=== PATIENT | male | born 1955 | race Caucasian/White ===

== ENCOUNTER → 2018-10-25 | Outpatient (CLI) | payer BC ==
[~2018-10-25] MED LIST: DOBUTamine DRIP for NUC MED 500 MG in DEXTROSE/WATER 1 250ML.BAG IV ONE
--- NOTE | 2018-10-25 09:41 | US ---
EXAMINATION TYPE: US carotid duplex BILAT DATE OF EXAM: 10/25/2018 COMPARISON: NONE CLINICAL HISTORY: I65.21 Occlusion and stenosis, R07.89 Chest Pain. HTN controlled with meds, no dizz iness EXAM MEASUREMENTS: RIGHT: Peak Systolic Velocity (PSV) cm/sec ----- Right CCA: 75.6 ----- Right ICA: 75.6 ----- Right ECA: 63.4 ICA/CCA ratio: 1.0 RIGHT: End Diastole cm/sec ----- Right CCA: 18.0 ----- Right ICA: 26.7 ----- Right ECA: 10.1 LEFT: Peak Systolic Velocity (PSV) cm/sec ----- Left CCA: 80.0 ----- Left ICA: 75.9 ----- Left ECA: 62.5 ICA/CCA ratio: 0.9 LEFT: End Diastole cm/sec ----- Left CCA: 17.1 ----- Left ICA: 15.3 ----- Left ECA: 9.3 VERTEBRALS (direction of flow): Right Vertebral: Antegrade Left Vertebral: Antegrade Rhythm: Normal Bilateral wall thickening. Plaque seen in bilateral bulbs. No elevated velocities or significant st enosis. IMPRESSION: 1. Bilateral atherosclerotic plaque with no significant hemodynamic stenosis. Criteria for Assigning % of Stenosis / Diameter reduction (Estimation based on the indirect measurements of the internal carotid artery velocities (ICA PSV). 1. Normal (no stenosis)=ICA PSV < 125 cm/s: ratio < 2.0: ICA EDV<40 cm/s. 2. Less than 50% stenosis=ICA PSV < 125 cm/s: ratio < 2.0: ICA EDV<40 cm/s. 3. 50 to 69% stenosis=ICA PSV of 125 to 230 cm/s: ration 2.0 ? 4.0: ICA EDV 40-100 cm/s. 4. Greater than 70% stenosis to near occlusion= ICA PSV > 230 cm/s: ratio > 4.0: ICA EDV > 100 cm/s. 5. Near occlusion= ICA PSV velocities may be low or undetectable: variable ratio and ICA EDV. 6. Total occlusion=unable to detect flow.
--- NOTE | 2018-10-25 11:33 | P.STRESS ---
- Stress Test Note Stress Test Results/Findings: Exam Performed: dobutamine stress echo Exam Date: 10/25/18 Reason for Exam: Chest Pain Height: 6 ft Weight: 98.883 kg Protocol: Dobutamine Stage: na Duration of Exercise: na Resting Heart Rate: 56 Resting Blood Pressure: 160/82 Maximum Achieved Heart Rate: 132 Maximum Achieved Blood Pressure: 169/63 85% PMHR: 132 100% PMHR: 155 METS: na Technologist Comment: Stress Test Results/Findings: Baseline heart rate 56 beats a minute, Baseline blood pressure 160/82 mmHg Baseline Torrisi should ulcers were normal cardiac intervals Patient exercised on a Doni protocol for 8 minutes 44 seconds achieving a peak 100 132 beats a minute. Normal blood pressure response to exercise There was no ECG in Cerner ischemia No arrhythmias noted The baseline 2-D echo showed normal LV size and systolic function without segmental wall motion abnormalities At peak exercise, there was excellent augmentation of overall LV contractility without development of any wall motion abnormalities @Recovery region global LV systolic function remained normal Impression ALLERGY excess capacity No ECG or echocardiographic evidence for ischemia
== END ==
LOC: RADUSMAIN 07:52
PROVIDERS: ATTEND Family Medicine
DX: R07.89 Other chest pain (principal); I65.21 Occlusion and stenosis of right carotid artery
CPT/HCPCS: 93351; 93880; J1250

== ENCOUNTER → 2019-05-14 | Outpatient (CLI) | payer BC ==
--- NOTE | 2019-05-14 08:27 | US ---
EXAMINATION TYPE: US duplex aorta DATE OF EXAM: 05/14/2019 COMPARISON: NONE CLINICAL HISTORY: I70.0 Atherosclerosis of aorta. Patient states atherosclerosis of aorta seen on rec ent x-ray, states no other symptoms. EXAM MEASUREMENTS: Abdominal Aorta: Proximal: 2.5 x 2.5cm Mid: 2.1 x 2.0cm Distal: 1.5 x 1.5cm Right Iliac: 1.1 x 1.1cm Left Iliac: 1.1 x 1.0cm Proximal portion measuring in upper limits of normal. IMPRESSION: 1. No aneurysm on screening abdominal ultrasound of the aorta
== END | disposition home or self-care (01) ==
LOC: RADUSWWP 07:37
PROVIDERS: ATTEND Family Medicine
DX: I70.0 Atherosclerosis of aorta (principal)
CPT/HCPCS: 93979

== ENCOUNTER → 2019-05-16 | Outpatient (CLI) | payer BC | END | disposition home or self-care (01) | LOC: LABWHC1 15:41 | PROVIDERS: ATTEND Internal Medicine Cardiovascular Disease | DX: I48.19 Other persistent atrial fibrillation (principal) | CPT/HCPCS: 36415; 84443 ==

== ENCOUNTER → 2019-06-08 | Outpatient (CLI) | payer BC ==
[2019-06-08 12:34] LABS: HCT 44.4 % (39.0-53.0); HGB 14.9 gm/dL (13.0-17.5); MCH 32.6 pg (25.0-35.0); MCHC 33.4 g/dL (31.0-37.0); MCV 97.6 fL (80.0-100.0); Mean Platelet Volume 7.6; Platelet Count 224 k/uL (150-450); RBC 4.55 m/uL (4.30-5.90); RDW 12.3 % (11.5-15.5); WBC 5.5 k/uL (3.8-10.6)
[2019-06-08 12:41] LABS: African American GFR (CKD) >90 (>60 ml/min/1.73 sqM); Anion Gap 7 mmol/L; Blood Urea Nitrogen 16 mg/dL (9-20); Carbon Dioxide 30 mmol/L (22-30); Chloride 103 mmol/L (98-107); Non-African American GFR(CKD) >90 (>60 ml/min/1.73 sqM); Potassium 4.2 mmol/L (3.5-5.1); Sodium 140 mmol/L (137-145)
== END | disposition home or self-care (01) ==
LOC: LABPAT 12:05
PROVIDERS: ATTEND Internal Medicine Cardiovascular Disease
DX: Z01.812 Encounter for preprocedural laboratory examination (principal); I48.11 Longstanding persistent atrial fibrillation
CPT/HCPCS: 80051; 82565; 84520; 85027

== ENCOUNTER 2019-06-12 06:28 | Day surgery (SDC) | payer BC ==
[2019-06-08 09:13] VITALS: BMI 30.3
[~2019-06-12 06:28] MED LIST changes: -DOBUTamine DRIP for NUC MED 500 MG in DEXTROSE/WATER 1 250ML.BAG IV ONE; +LACTATED RINGERS 1,000 ML IV SCH; +LIDOCAINE 1% 20 ML VIAL (10MG/ML) FOR IV START INTRADERMA PRN; +MORPHINE SULFATE 4 MG/ML SYRINGE IV PRN; +SODIUM CHLORIDE 0.9% 1,000 ML IV SCH
[2019-06-12 06:44] VITALS: TEMP 98
[2019-06-12] MEDS ORDERED: SODIUM CHLORIDE 0.9% 500 ML 500 ML IV ONE (06:52)
[2019-06-12] MEDS: BENZOCAINE SPRAY 1 CAN MUCOUS MEM ONE ×2 (07:58→08:00)
[2019-06-12] MEDS ORDERED: PROPOFOL 10 MG/ML 20 ML VIAL IV ONE (07:59)
[2019-06-12] MEDS ORDERED: LIDOCAINE 1% INJ 10MG/ML (20 ML MDV) ONE (07:59)
[2019-06-12] MEDS ORDERED: SODIUM CHLORIDE 0.9% 1,000 ML IV SCH (08:30)
--- NOTE | 2019-06-12 08:41 | ECHOT ---
TRANSESOPHAGEAL ECHOCARDIOGRAM PROCEDURE: Transesophageal echocardiogram. INDICATION: Persistent atrial fibrillation. PROCEDURE NOTE: After obtaining informed consent, transesophageal echocardiogram was performed in left lateral position using an Omniplane probe. Local and IV sedation were obtained by blade grader operator. FINDINGS: 1. There is no intracardiac thrombus within the left atrial appendage, left atrium, left ventricle, right atrium or right ventricle. 2. Left atrium appears mildly enlarged. 3. Left ventricle has normal size and systolic function. 4. Right atrium and right ventricle within normal limits. 5. Interatrial septum appears aneurysmally dilated. There is no evidence of left-to- right shunt by color-flow Doppler or [id number] shunt by agitated saline contrast study. 6. Aortic valve is a 3-leaflet valve. There is no evidence of aortic stenosis or regurgitation. 7. Tricuspid valve shows trace tricuspid regurgitation. 8. Mitral valve shows mild to moderate mitral regurgitation. 9. Aorta: The aortic sinuses are ectatic. The root measures 4.4 cm at that level. Ascending aorta measures within normal limits. CONCLUSIONS: 1. No intracardiac thrombus within the left atrial appendage. 2. Normal left ventricular function. 3. Mild to moderate mitral regurgitation. 4. Aneurysm of the aortic sinuses. PLAN: The patient will undergo cardioversion. MMODL / IJN: [id number] /
--- NOTE | 2019-06-12 08:47 | CE ---
CARDIAC ELECTROPHYSIOLOGY REPORT CARDIOVERSION NOTE: INDICATION: Persistent atrial fibrillation. PROCEDURE NOTE: After obtaining informed consent and confirming that there is no intracardiac thrombus by transesophageal echo and ensuring the patient had been receiving long-term oral anticoagulation, the patient was anesthetized by the food and drug research scientist and underwent cardioversion with synchronized DC current. The patient received 2 shocks, one at 200 joules and the second one at 300 joules and following the second shock converted to sinus rhythm. PLAN: Patient will continue the oral anticoagulant. Will be discharged home later today and will follow up with me. RICK / EVARISTO: [id number] /
--- NOTE | 2019-06-12 08:53 | LTR ---
June 12, 2019 Re: Bennie Estrada Dear Cici: I performed transesophageal echo and cardioversion on Bennie Estrada. A detailed report is enclosed for your records. The patient converted to sinus rhythm following the cardioversion and will continue with the oral anticoagulant. Thank you for allowing me to participate in the care of this pleasant gentleman. Sincerely, MD RICK Ross / EVARISTO: [id number] /
[2019-06-12 09:02] VITALS: RESP 16
[2019-06-12 10:43] VITALS: BP 147/74; PULSE 71
== END 2019-06-12 10:15 | disposition home or self-care (01) ==
LOC: CATHCVL 06:28
PROVIDERS: ATTEND Internal Medicine Cardiovascular Disease
DX: I48.19 Other persistent atrial fibrillation (principal); I34.0 Nonrheumatic mitral (valve) insufficiency; I71.9 Aortic aneurysm of unspecified site, without rupture; I10 Essential (primary) hypertension; K21.9 Gastro-esophageal reflux disease without esophagitis; Z79.899 Other long term (current) drug therapy; F17.210 Nicotine dependence, cigarettes, uncomplicated; Z79.01 Long term (current) use of anticoagulants
CPT/HCPCS: 93312; 93320; 93325; 92960; J2001; J2704

== ENCOUNTER 2020-03-05 06:36 | Day surgery (SDC) | payer MEDICARE, OTHER ==
[2020-02-29 13:40] VITALS: BMI 31.1
[~2020-03-05 06:36] MED LIST changes: +FAMOTIDINE 20 MG/2 ML VIAL IV PRN; +HYDROmorphone 0.5 MG/0.5 ML SYRINGE IVP PRN; -LIDOCAINE 1% 20 ML VIAL (10MG/ML) FOR IV START INTRADERMA PRN; -MORPHINE SULFATE 4 MG/ML SYRINGE IV PRN; +ONDANSETRON 4 MG/2 ML VIAL IVP PRN; -SODIUM CHLORIDE 0.9% 1,000 ML IV SCH
[2020-03-05] MEDS ORDERED: SODIUM CHLORIDE 0.9% 1,000 ML IV SCH ×2 (06:45→09:45)
[2020-03-05 07:40] VITALS: TEMP 98
[2020-03-05] MEDS ORDERED: SODIUM CHLORIDE 0.9% 500 ML 500 ML IV ONE ×2 (07:40→09:05)
[2020-03-05 07:44] LABS: African American GFR (CKD) >90 (>60 ml/min/1.73 sqM); Anion Gap 9 mmol/L; Blood Urea Nitrogen 22 mg/dL (9-20); Calcium 9.2 mg/dL (8.4-10.2); Carbon Dioxide 27 mmol/L (22-30); Chloride 103 mmol/L (98-107); Glucose 117 mg/dL (74-99); Non-African American GFR(CKD) >90 (>60 ml/min/1.73 sqM); Potassium 4.2 mmol/L (3.5-5.1); Sodium 139 mmol/L (137-145)
[2020-03-05] MEDS ORDERED: PROPOFOL 10 MG/ML 20 ML VIAL IV ONE (08:20)
--- NOTE | 2020-03-05 09:23 | ECHOT ---
TRANSESOPHAGEAL ECHOCARDIOGRAM PROCEDURE: TIMMY. INDICATION: Persistent atrial fibrillation. PROCEDURE NOTE: After obtaining informed consent, transesophageal echocardiogram is performed in left lateral position using an Omni plane probe. Local and IV sedation were obtained by the director alliance marketing. The patient had color Doppler and 2D evaluation. tolerated the procedure well. FINDINGS: 1. There is no intracardiac thrombus within the left atrial appendage, left atrium, right atrium, right ventricle or left ventricle. 2. Mitral valve shows mild prolapse of the anterior mitral leaflet with mild mitral regurgitation. 3. There is mild tricuspid regurgitation. 4. Left ventricle has normal size and systolic function. 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 5. Interatrial septum appears aneurysmally dilated. There is no evidence of left-to- right shunt by color-flow Doppler or [id number] shunt by agitated saline contrast study. CONCLUSION: 1. No intracardiac thrombus. 2. Normal LV function. 3. No evidence of shunting across the interatrial septum. 4. Mild mitral regurgitation. CARDIOVERSION NOTE: INDICATION: Persistent atrial fibrillation. PROCEDURE NOTE: After obtaining informed consent, patient was sedated by the director alliance marketing and underwent electrical cardioversion with synchronized current. He initially received 200 joules of shock with which he did not convert, then I shocked him with 300 joules following which he converted to sinus rhythm. PLAN: Patient will continue the flecainide that he is on along with the Eliquis and will be discharged home later today. MMODL / IJN: [id number] /
--- NOTE | 2020-03-05 09:59 | LTR ---
DATE OF SERVICE: 03/05/2020 RE: Bennie Estrada Dear Cici; I performed TIMMY cardioversion on Bennie Estrada and a detailed procedure note is enclosed for your records. In brief, patient converted to sinus rhythm following 300 joule synchronized DC shock. Thank you for giving us the privilege to participate in the care of this pleasant gentleman. Sincerely, MD RICK Ross / EVARISTO: [id number] /
[2020-03-05 12:57] VITALS: BP 132/77; PULSE 68; RESP 16
== END 2020-03-05 10:35 | disposition home or self-care (01) ==
LOC: CATHCVL 06:36
PROVIDERS: ATTEND Internal Medicine Cardiovascular Disease
DX: I48.19 Other persistent atrial fibrillation (principal); I08.1 Rheumatic disorders of both mitral and tricuspid valves; I77.810 Thoracic aortic ectasia; I10 Essential (primary) hypertension; G89.29 Other chronic pain; M54.9 Dorsalgia, unspecified; M19.90 Unspecified osteoarthritis, unspecified site; K21.9 Gastro-esophageal reflux disease without esophagitis; Z79.899 Other long term (current) drug therapy; Z79.891 Long term (current) use of opiate analgesic; Z79.01 Long term (current) use of anticoagulants; Z87.891 Personal history of nicotine dependence; Z90.89 Acquired absence of other organs; Z98.890 Other specified postprocedural states
CPT/HCPCS: 93312; 93320; 93325; 92960; 80048; J2704

== ENCOUNTER 2020-04-25 00:24 | Observation (INO) | payer MEDICARE, OTHER ==
--- NOTE | 2020-04-25 01:00 | ED ---
GI Bleed HPI - General Chief complaint: GI Bleed Stated complaint: Rectal Bleeding Time Seen by Provider: 04/25/20 00:37 Source: patient Mode of arrival: ambulatory Limitations: no limitations - History of Present Illness Initial comments: this patient is a 64-year-old man who presents with complaint of having GI bleeding. The patient states that over the course of tonight he has hada total of 3 bowel movements with bright red blood. Patient describes a moderate amount of blood with each episode. He has not had abdominal or perianal pain. Patient is denying signs and symptoms of anemia, including no lightheadedness or syncope, diaphoresis, dyspnea, palpitations or chest pain. The patient does have previous history of diverticulitis and he does take eliquis for his history of atrial fibrillation, though he did have an ablation 2 weeks ago. MD complaint: gross hematochezia -: hour(s) Quality: painless Improves with: none Worsens with: none Context: blood thinners Associated Symptoms: denies other symptoms Treatments Prior to Arrival: none - Related Data Home Medications Medication Instructions Recorded Confirmed Albuterol Inhaler (Mhu) [Ventolin 2 puff INHALATION RT-Q6H PRN 05/10/16 03/05/20 Hfa Inhaler] Loratadine [Claritin] 10 mg PO DAILY 05/10/16 03/05/20 Omeprazole [PriLOSEC] 20 mg PO DAILY 05/10/16 03/05/20 Apixaban [Eliquis] 5 mg PO BID 06/08/19 03/05/20 Escitalopram [Lexapro] 5 mg PO DAILY PRN 02/29/20 03/05/20 Flecainide Acetate [Tambocor] 100 mg PO Q12HR 02/29/20 03/05/20 HYDROcodone/APAP 5-325MG [[place] 1 tab PO TID PRN 02/29/20 03/05/20 5-325] amLODIPine BES/OLMESARTAN MED 1 each PO DAILY 02/29/20 03/05/20 [amLODIPine BES/OLMESARTAN MED 10-20 mg] Allergies Allergy/AdvReac Type Severity Reaction Status Date / Time No Known Allergies Allergy Verified 04/25/20 00:35 Review of Systems ROS Statement: Those systems with pertinent positive or pertinent negative responses have been documented in the HPI. ROS Other: All systems not noted in ROS Statement are negative. Constitutional: Denies: fever, chills Respiratory: Denies: cough, dyspnea Cardiovascular: Denies: chest pain, palpitations, orthopnea, edema, syncope Gastrointestinal: Reports: hematochezia. Denies: abdominal pain, nausea, vomiting, diarrhea, constipation, melena Genitourinary: Denies: dysuria, hematuria Musculoskeletal: Denies: back pain Skin: Denies: rash Neurological: Denies: headache, weakness, numbness, paresthesias Hematological/Lymphatic: Reports: as per HPI, other (eliquis) Past Medical History Past Medical History: Atrial Fibrillation, GERD/Reflux, Hypertension, Osteoarthritis (OA), Pneumonia Additional Past Medical History / Comment(s): Chronic BACK PAIN History of Any Multi-Drug Resistant Organisms: None Reported Past Surgical History: Heart Catheterization, Tonsillectomy Additional Past Surgical History / Comment(s): ORAL SURGERY, COLONOSCOPY, BACK - STEROID INJECTIONS,TIMMY, cardioversion Past Anesthesia/Blood Transfusion Reactions: No Reported Reaction Past Psychological History: Anxiety Smoking Status: Former smoker Past Alcohol Use History: Occasional Past Drug Use History: None Reported - Past Family History Mother Family Medical History: No Reported History General Exam Limitations: no limitations General appearance: alert, in no apparent distress Head exam: Present: atraumatic, normocephalic Eye exam: Present: normal appearance. Absent: scleral icterus, conjunctival injection ENT exam: Present: normal oropharynx Neck exam: Present: normal inspection Respiratory exam: Present: normal lung sounds bilaterally. Absent: respiratory distress, wheezes, rales, rhonchi, stridor Cardiovascular Exam: Present: regular rate, normal rhythm, normal heart sounds. Absent: systolic murmur, diastolic murmur, rubs, gallop GI/Abdominal exam: Present: soft. Absent: distended, tenderness, guarding, rebound, rigid, mass Extremities exam: Present: normal inspection, normal capillary refill. Absent: pedal edema, calf tenderness Back exam: Present: normal inspection. Absent: CVA tenderness (R), CVA tenderness (L) Neurological exam: Present: alert Skin exam: Present: warm, dry, intact, normal color. Absent: rash Course Vital Signs 04/25/20 04/25/20 04/25/20 00:31 01:35 02:05 Temperature 97.5 F L Pulse Rate 77 70 58 L Pulse Rate [ Left] Respiratory 18 18 18 Rate Blood Pressure 157/74 152/80 129/79 Blood Pressure [Left Arm] O2 Sat by Pulse 99 97 97 Oximetry 04/25/20 02:59 Temperature 97.9 F Pulse Rate Pulse Rate [ 63 Left] Respiratory 16 Rate Blood Pressure Blood Pressure 163/61 [Left Arm] O2 Sat by Pulse 95 Oximetry Medical Decision Making - Lab Data Result diagrams: 04/25/20 00:59 04/25/20 00:59 Lab Results 04/25/20 04/25/20 04/25/20 Range/Units 00:59 00:59 00:59 WBC 5.9 (3.8-10.6) k/uL RBC 4.36 (4.30-5.90) m/uL Hgb 14.5 (13.0-17.5) gm/dL Hct 43.1 (39.0-53.0) % MCV 98.8 (80.0-100.0) fL MCH 33.3 (25.0-35.0) pg MCHC 33.7 (31.0-37.0) g/dL RDW 12.4 (11.5-15.5) % Plt Count 194 (150-450) k/uL Neutrophils % 41 % Lymphocytes % 48 % Monocytes % 5 % Eosinophils % 1 % Basophils % 1 % Neutrophils # 2.4 (1.3-7.7) k/uL Lymphocytes # 2.9 (1.0-4.8) k/uL Monocytes # 0.3 (0-1.0) k/uL Eosinophils # 0.1 (0-0.7) k/uL Basophils # 0.0 (0-0.2) k/uL PT 10.5 (9.0-12.0) sec INR 1.0 (<1.2) APTT 26.9 (22.0-30.0) sec Sodium 137 (137-145) mmol/L Potassium 3.9 (3.5-5.1) mmol/L Chloride 103 (98-107) mmol/L Carbon Dioxide 27 (22-30) mmol/L Anion Gap 7 mmol/L BUN 19 (9-20) mg/dL Creatinine 0.78 (0.66-1.25) mg/dL Est GFR (CKD-EPI)AfAm >90 (>60 ml/min/1.73 sqM) Est GFR (CKD-EPI)NonAf >90 (>60 ml/min/1.73 sqM) Glucose 114 H (74-99) mg/dL Plasma Lactic Acid Alex (0.7-2.0) mmol/L Calcium 9.2 (8.4-10.2) mg/dL Total Bilirubin 0.4 (0.2-1.3) mg/dL AST 46 (17-59) U/L ALT 66 H (4-49) U/L Alkaline Phosphatase 60 (38-126) U/L Troponin I (0.000-0.034) ng/mL Total Protein 7.6 (6.3-8.2) g/dL Albumin 4.6 (3.5-5.0) g/dL Blood Type Blood Type Confirm Blood Type Recheck Bld Type Recheck Status Antibody Screen Spec Expiration Date 04/25/20 04/25/20 04/25/20 Range/Units 00:59 00:59 00:59 WBC (3.8-10.6) k/uL RBC (4.30-5.90) m/uL Hgb (13.0-17.5) gm/dL Hct (39.0-53.0) % MCV (80.0-100.0) fL MCH (25.0-35.0) pg MCHC (31.0-37.0) g/dL RDW (11.5-15.5) % Plt Count (150-450) k/uL Neutrophils % % Lymphocytes % % Monocytes % % Eosinophils % % Basophils % % Neutrophils # (1.3-7.7) k/uL Lymphocytes # (1.0-4.8) k/uL Monocytes # (0-1.0) k/uL Eosinophils # (0-0.7) k/uL Basophils # (0-0.2) k/uL PT (9.0-12.0) sec INR (<1.2) APTT (22.0-30.0) sec Sodium (137-145) mmol/L Potassium (3.5-5.1) mmol/L Chloride (98-107) mmol/L Carbon Dioxide (22-30) mmol/L Anion Gap mmol/L BUN (9-20) mg/dL Creatinine (0.66-1.25) mg/dL Est GFR (CKD-EPI)AfAm (>60 ml/min/1.73 sqM) Est GFR (CKD-EPI)NonAf (>60 ml/min/1.73 sqM) Glucose (74-99) mg/dL Plasma Lactic Acid Alex 1.4 (0.7-2.0) mmol/L Calcium (8.4-10.2) mg/dL Total Bilirubin (0.2-1.3) mg/dL AST (17-59) U/L ALT (4-49) U/L Alkaline Phosphatase (38-126) U/L Troponin I <0.012 (0.000-0.034) ng/mL Total Protein (6.3-8.2) g/dL Albumin (3.5-5.0) g/dL Blood Type O Positive Blood Type Confirm Blood Type Recheck No Previous Record Bld Type Recheck Status CABO Indicated Antibody Screen NEGATIVE Spec Expiration Date 04/28/2020 - 235804/25/20 Range/Units 01:10 WBC (3.8-10.6) k/uL RBC (4.30-5.90) m/uL Hgb (13.0-17.5) gm/dL Hct (39.0-53.0) % MCV (80.0-100.0) fL MCH (25.0-35.0) pg MCHC (31.0-37.0) g/dL RDW (11.5-15.5) % Plt Count (150-450) k/uL Neutrophils % % Lymphocytes % % Monocytes % % Eosinophils % % Basophils % % Neutrophils # (1.3-7.7) k/uL Lymphocytes # (1.0-4.8) k/uL Monocytes # (0-1.0) k/uL Eosinophils # (0-0.7) k/uL Basophils # (0-0.2) k/uL PT (9.0-12.0) sec INR (<1.2) APTT (22.0-30.0) sec Sodium (137-145) mmol/L Potassium (3.5-5.1) mmol/L Chloride (98-107) mmol/L Carbon Dioxide (22-30) mmol/L Anion Gap mmol/L BUN (9-20) mg/dL Creatinine (0.66-1.25) mg/dL Est GFR (CKD-EPI)AfAm (>60 ml/min/1.73 sqM) Est GFR (CKD-EPI)NonAf (>60 ml/min/1.73 sqM) Glucose (74-99) mg/dL Plasma Lactic Acid Alex (0.7-2.0) mmol/L Calcium (8.4-10.2) mg/dL Total Bilirubin (0.2-1.3) mg/dL AST (17-59) U/L ALT (4-49) U/L Alkaline Phosphatase (38-126) U/L Troponin I (0.000-0.034) ng/mL Total Protein (6.3-8.2) g/dL Albumin (3.5-5.0) g/dL Blood Type Blood Type Confirm O Positive Blood Type Recheck Bld Type Recheck Status Antibody Screen Spec Expiration Date - EKG Data -: EKG Interpreted by Me EKG shows normal: sinus rhythm, axis (normal), intervals (normal), QRS complexes (normal), ST-T waves (normal) Rate: normal (rate 66 bpm) Disposition Clinical Impression: Hematochezia Disposition: ADMITTED IP TO THIS [facility] Condition: Good Instructions (If sedation given, give patient instructions): Gastrointestinal Bleeding (ED) Is patient prescribed a controlled substance at d/c from ED?: No Referrals: Cici Cordova MD [Primary Care Provider] - 1-2 days
[2020-04-25 01:14] LABS: Basophils % (A) 1 %; Eosinophils # (A) 0.1 k/uL (0-0.7); Eosinophils % (A) 1 %; HCT 43.1 % (39.0-53.0); HGB 14.5 gm/dL (13.0-17.5); Lymphocytes # (A) 2.9 k/uL (1.0-4.8); Lymphocytes % (A) 48 %; MCH 33.3 pg (25.0-35.0); MCHC 33.7 g/dL (31.0-37.0); MCV 98.8 fL (80.0-100.0); Mean Platelet Volume 7.3; Monocytes # (A) 0.3 k/uL (0-1.0); Monocytes % (A) 5 %; Neutrophils # (A) 2.4 k/uL (1.3-7.7); Neutrophils % (A) 41 %; Platelet Count 194 k/uL (150-450); RBC 4.36 m/uL (4.30-5.90); RDW 12.4 % (11.5-15.5); WBC 5.9 k/uL (3.8-10.6)
[2020-04-25 01:24] LABS: ALT 66 U/L (4-49); AST 46 U/L (17-59); African American GFR (CKD) >90 (>60 ml/min/1.73 sqM); Albumin 4.6 g/dL (3.5-5.0); Alkaline Phosphatase 60 U/L (38-126); Anion Gap 7 mmol/L; Blood Urea Nitrogen 19 mg/dL (9-20); Calcium 9.2 mg/dL (8.4-10.2); Carbon Dioxide 27 mmol/L (22-30); Chloride 103 mmol/L (98-107); Glucose 114 mg/dL (74-99); Non-African American GFR(CKD) >90 (>60 ml/min/1.73 sqM); Potassium 3.9 mmol/L (3.5-5.1); Sodium 137 mmol/L (137-145); Total Bilirubin 0.4 mg/dL (0.2-1.3); Total Protein 7.6 g/dL (6.3-8.2)
[2020-04-25 01:27] LABS: Partial Thromboplastin Time 26.9 sec (22.0-30.0); Prothrombin Time 10.5 sec (9.0-12.0)
[2020-04-25] MEDS ORDERED: ONDANSETRON 4 MG/2 ML VIAL IVP PRN (01:39)
[2020-04-25] MEDS ORDERED: ACETAMINOPHEN TAB 325 MG TAB PO PRN (01:39)
[2020-04-25] MEDS ORDERED: HYDROmorphone 0.5 MG/0.5 ML SYRINGE IVP PRN (01:39)
[2020-04-25] MEDS ORDERED: NALOXONE 0.4 MG/ML 1 ML VIAL IV PRN (01:39)
[2020-04-25] MEDS ORDERED: MORPHINE SULFATE 4 MG/ML SYRINGE IV PRN (01:39)
[2020-04-25] MEDS: SODIUM CHLORIDE 0.9% 1,000 ML IV SCH (01:51)
[2020-04-25 04:41] LABS: Basophils % (A) 1 %; Eosinophils # (A) 0.1 k/uL (0-0.7); Eosinophils % (A) 1 %; HCT 39.9 % (39.0-53.0); HGB 13.1 gm/dL (13.0-17.5); Lymphocytes # (A) 1.9 k/uL (1.0-4.8); Lymphocytes % (A) 42 %; MCHC 32.9 g/dL (31.0-37.0); MCV 100.5 fL (80.0-100.0); Mean Platelet Volume 7.5; Monocytes # (A) 0.2 k/uL (0-1.0); Monocytes % (A) 5 %; Neutrophils # (A) 2.2 k/uL (1.3-7.7); Neutrophils % (A) 49 %; Platelet Count 167 k/uL (150-450); RBC 3.97 m/uL (4.30-5.90); RDW 12.3 % (11.5-15.5); WBC 4.5 k/uL (3.8-10.6)
[2020-04-25] MEDS: PANTOPRAZOLE 40 MG/10 ML VIAL IV SCH (08:15)
[2020-04-25] MEDS ORDERED: ALBUTEROL NEBULIZED 2.5 MG/3 ML INHALATION PRN (08:40)
[2020-04-25] MEDS ORDERED: ESCITALOPRAM 5 MG TAB PO PRN (08:40)
--- NOTE | 2020-04-25 10:05 | P.HPIM ---
History of Present Illness H&P Date: 04/25/20 Chief Complaint: Lower GI Bleeding This is a 64-year-old male patient of Dr. Cordova who presented to the ER with complaints of GI bleed. Patient reports that GI bleed has been occurring for since yesterday evening with 3 episodes of bright red blood at home. Patient denies any abdominal pain or nausea and vomiting. Patient does have a past medical history of diverticulitis and is currently maintained on eliquis for atrial fibrillation. Patient reports he did have an episode previously of bleeding in his history but never this severe. Additional medical history inc ludes A. fib, GERD, hypertension, osteoporosis, pneumonia and chronic back pain. Stool positive for occult blood. Hemoglobin stable at 13.1. Patient reports last colonoscopy was approximately 5 years ago and was normal. Patient denies any change to diet. Occasional alcohol use. At this time patient is resting comfortably in bed GI services have been consulted. We'll continue to monitor hemoglobin closely and transfuse if needed. Patient denies chest pain or shortness breath. Patient denies nausea vomiting or diarrhea. Patient denies any urinary burning or frequency. Review of Systems Please refer to HPI otherwise unremarkable Past Medical History Past Medical History: Atrial Fibrillation, GERD/Reflux, Hypertension, Osteoarthritis (OA), Pneumonia Additional Past Medical History / Comment(s): Chronic BACK PAIN History of Any Multi-Drug Resistant Organisms: None Reported Past Surgical History: Heart Catheterization, Tonsillectomy Additional Past Surgical History / Comment(s): ORAL SURGERY, COLONOSCOPY, BACK - STEROID INJECTIONS,TIMMY, cardioversion Past Anesthesia/Blood Transfusion Reactions: No Reported Reaction Past Psychological History: Anxiety Smoking Status: Former smoker Past Alcohol Use History: Occasional Past Drug Use History: None Reported - Past Family History Mother Family Medical History: No Reported History Medications and Allergies Home Medications Medication Instructions Recorded Confirmed Type Loratadine [Claritin] 10 mg PO DAILY 05/10/16 04/25/20 History Omeprazole [PriLOSEC] 20 mg PO DAILY 05/10/16 04/25/20 History Apixaban [Eliquis] 5 mg PO BID 06/08/19 04/25/20 History Escitalopram [Lexapro] 5 mg PO DAILY PRN 02/29/20 04/25/20 History Flecainide Acetate [Tambocor] 100 mg PO Q12HR 02/29/20 04/25/20 History HYDROcodone/APAP 5-325MG [[place] 1 tab PO TID PRN 02/29/20 04/25/20 History 5-325] amLODIPine BES/OLMESARTAN MED 1 tab PO DAILY 02/29/20 04/25/20 History [amLODIPine BES/OLMESARTAN MED 10-20 mg] Albuterol Sulfate [Albuterol 2 puff PO RT-Q6H PRN 04/25/20 04/25/20 History Sulfate Hfa] Allergies Allergy/AdvReac Type Severity Reaction Status Date / Time No Known Allergies Allergy Verified 04/25/20 07:49 Physical Exam Vitals: Vital Signs Temp Pulse Pulse Resp BP BP Pulse Ox 04/25/20 06:34 98.0 F 68 16 160/80 96 04/25/20 04:50 97.7 F 58 L 16 143/70 96 04/25/20 02:59 97.9 F 63 16 163/61 95 04/25/20 02:05 58 L 18 129/79 97 04/25/20 01:35 70 18 152/80 97 04/25/20 00:31 97.5 F L 77 18 157/74 99 Intake and Output 04/24/20 04/25/20 04/25/20 22:59 06:59 14:59 Intake Total 500 Balance 500 Intake: Intake, IV Titration 100 Amount Sodium Chloride 0.9% 1, 100 000 ml @ 20 mls/hr IV . Q24H MARIELOS Rx#:[id number] Oral 400 Other: # Voids 2 Weight 108.862 kg Head normocephalic Neck supple Lungs clear to auscultation bilaterally no wheezing or crackles Heart regular rate and rhythm S1-S2, no rub or gallop Abdomen is soft nontender nondistended positive bowel sounds no hepatosplenomegaly Extremities no edema Neuro alert and orientated to 3 Results CBC & Chem 7: 04/25/20 04:13 04/25/20 00:59 Labs: Abnormal Lab Results - Last 24 Hours (Table) 04/25/20 04/25/20 Range/Units 00:59 04:13 RBC 3.97 L (4.30-5.90) m/uL MCV 100.5 H (80.0-100.0) fL Glucose 114 H (74-99) mg/dL ALT 66 H (4-49) U/L Thrombosis Risk Factor Assmnt - Choose All That Apply Any of the Below Risk Factors Present?: Yes Each Factor Represents 1 point: Obesity (BMI >25) Other Risk Factors: Yes Each Risk Factor Represents 2 Points: Age 61-74 years Other congenital or acquired thrombophilia - If yes, enter type in comment: No Thrombosis Risk Factor Assessment Total Risk Factor Score: 3 Thrombosis Risk Factor Assessment Level: Moderate Risk Assessment and Plan Assessment: 1. Acute GI bleed. Patient's anticoagulation currently on hold GI services have been consulted. Continue to monitor hemoglobin closely 2. History of atrial fibrillation. Patient maintained on eliquis eliquis currently on hold 3. History of diverticulitis 4. History of essential hypertension 5. History of chronic back pain 6. History of pneumonia DVT prophylaxis SCDs, eliquis currently on hold due to GI bleed. GI prophylaxis Protonix GI services have been consulted Continue monitoring hemoglobin closely and transfuse if needed Clear liquid diet Time with Patient: Greater than 30 (Greater than 60% of the total time spent in counseling and coordination of care)
[2020-04-25] MEDS: LOSARTAN 50 MG TAB PO SCH (10:54)
[2020-04-25] MEDS: amLODIPine 10 MG TAB PO SCH (10:54)
[2020-04-25] MEDS: LORATADINE 10 MG TAB PO SCH (10:55)
[2020-04-25] MEDS: FLECAINIDE 50 MG TAB PO SCH ×2 (10:56→20:00)
[2020-04-25 12:32] LABS: Basophils % (A) 1 %; Eosinophils % (A) 1 %; HGB 13.8 gm/dL (13.0-17.5); Lymphocytes # (A) 1.4 k/uL (1.0-4.8); Lymphocytes % (A) 33 %; MCH 32.8 pg (25.0-35.0); MCHC 32.8 g/dL (31.0-37.0); MCV 100.1 fL (80.0-100.0); Mean Platelet Volume 7.4; Monocytes # (A) 0.3 k/uL (0-1.0); Monocytes % (A) 6 %; Neutrophils # (A) 2.5 k/uL (1.3-7.7); Neutrophils % (A) 57 %; Platelet Count 191 k/uL (150-450); RBC 4.19 m/uL (4.30-5.90); RDW 12.3 % (11.5-15.5); WBC 4.4 k/uL (3.8-10.6)
[2020-04-25] MEDS ORDERED: bisacodyL 5 MG TABLET.DR PO STA (15:20)
[2020-04-25] MEDS ORDERED: PEG 3350-NA SULF,BICARB,CL/KCL 4,000 ML BOTTLE PO ONE (17:00)
[2020-04-25] MEDS: HYDROcodone/APAP 5-325MG 1 EACH TAB PO PRN ×2 (17:01→21:38)
[2020-04-25 18:02] LABS: Basophils % (A) 1 %; Eosinophils # (A) 0.1 k/uL (0-0.7); Eosinophils % (A) 1 %; HCT 47.1 % (39.0-53.0); HGB 14.6 gm/dL (13.0-17.5); Lymphocytes # (A) 1.9 k/uL (1.0-4.8); Lymphocytes % (A) 41 %; MCH 31.7 pg (25.0-35.0); MCHC 31.1 g/dL (31.0-37.0); Macrocytosis Slight; Mean Platelet Volume 7.2; Monocytes # (A) 0.2 k/uL (0-1.0); Monocytes % (A) 5 %; Neutrophils # (A) 2.3 k/uL (1.3-7.7); Neutrophils % (A) 50 %; Platelet Count 194 k/uL (150-450); RBC 4.61 m/uL (4.30-5.90); WBC 4.6 k/uL (3.8-10.6)
[2020-04-26] MEDS: SODIUM CHLORIDE 0.9% 1,000 ML IV SCH (01:51)
[2020-04-26] MEDS ORDERED: PROPOFOL 10 MG/ML 20 ML VIAL IV ONE (08:04)
[2020-04-26] MEDS ORDERED: IV FLUID CONTINUATION 1,000 ML IV ONE ×2 (08:08)
--- NOTE | 2020-04-26 08:47 | P.CONS ---
History of Present Illness - Reason for Consult Consult date: 04/25/20 Lower GI bleed Requesting physician: Nelsy Zuniga - Chief Complaint Blood per rectum - History of Present Illness 64-year-old male with multiple medical comorbidities including hypertension, osteoporosis, GERD, chronic back pain, atrial fibrillation on anticoagulation therapy who presented to the hospital with complaints of blood per rectum. The patient reports 3 bloody bowel movements prior to presentation. Subsequently he had more blood per rectum described as a gross red blood. He reports a history of diverticulitis in the past. Last colonoscopy was over 6 years ago significant for diverticulosis. He denies any constipation or difficulty with hemorrhoids. No abdominal pain reported currently but the patient did have severe pain in the left lower quadrant of his abdomen prior to the symptoms. Stool testing was positive for blood. INR 1.0, WBC 4.5, hemoglobin 13, platelet count 167,000 with total bilirubin 0.4, alkaline phosphatase 60, AST 46 and ALT 66. Review of Systems REVIEW OF SYSTEMS: CONSTITUTIONAL: Denies any fevers, chills, weight change or fatigue. CARDIOVASCULAR: Denies any chest pain, palpitations high or low blood pressures RESPIRATORY: Denies any shortness of breath, hemoptysis or cough. GENITOURINARY: No dysuria or hematuria. MUSCULOSKELETAL: No weakness reported. SKIN: Denies any new rashes or lesions, jaundice or pallor. PSYCHIATRIC: Denies any depression or anxiety. NEUROLOGY: Denies headache, denies any new focal deficits. EARS/NOSE/THROAT: No recent hearing change, congestion, nasal discharge or sore throat. EYES: No pain in eyes, discharge or change in vision. GASTROINTESTINAL: As per HPI. Past Medical History Past Medical History: Atrial Fibrillation, GERD/Reflux, Hypertension, Osteoarthritis (OA), Pneumonia Additional Past Medical History / Comment(s): Chronic BACK PAIN History of Any Multi-Drug Resistant Organisms: None Reported Past Surgical History: Heart Catheterization, Tonsillectomy Additional Past Surgical History / Comment(s): ORAL SURGERY, COLONOSCOPY, BACK - STEROID INJECTIONS,TIMMY, cardioversion Past Anesthesia/Blood Transfusion Reactions: No Reported Reaction Past Psychological History: Anxiety Smoking Status: Former smoker Past Alcohol Use History: Occasional Past Drug Use History: None Reported - Past Family History Mother Family Medical History: No Reported History Medications and Allergies Home Medications Medication Instructions Recorded Confirmed Type Loratadine [Claritin] 10 mg PO DAILY 05/10/16 04/25/20 History Omeprazole [PriLOSEC] 20 mg PO DAILY 05/10/16 04/25/20 History Apixaban [Eliquis] 5 mg PO BID 06/08/19 04/25/20 History Escitalopram [Lexapro] 5 mg PO DAILY PRN 02/29/20 04/25/20 History Flecainide Acetate [Tambocor] 100 mg PO Q12HR 02/29/20 04/25/20 History HYDROcodone/APAP 5-325MG [[place] 1 tab PO TID PRN 02/29/20 04/25/20 History 5-325] amLODIPine BES/OLMESARTAN MED 1 tab PO DAILY 02/29/20 04/25/20 History [amLODIPine BES/OLMESARTAN MED 10-20 mg] Albuterol Sulfate [Albuterol 2 puff PO RT-Q6H PRN 04/25/20 04/25/20 History Sulfate Hfa] Allergies Allergy/AdvReac Type Severity Reaction Status Date / Time No Known Allergies Allergy Verified 04/25/20 07:49 Physical Exam Vitals: Vital Signs Temp Pulse Pulse Resp BP BP Pulse Ox 04/25/20 13:00 97.9 F 60 16 114/65 95 04/25/20 06:34 98.0 F 68 16 160/80 96 04/25/20 04:50 97.7 F 58 L 16 143/70 96 04/25/20 02:59 97.9 F 63 16 163/61 95 04/25/20 02:05 58 L 18 129/79 97 04/25/20 01:35 70 18 152/80 97 04/25/20 00:31 97.5 F L 77 18 157/74 99 Intake and Output 04/25/20 04/25/20 04/25/20 06:59 14:59 22:59 Intake Total 500 640 Balance 500 640 Intake: Intake, IV Titration 100 640 Amount Sodium Chloride 0.9% 1, 100 640 000 ml @ 20 mls/hr IV . Q24H [facility] Rx#:[id number] Oral 400 Other: Voiding Method Toilet # Voids 2 # Bowel Movements 2 Weight 108.862 kg On physical examination, patient appears comfortable in no apparent distress. HEAD: Normocephalic, atraumatic. EYES: No scleral icterus. No conjunctival injection. MOUTH: No lesions, tongue midline. NECK: Trachea midline, no gross abnormalities. CHEST: Clear to auscultation with no wheezing or rhonchi appreciated. HEART: S1-S2 appreciated. ABDOMEN: Soft, nontender to palpation. Bowel sounds are positive. No o rganomegaly. No guarding or rigidity. EXTREMITIES: No pedal edema. SKIN: No rashes, no jaundice. NEUROLOGIC: Alert and oriented x3. No focal deficits. Results CBC & Chem 7: 04/25/20 17:42 04/25/20 00:59 Labs: Abnormal Lab Results - Last 24 Hours (Table) 04/25/20 04/25/20 04/25/20 Range/Units 00:59 04:13 11:59 RBC 3.97 L 4.19 L (4.30-5.90) m/uL MCV 100.5 H 100.1 H (80.0-100.0) fL Glucose 114 H (74-99) mg/dL ALT 66 H (4-49) U/L Assessment and Plan (1) Hematochezia Narrative/Plan: 64-year-old male with multiple medical comorbidities including atrial fibrillation on anticoagulation therapy who presented with multiple episodes of bright red blood per rectum. He does have a known history of diverticulosis with last colonoscopy approximately 6 years ago. He did have some left lower abdominal pain which is currently improved. Unclear etiology with differential including diverticular bleed, AVM, hemorrhoids, or other etiology. Current Visit: Yes Status: Acute Code(s): K92.1 - MELENA SNOMED Code(s): 664577690 (2) Diverticulosis Current Visit: Yes Status: Acute Code(s): K57.90 - DVRTCLOS OF INTEST, PART UNSP, W/O PERF OR ABSCESS W/O BLEED SNOMED Code(s): 493831236 Plan: Supportive care Continue to monitor hemoglobin and hematocrit Transfuse as needed Hold anticoagulation therapy for now Bowel prep ordered Plan for colonoscopy tomorrow for further evaluation All the risks, benefits and possible complications of the procedure discussed with the patient Thank you for allowing us to participate in the care of the patient
--- NOTE | 2020-04-26 08:50 | P.PCN ---
Date of Procedure: 04/26/20 Description of Procedure: BRIEF HISTORY: 64-year-old male with multiple medical comorbidities including hypertension, osteoporosis, GERD, chronic back pain, atrial fibrillation on anticoagulation therapy who presented to the hospital with complaints of blood per rectum. The patient reports 3 bloody bowel movements prior to presentation. Subsequently he had more blood per rectum described as a gross red blood. He reports a history of diverticulitis in the past. Last colonoscopy was over 6 years ago significant for diverticulosis. He denies any constipation or difficulty with hemorrhoids. No abdominal pain reported currently but the patient did have severe pain in the left lower quadrant of his abdomen prior to the symptoms. Stool testing was positive for blood. INR 1.0, WBC 4.5, hemoglobin 13, platelet count 167,000 with total bilirubin 0.4, alkaline phosphatase 60, AST 46 and ALT 66. PROCEDURE PERFORMED: Colonoscopy. PREOPERATIVE DIAGNOSIS: Hematochezia, bright red blood per rectum, history of diverticulosis, last colonoscopy reported as 6 years ago. ESTIMATED BLOOD LOSS: Minimal. IV sedation per Anesthesia. PROCEDURE: After informed consent was obtained, the patient, was brought into the endoscopy unit. IV sedation was administered by Anesthesia under continuous monitoring. Digital rectal examination was normal. Initially the Olympus CF-190 flexible video colonoscope was then inserted in the rectum, gradually advanced into the cecum without any difficulty. Careful examination was performed as the scope was gradually being withdrawn. Ileocecal valve and the appendiceal orifice were visualized and appeared normal. Prep was excellent. Mucosa of the cecum, ascending colon, transverse colon, descending colon, sigmoid colon, and rectum appeared normal. Multiple small and large mouth diverticula noted throughout the entire colon. There was no active bleeding or old blood noted throughout the entire colon. Low-grade internal hemorrhoids. A few diminutive polyps were noted in the colon and not removed in the setting of GI bleeding. Retroflexion was performed in the rectum and no lesions were seen. The patient tolerated the procedure well. IMPRESSION: Pandiverticulosis. Internal hemorrhoids. A few diminutive polyps not removed due to GI bleed. No active bleeding or old blood noted throughout the entire visualized colon. RECOMMENDATIONS: Findings of this examination were discussed with the patient areas okay to resume diet. Okay to resume anticoagulation tomorrow if patient remains stable and no further bleeding. Okay to resume other medications. Would recommend repeat colonoscopy in 6 months for treatment of diminutive polyps not removed in the setting of GI bleed.
[2020-04-26] MEDS: PANTOPRAZOLE 40 MG/10 ML VIAL IV SCH (09:26)
[2020-04-26] MEDS: LOSARTAN 50 MG TAB PO SCH (09:26)
[2020-04-26] MEDS: amLODIPine 10 MG TAB PO SCH (09:26)
[2020-04-26] MEDS: FLECAINIDE 50 MG TAB PO SCH ×2 (09:26→20:21)
[2020-04-26] MEDS: LORATADINE 10 MG TAB PO SCH (09:26)
[2020-04-26 09:55] LABS: Basophils % (A) 1 %; Eosinophils # (A) 0.1 k/uL (0-0.7); Eosinophils % (A) 2 %; HCT 39.5 % (39.0-53.0); Lymphocytes # (A) 1.2 k/uL (1.0-4.8); Lymphocytes % (A) 36 %; MCH 33.3 pg (25.0-35.0); MCHC 32.9 g/dL (31.0-37.0); MCV 100.9 fL (80.0-100.0); Mean Platelet Volume 7.3; Monocytes # (A) 0.2 k/uL (0-1.0); Monocytes % (A) 7 %; Neutrophils # (A) 1.8 k/uL (1.3-7.7); Neutrophils % (A) 52 %; Platelet Count 162 k/uL (150-450); RBC 3.91 m/uL (4.30-5.90); RDW 12.5 % (11.5-15.5); WBC 3.4 k/uL (3.8-10.6)
[2020-04-26 11:21] LABS: African American GFR (CKD) 107.9 (60.0-200.0); Albumin 3.9 g/dL (3.80-4.90); Albumin/Globulin Ratio 1.95 (1.60-3.17); Anion Gap 6.3 mmol/L (4.00-12.00); Calcium 8.1 mg/dL (8.7-10.3); Carbon Dioxide 27.7 mmol/L (21.6-31.8); Non-African American GFR(CKD) 93.1 (60.0-200.0); Potassium 3.9 mmol/L (3.5-5.5); Total Bilirubin 0.5 mg/dL (0.2-1.2); Total Protein 5.9 g/dL (6.2-8.2)
--- NOTE | 2020-04-26 12:50 | P.PN ---
Subjective Progress Note Date: 04/26/20 This is a 64-year-old male patient of Dr. Cordova who presented to the ER with complaints of GI bleed. Patient reports that GI bleed has been occurring for since yesterday evening with 3 episodes of bright red blood at home. Patient denies any abdominal pain or nausea and vomiting. Patient does have a past medical history of diverticulitis and is currently maintained on eliquis for atrial fibrillation. Patient reports he did have an episode previously of bleeding in his history but never this severe. Additional medical history includes A. fib, GERD, hypertension, osteoporosis, pneumonia and chronic back pain. Stool positive for occult blood. Hemoglobin stable at 13.1. Patient reports last colonoscopy was approximately 5 years ago and was normal. Patient denies any change to diet. Occasional alcohol use. At this time patient is resting comfortably in bed GI services have been consulted. We'll continue to monitor hemoglobin closely and transfuse if needed. Patient denies chest pain or shortness breath. Patient denies nausea vomiting or diarrhea. Patient denies any urinary burning or frequency. On 04/26/2020 patient was seen and examined on the medical floor is alert and or iented 3 in no apparent distress there is no fever or chills no headache or dizziness no chest pain no shortness of breath no cough no nausea or vomiting no abdominal pain no diarrhea no blood in the stools no burning with urination no frequency or urgency and no hematuria, he underwent colonoscopy this morning, there was no evidence of bleeding, patient had multiple small diminutive polyps that were not removed, plan per Dr. Burr is to repeat colonoscopy in 6 months for polyp removal. At this time will resume Eliquis, if no new episodes of bleeding will discharge patient to home tomorrow. Objective - Vital Signs Vital signs: Vital Signs Temp 98.4 F 04/26/20 04:40 Pulse 73 04/26/20 04:40 Resp 16 04/26/20 04:40 BP 123/75 04/26/20 04:40 Pulse Ox 97 04/26/20 04:40 Intake & Output 04/25/20 04/25/20 04/26/20 06:59 18:59 06:59 Intake Total 500 640 300 Balance 500 640 300 Weight 108.862 kg Intake: Intake, IV Titration 100 640 300 Amount Sodium Chloride 0.9% 1, 100 640 300 000 ml @ 20 mls/hr IV . Q24H [facility] Rx#:[id number] Oral 400 Other: Voiding Method Toilet Toilet # Voids 2 2 # Bowel Movements 2 3 - Exam In general patient is alert and oriented 3 in no apparent distress HEENT head normocephalic and atraumatic Neck is supple no JVD no goiter no lymphadenopathy Chest exam reveals a few scattered crackles bilaterally no wheezing Cardiac exam reveals regular heart sounds no gallops no murmurs Abdomen is soft nontender no organomegaly was normal bowel sounds Extremity exam reveals no edema no cyanosis or clubbing Neurological examination reveals no gross focal deficit - Labs CBC & Chem 7: 04/26/20 08:55 04/26/20 08:55 Labs: Abnormal Lab Results - Last 24 Hours (Table) 04/25/20 04/25/20 Range/Units 11:59 17:42 RBC 4.19 L (4.30-5.90) m/uL MCV 100.1 H 102.0 H (80.0-100.0) fL Assessment and Plan Assessment: 1. Acute GI bleed. Patient's anticoagulation currently on hold GI services have been consulted. Continue to monitor hemoglobin closely, colonoscopy done this morning results discussed with patient 2. History of atrial fibrillation. Patient maintained on eliquis, eliquis currently on hold, will resume Eliquis 3. History of diverticulitis 4. History of essential hypertension 5. History of chronic back pain 6. History of pneumonia DVT prophylaxis SCDs, eliquis currently on hold due to GI bleed. GI prophylaxis Protonix GI services have been consulted Continue monitoring hemoglobin closely and transfuse if needed Clear liquid diet Will resume Eliquis and monitor till tomorrow if no new episodes of bleeding wi ll discharge patient to home
[2020-04-26] MEDS: HYDROcodone/APAP 5-325MG 1 EACH TAB PO PRN (22:22)
[2020-04-27] MEDS: SODIUM CHLORIDE 0.9% 1,000 ML IV SCH (00:18)
[2020-04-27 07:32] VITALS: BP 123/68; PULSE 58; RESP 16; TEMP 98.3
[2020-04-27] MEDS: PANTOPRAZOLE 40 MG/10 ML VIAL IV SCH (07:54)
[2020-04-27] MEDS: FLECAINIDE 50 MG TAB PO SCH (07:55)
[2020-04-27] MEDS: LORATADINE 10 MG TAB PO SCH (07:55)
[2020-04-27] MEDS: LOSARTAN 50 MG TAB PO SCH (07:55)
[2020-04-27] MEDS: amLODIPine 10 MG TAB PO SCH (07:55)
[2020-04-27 07:57] LABS: Basophils % (A) 0 %; Eosinophils % (A) 1 %; HCT 39.4 % (39.0-53.0); HGB 13.1 gm/dL (13.0-17.5); Lymphocytes # (A) 1.5 k/uL (1.0-4.8); Lymphocytes % (A) 40 %; MCH 33.3 pg (25.0-35.0); MCHC 33.2 g/dL (31.0-37.0); MCV 100.2 fL (80.0-100.0); Mean Platelet Volume 7.4; Monocytes # (A) 0.2 k/uL (0-1.0); Monocytes % (A) 6 %; Neutrophils % (A) 51 %; Platelet Count 168 k/uL (150-450); RBC 3.93 m/uL (4.30-5.90); RDW 12.4 % (11.5-15.5); WBC 3.9 k/uL (3.8-10.6)
--- NOTE | 2020-04-27 09:50 | P.DS ---
Providers Date of admission: 04/25/20 01:39 Expected date of discharge: 04/27/20 Attending physician: Nelsy Zuniga Consults: 04/25/20 01:40 Consult Physician Routine Consulting Provider: August Jim Consult Reason/Comments: GI bleeding Do you want consulting provider notified?: Yes Primary care physician: Cici Cordova Hospital Course: Diagnoses on Discharge: 1. Acute GI bleed. Patient's anticoagulation currently on hold GI services have been consulted. Continue to monitor hemoglobin closely, colonoscopy done this morning results discussed with patient 2. History of atrial fibrillation. Patient maintained on eliquis, eliquis currently on hold, will resume Eliquis 3. History of diverticulitis 4. History of essential hypertension 5. History of chronic back pain 6. History of pneumonia Hospital course: This is a 64-year-old male patient of Dr. Cordova who presented to the ER with complaints of GI bleed. Patient reports that GI bleed has been occurring for since yesterday evening with 3 episodes of bright red blood at home. Patient denies any abdominal pain or nausea and vomiting. Patient does have a past medical history of diverticulitis and is currently maintained on eliquis for atrial fibrillation. Patient reports he did have an episode previously of bleeding in his history but never this severe. Additional medical history includes A. fib, GERD, hypertension, osteoporosis, pneumonia and chronic back pain. Stool positive for occult blood. Hemoglobin stable at 13.1. Patient reports last colonoscopy was approximately 5 years ago and was normal. Patient denies any change to diet. Occasional alcohol use. At this time patient is resting comfortably in bed GI services have been consulted. We'll continue to monitor hemoglobin closely and transfuse if needed. Patient denies chest pain or shortness breath. Patient denies nausea vomiting or diarrhea. Patient den ies any urinary burning or frequency. On 04/26/2020 patient was seen and examined on the medical floor is alert and oriented 3 in no apparent distress there is no fever or chills no headache or dizziness no chest pain no shortness of breath no cough no nausea or vomiting no abdominal pain no diarrhea no blood in the stools no burning with urination no frequency or urgency and no hematuria, he underwent colonoscopy this morning, there was no evidence of bleeding, patient had multiple small diminutive polyps that were not removed, plan per Dr. Burr is to repeat colonoscopy in 6 months for polyp removal. At this time will resume Eliquis, if no new episodes of bleeding will discharge patient to home tomorrow. On 04/27/2020 patient was seen and examined on the medical floor he is alert and oriented 3 in no distress, he denies any symptoms at this time. Eliquis was resumed yesterday patient still has no evidence of bleeding hemoglobin is stable he will be discharged home today follow-up with primary care physician Dr. Cordova within one week. Again please notice results of colonoscopy with recommendation from Dr. Burr to repeat colonoscopy in 6 months for polyp removal.. Continue same medication as prior to admission, no new prescription were given to patient. Patient Condition at Discharge: Good Plan - Discharge Summary Discharge Rx Participant: No New Discharge Prescriptions: Continue Omeprazole [PriLOSEC] 20 mg PO DAILY Loratadine [Claritin] 10 mg PO DAILY Apixaban [Eliquis] 5 mg PO BID HYDROcodone/APAP 5-325MG [[place] 5-325] 1 tab PO TID PRN PRN Reason: Pain Flecainide Acetate [Tambocor] 100 mg PO Q12HR amLODIPine BES/OLMESARTAN MED [amLODIPine BES/OLMESARTAN MED 10-20 mg] 1 tab PO DAILY Escitalopram [Lexapro] 5 mg PO DAILY PRN PRN Reason: Anxiety Albuterol Sulfate [Albuterol Sulfate Hfa] 2 puff PO RT-Q6H PRN PRN Reason: Shortness Of Breath Discharge Medication List Loratadine [Claritin] 10 mg PO DAILY 05/10/16 [History] Omeprazole [PriLOSEC] 20 mg PO DAILY 05/10/16 [History] Apixaban [Eliquis] 5 mg PO BID 06/08/19 [History] Escitalopram [Lexapro] 5 mg PO DAILY PRN 02/29/20 [History] Flecainide Acetate [Tambocor] 100 mg PO Q12HR 02/29/20 [History] HYDROcodone/APAP 5-325MG [[place] 5-325] 1 tab PO TID PRN 02/29/20 [History] amLODIPine BES/OLMESARTAN MED [amLODIPine BES/OLMESARTAN MED 10-20 mg] 1 tab PO DAILY 02/29/20 [History] Albuterol Sulfate [Albuterol Sulfate Hfa] 2 puff PO RT-Q6H PRN 04/25/20 [History] Follow up Appointment(s)/Referral(s): Cici Cordova MD [Primary Care Provider] - 1-2 days Patient Instructions/Handouts: Gastrointestinal Bleeding (ED)
[2020-04-27 13:25] LABS: Albumin 4.1 g/dL (3.80-4.90); Albumin/Globulin Ratio 1.95 (1.60-3.17); Anion Gap 9.3 mmol/L (4.00-12.00); BUN/Creat Ratio 12.86 Ratio (12.00-20.00); Calcium 8.4 mg/dL (8.7-10.3); Carbon Dioxide 27.7 mmol/L (21.6-31.8); Globulin 2.1 g/dL (1.6-3.3); Non-African American GFR(CKD) 98.3 (60.0-200.0); Potassium 3.5 mmol/L (3.5-5.5); Total Bilirubin 0.6 mg/dL (0.3-1.2); Total Protein 6.2 g/dL (6.2-8.2)
== END 2020-04-27 12:31 | disposition home or self-care (01) ==
LOC: EC 00:24 → 5NMEDONC 01:39
PROVIDERS: ADMIT Internal Medicine; ATTEND Internal Medicine
DX: K63.5 Polyp of colon (principal); K57.51 Diverticulosis of both small and large intestine without perforation or abscess with bleeding; K21.9 Gastro-esophageal reflux disease without esophagitis; K64.8 Other hemorrhoids; I48.91 Unspecified atrial fibrillation; I10 Essential (primary) hypertension; M81.0 Age-related osteoporosis without current pathological fracture; Z87.01 Personal history of pneumonia (recurrent); G89.29 Other chronic pain; M54.9 Dorsalgia, unspecified; Z87.891 Personal history of nicotine dependence; F41.9 Anxiety disorder, unspecified; Z98.890 Other specified postprocedural states; Z79.899 Other long term (current) drug therapy; Z79.01 Long term (current) use of anticoagulants
CPT/HCPCS: 96376; 96374; 99285; 36415; 93005; 86900; 86901; 80053 ×3; 83605; 84484; 85025 ×3; 85610; 85730; 86850; 82272; 45378; G0378 ×3; J2405; J2704; C9113 ×3

== ENCOUNTER 2021-01-12 09:45 | Day surgery (SDC) | payer MEDICARE, OTHER ==
[~2021-01-12 09:45] MED LIST changes: -FAMOTIDINE 20 MG/2 ML VIAL IV PRN; -HYDROmorphone 0.5 MG/0.5 ML SYRINGE IVP PRN; +LIDOCAINE 1% (10MG/ML) FOR IV START INTRADERMA PRN; -ONDANSETRON 4 MG/2 ML VIAL IVP PRN
[2021-01-12 10:23] VITALS: TEMP 98.3
[2021-01-12] MEDS ORDERED: PROPOFOL 10 MG/ML 20 ML VIAL IV ONE (11:42)
--- NOTE | 2021-01-12 12:18 | P.PCN ---
Date of Procedure: 01/12/21 Description of Procedure: BRIEF HISTORY: Patient is a 65-year-old male presenting for outpatient colonoscopy for lower abdominal pain and diarrhea. Previously the patient had colonoscopy performed in 04/2018 with findings of [place] diverticulosis, internal hemorrhoids with diminutive polyps not removed at that time due to active GI bleeding while hospitalized. PROCEDURE PERFORMED: Colonoscopy with polypectomy. PREOPERATIVE DIAGNOSIS: Lower abdominal pain, colon polyps, diarrhea, last colonoscopy 05/09 for GI bleeding at that time. ESTIMATED BLOOD LOSS: Minimal. IV sedation per Anesthesia. PROCEDURE: After informed consent was obtained, the patient, was brought into the endoscopy unit. IV sedation was administered by Anesthesia under continuous monitoring. Digital rectal examination was normal. Initially the Olympus CF-190 flexible video colonoscope was then inserted in the rectum, gradually advanced into the cecum without any difficulty. Careful examination was performed as the scope was gradually being withdrawn. Ileocecal valve and the appendiceal orifice were visualized and appeared normal. Prep was excellent. Mucosa of the cecum, ascending colon, transverse colon, descending colon, sigmoid colon, and rectum appeared normal, multiple small and large mouth diverticula noted throughout the entire colon. Low-grade internal hemorrhoids. Diminutive polyps measuring 2 mm in size removed from the cecum, hepatic flexure, transverse colon 2 and descending colon with cold forcep polypectomy. Retroflexion was performed in the rectum and no lesions were seen. The patient tolerated the procedure well. IMPRESSION: Diminutive polyps removed from the cecum, hepatic flexure, transverse colon 2 and descending colon with cold forcep polypectomy. Moderate pandiverticulosis. Internal hemorrhoids. RECOMMENDATIONS: Findings of this examination were discussed with the patient and his family. Okay to resume diet. Okay to resume medications today and Eliquis tomorrow. Await pathology from polypectomies. Recommend repeat colonoscopy in 3 years for colon polyps pending pathology from polypectomies.
[2021-01-12 12:23] VITALS: RESP 16
[2021-01-12 12:36] VITALS: BP 127/81; PULSE 51
== END 2021-01-12 12:57 | disposition home or self-care (01) ==
LOC: ORWHC2ENDO 09:45
PROVIDERS: ATTEND Internal Medicine
DX: D12.0 Benign neoplasm of cecum (principal); D12.3 Benign neoplasm of transverse colon; D12.4 Benign neoplasm of descending colon; K64.8 Other hemorrhoids; K21.9 Gastro-esophageal reflux disease without esophagitis; I49.9 Cardiac arrhythmia, unspecified; I10 Essential (primary) hypertension; I48.91 Unspecified atrial fibrillation; Z87.891 Personal history of nicotine dependence; Z87.19 Personal history of other diseases of the digestive system
CPT/HCPCS: 45380; J2704; 88305

== ENCOUNTER 2021-05-29 12:42 | Emergency (ER) | payer MEDICARE, OTHER ==
--- NOTE | 2021-05-29 14:47 | ED ---
General Adult HPI - General Chief complaint: Upper Respiratory Infection Stated complaint: Covid+, SOB, heart issues Time Seen by Provider: 05/29/21 14:35 Source: patient, RN notes reviewed, old records reviewed Mode of arrival: ambulatory Limitations: no limitations - History of Present Illness Initial comments: 65-year-old well-appearing white male presents to the emergency room, alert and oriented 4, with complaints of cough congestion tickling in his throat for the past 6 days. He did test positive for coronavirus on May 27. He went to [facility] monoclonal antibody infusion and had not gotten back with him. He states come to the emergency room for the infusion. He denies any chest pain or difficulty in breathing at this time. He does have a history of atrial fibrillation, hypertension. -: days(s) (6) Severity scale (1-10): 0 Associated Symptoms: cough, fever/chills Treatments Prior to Arrival: other ([employer]) - Related Data Home Medications Medication Instructions Recorded Confirmed Apixaban [Eliquis] 5 mg PO BID 06/08/19 05/29/21 Flecainide Acetate [Tambocor] 100 mg PO Q12HR 02/29/20 05/29/21 amLODIPine BES/OLMESARTAN MED 1 tab PO DAILY 02/29/20 05/29/21 [amLODIPine BES/OLMESARTAN MED 10-20 mg] Albuterol Sulfate [Albuterol 2 puff INHALATION RT-Q6H PRN 04/25/20 05/29/21 Sulfate Hfa] Azithromycin [Zithromax Z-pack (6 See Taper PO DAILY 05/29/21 05/29/21 tabs)] Dexamethasone 6 mg PO DAILY 05/29/21 05/29/21 Metoprolol Succinate (ER) [Toprol 25 mg PO DAILY 05/29/21 05/29/21 Xl] Omeprazole 40 mg PO DAILY 05/29/21 05/29/21 Allergies Allergy/AdvReac Type Severity Reaction Status Date / Time No Known Allergies Allergy Verified 05/29/21 15:07 Review of Systems ROS Statement: Those systems with pertinent positive or pertinent negative responses have been documented in the HPI. ROS Other: All systems not noted in ROS Statement are negative. Past Medical History Past Medical History: Atrial Fibrillation, GERD/Reflux, Hypertension, Osteoarthritis (OA), Pneumonia Additional Past Medical History / Comment(s): Chronic LOWER & CERVIAL BACK PAIN History of Any Multi-Drug Resistant Organisms: None Reported Past Surgical History: Cardiac Ablation, Heart Catheterization, Tonsillectomy Additional Past Surgical History / Comment(s): ORAL SURGERY, COLONOSCOPY, BACK - STEROID INJECTIONS,TIMMY, cardioversion Past Anesthesia/Blood Transfusion Reactions: No Reported Reaction Past Psychological History: Anxiety Smoking Status: Former smoker Past Alcohol Use History: Occasional Past Drug Use History: None Reported - Past Family History Mother Family Medical History: No Reported History General Exam Limitations: no limitations General appearance: alert, in no apparent distress Head exam: Present: atraumatic, normocephalic, normal inspection Eye exam: Present: normal appearance, EOMI ENT exam: Present: normal exam, normal oropharynx, mucous membranes moist Neck exam: Present: normal inspection, full ROM. Absent: tenderness, meningismus, lymphadenopathy, thyromegaly Respiratory exam: Present: normal lung sounds bilaterally. Absent: respiratory distress, wheezes, rales, rhonchi, stridor Cardiovascular Exam: Present: regular rate, normal rhythm, normal heart sounds. Absent: systolic murmur, diastolic murmur, rubs, gallop, clicks Extremities exam: Present: full ROM, normal capillary refill. Absent: pedal edema Neurological exam: Present: alert, oriented X3, normal gait Psychiatric exam: Present: normal affect, normal mood Skin exam: Present: warm, dry, intact, normal color. Absent: rash, cyanosis, erythema, petechiae, pallor Course Vital Signs 05/29/21 13:03 Temperature 99.9 F H Pulse Rate 68 Respiratory 20 Rate Blood Pressure 119/78 O2 Sat by Pulse 96 Oximetry Medical Decision Making - Medical Decision Making 65-year-old well-appearing male presents with complaints of cough, congestion and tickling in his throat for the past 6 days. He did test positive for coronavirus on May 27. He tried to schedule monoclonal antibody infusion and they had not gotten back with him. He states he came to the emergency room for the infusion. He denies any chest pain or difficulty in breathing at this time. Patient tolerated the monoclonal antibodies infusion well with no complications. His lungs sounds remain clear to auscultation. He has no complaints of chest pain or difficulty breathing at this time. She was directed to follow up with his primary care doctor next week. Return to the emergency room with any new or worsening symptoms. Increase fluids to prevent dehydration take deep breaths and cough. He is prescribed Zithromax and Decadron 3 days ago was directed to continue those medications. - Lab Data Lab Results 05/29/21 Range/Units 13:08 Coronavirus (PCR) Detected A (Not Detectd) Disposition Clinical Impression: COVID-19 Disposition: HOME SELF-CARE Condition: Good Instructions (If sedation given, give patient instructions): Coronavirus Disease 2019 (COVID-19) Additional Instructions: Continue your previously prescribed medications. Return to the emergency room with any new or worsening symptoms. Increase your fluid intake to prevent dehyd ration. Take vitamin C, vitamin D and Zinc to improve immune health. Self quarantine for 10 days from symptom onset. Is patient prescribed a controlled substance at d/c from ED?: No Referrals: Cici Cordova MD [Primary Care Provider] - 1-2 days Time of Disposition: 16:21
[2021-05-29] MEDS ORDERED: SODIUM CHLORIDE 0.9% 50 ML IVPB ONE (15:00)
[2021-05-29] MEDS ORDERED: CASIRIVIMAB (REGN10933) (EUA) 600 MG, IMDEVIMAB (REGN10987) (EUA) 600 MG in SODIUM CHLO... IVPB ONE (15:00)
[2021-05-29 16:56] VITALS: BP 133/71; PULSE 64; RESP 16; TEMP 98.1
== END 2021-05-29 16:45 | disposition home or self-care (01) ==
LOC: EC 12:42
DX: U07.1 COVID-19 (principal); I10 Essential (primary) hypertension; K21.9 Gastro-esophageal reflux disease without esophagitis; I48.91 Unspecified atrial fibrillation; Z79.01 Long term (current) use of anticoagulants; Z79.899 Other long term (current) drug therapy; Z87.891 Personal history of nicotine dependence
CPT/HCPCS: 87635; 99284; Q0244

== ENCOUNTER 2021-06-02 13:19 | Emergency (ER) | payer MEDICARE, OTHER ==
[2021-06-02 14:57] VITALS: BP 131/78; PULSE 65; RESP 18; TEMP 97.6
[2021-06-02 16:04] LABS: Basophils % (A) 0 %; Eosinophils # (A) 0.1 k/uL (0-0.7); Eosinophils % (A) 1 %; HCT 42.6 % (39.0-53.0); HGB 14.7 gm/dL (13.0-17.5); Lymphocytes # (A) 0.7 k/uL (1.0-4.8); Lymphocytes % (A) 10 %; MCH 35.5 pg (25.0-35.0); MCHC 34.6 g/dL (31.0-37.0); MCV 102.7 fL (80.0-100.0); Macrocytosis Slight; Mean Platelet Volume 7.7; Monocytes # (A) 0.2 k/uL (0-1.0); Monocytes % (A) 3 %; Neutrophils # (A) 5.9 k/uL (1.3-7.7); Neutrophils % (A) 85 %; Platelet Count 245 k/uL (150-450); RBC 4.15 m/uL (4.30-5.90); RDW 12.9 % (11.5-15.5); WBC 6.9 k/uL (3.8-10.6)
[2021-06-02 16:12] LABS: ALT 40 U/L (4-49); AST 29 U/L (17-59); African American GFR (CKD) >90 (>60 ml/min/1.73 sqM); Alkaline Phosphatase 50 U/L (38-126); Anion Gap 11 mmol/L; Blood Urea Nitrogen 24 mg/dL (9-20); Carbon Dioxide 23 mmol/L (22-30); Chloride 99 mmol/L (98-107); Glucose 284 mg/dL (74-99); Non-African American GFR(CKD) 86 (>60 ml/min/1.73 sqM); Potassium 4.1 mmol/L (3.5-5.1); Sodium 133 mmol/L (137-145); Total Bilirubin 0.8 mg/dL (0.2-1.3); Total Protein 6.9 g/dL (6.3-8.2)
[2021-06-02 16:19] LABS: Partial Thromboplastin Time 22.2 sec (22.0-30.0); Prothrombin Time 10.9 sec (9.0-12.0)
--- NOTE | 2021-06-02 16:20 | XR ---
EXAMINATION TYPE: XR chest 2V DATE OF EXAM: 06/02/2021 COMPARISON: Chest x-ray 11/23/2009 HISTORY: Difficulty breathing, Covid positive, shortness of breath TECHNIQUE: Frontal and lateral views of the chest are obtained. FINDINGS: Patchy densities present bilaterally within the lungs. There is no evident pneumothorax or pleural effusion. Cardiac mediastinal silhouette is within normal limits. Aorta is dense. Bones are stable. IMPRESSION: Correlate for pneumonia, follow-up suggested
--- NOTE | 2021-06-02 16:22 | ED ---
General Adult HPI - General Chief complaint: Shortness of Breath Stated complaint: revisit - Covid+, SOB, already had BAM Time Seen by Provider: 06/02/21 15:15 Source: patient Mode of arrival: ambulatory Limitations: no limitations - History of Present Illness Initial comments: 65-year-old male with a past medical history of atrial fibrillation, GERD, h ypertension presents to the emergency room for a chief complaint of shortness of breath. Patient states that he has been positive for COVID-19 days now. He tested positive about 6 days ago and had antibodies given 4 days ago. Patient states that today he had chest pain that worsened when he took a deep breath. This lasted for quite some time and he was more short of breath than normal. States his symptoms have improved significantly but he was concerned about this and wanted to be evaluated.Patient has no other complaints at this time including shortness of breath, chest pain, abdominal pain, nausea or vomiting, headache, or visual changes. - Related Data Home Medications Medication Instructions Recorded Confirmed Apixaban [Eliquis] 5 mg PO BID 06/08/19 05/29/21 Flecainide Acetate [Tambocor] 100 mg PO Q12HR 02/29/20 05/29/21 amLODIPine BES/OLMESARTAN MED 1 tab PO DAILY 02/29/20 05/29/21 [amLODIPine BES/OLMESARTAN MED 10-20 mg] Albuterol Sulfate [Albuterol 2 puff INHALATION RT-Q6H PRN 04/25/20 05/29/21 Sulfate Hfa] Azithromycin [Zithromax Z-pack (6 See Taper PO DAILY 05/29/21 05/29/21 tabs)] Dexamethasone 6 mg PO DAILY 05/29/21 05/29/21 Metoprolol Succinate (ER) [Toprol 25 mg PO DAILY 05/29/21 05/29/21 Xl] Omeprazole 40 mg PO DAILY 05/29/21 05/29/21 Previous Rx's Medication Instructions Recorded Albuterol Inhaler [Ventolin Hfa 2 puff INHALATION RT-QID PRN #8 gm 06/02/21 Inhaler] Dexamethasone [Decadron] 6 mg PO DAILY #6 tablet 06/02/21 Allergies Allergy/AdvReac Type Severity Reaction Status Date / Time No Known Allergies Allergy Verified 06/02/21 14:57 Review of Systems ROS Statement: Those systems with pertinent positive or pertinent negative responses have been documented in the HPI. ROS Other: All systems not noted in ROS Statement are negative. Past Medical History Past Medical History: Atrial Fibrillation, GERD/Reflux, Hypertension, Osteoarthritis (OA), Pneumonia Additional Past Medical History / Comment(s): Chronic LOWER & CERVIAL BACK PAIN History of Any Multi-Drug Resistant Organisms: None Reported Past Surgical History: Cardiac Ablation, Heart Catheterization, Tonsillectomy Additional Past Surgical History / Comment(s): ORAL SURGERY, COLONOSCOPY, BACK - STEROID INJECTIONS,TIMMY, cardioversion Past Anesthesia/Blood Transfusion Reactions: No Reported Reaction Past Psychological History: Anxiety Smoking Status: Former smoker Past Alcohol Use History: Occasional Past Drug Use History: None Reported - Past Family History Mother Family Medical History: No Reported History General Exam Limitations: no limitations General appearance: alert, in no apparent distress Head exam: Present: atraumatic Eye exam: Present: normal appearance, PERRL, EOMI. Absent: scleral icterus, conjunctival injection ENT exam: Present: normal exam, mucous membranes moist Neck exam: Present: normal inspection, full ROM. Absent: tenderness Respiratory exam: Present: normal lung sounds bilaterally. Absent: respiratory distress, wheezes Cardiovascular Exam: Present: regular rate, normal rhythm, normal heart sounds GI/Abdominal exam: Present: soft. Absent: distended, tenderness Course Vital Signs 06/02/21 14:53 Temperature 97.6 F Pulse Rate 65 Respiratory 18 Rate Blood Pressure 131/78 O2 Sat by Pulse 95 Oximetry EKG Findings - EKG Comments: EKG Findings:: Sinus bradycardia, ventricular rate 54, NH interval 170, QTc 460 Medical Decision Making - Medical Decision Making vitals are stable. Patient is 95% on room air. CBC and CMP are unremarkable. Troponin negative. D-dimer normal. Chest x-ray shows pneumonia which is consistent with a COVID-19 pneumonia. At this time patient is stable for d ischarge home however we will start him on Decadron and an inhaler. Patient will follow-up with his doctor and return here for any worsening symptoms. - Lab Data Result diagrams: 06/02/21 15:47 06/02/21 15:47 Lab Results 06/02/21 06/02/21 06/02/21 Range/Units 15:47 15:47 15:47 WBC 6.9 (3.8-10.6) k/uL RBC 4.15 L (4.30-5.90) m/uL Hgb 14.7 (13.0-17.5) gm/dL Hct 42.6 (39.0-53.0) % MCV 102.7 H (80.0-100.0) fL MCH 35.5 H (25.0-35.0) pg MCHC 34.6 (31.0-37.0) g/dL RDW 12.9 (11.5-15.5) % Plt Count 245 (150-450) k/uL MPV 7.7 Neutrophils % 85 % Lymphocytes % 10 % Monocytes % 3 % Eosinophils % 1 % Basophils % 0 % Neutrophils # 5.9 (1.3-7.7) k/uL Lymphocytes # 0.7 L (1.0-4.8) k/uL Monocytes # 0.2 (0-1.0) k/uL Eosinophils # 0.1 (0-0.7) k/uL Basophils # 0.0 (0-0.2) k/uL Macrocytosis Slight PT 10.9 (9.0-12.0) sec INR 1.0 (<1.2) APTT 22.2 (22.0-30.0) sec D-Dimer 0.19 (<0.60) mg/L FEU Sodium 133 L (137-145) mmol/L Potassium 4.1 (3.5-5.1) mmol/L Chloride 99 (98-107) mmol/L Carbon Dioxide 23 (22-30) mmol/L Anion Gap 11 mmol/L BUN 24 H (9-20) mg/dL Creatinine 0.92 (0.66-1.25) mg/dL Est GFR (CKD-EPI)AfAm >90 (>60 ml/min/1.73 sqM) Est GFR (CKD-EPI)NonAf 86 (>60 ml/min/1.73 sqM) Glucose 284 H (74-99) mg/dL Calcium 9.0 (8.4-10.2) mg/dL Total Bilirubin 0.8 (0.2-1.3) mg/dL AST 29 (17-59) U/L ALT 40 (4-49) U/L Alkaline Phosphatase 50 (38-126) U/L Troponin I (0.000-0.034) ng/mL Total Protein 6.9 (6.3-8.2) g/dL Albumin 4.0 (3.5-5.0) g/dL 06/02/21 Range/Units 15:47 WBC (3.8-10.6) k/uL RBC (4.30-5.90) m/uL Hgb (13.0-17.5) gm/dL Hct (39.0-53.0) % MCV (80.0-100.0) fL MCH (25.0-35.0) pg MCHC (31.0-37.0) g/dL RDW (11.5-15.5) % Plt Count (150-450) k/uL MPV Neutrophils % % Lymphocytes % % Monocytes % % Eosinophils % % Basophils % % Neutrophils # (1.3-7.7) k/uL Lymphocytes # (1.0-4.8) k/uL Monocytes # (0-1.0) k/uL Eosinophils # (0-0.7) k/uL Basophils # (0-0.2) k/uL Macrocytosis PT (9.0-12.0) sec INR (<1.2) APTT (22.0-30.0) sec D-Dimer (<0.60) mg/L FEU Sodium (137-145) mmol/L Potassium (3.5-5.1) mmol/L Chloride (98-107) mmol/L Carbon Dioxide (22-30) mmol/L Anion Gap mmol/L BUN (9-20) mg/dL Creatinine (0.66-1.25) mg/dL Est GFR (CKD-EPI)AfAm (>60 ml/min/1.73 sqM) Est GFR (CKD-EPI)NonAf (>60 ml/min/1.73 sqM) Glucose (74-99) mg/dL Calcium (8.4-10.2) mg/dL Total Bilirubin (0.2-1.3) mg/dL AST (17-59) U/L ALT (4-49) U/L Alkaline Phosphatase (38-126) U/L Troponin I <0.012 (0.000-0.034) ng/mL Total Protein (6.3-8.2) g/dL Albumin (3.5-5.0) g/dL Disposition Clinical Impression: COVID-19, Pneumonia due to COVID-19 virus Disposition: HOME SELF-CARE Condition: Fair Instructions (If sedation given, give patient instructions): Coronavirus Disease 2019 (COVID-19) Additional Instructions: Please take medications as directed. Follow-up with your doctor. Return to the emergency room for any worsening symptoms Prescriptions: Dexamethasone [Decadron] 6 mg PO DAILY #6 tablet Albuterol Inhaler [Ventolin Hfa Inhaler] 2 puff INHALATION RT-QID PRN #8 gm PRN Reason: Shortness Of Breath Is patient prescribed a controlled substance at d/c from ED?: No Referrals: Cici Cordova MD [Primary Care Provider] - 1-2 days Time of Disposition: 16:57
[2021-06-02] MEDS ORDERED: DEXAMETHASONE SOD PHOSPHATE 4 MG/ML 1 ML VIAL IVP STA (16:58)
== END 2021-06-02 17:18 | disposition home or self-care (01) ==
LOC: EC 13:19
DX: U07.1 COVID-19 (principal); J12.82 Pneumonia due to coronavirus disease 2019; K21.9 Gastro-esophageal reflux disease without esophagitis; I10 Essential (primary) hypertension; I48.91 Unspecified atrial fibrillation; Z79.01 Long term (current) use of anticoagulants; Z79.899 Other long term (current) drug therapy; Z87.891 Personal history of nicotine dependence
CPT/HCPCS: 36415; 93005; 85379; 80053; 84484; 85025; 85610; 85730; 71046; 99285; 96374; J1100

== ENCOUNTER → 2021-08-26 | Outpatient (CLI) | payer MEDICARE, OTHER ==
--- NOTE | 2021-08-27 01:47 | MR ---
EXAMINATION TYPE: MR cervical spine wo con DATE OF EXAM: 08/26/2021 COMPARISON: 10/27/2020 HISTORY: Neck pain, headaches, LUE radiculopathy. Multiplanar multiecho imaging of the cervical spine without contrast. There is degenerative disc space narrowing at C4-5 and C5-6 and C6-7 with decreased signal in the dis ks. There are small posterior disc bulging at levels from C3 to C7. Disc bulging more severe at C5-6. Spinal canal measures 7 mm at C5-6. Canal measures 7.5 mm at C4-5. The cervical spinal cord shows no edema. Brainstem is intact. There is no compression fracture. There is anterior bridging osteophyte formation at C4-5 and C5-6. There is no sign of cervical paraspinal mass. IMPRESSION: Multilevel cervical spondylotic changes. No fracture. Mild relative spinal stenosis of 7 mm at C5-6 w hich is the narrowest point. No cord edema. No significant change compared to old exam.
== END | disposition home or self-care (01) ==
LOC: RADMRIMAIN 20:54
PROVIDERS: ATTEND Physical Medicine & Rehabilitation
DX: M48.02 Spinal stenosis, cervical region (principal)
CPT/HCPCS: 72141

== ENCOUNTER → 2021-09-10 | Outpatient (CLI) | payer MEDICARE, OTHER ==
--- NOTE | 2021-09-10 11:51 | P.CON ---
Consult Note - . Consult date: 09/10/21 Assessment/Plan:: HISTORY OF PRESENT ILLNESS: 65 yr old male as a referral from Dr. Blanco presents today with lower back pain secondary to disc bulges, disc herniation, DDD, spondylosis and left L5 encroachment for evaluation. Patient states his epidural of the L5-S1 2 weeks ago provided him with 15-20% pain relief. Pain level is currently 7 out of 10 in intensity, dull, achy, constant in the lower aspects of his lumbar spine with radiation of sharp pain to the right hip and right lower extremity. Pain is provoked with sitting, lifting and bending. Pain is relieved with medications, injections in the past, alternating ice and heat, physical therapy which was completed July 2021, daily home stretching regimen, use of a cane for ambulation, repositioning and rest. Past Medical History: Atrial Fibrillation, GERD/Reflux, Hypertension, Osteoarthritis (OA), Pneumonia, Anxiety Past Surgical History: Cardiac Ablation, Heart Catheterization, Cardioversion, Tonsillectomy, Colonoscopy, TIMMY Social History: Former tobacco user. Occasional ETOH use. No illicit drug use. Family History: Mother - No Reported History All: NKDA Meds: See list REVIEW OF ORGAN SYSTEMS: CONSTITUTIONAL: No fevers or chills. No recent weight loss. HEENT: No visual acuity loss, eye pain, difficulties with hearing. No nosebleeds. No difficulty swallowing. RESPIRATORY: Denies any troubles with breathing or dyspnea on exertion. CARDIOVASCULAR: Denies any chest pain, palpitations, or recent heart attacks. GASTROINTESTINAL: Denies fatty food intolerance. Has change in bowel habits and gas bloat. GENITOURINARY: Denies any blood in urine. Has increased urinary frequency. NEUROLOGICAL: + numbness and tingling along the distal extremities. No seizure disorders or headaches. MUSCULOSKELETAL: + back pain SKIN: No skin cancer. No rash. PSYCHIATRIC: Denies current depression or suicidal thoughts. ENDOCRINE: Denies current thyroid disorders. Denies any blood sugar glucose intolerance. HEME/LYMPHATIC: Denies any lumps and bumps around the neck. History of deep venous thrombosis. ALLERGY/IMMUNOLOGY: No immunoglobulin therapy. No immune deficiencies. BREAST: Denies current breast lumps, pain or nipple discharge. Physical Examinations : Constitutional : Cooperative , not in acute distress . HEENT: Neck supple. No Lymphadenopathy. Normal thyroid size . Eyes no ptosis , no icterus, no photophobia . Hearing intact. Normal oropharynx. No Thrush. Respiratory : Chest clear to auscultations bilaterally. No wheezing. No rhonchi. Cardiovascular : Regular rate and rhythm , S1 / S2. No S3 . No S4. Gastrointestinal : Abdomen soft. No tenderness. Bowel sounds x 4. No organomegaly . Genitourinary : Deferred. Neurologic : Cranial nerve II to XII intact. No focal neurological deficits. Psychiatric : alert & oriented x 3. Matching mood & appropriate affect. Judgment & insight intact. Lymphatic No Lymphadenopathy. Musculoskeletal : Cervical Spine Motor strength in the deltoid and biceps: Normal right side. Normal Left side Motor strength biceps and the wrist extensors: Normal right side . Normal left side Motor strength in the triceps muscle: Normal right side. Normal left side Deep tendon reflexes: Normal at the biceps. Normal at Brachioradialis. Normal at triceps Cervical facet loading test: positive bilaterally Spurling test: positive bilaterally Neck distraction test: positive bilaterally Arlene sign: positive bilaterally Lumbar spine Motor strength lower extremities ,thigh and legs 5/5 Right side , 5/5 Left side Deep tendon reflexes : Normal Knee Jerk. Normal Ankle Jerk Vertebral body tenderness over L5 Lumbar facet Loading Test: positive Right / positive Left Range of motion of the lumbar spine Flexion 30 degrees, extension 10 degrees Straight Leg Raise test: Left/ Right positive at 30 degree Kathie test: positive right / positive left. Severe tenderness over the Sacroiliac joint on the Right / Left sides Gaenslen test: positive bilaterally Seated flexion test: positive bilaterally. Imaging: MRI of lumbar spine without contrast from 04/08/21 reviewed. Assessment/ Plan : Recommendation of right TFESI L5-S1. Risks, benefits of procedure discussed and patient verbalized understanding. Denies aspirin or anti- coagulant use. Denies medical history of diabetes. All questions answered. I have spent greater than 50 minutes on patient care today. Dr Mckeon was available by phone for the evaluation of this patient. The time was used to review the medical records including relevant urine studies and Prescription history (MAPs), review of the available imaging, evaluation and examination of the patient, coordination of care with the medical staff and if applicable referring physicians, as well as creation of the medical record PQRS Measure Charge Sheet PQRS Narrative: Smoking Status Former smoker Home Medications: Ambulatory Orders Apixaban [Eliquis] 5 mg PO BID 06/08/19 Flecainide Acetate [Tambocor] 100 mg PO Q12HR 02/29/20 amLODIPine BES/OLMESARTAN MED [amLODIPine BES/OLMESARTAN MED 10-20 mg] 1 tab PO DAILY 02/29/20 Albuterol Sulfate [Albuterol Sulfate Hfa] 2 puff INHALATION RT-Q6H PRN 04/25/20 Azithromycin [Zithromax Z-pack (6 tabs)] See Taper PO DAILY 05/29/21 Dexamethasone 6 mg PO DAILY 05/29/21 Metoprolol Succinate (ER) [Toprol Xl] 25 mg PO DAILY 05/29/21 Omeprazole 40 mg PO DAILY 05/29/21 Albuterol Inhaler [Ventolin Hfa Inhaler] 2 puff INHALATION RT-QID PRN #8 gm 06/02/21 Dexamethasone [Decadron] 6 mg PO DAILY #6 tablet 06/02/21
--- NOTE | 2021-09-10 12:22 | P.CON ---
Consult Note - . Consult date: 09/10/21 Assessment/Plan:: HISTORY OF PRESENT ILLNESS: 65 yr old male as a referral from Dr Segundo presents today with neck pain secondary to disc bulges and degenerative disc disease for evaluation. Patient states his neck pain is 5 out of 10 in intensity, constant, crunching, throbbing sensation in the lower aspects of his cervical spine with radiation of sharp pain to the shoulders bilaterally and accompanied with occasional numbness of the fingers bilaterally. Pain is provoked with extension of the neck and overhead reaching. Pain is relieved with [place], heat, physical therapy of which she is currently in, massage therapy which is integrated with physical therapy, use of a soft c-collar, home stretching regimen and rest. PMH: HTN, Hyperlipidemia, aFib, Asthma PSH: Cardiac Catheterization, Colonoscopy SH: Hx of Tobacco Use Disorder. Social ETOH use. No illicit drug use. FH: Non contributory All: NKDA Meds: See list REVIEW OF ORGAN SYSTEMS: CONSTITUTIONAL: No fevers or chills. No recent weight loss. HEENT: No visual acuity loss, eye pain, difficulties with hearing. No nosebleeds. No difficulty swallowing. RESPIRATORY: Denies any troubles with breathing or dyspnea on exertion. CARDIOVASCULAR: Denies any chest pain, palpitations, or recent heart attacks. GASTROINTESTINAL: Denies fatty food intolerance. Has change in bowel habits and gas bloat. GENITOURINARY: Denies any blood in urine. Has increased urinary frequency. NEUROLOGICAL: + numbness and tingling along the distal e xtremities. No seizure disorders or headaches. MUSCULOSKELETAL: + back pain SKIN: No skin cancer. No rash. PSYCHIATRIC: Denies current depression or suicidal thoughts. ENDOCRINE: Denies current thyroid disorders. Denies any blood sugar glucose intolerance. HEME/LYMPHATIC: Denies any lumps and bumps around the neck. History of deep venous thrombosis. ALLERGY/IMMUNOLOGY: No immunoglobulin therapy. No immune deficiencies. BREAST: Denies current breast lumps, pain or nipple discharge. Physical Examinations : Constitutional : Cooperative , not in acute distress . HEENT: Neck supple. No Lymphadenopathy. Normal thyroid size . Eyes no ptosis , no icterus, no photophobia . Hearing intact. Normal oropharynx. No Thrush. Respiratory : Chest clear to auscultations bilaterally. No wheezing. No rhonchi. Cardiovascular : Regular rate and rhythm , S1 / S2. No S3 . No S4. Gastrointestinal : Abdomen soft. No tenderness. Bowel sounds x 4. No organomegaly . Genitourinary : Deferred. Neurologic : Cranial nerve II to XII intact. No focal neurological deficits. Psychiatric : alert & oriented x 3. Matching mood & appropriate affect. Judgment & insight intact. Lymphatic No Lymphadenopathy. Musculoskeletal : Cervical Spine Motor strength in the deltoid and biceps: Normal right side. Normal Left side Motor strength biceps and the wrist extensors: Normal right side . Normal left side Motor strength in the triceps muscle: Normal right side. Normal left side Deep tendon reflexes: Normal at the biceps. Normal at Brachioradialis. Normal at triceps Cervical facet loading test: positive bilaterally Spurling test: positive bilaterally Neck distraction test: positive bilaterally Arlene sign: positive bilaterally Lumbar spine Motor strength lower extremities ,thigh and legs 5/5 Right side , 5/5 Left side Deep tendon reflexes : Normal Knee Jerk. Normal Ankle Jerk Vertebral body tenderness over Lumbar facet Loading Test: positive Right / positive Left Range of motion of the lumbar spine Flexion 30 degrees, extension 10 degrees Straight Leg Raise test: Left/ Right positive at degree Kathie test: positive right / positive left. Severe tenderness over the Sacroiliac joint on the Right / Left sides Gaenslen test: positive bilaterally Seated flexion test: positive bilaterally. Imaging: MRI without contrast of the cervical spine from 08/26/21 reviewed. Assessment/ Plan : Mentation of THEOD[place]A C5-C6, may need a series of injections, up to 3 within a six- month period, to obtain optimal pain relief. Risks, benefits of procedure discussed and patient verbalized understanding. Admits to a Eliquis use. Denies diabetes medical history. Needs medical clearance from Dr Nolan re: holding Eliquis prior to procedure(s). All questions answered. I have spent greater than 50 minutes on patient care today. Dr Mckeon was available by phone for the evaluation of this patient. The time was used to review the medical records including relevant urine studies and Prescription history (MAPs), review of the available imaging, evaluation and examination of the patient, coordination of care with the medical staff and if applicable referring physicians, as well as creation of the medical record PQRS Measure Charge Sheet PQRS Narrative: Smoking Status Former smoker Home Medications: Ambulatory Orders Apixaban [Eliquis] 5 mg PO BID 06/08/19 Flecainide Acetate [Tambocor] 100 mg PO Q12HR 02/29/20 amLODIPine BES/OLMESARTAN MED [amLODIPine BES/OLMESARTAN MED 10-20 mg] 1 tab PO DAILY 02/29/20 Albuterol Sulfate [Albuterol Sulfate Hfa] 2 puff INHALATION RT-Q6H PRN 04/25/20 Azithromycin [Zithromax Z-pack (6 tabs)] See Taper PO DAILY 05/29/21 Dexamethasone 6 mg PO DAILY 05/29/21 Metoprolol Succinate (ER) [Toprol Xl] 25 mg PO DAILY 05/29/21 Omeprazole 40 mg PO DAILY 05/29/21 Albuterol Inhaler [Ventolin Hfa Inhaler] 2 puff INHALATION RT-QID PRN #8 gm 06/02/21 Dexamethasone [Decadron] 6 mg PO DAILY #6 tablet 06/02/21
[2021-09-10 15:03] VITALS: BP 139/77; PULSE 52; RESP 18; TEMP 98.6
== END | disposition home or self-care (01) ==
LOC: PNWHC3 10:30
PROVIDERS: ATTEND Specialist
DX: M50.30 Other cervical disc degeneration, unspecified cervical region (principal)
CPT/HCPCS: 99211

== ENCOUNTER → 2021-10-09 | Outpatient (CLI) | payer MEDICARE, OTHER ==
[2021-10-09 20:29] LABS: Gliadin AB IgA, Deaminated NEGATIVE (NEGATIVE); Gliadin AB IgA, Unit 3.8 U/mL
[2021-10-09 20:31] LABS: Gliadin AB IgG, Deaminated NEGATIVE (NEGATIVE); Gliadin AB IgG, Unit 0.5 U/mL
[2021-10-09 21:34] LABS: Basophils # (A) 0.01 X 10*3/uL (0.00-0.10); Basophils % (A) 0.4 %; Eosinophils # (A) 0.03 X 10*3/uL (0.04-0.35); Eosinophils % (A) 1.3 %; HCT 37.4 % (39.6-50.0); HGB 12.4 g/dL (13.0-17.0); Immature Grans, Automated 2.5 %; Lymphocytes # (A) 1.57 X 10*3/uL (0.90-5.00); Lymphocytes % (A) 66.2 %; MCH 34.7 pg (27.0-32.0); MCHC 33.2 g/dL (32.0-37.0); MCV 104.8 fL (80.0-97.0); Mean Platelet Volume 10.5 fL (9.5-12.2); Monocytes # (A) 0.15 X 10*3/uL (0.20-1.00); Monocytes % (A) 6.3 %; NRBC Per 100 WBC 0 /100 WBCS (0.0-0.0); Neutrophils # (A) 0.55 X 10*3/uL (1.80-7.70); Neutrophils % (A) 23.3 %; Platelet Count 85 X 10*3/uL (140-440); RBC 3.57 X 10*6/uL (4.40-5.60); RBC Morphology NORMAL; RDW 13.5 % (11.5-14.5); WBC 2.37 X 10*3/uL (4.50-10.00)
[2021-10-09 21:38] LABS: Erythrocyte Sedimentation Rate 9 mm/Hr (0-20)
[2021-10-10 15:09] LABS: Cryptosporidium Antigen Negative (Negative)
== END | disposition home or self-care (01) ==
LOC: LABWHC1 11:26
PROVIDERS: ATTEND Internal Medicine Gastroenterology
DX: K52.9 Noninfective gastroenteritis and colitis, unspecified (principal); K62.5 Hemorrhage of anus and rectum
CPT/HCPCS: 36415; 83516; 83630; 83993; 85025; 85652; 86140; 87045; 87046; 87328; 87329

== ENCOUNTER 2021-11-17 10:05 | Inpatient (IN) | payer MEDICARE, OTHER ==
[2021-11-17] MEDS ORDERED: SODIUM CHLORIDE 0.9% 1,000 ML IV STA (12:54)
[2021-11-17] MEDS ORDERED: ACETAMINOPHEN TAB 500 MG TAB PO STA (12:54)
--- NOTE | 2021-11-17 12:54 | ED ---
General Adult HPI - General Chief complaint: Nausea/Vomiting/Diarrhea Stated complaint: GI problems Time Seen by Provider: 11/17/21 12:19 Source: patient Mode of arrival: ambulatory Limitations: no limitations - History of Present Illness Initial comments: Dictation was produced using [employer] dictation software. please excuse any grammatical, word or spelling errors. Chief Complaint: 66-year-old male presents to the emergency department for left lower quadrant abdominal pain, nausea, fevers History of Present Illness: Patient is a 66-year-old male he has past medical history of A. fib, hypertension pneumonia. Presents today for abdominal symptoms. He has not had a bowel movement in 6-7 days. He states that he has to strain to pass gas. He has been having constitutional symptoms. Patient denies any diarrhea. Patient had a conversation with his primary care doctor and operations forester and due to patient's symptoms with recent abnormal CBC was instructed to come to the emergency room. Patient has a history of diver ticulitis. This episode feels similar though mildly different. The ROS documented in this emergency department record has been reviewed and confirmed by me. Those systems with pertinent positive or negative responses have been documented in the HPI. All other systems are other negative and/or n oncontributory. PHYSICAL EXAM: General Impression: Alert and oriented x3, not in acute distress HEENT: Normocephalic atraumatic, extra-ocular movements intact, pupils equal and reactive to light bilaterally, mucous membranes moist. Cardiovascular: Heart regular rate and rhythm Chest: Able to complete full sentences, no retractions, no tachypnea Abdomen: abdomen soft, mild palpatory tenderness to the left lower quadrant non- distended, no organomegaly Musculoskeletal: Pulses present and equal in all extremities, no peripheral edema Motor: no focal deficits noted Neurological: CN II-XII grossly intact, no focal motor or sensory deficits noted Skin: Intact with no visualized rashes Psych: Normal affect and mood ED course: 66-year-old male presents to the emergency department for constituti onal symptoms, constipation and left lower quadrant abdominal pain as upon arrival shows temperature 100.4, rest of vital signs within acceptable limits. Laboratory evaluation obtained. Leukopenia 1.9, hemoglobin 11.4, pleasant, 49. Patient has been slowly diminishing pancytopenia. Today's labs are compared to labs from November 04. Metabolic panel is unremarkable. For panel viral PCR is negative. Computed tomography mild acute diverticulitis scan abdomen and pelvis shows. Reevaluated at bedside. Patient is stable medical condition. Considering patient's no pancytopenia there is concerned that patient has a compromised immune system. Patient be admitted for hospital monitoring. Patient started on Unasyn. - Related Data Home Medications Medication Instructions Recorded Confirmed Apixaban [Eliquis] 5 mg PO BID 06/08/19 09/10/21 Flecainide Acetate [Tambocor] 100 mg PO Q12HR 02/29/20 09/10/21 amLODIPine BES/OLMESARTAN MED 1 tab PO DAILY 02/29/20 09/10/21 [amLODIPine BES/OLMESARTAN MED 10-20 mg] Albuterol Sulfate [Albuterol 2 puff INHALATION RT-Q6H PRN 04/25/20 09/10/21 Sulfate Hfa] Azithromycin [Zithromax Z-pack (6 See Taper PO DAILY 05/29/21 09/10/21 tabs)] Dexamethasone 6 mg PO DAILY 05/29/21 09/10/21 Metoprolol Succinate (ER) [Toprol 25 mg PO DAILY 05/29/21 09/10/21 Xl] Omeprazole 40 mg PO DAILY 05/29/21 09/10/21 Previous Rx's Medication Instructions Recorded Albuterol Inhaler [Ventolin Hfa 2 puff INHALATION RT-QID PRN #8 gm 06/02/21 Inhaler] Dexamethasone [Decadron] 6 mg PO DAILY #6 tablet 06/02/21 Allergies Allergy/AdvReac Type Severity Reaction Status Date / Time No Known Allergies Allergy Verified 11/17/21 10:20 Review of Systems ROS Statement: Those systems with pertinent positive or pertinent negative responses have been documented in the HPI. ROS Other: All systems not noted in ROS Statement are negative. Past Medical History Past Medical History: Atrial Fibrillation, GERD/Reflux, Hypertension, Osteoarthritis (OA), Pneumonia Additional Past Medical History / Comment(s): Chronic LOWER & CERVIAL BACK PAIN History of Any Multi-Drug Resistant Organisms: None Reported Past Surgical History: Cardiac Ablation, Heart Catheterization, Tonsillectomy Additional Past Surgical History / Comment(s): ORAL SURGERY, COLONOSCOPY, BACK - STEROID INJECTIONS,TIMMY, cardioversion Past Anesthesia/Blood Transfusion Reactions: No Reported Reaction Past Psychological History: Anxiety Smoking Status: Former smoker Past Alcohol Use History: Occasional Past Drug Use History: None Reported - Past Family History Mother Family Medical History: No Reported History General Exam Limitations: no limitations Course Vital Signs 11/17/21 10:16 Temperature 100.4 F H Pulse Rate 74 Respiratory 18 Rate Blood Pressure 137/75 O2 Sat by Pulse 97 Oximetry Medical Decision Making - Lab Data Result diagrams: 11/17/21 12:48 11/17/21 12:48 Lab Results 11/17/21 11/17/21 11/17/21 Range/Units 12:48 12:48 12:48 WBC 1.9 L (3.8-10.6) k/uL RBC 3.19 L (4.30-5.90) m/uL Hgb 11.4 L (13.0-17.5) gm/dL Hct 33.4 L (39.0-53.0) % MCV 104.6 H (80.0-100.0) fL MCH 35.6 H (25.0-35.0) pg MCHC 34.0 (31.0-37.0) g/dL RDW 15.3 (11.5-15.5) % Plt Count 49 L (150-450) k/uL MPV 8.4 Neutrophils % (Manual) 49 % Band Neuts % (Manual) 2 % Lymphocytes % (Manual) 29 % Monocytes % (Manual) 19 % Eosinophils % (Manual) 1 % Neutrophils # (Manual) 0.90 L (1.3-7.7) k/uL Lymphocytes # (Manual) 0.55 L (1.0-4.8) k/uL Monocytes # (Manual) 0.36 (0-1.0) k/uL Eosinophils # (Manual) 0.02 (0-0.7) k/uL Nucleated RBCs 0 (0-0) /100 WBC Manual Slide Review Performed Macrocytosis Moderate PT 11.8 (9.0-12.0) sec INR 1.1 (<1.2) APTT 26.2 (22.0-30.0) sec Sodium 136 L (137-145) mmol/L Potassium 4.1 (3.5-5.1) mmol/L Chloride 100 (98-107) mmol/L Carbon Dioxide 29 (22-30) mmol/L Anion Gap 7 mmol/L BUN 11 (9-20) mg/dL Creatinine 0.78 (0.66-1.25) mg/dL Est GFR (CKD-EPI)AfAm >90 (>60 ml/min/1.73 sqM) Est GFR (CKD-EPI)NonAf >90 (>60 ml/min/1.73 sqM) Glucose 118 H (74-99) mg/dL Plasma Lactic Acid Alex (0.7-2.0) mmol/L Calcium 8.5 (8.4-10.2) mg/dL Magnesium 1.7 (1.6-2.3) mg/dL Total Bilirubin 1.1 (0.2-1.3) mg/dL AST 68 H (17-59) U/L ALT 75 H (4-49) U/L Alkaline Phosphatase 82 (38-126) U/L Total Protein 6.7 (6.3-8.2) g/dL Albumin 4.2 (3.5-5.0) g/dL Lipase 132 (23-300) U/L Influenza Type A (PCR) (Not Detectd) Influenza Type B (PCR) (Not Detectd) RSV (PCR) (Not Detectd) SARS-CoV-2 (PCR) (Not Detectd) 11/17/21 11/17/21 Range/Units 12:48 13:05 WBC (3.8-10.6) k/uL RBC (4.30-5.90) m/uL Hgb (13.0-17.5) gm/dL Hct (39.0-53.0) % MCV (80.0-100.0) fL MCH (25.0-35.0) pg MCHC (31.0-37.0) g/dL RDW (11.5-15.5) % Plt Count (150-450) k/uL MPV Neutrophils % (Manual) % Band Neuts % (Manual) % Lymphocytes % (Manual) % Monocytes % (Manual) % Eosinophils % (Manual) % Neutrophils # (Manual) (1.3-7.7) k/uL Lymphocytes # (Manual) (1.0-4.8) k/uL Monocytes # (Manual) (0-1.0) k/uL Eosinophils # (Manual) (0-0.7) k/uL Nucleated RBCs (0-0) /100 WBC Manual Slide Review Macrocytosis PT (9.0-12.0) sec INR (<1.2) APTT (22.0-30.0) sec Sodium (137-145) mmol/L Potassium (3.5-5.1) mmol/L Chloride (98-107) mmol/L Carbon Dioxide (22-30) mmol/L Anion Gap mmol/L BUN (9-20) mg/dL Creatinine (0.66-1.25) mg/dL Est GFR (CKD-EPI)AfAm (>60 ml/min/1.73 sqM) Est GFR (CKD-EPI)NonAf (>60 ml/min/1.73 sqM) Glucose (74-99) mg/dL Plasma Lactic Acid Alex 1.2 (0.7-2.0) mmol/L Calcium (8.4-10.2) mg/dL Magnesium (1.6-2.3) mg/dL Total Bilirubin (0.2-1.3) mg/dL AST (17-59) U/L ALT (4-49) U/L Alkaline Phosphatase (38-126) U/L Total Protein (6.3-8.2) g/dL Albumin (3.5-5.0) g/dL Lipase (23-300) U/L Influenza Type A (PCR) Not Detected (Not Detectd) Influenza Type B (PCR) Not Detected (Not Detectd) RSV (PCR) Not Detected (Not Detectd) SARS-CoV-2 (PCR) Not Detected (Not Detectd) Disposition Clinical Impression: Diverticulitis Disposition: ADMITTED IP TO THIS [facility] Condition: Fair Referrals: Cici Cordova MD [Primary Care Provider] - 1-2 days Decision Time: 14:52
[2021-11-17 13:12] LABS: HCT 33.4 % (39.0-53.0); HGB 11.4 gm/dL (13.0-17.5); MCH 35.6 pg (25.0-35.0); MCV 104.6 fL (80.0-100.0); Macrocytosis Moderate; Mean Platelet Volume 8.4; RBC 3.19 m/uL (4.30-5.90); RDW 15.3 % (11.5-15.5); WBC 1.9 k/uL (3.8-10.6)
[2021-11-17 13:28] LABS: INR 1.1 (<1.2); Partial Thromboplastin Time 26.2 sec (22.0-30.0); Prothrombin Time 11.8 sec (9.0-12.0)
[2021-11-17 13:46] LABS: Band Neutrophils % 2 %; Eosinophils # (M) 0.02 k/uL (0-0.7); Lymphocytes # (M) 0.55 k/uL (1.0-4.8); Monocytes # (M) 0.36 k/uL (0-1.0); Neutrophils % (M) 49 %; Nucleated Red Blood Cells 0 /100 WBC (0-0); Platelet Count 49 k/uL (150-450); Total Cells Counted 100
[2021-11-17 13:49] LABS: ALT 75 U/L (4-49); AST 68 U/L (17-59); African American GFR (CKD) >90 (>60 ml/min/1.73 sqM); Albumin 4.2 g/dL (3.5-5.0); Alkaline Phosphatase 82 U/L (38-126); Anion Gap 7 mmol/L; Blood Urea Nitrogen 11 mg/dL (9-20); Calcium 8.5 mg/dL (8.4-10.2); Carbon Dioxide 29 mmol/L (22-30); Chloride 100 mmol/L (98-107); Glucose 118 mg/dL (74-99); Lipase 132 U/L (23-300); Magnesium 1.7 mg/dL (1.6-2.3); Non-African American GFR(CKD) >90 (>60 ml/min/1.73 sqM); Potassium 4.1 mmol/L (3.5-5.1); Sodium 136 mmol/L (137-145); Total Bilirubin 1.1 mg/dL (0.2-1.3); Total Protein 6.7 g/dL (6.3-8.2)
--- NOTE | 2021-11-17 14:31 | CT ---
EXAMINATION TYPE: CT abdomen pelvis w con DATE OF EXAM: 11/17/2021 COMPARISON: None. HISTORY: constipation for [address] DLP: 1366.2 mGycm, Automated Exposure Control for Dose Reduction was Utilized. CONTRAST: CT scan of the abdomen and pelvis is performed without oral but with IV Contrast, patient injected wi th 100 mL of Isovue 300. FINDINGS: LUNG BASES: Mild left basilar linear scarring and/or atelectasis. LIVER/GB: Liver is diffusely low dense suggesting diffuse fatty infiltration. Intraluminal tiny galls tone coronal image 41. No surrounding inflammatory change. PANCREAS: No significant abnormality is seen. SPLEEN: No significant abnormality is seen. ADRENALS: No significant abnormality is seen. KIDNEYS: Symmetric cortical medullary uptake and excretion without hydronephrosis seen bilaterally. T here is 1.5 cm benign-appearing thin-walled cyst posteriorly mid to lower pole level left kidney axia l image 33. BOWEL: Normal-appearing appendix from base of cecum. Suboptimal evaluation of bowel. Enteric contrast . Stomach is distended and thus suboptimally evaluated. Diverticula in the left and sigmoid colon wit hout significant surrounding fat stranding but mild vasa prominence for reference coronal image 44 a long the mesenteric surface. Slightly redundant sigmoid colon. No free air. No suspicious focal fluid collection or abscess. PROSTATE/SEMINAL VESICLES: Enlarged prostate consistent with BPH bulging on bladder base. LYMPH NODES: No greater than 1cm abdominal or pelvic lymph nodes are appreciated. OSSEOUS STRUCTURES: No significant abnormality is seen. OTHER: No significant additional abnormality is seen. IMPRESSION: Distal colonic diverticulosis with suggestion of mild or early uncomplicated acute divert iculitis proximal sigmoid colon level in the left upper pelvis.
[2021-11-17] MEDS ORDERED: AMPICILLIN-SULBACTAM 3 GM in SODIUM CHLORIDE 0.9% 100 ML IVPB STA ×2 (14:45→14:53)
[2021-11-17] MEDS ORDERED: NALOXONE 0.4 MG/ML 1 ML VIAL IV PRN (14:49)
[2021-11-17 18:41] LABS: Appearance,Urine Clear (Clear); Bilirubin,Urine Negative (Negative); Blood,Urine Negative (Negative); Color,Urine Yellow; Glucose,Urine (UA) Negative (Negative); Ketones,Urine Negative (Negative); Leukocyte Esterase,Urine Negative (Negative); Nitrite,Urine Negative (Negative); Protein,Urine Trace (Negative)
--- NOTE | 2021-11-17 19:18 | XR ---
EXAMINATION TYPE: XR chest 1V portable DATE OF EXAM: 11/17/2021 7:08 PM COMPARISON: Multiple radiographs, with the most recent on 06/02/2021 TECHNIQUE: XR chest 1V portable Frontal view of the chest. CLINICAL INDICATION:Male, 66 years old with history of Fever; FINDINGS: Lungs/Pleura: There is no evidence of pleural effusion, focal consolidation, or pneumothorax. Pulmonary vascularity: Unremarkable. Heart/mediastinum: Cardiomediastinal silhouette is enlarged and stable. Musculoskeletal: No acute osseous pathology. IMPRESSION: No acute cardiopulmonary disease/process.
[2021-11-17] MEDS: SODIUM CHLORIDE 0.9% 1,000 ML IV SCH (19:24)
[2021-11-17] MEDS: LUBIPROSTONE 8 MCG PO SCH (19:25)
[2021-11-17] MEDS: ACETAMINOPHEN TAB 325 MG TAB PO PRN (20:20)
[2021-11-17] MEDS: APIXABAN 5 MG TAB PO SCH (20:21)
[2021-11-17] MEDS: DICYCLOMINE 10 MG CAP PO SCH (21:16)
[2021-11-17] MEDS: FLECAINIDE 50 MG TAB PO SCH (21:16)
[2021-11-18] MEDS: AMPICILLIN-SULBACTAM 3 GM in SODIUM CHLORIDE 0.9% 100 ML IVPB SCH ×4 (00:32→20:40)
[2021-11-18] MEDS: HYDROcodone/APAP 7.5-325MG 1 EACH TAB PO PRN ×2 (01:47→20:36)
[2021-11-18] MEDS ORDERED: AMLODIPINE BES PO SCH (09:00)
[2021-11-18] MEDS ORDERED: OLMESARTAN MED PO SCH (09:00)
[2021-11-18] MEDS ORDERED: [UNRECOGNIZED DRUG - OTHER] PO SCH (09:00)
[2021-11-18] MEDS: PANTOPRAZOLE 40 MG TABLET PO SCH (09:15)
[2021-11-18] MEDS: LOSARTAN 50 MG TAB PO SCH (09:15)
[2021-11-18] MEDS: APIXABAN 5 MG TAB PO SCH (09:15)
[2021-11-18] MEDS: LORATADINE 10 MG TAB PO SCH (09:15)
[2021-11-18] MEDS: amLODIPine 10 MG TAB PO SCH (09:15)
[2021-11-18] MEDS: CYANOCOBALAMIN 500 MCG TAB PO SCH (09:15)
[2021-11-18] MEDS: METOPROLOL SUCCINATE (ER) 25 MG TAB.ER.24H PO SCH (09:15)
[2021-11-18] MEDS: FLECAINIDE 50 MG TAB PO SCH ×2 (09:16→20:36)
[2021-11-18] MEDS: DICYCLOMINE 10 MG CAP PO SCH ×4 (09:16→20:35)
[2021-11-18] MEDS: LUBIPROSTONE 8 MCG PO SCH ×2 (09:21→20:40)
[2021-11-18 11:00] LABS: African American GFR (CKD) 101.4 (60.0-200.0); Albumin 4.1 g/dL (3.8-4.9); Albumin/Globulin Ratio 1.95 (1.60-3.17); Anion Gap 12.1 mmol/L (10.00-18.00); BUN/Creat Ratio 10.56 Ratio (12.00-20.00); Blood Urea Nitrogen 9.5 mg/dL (9.0-27.0); Calcium 8.5 mg/dL (8.7-10.3); Carbon Dioxide 25.9 mmol/L (20.0-27.5); Globulin 2.1 g/dL (1.6-3.3); Non-African American GFR(CKD) 87.5 (60.0-200.0); Potassium 3.3 mmol/L (3.5-5.5); Total Bilirubin 1.2 mg/dL (0.30-1.20); Total Protein 6.2 g/dL (6.2-8.2)
[2021-11-18 11:18] LABS: Basophils # (M) 0 X 10*3/uL (0.00-0.10); HCT 33.6 % (39.6-50.0); HGB 11.1 g/dL (13.0-17.0); Immature Platelet Fraction 2.4 % (1.1-6.1); Lymphocytes # (M) 0.69 X 10*3/uL (0.90-5.00); MCH 35.5 pg (27.0-32.0); MCV 107.3 fL (80.0-97.0); Macrocytosis (M) 2+; Mean Platelet Volume 9.9 fL (9.5-12.2); Monocytes # (M) 0.18 X 10*3/uL (0.20-1.00); NRBC Per 100 WBC 0 /100 WBCS (0.0-0.0); Neutrophils # (M) 0.64 X 10*3/uL (2.00-8.90); Neutrophils % (M) 40 %; Platelet Count 43 X 10*3/uL (140-440); RBC 3.13 X 10*6/uL (4.40-5.60); RDW 17.3 % (11.5-14.5); WBC 1.61 X 10*3/uL (4.50-10.00)
[2021-11-18 12:51] LABS: Reticulocyte % 1.5 % (0.5-2.0)
[2021-11-18 13:00] LABS: INR 1.1 (<1.2); Partial Thromboplastin Time 26.6 sec (22.0-30.0); Prothrombin Time 11.8 sec (9.0-12.0)
[2021-11-18] MEDS ORDERED: Potassium Replacement Protocol 1 EACH MISC MISCELLANE PRN ×2 (13:06→13:33)
--- NOTE | 2021-11-18 13:07 | P.CONS ---
History of Present Illness - Reason for Consult Consult date: 11/18/21 Pancytopenia Requesting physician: Juan Carlos Cam - History of Present Illness Patient is a 66-year male with a past medical history significant for recurrent diverticulitis, ETOH and likely underlying liver disease who we have been asked to see for thrombocytopenia. He is on anticoagulation for atrial fib, defer final AC to cardiology Review of Systems All systems: negative Constitutional: Reports as per HPI Past Medical History Past Medical History: Atrial Fibrillation, GERD/Reflux, Hypertension, Osteoarthritis (OA), Pneumonia Additional Past Medical History / Comment(s): Chronic LOWER & CERVIAL BACK PAIN History of Any Multi-Drug Resistant Organisms: None Reported Past Surgical History: Cardiac Ablation, Heart Catheterization, Tonsillectomy Additional Past Surgical History / Comment(s): ORAL SURGERY, COLONOSCOPY, BACK - STEROID INJECTIONS,TIMMY, cardioversion Past Anesthesia/Blood Transfusion Reactions: No Reported Reaction Past Psychological History: Anxiety Smoking Status: Former smoker Past Alcohol Use History: Occasional Past Drug Use History: None Reported - Past Family History Mother Family Medical History: No Reported History Medications and Allergies Home Medications Medication Instructions Recorded Confirmed Type Apixaban [Eliquis] 5 mg PO BID 06/08/19 11/17/21 History Flecainide Acetate [Tambocor] 100 mg PO Q12HR 02/29/20 11/17/21 History amLODIPine BES/OLMESARTAN MED 1 tab PO DAILY 02/29/20 11/17/21 History [amLODIPine BES/OLMESARTAN MED 10-20 mg] Metoprolol Succinate (ER) [Toprol 25 mg PO DAILY 05/29/21 11/17/21 History Xl] Omeprazole 40 mg PO DAILY 05/29/21 11/17/21 History Albuterol Inhaler [Ventolin Hfa 2 puff INHALATION RT-QID PRN #8 gm 06/02/21 11/17/21 Rx Inhaler] Cyanocobalamin (Vitamin B-12) 1,000 mcg PO DAILY 11/17/21 11/17/21 History [Vitamin B-12] Dicyclomine HCl 10 mg PO QID 11/17/21 11/17/21 History HYDROcodone/APAP 7.5-325MG [[place] 1 tab PO TID PRN 11/17/21 11/17/21 History 7.5-325] Loratadine [Claritin] 10 mg PO DAILY 11/17/21 11/17/21 History Lubiprostone [Amitiza] 8 mcg PO BID 11/17/21 11/17/21 History Allergies Allergy/AdvReac Type Severity Reaction Status Date / Time No Known Allergies Allergy Verified 11/17/21 16:10 Physical Exam Vitals: Vital Signs Temp Pulse Pulse Resp BP BP BP 11/18/21 07:00 98.2 F 56 L 16 126/67 11/18/21 01:32 102.9 F H 67 17 161/73 11/17/21 20:16 99.3 F 67 18 134/59 11/17/21 17:10 97.9 F 55 L 15 117/65 11/17/21 16:52 98.7 F 11/17/21 16:00 71 16 133/70 11/17/21 10:16 100.4 F H 74 18 137/75 Pulse Ox 11/18/21 07:00 97 11/18/21 01:32 98 11/17/21 20:16 100 11/17/21 17:10 99 11/17/21 16:52 11/17/21 16:00 97 11/17/21 10:16 97 Intake and Output 11/17/21 11/18/21 11/18/21 22:59 06:59 14:59 Output Total 300 Balance -300 Output: Urine 300 Other: # Voids 1 1 Weight 99.79 kg - Constitutional General appearance: cooperative, obese - EENT Eyes: EOMI ENT: NA/AT - Respiratory Respiratory: bilateral: diminished - Cardiovascular Rhythm: regularly irregular - Gastrointestinal General gastrointestinal: distended, hepatomegaly, soft - Neurologic Neurologic: CNII-XII intact - Musculoskeletal Musculoskeletal: generalized weakness Results CBC & Chem 7: 11/20/21 07:37 11/20/21 07:37 Labs: Abnormal Lab Results - Last 24 Hours (Table) 11/17/21 11/17/21 11/17/21 Range/Units 12:48 12:48 18:38 WBC 1.9 L (3.8-10.6) k/uL RBC 3.19 L (4.30-5.90) m/uL Hgb 11.4 L (13.0-17.5) gm/dL Hct 33.4 L (39.0-53.0) % MCV 104.6 H (80.0-100.0) fL MCH 35.6 H (25.0-35.0) pg Plt Count 49 L (150-450) k/uL Neutrophils # (Manual) 0.90 L (1.3-7.7) k/uL Lymphocytes # (Manual) 0.55 L (1.0-4.8) k/uL Sodium 136 L (137-145) mmol/L Glucose 118 H (74-99) mg/dL AST 68 H (17-59) U/L ALT 75 H (4-49) U/L Ur Specific [place] 1.050 H (1.001-1.035) Urine Protein Trace H (Negative) CT scan - abdomen: report reviewed Assessment and Plan (1) Macrocytic anemia Current Visit: Yes Status: Acute Code(s): D53.9 - NUTRITIONAL ANEMIA, UNSPECIFIED SNOMED Code(s): 70845106 (2) Thrombocytopenia Current Visit: Yes Status: Acute Code(s): D69.6 - THROMBOCYTOPENIA, UNSPECIFIED SNOMED Code(s): 732120039 (3) Leukopenia Current Visit: Yes Status: Acute Code(s): D72.819 - DECREASED WHITE BLOOD CELL COUNT, UNSPECIFIED SNOMED Code(s): 99661097 Plan: Pancytopenia work-up ordered HOLD ASA/NSAIDS and Anticoagulation if platelets under 50K Transfuse Hemo <7, Plt <10 (unless evidence of bleeding transfuse sooner) Great length discussing bone marrow suppression related to ETOH and cessation of importance for maintaing health HOLD Xarelto platelets less than 50K Dr. Schafer: I have completed the full history and physical and developed the above impression and plan, agree with above dictation, dictated as a ascribe.
[2021-11-18 13:18] LABS: LDH 781 U/L (313-618); Magnesium 1.8 mg/dL (1.6-2.3)
[2021-11-18] MEDS: POTASSIUM CHLORIDE ER 20 MEQ TAB.ER PO SCH ×2 (13:45→15:29)
[2021-11-18] MEDS: ACETAMINOPHEN TAB 325 MG TAB PO PRN (16:10)
[2021-11-18] MEDS: ALBUTEROL NEBULIZED 2.5 MG/3 ML INHALATION PRN ×2 (16:17→19:50)
[2021-11-18 16:19] LABS: Erythrocyte Sedimentation Rate 16 mm/hr (0-15)
[2021-11-18] MEDS: SODIUM CHLORIDE 0.9% 1,000 ML IV SCH (16:44)
--- NOTE | 2021-11-18 17:27 | P.HPIM ---
History of Present Illness H&P Date: 11/17/21 Bennie Estrada, is a 66-year-old male who presented to [facility] emergency room with a chief complaint of left lower quadrant abdominal pain nausea and fever. He was evaluated in the emergency room vital examination on presentation revealed a temperature of 100.4 pulse 74 respiration 18 blood pressure 137/75 pulse ox 97% on room air Laboratory data revealsed a white blood count of 1.9 hemoglobin 11.4 platelet count 49 sodium 136 potassium 4.1 chloride 100 CO2 29 BUN 11 creatinine 0.78 AST elevated at 68 ALT 75 COVID-19 PCR was negative influenza A and B PCR negative RSV PCR was negative Testing in the emergency room revealed computed tomography scan of the abdomen and pelvis done in the emergency room revealed evidence of distal colonic diverticulosis with evidence of acute uncomplicated diverticulitis in the proximal sigmoid colon. Patient was admitted to medical floor for further evaluation and treatment. He was started on IV Unasyn in the emergency room, consultation for infectious disease and hematology were initiated. Past medical history is significant for history of hypertension, history of atrial fibrillation, history of gastroesophageal reflux disease, history of cardiac catheterization, history of cardiac ablation. Past Medical History Past Medical History: Atrial Fibrillation, GERD/Reflux, Hypertension, Ost eoarthritis (OA), Pneumonia Additional Past Medical History / Comment(s): Chronic LOWER & CERVIAL BACK PAIN History of Any Multi-Drug Resistant Organisms: None Reported Past Surgical History: Cardiac Ablation, Heart Catheterization, Tonsillectomy Additional Past Surgical History / Comment(s): ORAL SURGERY, COLONOSCOPY, BACK - STEROID INJECTIONS,TIMMY, cardioversion Past Anesthesia/Blood Transfusion Reactions: No Reported Reaction Past Psychological History: Anxiety Smoking Status: Former smoker Past Alcohol Use History: Occasional Past Drug Use History: None Reported - Past Family History Mother Family Medical History: No Reported History Medications and Allergies Home Medications Medication Instructions Recorded Confirmed Type Apixaban [Eliquis] 5 mg PO BID 06/08/19 11/17/21 History Flecainide Acetate [Tambocor] 100 mg PO Q12HR 02/29/20 11/17/21 History amLODIPine BES/OLMESARTAN MED 1 tab PO DAILY 02/29/20 11/17/21 History [amLODIPine BES/OLMESARTAN MED 10-20 mg] Metoprolol Succinate (ER) [Toprol 25 mg PO DAILY 05/29/21 11/17/21 History Xl] Omeprazole 40 mg PO DAILY 05/29/21 11/17/21 History Albuterol Inhaler [Ventolin Hfa 2 puff INHALATION RT-QID PRN #8 gm 06/02/21 11/17/21 Rx Inhaler] Cyanocobalamin (Vitamin B-12) 1,000 mcg PO DAILY 11/17/21 11/17/21 History [Vitamin B-12] Dicyclomine HCl 10 mg PO QID 11/17/21 11/17/21 History HYDROcodone/APAP 7.5-325MG [[place] 1 tab PO TID PRN 11/17/21 11/17/21 History 7.5-325] Loratadine [Claritin] 10 mg PO DAILY 11/17/21 11/17/21 History Lubiprostone [Amitiza] 8 mcg PO BID 11/17/21 11/17/21 History Allergies Allergy/AdvReac Type Severity Reaction Status Date / Time No Known Allergies Allergy Verified 11/17/21 16:10 Physical Exam Vitals: Vital Signs Temp Pulse Resp BP Pulse Ox 11/17/21 16:52 98.7 F 11/17/21 16:00 71 16 133/70 97 11/17/21 10:16 100.4 F H 74 18 137/75 97 Intake and Output 11/17/21 11/17/21 11/17/21 06:59 14:59 22:59 Other: Weight 99.79 kg In general patient is alert and oriented x in no distress HEENT head normocephalic and atraumatic Neck is supple no JVD no goiter no lymphadenopathy no carotid bruit Chest examination is clear to auscultation no crackles no wheezing Cardiac exam reveals regular heart sounds S1 and S2 no gallops no murmurs Abdomen is soft with tenderness in the left lower quadrant no organomegaly with normal bowel sounds Extremity exam reveals no edema no cyanosis or clubbing Neurological examination reveals no gross focal deficits Results CBC & Chem 7: 11/18/21 07:03 11/18/21 16:28 Labs: Abnormal Lab Results - Last 24 Hours (Table) 11/17/21 11/17/21 Range/Units 12:48 12:48 WBC 1.9 L (3.8-10.6) k/uL RBC 3.19 L (4.30-5.90) m/uL Hgb 11.4 L (13.0-17.5) gm/dL Hct 33.4 L (39.0-53.0) % MCV 104.6 H (80.0-100.0) fL MCH 35.6 H (25.0-35.0) pg Plt Count 49 L (150-450) k/uL Neutrophils # (Manual) 0.90 L (1.3-7.7) k/uL Lymphocytes # (Manual) 0.55 L (1.0-4.8) k/uL Sodium 136 L (137-145) mmol/L Glucose 118 H (74-99) mg/dL AST 68 H (17-59) U/L ALT 75 H (4-49) U/L Assessment and Plan Plan: Acute diverticulitis, patient was started on IV antibiotic Febrile illness, could be related to diverticulitis, will check chest x-ray and urine analysis to rule out other source of infection Pancytopenia, consultation for hematology was initiated Daily alcohol use up to a pint daily, patient counseled in length in regards to stopping alcohol use Underlying history of hypertension Underlying history of hyperlipidemia Underlying history of atrial fibrillation Underlying history of osteoarthritis Underlying history of gastroesophageal reflux disease At this time patient is admitted to medical floor Home medications reviewed and reordered Continue with IV Unasyn at this time Check chest x-ray and urine analysis Consultation for infectious disease and hematology were initiated Recheck labs in a.m. Will follow closely
[2021-11-18] MEDS ORDERED: LORazepam 2 MG/ML INJ IV PRN (17:30)
[2021-11-18 18:07] LABS: Protein, Total 6.5 g/dL (6.2-8.2)
[2021-11-18 18:59] LABS: % Iron Saturation 20.31 (15.00-50.00); Iron 71 ug/dL (65-175); Rheumatoid Factor, Qnt <10 IU/mL (0-15); Total Iron Binding Capacity 349 ug/dL (228-460)
[2021-11-19] MEDS: AMPICILLIN-SULBACTAM 3 GM in SODIUM CHLORIDE 0.9% 100 ML IVPB SCH ×4 (02:41→20:40)
--- NOTE | 2021-11-19 07:06 | P.CONS ---
History of Present Illness - Reason for Consult Consult date: 11/18/21 Febrile illness and diverticulitis Requesting physician: Nelsy Zuniga - Chief Complaint Abdominal pain x few days - History of Present Illness Patient is a 66-year male with a past medical history significant for recurrent diverticulitis, hypertension atrial fibrillation patient presenting to the ER yesterday afternoon for evaluation of abdominal pain and constipation with no bowel movement for 6 to 7 days patient be complaining of pain mostly in the lower abdominal area describing it to be dull aching to sharp almost 6-7 out of 10 head no radiation has felt nauseated but no vomiting and did not have any bowel movement for 6 to 7 days she has been passing gas patient did have some chills and the patient was noted to be febrile on presentation to hospital with a temperature 100.4 and early this morning he did have a temperature of 102.9 F patient was noticed to be leukopenic kidney function was normal AST ALT was mildly elevated urine was negative beltran PCR was negative as well as influenza PCR patient did have a CT abdominal pelvis concerning for mild diverticulitis chest x-ray was negative patient was started on Unasyn admitted to the hospital infectious disease was consulted for further management of antibiotic therapy Review of Systems Positive point has been mentioned in the HPI rest of the systems are negative Past Medical History Past Medical History: Atrial Fibrillation, GERD/Reflux, Hypertension, Osteoarthritis (OA), Pneumonia Additional Past Medical History / Comment(s): Chronic LOWER & CERVIAL BACK PAIN History of Any Multi-Drug Resistant Organisms: None Reported Past Surgical History: Cardiac Ablation, Heart Catheterization, Tonsillectomy Additional Past Surgical History / Comment(s): ORAL SURGERY, COLONOSCOPY, BACK - STEROID INJECTIONS,TIMMY, cardioversion Past Anesthesia/Blood Transfusion Reactions: No Reported Reaction Past Psychological History: Anxiety Smoking Status: Former smoker Past Alcohol Use History: Occasional Past Drug Use History: None Reported - Past Family History Mother Family Medical History: No Reported History Medications and Allergies Home Medications Medication Instructions Recorded Confirmed Type Apixaban [Eliquis] 5 mg PO BID 06/08/19 11/17/21 History Flecainide Acetate [Tambocor] 100 mg PO Q12HR 02/29/20 11/17/21 History amLODIPine BES/OLMESARTAN MED 1 tab PO DAILY 02/29/20 11/17/21 History [amLODIPine BES/OLMESARTAN MED 10-20 mg] Metoprolol Succinate (ER) [Toprol 25 mg PO DAILY 05/29/21 11/17/21 History Xl] Omeprazole 40 mg PO DAILY 05/29/21 11/17/21 History Albuterol Inhaler [Ventolin Hfa 2 puff INHALATION RT-QID PRN #8 gm 06/02/21 11/17/21 Rx Inhaler] Cyanocobalamin (Vitamin B-12) 1,000 mcg PO DAILY 11/17/21 11/17/21 History [Vitamin B-12] Dicyclomine HCl 10 mg PO QID 11/17/21 11/17/21 History HYDROcodone/APAP 7.5-325MG [[place] 1 tab PO TID PRN 11/17/21 11/17/21 History 7.5-325] Loratadine [Claritin] 10 mg PO DAILY 11/17/21 11/17/21 History Lubiprostone [Amitiza] 8 mcg PO BID 11/17/21 11/17/21 History Allergies Allergy/AdvReac Type Severity Reaction Status Date / Time No Known Allergies Allergy Verified 11/17/21 16:10 Physical Exam Vitals: Vital Signs Temp Pulse Pulse Resp BP BP BP 11/18/21 09:24 16 11/18/21 07:00 98.2 F 56 L 16 126/67 11/18/21 01:32 102.9 F H 67 17 161/73 11/17/21 20:16 99.3 F 67 18 134/59 11/17/21 17:10 97.9 F 55 L 15 117/65 11/17/21 16:52 98.7 F 11/17/21 16:00 71 16 133/70 Pulse Ox 11/18/21 09:24 11/18/21 07:00 97 11/18/21 01:32 98 11/17/21 20:16 100 11/17/21 17:10 99 11/17/21 16:52 11/17/21 16:00 97 Intake and Output 11/17/21 11/18/21 11/18/21 22:59 06:59 14:59 Output Total 300 Balance -300 Output: Urine 300 Other: Voiding Method Toilet # Voids 1 1 Weight 99.79 kg GENERAL DESCRIPTION: An elderly male lying in bed, no distress. No tachypnea or accessory muscle of respiration use. HEENT: Shows Pallor , no scleral icterus. Oral mucous membrane is dry. No pharyngeal erythema or thrush NECK: Trachea central, no thyromegaly. LUNGS: Unlabored breathing. Clear to auscultation anteriorly. No wheeze or crackle. HEART: S1, S2, regular rate and rhythm. No loud murmur ABDOMEN: Soft, mild tenderness , no guarding or rigidity, no organomegaly EXTREMITIES: No edema of feet. SKIN: No rash, no masses palpable. NEUROLOGICAL: The patient is awake, alert, oriented x3, mood and affect normal. Results CBC & Chem 7: 11/18/21 07:03 11/18/21 16:28 Labs: Abnormal Lab Results - Last 24 Hours (Table) 11/17/21 11/17/21 11/17/21 Range/Units 12:48 12:48 18:38 WBC 1.9 L (3.8-10.6) k/uL RBC 3.19 L (4.30-5.90) m/uL Hgb 11.4 L (13.0-17.5) gm/dL Hct 33.4 L (39.0-53.0) % MCV 104.6 H (80.0-100.0) fL MCH 35.6 H (25.0-35.0) pg RDW (11.5-14.5) % Plt Count 49 L (150-450) k/uL Plt Count Comment Neutrophils # (Manual) 0.90 L (1.3-7.7) k/uL Lymphocytes # (Manual) 0.55 L (1.0-4.8) k/uL Monocytes # (Manual) (0.20-1.00) X 10*3/uL Sodium 136 L (137-145) mmol/L Potassium (3.5-5.5) mmol/L BUN/Creatinine Ratio (12.00-20.00) Ratio Glucose 118 H (74-99) mg/dL Calcium (8.7-10.3) mg/dL AST 68 H (17-59) U/L ALT 75 H (4-49) U/L Ur Specific [place] 1.050 H (1.001-1.035) Urine Protein Trace H (Negative) 11/18/21 11/18/21 Range/Units 07:03 07:03 WBC 1.61 L (3.8-10.6) k/uL RBC 3.13 L (4.30-5.90) m/uL Hgb 11.1 L (13.0-17.5) gm/dL Hct 33.6 L (39.0-53.0) % MCV 107.3 H (80.0-100.0) fL MCH 35.5 H (25.0-35.0) pg RDW 17.3 H (11.5-14.5) % Plt Count 43 L (150-450) k/uL Plt Count Comment A Neutrophils # (Manual) 0.64 L (1.3-7.7) k/uL Lymphocytes # (Manual) 0.69 L (1.0-4.8) k/uL Monocytes # (Manual) 0.18 L (0.20-1.00) X 10*3/uL Sodium (137-145) mmol/L Potassium 3.3 L (3.5-5.5) mmol/L BUN/Creatinine Ratio 10.56 L (12.00-20.00) Ratio Glucose (74-99) mg/dL Calcium 8.5 L (8.7-10.3) mg/dL AST 60 H (17-59) U/L ALT 84 H (4-49) U/L Ur Specific [place] (1.001-1.035) Urine Protein (Negative) Assessment and Plan (1) Diverticulitis Current Visit: Yes Status: Acute Code(s): K57.92 - DVTRCLI OF INTEST, PART UNSP, W/O PERF OR ABSCESS W/O BLEED SNOMED Code(s): 288988396 Plan: 1patient presented to hospital with abdominal pain constipation and this patient did have a fever, with evidence of diverticulitis on the CT will need to cover for the enteric gram-negative both aerobes and anaerobes. 2increase the dose of Unasyn to 3 g every 6 hours. 3patient has been educated about his condition home prevent recurrent divert iculitis. We will follow on clinical condition and cultures to further adjust medication if needed Thank you for this consultation will follow this patient along with you Time with Patient: Greater than 30
[2021-11-19] MEDS: CYANOCOBALAMIN 500 MCG TAB PO SCH (08:59)
[2021-11-19] MEDS: PANTOPRAZOLE 40 MG TABLET PO SCH (08:59)
[2021-11-19] MEDS: amLODIPine 10 MG TAB PO SCH (09:00)
[2021-11-19] MEDS: FLECAINIDE 50 MG TAB PO SCH ×2 (09:00→20:41)
[2021-11-19] MEDS: DICYCLOMINE 10 MG CAP PO SCH ×4 (09:00→20:40)
[2021-11-19] MEDS: LORATADINE 10 MG TAB PO SCH (09:00)
[2021-11-19] MEDS: LOSARTAN 50 MG TAB PO SCH (09:00)
[2021-11-19] MEDS: METOPROLOL SUCCINATE (ER) 25 MG TAB.ER.24H PO SCH (09:05)
[2021-11-19] MEDS: LUBIPROSTONE 8 MCG PO SCH ×2 (09:07→20:41)
[2021-11-19] MEDS: HYDROcodone/APAP 7.5-325MG 1 EACH TAB PO PRN ×2 (09:11→16:51)
--- NOTE | 2021-11-19 11:28 | US ---
EXAMINATION TYPE: US liver DATE OF EXAM: 11/19/2021 COMPARISON: NONE CLINICAL HISTORY: Further assess liver. EXAM MEASUREMENTS: Liver Length: 22.0 cm Gallbladder Wall: 0.7 cm CBD: 0.5 cm Right Kidney: 12.4 x 5.5 x 5.1 cm Pancreas: portions visualized wnl Liver: Increased attenuation, measures large Gallbladder: thickened wall, echogenic foci within, not shadowing Evidence for sonographic Mohan's sign: CBD: wnl Right Kidney: wnl IMPRESSION: 1. Hepatomegaly. Nonspecific pattern and liver can be seen with hepatic steatosis or hepatocellular d isease and ascites. 2. Gallbladder wall is markedly thickened and findings are suspicious for sludge or nonshadowing gall stones. Correlate for cholecystitis.
[2021-11-19 14:02] LABS: HCT 34.6 % (39.0-53.0); HGB 11.3 gm/dL (13.0-17.5); MCH 35.2 pg (25.0-35.0); MCHC 32.7 g/dL (31.0-37.0); MCV 107.9 fL (80.0-100.0); Macrocytosis Marked; Mean Platelet Volume 8.4; RBC 3.21 m/uL (4.30-5.90); RDW 15.5 % (11.5-15.5); WBC 1.8 k/uL (3.8-10.6)
[2021-11-19 14:14] LABS: Platelet Count 45 k/uL (150-450)
[2021-11-19 15:21] LABS: Band Neutrophils % 3 %; Eosinophils # (M) 0.09 k/uL (0-0.7); Lymphocytes # (M) 0.85 k/uL (1.0-4.8); Monocytes # (M) 0.25 k/uL (0-1.0); Neutrophils % (M) 31 %; Nucleated Red Blood Cells 0 /100 WBC (0-0); Total Cells Counted 100
[2021-11-19] MEDS: SODIUM CHLORIDE 0.9% 1,000 ML IV SCH (16:46)
--- NOTE | 2021-11-19 18:23 | P.PN ---
Subjective Progress Note Date: 11/18/21 Bennie Estrada, is a 66-year-old male who presented to [facility] emergency room with a chief complaint of left lower quadrant abdominal pain nausea and fever. He was evaluated in the emergency room vital examination on presentation revealed a temperature of 100.4 pulse 74 respiration 18 blood pressure 137/75 pulse ox 97% on room air Laboratory data revealsed a white blood count of 1.9 hemoglobin 11.4 platelet count 49 sodium 136 potassium 4.1 chloride 100 CO2 29 BUN 11 creatinine 0.78 AST elevated at 68 ALT 75 COVID-19 PCR was negative influenza A and B PCR negative RSV PCR was negative Testing in the emergency room revealed computed tomography scan of the abdomen and pelvis done in the emergency room revealed evidence of distal colonic diverticulosis with evidence of acute uncomplicated diverticulitis in the proximal sigmoid colon. Patient was admitted to medical floor for further evaluation and treatment. He was started on IV Unasyn in the emergency room, consultation for infectious disease and hematology were initiated. Past medical history is significant for history of hypertension, history of atrial fibrillation, history of gastroesophageal reflux disease, history of cardiac catheterization, history of cardiac ablation. On 11/18/2021 patient was seen and examined on the medical floor he is alert and oriented 3 in no apparent distress he is complaining of mild left lower quadrant abdominal pain otherwise he denies any complaints at this time there is no fever or chills no headache or dizziness no chest pain no shortness of breath no cough no nausea or vomiting no diarrhea and no urinary symptoms Objective - Vital Signs Vital signs: Vital Signs Temp 98 F 11/19/21 13:20 Pulse 52 L 11/19/21 14:00 Resp 16 11/19/21 14:00 BP 118/56 11/19/21 13:20 Pulse Ox 97 11/19/21 13:20 FiO2 Intake & Output 11/18/21 11/19/21 11/19/21 18:59 06:59 18:59 Intake Total 240 Output Total 800 200 150 Balance -800 -200 90 Intake: Oral 240 Output: Urine 800 200 150 Other: Voiding Method Toilet Toilet # Voids 1 2 # Bowel Movements 0 - Exam In general patient is alert and oriented x in no distress HEENT head normocephalic and atraumatic Neck is supple no JVD no goiter no lymphadenopathy no carotid bruit Chest examination is clear to auscultation no crackles no wheezing Cardiac exam reveals regular heart sounds S1 and S2 no gallops no murmurs Abdomen is soft with tenderness in the left lower quadrant no organomegaly with normal bowel sounds Extremity exam reveals no edema no cyanosis or clubbing Neurological examination reveals no gross focal deficits - Labs CBC & Chem 7: 11/19/21 13:12 11/18/21 16:28 Labs: Abnormal Lab Results - Last 24 Hours (Table) 11/18/21 11/18/21 11/19/21 Range/Units 12:10 12:10 13:12 WBC 1.8 L (3.8-10.6) k/uL RBC 3.21 L (4.30-5.90) m/uL Hgb 11.3 L (13.0-17.5) gm/dL Hct 34.6 L (39.0-53.0) % MCV 107.9 H (80.0-100.0) fL MCH 35.2 H (25.0-35.0) pg Macrocytosis Marked A ESR 16 H (0-15) mm/hr Ferritin 906.0 H (22.0-322.0) ng/mL Microbiology - Last 24 Hours (Table) 11/17/21 16:15 Blood Culture - Preliminary Blood No Growth after 24 hours 11/17/21 16:00 Blood Culture - Preliminary Blood No Growth after 24 hours Assessment and Plan Plan: Acute diverticulitis, patient was started on IV antibiotic Febrile illness, could be related to diverticulitis, will check chest x-ray and urine analysis to rule out other source of infection Pancytopenia, consultation for hematology was initiated Daily alcohol use up to a pint daily, patient counseled in length in regards to stopping alcohol use Underlying history of hypertension Underlying history of hyperlipidemia Underlying history of atrial fibrillation Underlying history of osteoarthritis Underlying history of gastroesophageal reflux disease At this time patient is admitted to medical floor Home medications reviewed and reordered Continue with IV Unasyn at this time Check chest x-ray and urine analysis Consultation for infectious disease and hematology were initiated Recheck labs in a.m. Will follow closely
--- NOTE | 2021-11-19 18:25 | P.PN ---
Subjective Progress Note Date: 11/19/21 Bennie Estrada, is a 66-year-old male who presented to [facility] emergency room with a chief complaint of left lower quadrant abdominal pain nausea and fever. He was evaluated in the emergency room vital examination on presentation revealed a temperature of 100.4 pulse 74 respiration 18 blood pressure 137/75 pulse ox 97% on room air Laboratory data revealsed a white blood count of 1.9 hemoglobin 11.4 platelet count 49 sodium 136 potassium 4.1 chloride 100 CO2 29 BUN 11 creatinine 0.78 AST elevated at 68 ALT 75 COVID-19 PCR was negative influenza A and B PCR negative RSV PCR was negative Testing in the emergency room revealed computed tomography scan of the abdomen and pelvis done in the emergency room revealed evidence of distal colonic diverticulosis with evidence of acute uncomplicated diverticulitis in the proximal sigmoid colon. Patient was admitted to medical floor for further evaluation and treatment. He was started on IV Unasyn in the emergency room, consultation for infectious disease and hematology were initiated. Past medical history is significant for history of hypertension, history of atrial fibrillation, history of gastroesophageal reflux disease, history of cardiac catheterization, history of cardiac ablation. On 11/18/2021 patient was seen and examined on the medical floor he is alert and oriented 3 in no apparent distress he is complaining of mild left lower quadrant abdominal pain otherwise he denies any complaints at this time there is no fever or chills no headache or dizziness no chest pain no shortness of breath no cough no nausea or vomiting no diarrhea and no urinary symptoms On 11/19/2021 patient was seen and examined on the medical floor he is alert and oriented 3 in no apparent distress there is no fever or chills no headache or dizziness no chest pain no shortness of breath no cough no nausea or vomiting patient has mild left lower quadrant abdominal pain no burning with urination no frequency or urgency and no hematuria. Elevated liver enzymes likely due to alcohol use, liver ultrasound was done and revealed evidence of wall thickening of the gallbladder, consultation for surgery was initiated, continue with curre nt medications at this time. Objective - Vital Signs Vital signs: Vital Signs Temp 98 F 11/19/21 13:20 Pulse 52 L 11/19/21 14:00 Resp 16 11/19/21 14:00 BP 118/56 11/19/21 13:20 Pulse Ox 97 11/19/21 13:20 FiO2 Intake & Output 11/18/21 11/19/21 11/19/21 18:59 06:59 18:59 Intake Total 358 Output Total 800 200 150 Balance -800 -200 208 Intake: Oral 358 Output: Urine 800 200 150 Other: Voiding Method Toilet Toilet # Voids 1 2 # Bowel Movements 0 - Exam In general patient is alert and oriented x in no distress HEENT head normocephalic and atraumatic Neck is supple no JVD no goiter no lymphadenopathy no carotid bruit Chest examination is clear to auscultation no crackles no wheezing Cardiac exam reveals regular heart sounds S1 and S2 no gallops no murmurs Abdomen is soft with tenderness in the left lower quadrant no organomegaly with normal bowel sounds Extremity exam reveals no edema no cyanosis or clubbing Neurological examination reveals no gross focal deficits - Labs CBC & Chem 7: 11/19/21 13:12 11/18/21 16:28 Labs: Abnormal Lab Results - Last 24 Hours (Table) 11/18/21 11/19/21 Range/Units 12:10 13:12 WBC 1.8 L (3.8-10.6) k/uL RBC 3.21 L (4.30-5.90) m/uL Hgb 11.3 L (13.0-17.5) gm/dL Hct 34.6 L (39.0-53.0) % MCV 107.9 H (80.0-100.0) fL MCH 35.2 H (25.0-35.0) pg Plt Count 45 L (150-450) k/uL Neutrophils # (Manual) 0.60 L (1.3-7.7) k/uL Lymphocytes # (Manual) 0.85 L (1.0-4.8) k/uL Macrocytosis Marked A Ferritin 906.0 H (22.0-322.0) ng/mL Microbiology - Last 24 Hours (Table) 11/17/21 16:15 Blood Culture - Preliminary Blood No Growth after 24 hours 11/17/21 16:00 Blood Culture - Preliminary Blood No Growth after 24 hours Assessment and Plan Plan: Acute diverticulitis, patient was started on IV antibiotic Febrile illness, could be related to diverticulitis, will check chest x-ray and urine analysis to rule out other source of infection Pancytopenia, consultation for hematology was initiated Daily alcohol use up to a pint daily, patient counseled in length in regards to stopping alcohol use Underlying history of hypertension Underlying history of hyperlipidemia Underlying history of atrial fibrillation Underlying history of osteoarthritis Underlying history of gastroesophageal reflux disease At this time patient is admitted to medical floor Home medications reviewed and reordered Continue with IV Unasyn at this time Check chest x-ray and urine analysis Consultation for infectious disease and hematology were initiated Recheck labs in a.m. Will follow closely
[2021-11-19 18:39] LABS: African American GFR (CKD) 101.4 (60.0-200.0); Albumin 4.2 g/dL (3.8-4.9); Anion Gap 12.6 mmol/L (10.00-18.00); BUN/Creat Ratio 9.44 Ratio (12.00-20.00); Blood Urea Nitrogen 8.5 mg/dL (9.0-27.0); Calcium 8.5 mg/dL (8.7-10.3); Carbon Dioxide 26.4 mmol/L (20.0-27.5); Globulin 2.1 g/dL (1.6-3.3); Non-African American GFR(CKD) 87.5 (60.0-200.0); Potassium 3.7 mmol/L (3.5-5.5); Total Bilirubin 1.3 mg/dL (0.30-1.20); Total Protein 6.3 g/dL (6.2-8.2)
[2021-11-20] MEDS: HYDROcodone/APAP 7.5-325MG 1 EACH TAB PO PRN ×3 (01:10→20:23)
[2021-11-20] MEDS: AMPICILLIN-SULBACTAM 3 GM in SODIUM CHLORIDE 0.9% 100 ML IVPB SCH ×4 (02:59→20:24)
--- NOTE | 2021-11-20 07:54 | P.PN ---
Subjective Progress Note Date: 11/19/21 Principal diagnosis: Diverticulitis Patient is a 66-year-old male presented to the hospital with abdominal pain in this patient did have a history of diverticulitis with CT suggestive of uncomplicated diverticulitis. On today's evaluation that is 11/19/2021, patient denies having any fever or chills, patient, patient has decreased in intensity, patient denies having any nausea or vomiting has been tolerating his diet with no worsening abdominal pain, no chest pain shortness of breath or cough Objective - Vital Signs Vital signs: Vital Signs Temp 98 F 11/19/21 13:20 Pulse 52 L 11/19/21 13:20 Resp 16 11/19/21 13:20 BP 118/56 11/19/21 13:20 Pulse Ox 97 11/19/21 13:20 FiO2 Intake & Output 11/18/21 11/19/21 11/19/21 18:59 06:59 18:59 Intake Total 240 Output Total 800 200 150 Balance -800 -200 90 Intake: Oral 240 Output: Urine 800 200 150 Other: Voiding Method Toilet Toilet # Voids 1 1 # Bowel Movements 0 - Exam GENERAL DESCRIPTION: An elderly male lying in bed in no distress RESPIRATORY SYSTEM: Unlabored breathing , decreased breath sounds at bases HEART: S1 S2 regular rate and rhythm , ABDOMEN: Soft , no tenderness EXTREMITIES: No edema feet - Labs CBC & Chem 7: 11/19/21 13:12 11/19/21 13:12 Labs: Abnormal Lab Results - Last 24 Hours (Table) 11/18/21 11/18/21 Range/Units 12:10 12:10 ESR 16 H (0-15) mm/hr Ferritin 906.0 H (22.0-322.0) ng/mL Microbiology - Last 24 Hours (Table) 11/17/21 16:15 Blood Culture - Preliminary Blood No Growth after 24 hours 11/17/21 16:00 Blood Culture - Preliminary Blood No Growth after 24 hours Assessment and Plan (1) Diverticulitis Current Visit: Yes Status: Acute Code(s): K57.92 - DVTRCLI OF INTEST, PART UNSP, W/O PERF OR ABSCESS W/O BLEED SNOMED Code(s): 869860022 Plan: 1patient presented to hospital with abdominal pain constipation and this patient did have a fever, with evidence of diverticulitis on the CT will need to cover for the enteric gram-negative both aerobes and anaerobes. 2patient seemed to have shown clinical improvement and will continue with Unasyn to 3 g every 6 hours. Time with Patient: Less than 30
[2021-11-20] MEDS: CYANOCOBALAMIN 500 MCG TAB PO SCH (08:54)
[2021-11-20] MEDS: METOPROLOL SUCCINATE (ER) 25 MG TAB.ER.24H PO SCH (08:54)
[2021-11-20] MEDS: PANTOPRAZOLE 40 MG TABLET PO SCH (08:54)
[2021-11-20] MEDS: LORATADINE 10 MG TAB PO SCH (08:54)
[2021-11-20] MEDS: DICYCLOMINE 10 MG CAP PO SCH ×4 (08:55→21:11)
[2021-11-20] MEDS: FLECAINIDE 50 MG TAB PO SCH ×2 (08:55→20:24)
[2021-11-20] MEDS: LOSARTAN 50 MG TAB PO SCH (08:55)
[2021-11-20 09:01] LABS: Methylmalonic Acid 0.15 umol/L (<0.40)
[2021-11-20] MEDS: LUBIPROSTONE 8 MCG PO SCH ×2 (10:16→20:22)
[2021-11-20] MEDS: amLODIPine 10 MG TAB PO SCH (10:16)
--- NOTE | 2021-11-20 10:20 | P.PN ---
Subjective Progress Note Date: 11/20/21 Bennie Estrada, is a 66-year-old male who presented to [facility] emergency room with a chief complaint of left lower quadrant abdominal pain nausea and fever. He was evaluated in the emergency room vital examination on presentation revealed a temperature of 100.4 pulse 74 respiration 18 blood pressure 137/75 pulse ox 97% on room air Laboratory data revealsed a white blood count of 1.9 hemoglobin 11.4 platelet count 49 sodium 136 potassium 4.1 chloride 100 CO2 29 BUN 11 creatinine 0.78 AST elevated at 68 ALT 75 COVID-19 PCR was negative influenza A and B PCR negative RSV PCR was negative Testing in the emergency room revealed computed tomography scan of the abdomen and pelvis done in the emergency room revealed evidence of distal colonic diverticulosis with evidence of acute uncomplicated diverticulitis in the proximal sigmoid colon. Patient was admitted to medical floor for further evaluation and treatment. He was started on IV Unasyn in the emergency room, consultation for infectious disease and hematology were initiated. Past medical history is significant for history of hypertension, history of atrial fibrillation, history of gastroesophageal reflux disease, history of cardiac catheterization, history of cardiac ablation. On 11/18/2021 patient was seen and examined on the medical floor he is alert and oriented 3 in no apparent distress he is complaining of mild left lower quadrant abdominal pain otherwise he denies any complaints at this time there is no fever or chills no headache or dizziness no chest pain no shortness of breath no cough no nausea or vomiting no diarrhea and no urinary symptoms On 11/19/2021 patient was seen and examined on the medical floor he is alert and oriented 3 in no apparent distress there is no fever or chills no headache or dizziness no chest pain no shortness of breath no cough no nausea or vomiting patient has mild left lower quadrant abdominal pain no burning with urination no frequency or urgency and no hematuria. Elevated liver enzymes likely due to alcohol use, liver ultrasound was done and revealed evidence of wall thickening of the gallbladder, consultation for surgery was initiated, continue with curre nt medications at this time. On 11/20/2021 patient is alert and oriented 3. Discussed case with hematology service is recommending cardiology services to further evaluate need for anticoagulation due to marginal platelet count. Awaiting labs. At this time hematology, infectious disease and surgical services are all following. Patient reports improvement with abdominal pain has been tolerating diet denies any nausea vomiting or diarrhea. Patient has been maintained on IV Unasyn. At this time patient denies chest pain or shortness of breath. Patient denies nausea vomiting or diarrhea. Patient denies any urinary burning or frequency Objective - Vital Signs Vital signs: Vital Signs Temp 98.2 F 11/20/21 07:00 Pulse 57 L 11/20/21 07:00 Resp 16 11/20/21 07:00 BP 127/70 11/20/21 07:00 Pulse Ox 96 11/20/21 07:00 FiO2 Intake & Output 11/19/21 11/20/21 11/20/21 18:59 06:59 18:59 Intake Total 358 118 Output Total 150 Balance 208 118 Intake: Oral 358 118 Output: Urine 150 Other: Voiding Method Toilet Toilet # Voids 2 3 - Exam In general patient is alert and oriented x in no distress HEENT head normocephalic and atraumatic Neck is supple no JVD no goiter no lymphadenopathy no carotid bruit Chest examination is clear to auscultation no crackles no wheezing Cardiac exam reveals regular heart sounds S1 and S2 no gallops no murmurs Abdomen is soft with tenderness in the left lower quadrant no organomegaly with normal bowel sounds Extremity exam reveals no edema no cyanosis or clubbing Neurological examination reveals no gross focal deficits - Labs CBC & Chem 7: 11/19/21 13:12 11/19/21 13:12 Labs: Abnormal Lab Results - Last 24 Hours (Table) 11/19/21 11/19/21 Range/Units 13:12 13:12 WBC 1.8 L (3.8-10.6) k/uL RBC 3.21 L (4.30-5.90) m/uL Hgb 11.3 L (13.0-17.5) gm/dL Hct 34.6 L (39.0-53.0) % MCV 107.9 H (80.0-100.0) fL MCH 35.2 H (25.0-35.0) pg Plt Count 45 L (150-450) k/uL Neutrophils # (Manual) 0.60 L (1.3-7.7) k/uL Lymphocytes # (Manual) 0.85 L (1.0-4.8) k/uL Macrocytosis Marked A BUN 8.5 L (9.0-27.0) mg/dL BUN/Creatinine Ratio 9.44 L (12.00-20.00) Ratio Glucose 182 H (70-110) mg/dL Calcium 8.5 L (8.7-10.3) mg/dL Total Bilirubin 1.30 H (0.30-1.20) mg/dL AST 73 H (14-35) U/L ALT 120 H (10-49) U/L Alkaline Phosphatase 127 H (41-126) U/L Microbiology - Last 24 Hours (Table) 11/17/21 16:15 Blood Culture - Preliminary Blood No Growth after 48 hours 11/17/21 16:00 Blood Culture - Preliminary Blood No Growth after 48 hours Assessment and Plan Plan: Acute diverticulitis, patient was started on IV antibiotic Febrile illness, could be related to diverticulitis, will check chest x-ray and urine analysis to rule out other source of infection Pancytopenia, consultation for hematology was initiated Daily alcohol use up to a pint daily, patient counseled in length in regards to stopping alcohol use Underlying history of hypertension Underlying history of hyperlipidemia Underlying history of atrial fibrillation. Eliquis currently on hold due to thrombocytopenia. Cardiology services consulted per pathology request Underlying history of osteoarthritis Underlying history of gastroesophageal reflux disease Patient remains on IV Unasyn Hematology, infectious disease, surgical services and cardiology services consulted Repeat labs ordered
--- NOTE | 2021-11-20 11:30 | P.CRDCN ---
History of Present Illness History of present illness: HISTORY OF PRESENTING ILLNESS Patient is a pleasant 66-year-old male with history of paroxysmal atrial fibrillation, alcohol use, GERD, hypertension, newly diagnosed pancytopenia, normal coronary arteries, cardioversion who presents secondary to abdominal pain. Patient normally follows in the office with Dr. Lugo. He states from an A. fib standpoint he has been doing well and has had 2 cardioversions in the past, denies any ablation. He states he has had a heart catheterization the past and denies any history of stents or significant disease. He has been on Elocon as which she has been tolerating well and denies any hematochezia or melena. He presented with abdominal pain which has been off and on over the last few months. CT abdomen and pelvis showed diverticulitis however he was also diagnosed with pancytopenia with consideration of possibly alcohol induced with patient drinking approximately 1 pint 5-7 days a week. He however denies any previous history of pancytopenia. No recent weight change weight loss or weight gain. REVIEW OF SYSTEMS At the time of my exam: CONSTITUTIONAL: Denies fever or chills. CARDIOVASCULAR: Denies chest pain, shortness of breath, orthopnea, PND or palpitations. RESPIRATORY: Denies cough. GASTROINTESTINAL: +abdominal pain, no constipation, nausea or vomiting. MUSCULOSKELETAL: Denies myalgias. NEUROLOGIC: Denies numbness, tingling or weakness. ENDOCRINE: Denies fatigue, weight change, polydipsia or polyurina. GENITOURINARY: Denies burning, hematuria or urgency with micturation. HEMATOLOGIC: Denies history of anemia or bleeding. PHYSICAL EXAMINATION Vital signs reviewed. CONSTITUTIONAL: No apparent distress. HEENT: Head is normocephalic. Pupils are equal, round. Sclerae anicteric. Mucous membranes of the mouth are moist. No JVD. No carotid bruit. CHEST EXAMINATION: Lungs are clear to auscultation. No chest wall tenderness is noted on palpation or with deep breathing. HEART EXAMINATION: Regular rate and rhythm. S1, S2 heard. No murmurs, gallops or rub. ABDOMEN: Soft, nontender. Positive bowel sounds. EXTREMITIES: 2+ peripheral pulses, no lower extremity edema and no calf tenderness. NEUROLOGIC EXAMINATION: Patient is awake, alert and oriented x3. ASSESSMENT 1. Paroxysmal atrial fibrillation 2. Hypertension 3. Pancytopenia may be related to alcohol use versus other 4. Abdominal pain appears related to diverticulitis 5. Alcohol abuse PLAN Patient without any active GI bleeding and does have pancytopenia with platelets in the 40s. Pancytopenia may be related to his alcohol use versus other, under going workup by hematology. Currently is asymptomatic for many atrial fibrillation and continue with current regimen. Okay to hold anticoagulation given CHADSVASC of 2 and higher risk of bleeding with platelets below 50. If platelets improve to above 50 resume Eliquis 5mg bid. Alcohol cessation. Further recommendations from cardiology standpoint. Please call with any questions. Past Medical History Past Medical History: Atrial Fibrillation, GERD/Reflux, Hypertension, Osteoarthritis (OA), Pneumonia Additional Past Medical History / Comment(s): Chronic LOWER & CERVIAL BACK PAIN History of Any Multi-Drug Resistant Organisms: None Reported Past Surgical History: Cardiac Ablation, Heart Catheterization, Tonsillectomy Additional Past Surgical History / Comment(s): ORAL SURGERY, COLONOSCOPY, BACK - STEROID INJECTIONS,TIMMY, cardioversion Past Anesthesia/Blood Transfusion Reactions: No Reported Reaction Past Psychological History: Anxiety Smoking Status: Former smoker Past Alcohol Use History: Occasional Past Drug Use History: None Reported - Past Family History Mother Family Medical History: No Reported History Medications and Allergies Home Medications Medication Instructions Recorded Confirmed Type Apixaban [Eliquis] 5 mg PO BID 06/08/19 11/17/21 History Flecainide Acetate [Tambocor] 100 mg PO Q12HR 02/29/20 11/17/21 History amLODIPine BES/OLMESARTAN MED 1 tab PO DAILY 02/29/20 11/17/21 History [amLODIPine BES/OLMESARTAN MED 10-20 mg] Metoprolol Succinate (ER) [Toprol 25 mg PO DAILY 05/29/21 11/17/21 History Xl] Omeprazole 40 mg PO DAILY 05/29/21 11/17/21 History Albuterol Inhaler [Ventolin Hfa 2 puff INHALATION RT-QID PRN #8 gm 06/02/21 11/17/21 Rx Inhaler] Cyanocobalamin (Vitamin B-12) 1,000 mcg PO DAILY 11/17/21 11/17/21 History [Vitamin B-12] Dicyclomine HCl 10 mg PO QID 11/17/21 11/17/21 History HYDROcodone/APAP 7.5-325MG [Randle 1 tab PO TID PRN 11/17/21 11/17/21 History 7.5-325] Loratadine [Claritin] 10 mg PO DAILY 11/17/21 11/17/21 History Lubiprostone [Amitiza] 8 mcg PO BID 11/17/21 11/17/21 History Allergies Allergy/AdvReac Type Severity Reaction Status Date / Time No Known Allergies Allergy Verified 11/17/21 16:10 Physical Exam Vitals: Vital Signs Temp Pulse Resp BP Pulse Ox 11/20/21 08:00 57 L 16 11/20/21 07:00 98.2 F 57 L 16 127/70 96 11/20/21 02:35 97.5 F L 57 L 18 128/76 99 11/19/21 19:27 99.4 F 58 L 16 115/56 95 11/19/21 14:00 52 L 16 11/19/21 13:20 98 F 52 L 16 118/56 97 Intake and Output 11/19/21 11/20/21 11/20/21 22:59 06:59 14:59 Intake Total 118 118 Balance 118 118 Intake: Oral 118 118 Other: Voiding Method Toilet Toilet # Voids 1 3 Results 11/19/21 13:12 11/19/21 13:12 Cardiac Enzymes 11/19/21 Range/Units 13:12 AST 73 H (14-35) U/L CBC 11/19/21 Range/Units 13:12 WBC 1.8 L (3.8-10.6) k/uL RBC 3.21 L (4.30-5.90) m/uL Hgb 11.3 L (13.0-17.5) gm/dL Hct 34.6 L (39.0-53.0) % Plt Count 45 L (150-450) k/uL Comprehensive Metabolic Panel 11/19/21 Range/Units 13:12 Sodium 142 (135-145) mmol/L Potassium 3.7 (3.5-5.5) mmol/L Chloride 103 (96-109) mmol/L Carbon Dioxide 26.4 (20.0-27.5) mmol/L BUN 8.5 L (9.0-27.0) mg/dL Creatinine 0.9 (0.6-1.5) mg/dL Glucose 182 H (70-110) mg/dL Calcium 8.5 L (8.7-10.3) mg/dL AST 73 H (14-35) U/L ALT 120 H (10-49) U/L Alkaline Phosphatase 127 H (41-126) U/L Total Protein 6.3 (6.2-8.2) g/dL Albumin 4.2 (3.8-4.9) g/dL Current Medications Generic Name Dose Route Start Last Admin Trade Name Freq PRN Reason Stop Dose Admin Acetaminophen 650 mg 11/17/21 14:49 11/18/21 16:10 Acetaminophen Tab 325 Mg Tab PO 650 mg Q6HR PRN Administration Mild Pain or Fever > 100.5 Hydrocodone Bitart/Acetaminophen 1 each 11/17/21 18:13 11/20/21 11:19 Hydrocodone/Apap 7.5-325mg 1 Each Tab PO 1 each TID PRN Administration Pain Albuterol Sulfate 2.5 mg 11/17/21 18:13 11/18/21 19:50 Albuterol Nebulized 2.5 Mg/3 Ml INHALATION 2.5 mg RT-QID PRN Administration Shortness Of Breath Amlodipine Besylate 10 mg 11/18/21 09:00 11/20/21 10:16 Amlodipine 10 Mg Tab PO 10 mg DAILY MARIELOS Administration Cyanocobalamin 1,000 mcg 11/18/21 09:00 11/20/21 08:54 Cyanocobalamin 500 Mcg Tab PO 1,000 mcg DAILY MARIELOS Administration Dicyclomine HCl 10 mg 11/17/21 22:00 11/20/21 08:55 Dicyclomine 10 Mg Cap PO 10 mg QID MARIELOS Administration Flecainide Acetate 100 mg 11/17/21 21:00 11/20/21 08:55 Flecainide 50 Mg Tab PO 100 mg Q12HR MARIELOS Administration Sodium Chloride 1,000 mls @ 20 mls/hr 11/17/21 15:00 11/19/21 16:46 Saline 0.9% IV 20 mls/hr .Q24H MARIELOS Administration Ampicillin Sodium/Sulbactam 100 mls @ 200 mls/hr 11/18/21 15:00 11/20/21 08:55 Sodium 3 gm/ Sodium Chloride IVPB 200 mls/hr Q6H MARIELOS Administration Protocol Loratadine 10 mg 11/18/21 09:00 11/20/21 08:54 Loratadine 10 Mg Tab PO 10 mg DAILY MARIELOS Administration Lorazepam 1 mg 11/18/21 17:30 Lorazepam 2 Mg/Ml Inj IV Q4HR PRN Anxiety Losartan Potassium 100 mg 11/18/21 09:00 11/20/21 08:55 Losartan 50 Mg Tab PO 100 mg DAILY MARIELOS Administration Metoprolol Succinate 25 mg 11/18/21 09:00 11/20/21 08:54 Metoprolol Succinate (Er) 25 Mg Tab.Er.24h PO 25 mg DAILY MARIELOS Administration Miscellaneous Information 1 each 11/18/21 13:06 Potassium Replacement Protocol 1 Each Misc MISCELLANE DAILY PRN Per Protocol Protocol Miscellaneous Information 1 each 11/18/21 13:33 Potassium Replacement Protocol 1 Each Misc MISCELLANE DAILY PRN Per Protocol Protocol Naloxone HCl 0.2 mg 11/17/21 14:49 Naloxone 0.4 Mg/Ml 1 Ml Vial IV Q2M PRN Opioid Reversal Patient's Own ( 8 mcg 11/17/21 21:00 11/20/21 10:16 Lubiprostone [ PO Not Given Amitiza] 8 Mcg BID MARIELOS Capsule) Pantoprazole Sodium 40 mg 11/18/21 09:00 11/20/21 08:54 Pantoprazole 40 Mg Tablet PO 40 mg DAILY MARIELOS Administration Intake and Output 11/19/21 11/20/21 11/20/21 22:59 06:59 14:59 Intake Total 118 118 Balance 118 118 Intake: Oral 118 118 Other: Voiding Method Toilet Toilet # Voids 1 3 11/19/21 13:12 11/19/21 13:12
[2021-11-20 11:54] LABS: African American GFR (CKD) 106.4 (60.0-200.0); Albumin 4.1 g/dL (3.8-4.9); Albumin/Globulin Ratio 1.86 (1.60-3.17); Anion Gap 10.4 mmol/L (10.00-18.00); BUN/Creat Ratio 12.88 Ratio (12.00-20.00); Blood Urea Nitrogen 10.3 mg/dL (9.0-27.0); Calcium 8.7 mg/dL (8.7-10.3); Carbon Dioxide 27.6 mmol/L (20.0-27.5); Globulin 2.2 g/dL (1.6-3.3); Magnesium 1.9 mg/dL (1.5-2.4); Non-African American GFR(CKD) 91.8 (60.0-200.0); Potassium 3.6 mmol/L (3.5-5.5); Total Bilirubin 1.5 mg/dL (0.30-1.20); Total Protein 6.3 g/dL (6.2-8.2)
[2021-11-20 12:34] LABS: Free Kappa Lt Chain Qnt, Serum 1.79 mg/dL (0.33-1.94); Free Lambda Lt Chain Qnt, Seru 2.08 mg/dL (0.57-2.63)
[2021-11-20 12:44] LABS: Albumin 3.98 g/dL (3.80-4.90); Gamma Globulin 0.86 g/dL (0.70-1.50)
--- NOTE | 2021-11-20 13:14 | P.GSCN ---
History of Present Illness Consult date: 11/20/21 History of present illness: CHIEF COMPLAINT: Abdominal pain HISTORY OF PRESENT ILLNESS: This is a 66-year-old male with a known history of diverticulitis. Also he has a history of atrial fibrillation anticoagulated with Eliquis. Patient presents to the emergency room with complaints of left lower quadrant abdominal pain. Patient reports that he has had intermittent episodes of left lower quadrant pain since February. In August he required antibiotics for it. He reports that 3 days ago he had increase in abdominal pain and required to come into the ER. He reports of the pain would start out moderate and become very severe. He is been dealing with constipation. He has not had a bowel movement in about 6 days. He is having flatus. He reports a decrease in oral intake. He denies any pain after eating. He denies any pain in the right upper quadrant. Patient did have fevers on admission. He also had evidence of pancytopenia. He is currently on antibiotics for diverticulitis. Patient is an alcoholic. He had a ultrasound completed which did show gallbladder wall thickening and findings are suspicious for sludge or non- shadowing gallstones. Correlate for cholecystitis. Patient reports that his left lower quadrant pain is showing improvement since his admission. He is currently on a regular diet. Denies any increase in pain after eating. Denies any prior surgical history. Patient does have elevated LFTs with known history of alcohol abuse. Eliquis is currently on hold. PAST MEDICAL HISTORY: See list. PAST SURGICAL HISTORY: See list. MEDICATIONS: See list. ALLERGIES: See list. SOCIAL HISTORY: No illicit drug use. REVIEW OF SYSTEMS: CONSTITUTIONAL: Denies fever or chills. HEENT: Denies blurred vision, vision changes, or eye pain. Denies hemoptysis CARDIOVASCULAR: Denies chest pain or pressure. RESPIRATORY: No shortness of breath. GASTROINTESTINAL: See HPI for pertinent findings HEMATOLOGIC: Denies bleeding disorders. GENITOURINARY: Denies any blood in urine or increased urinary frequency. SKIN: Denies pruitis. Denies rash. PHYSICAL EXAM: VITAL SIGNS: Reviewed GENERAL: Well-developed in no acute distress. HEENT: No sclera icterus. Extraocular movements grossly intact. Moist buccal mucosa. Head is atraumatic, normocephalic. No nasal drainage. ABDOMEN: Soft. Nondistended. Tenderness to palpation the left lower quadrant. No tenderness to palpation right upper quadrant. NEUROLOGIC: Alert and oriented. Cranial nerves II through XII grossly intact. LABORATORY DATA: WBC is 1.8 Hgb 11.3 platelets 45 INR is 1.1 Sodium 140 potassium 3.6 creatinine 0.8 Total bilirubin did go up from 1.3-1.5 AST is down from 73-59 ALT 120 down to 112 alk phos 127-134 IMAGING: Computed tomography scan distal colonic diverticulosis with suggestive of mild or early uncomplicated acute diverticulitis proximal sigmoid colon level in the left upper pelvis Liver ultrasound hepatomegaly. Nonspecific pattern and liver can't be seen with hepatic steatosis or hepatocellular disease and ascites. Gallbladder wall is markedly thickened and findings are suspicious for sludge or non-shadowing gallstones. Correlate for cholecystitis ASSESSMENT: 1. Abdominal pain likely due to patient's diverticulitis 2. Acute diverticulitis 3. Gallbladder wall thickened and findings suspicious for sludge or non- shadowing gallstones noted on liver ultrasound. Patient has no right upper quadrant abdominal pain. He is nontender in the right upper quadrant on exam. No pain after eating. 4. Elevated LFTs 5. Daily alcohol use 6. Pancytopenia possibly due to daily alcohol use. Followed by hematology PLAN: -Further recommendations forthcoming per surgeon -No surgical intervention planned -Discussed alcohol cessation -Continue antibiotics for diverticulitis -If patient has increase in abdominal pain would recommend to downgrade diet. This was discussed with patient -Continue supportive care Thank you for this consultation Physician Refinery Operator [employer] note has been reviewed by physician. Signing provider agrees with the documented findings, assessment, and plan of care. I have personally seen and examined the patient, reviewed the DELIVERY MERCHANDISER /PAs history, exam and MDM and agree with the assessment and plan as written. Based on total visit time, I have performed more than 50% of the visit. As above: Patient found to have gallbladder wall thickening and gallstones on ultrasound and CAT scan. No right upper quadrant pain or tenderness. Patient with heavy alcohol use. Suspect some gallbladder edema from hepatic inflammation. No immediate surgical intervention planned. Patient can follow- up in the office to discuss his gallbladder issues further. Recommend GI evaluation as outpatient as well to discuss possible underlying liver disease with the labs that have been noted. Past Medical History Past Medical History: Atrial Fibrillation, GERD/Reflux, Hypertension, Osteoarthritis (OA), Pneumonia Additional Past Medical History / Comment(s): Chronic LOWER & CERVIAL BACK PAIN History of Any Multi-Drug Resistant Organisms: None Reported Past Surgical History: Cardiac Ablation, Heart Catheterization, Tonsillectomy Additional Past Surgical History / Comment(s): ORAL SURGERY, COLONOSCOPY, BACK - STEROID INJECTIONS,TIMMY, cardioversion Past Anesthesia/Blood Transfusion Reactions: No Reported Reaction Past Psychological History: Anxiety Smoking Status: Former smoker Past Alcohol Use History: Occasional Past Drug Use History: None Reported - Past Family History Mother Family Medical History: No Reported History Medications and Allergies Home Medications Medication Instructions Recorded Confirmed Type Apixaban [Eliquis] 5 mg PO BID 06/08/19 11/17/21 History Flecainide Acetate [Tambocor] 100 mg PO Q12HR 02/29/20 11/17/21 History amLODIPine BES/OLMESARTAN MED 1 tab PO DAILY 02/29/20 11/17/21 History [amLODIPine BES/OLMESARTAN MED 10-20 mg] Metoprolol Succinate (ER) [Toprol 25 mg PO DAILY 05/29/21 11/17/21 History Xl] Omeprazole 40 mg PO DAILY 05/29/21 11/17/21 History Albuterol Inhaler [Ventolin Hfa 2 puff INHALATION RT-QID PRN #8 gm 06/02/21 11/17/21 Rx Inhaler] Cyanocobalamin (Vitamin B-12) 1,000 mcg PO DAILY 11/17/21 11/17/21 History [Vitamin B-12] Dicyclomine HCl 10 mg PO QID 11/17/21 11/17/21 History HYDROcodone/APAP 7.5-325MG [Monson 1 tab PO TID PRN 11/17/21 11/17/21 History 7.5-325] Loratadine [Claritin] 10 mg PO DAILY 11/17/21 11/17/21 History Lubiprostone [Amitiza] 8 mcg PO BID 11/17/21 11/17/21 History Allergies Allergy/AdvReac Type Severity Reaction Status Date / Time No Known Allergies Allergy Verified 11/17/21 16:10 Surgical - Exam Vital Signs Temp Pulse Resp BP Pulse Ox 100.4 F H 74 18 137/75 97 11/17/21 10:16 11/17/21 10:16 11/17/21 10:16 11/17/21 10:16 11/17/21 10:16 Results - Labs 11/20/21 07:37 11/20/21 07:37 Abnormal Lab Results - Last 24 Hours (Table) 11/19/21 11/19/21 11/20/21 Range/Units 13:12 13:12 07:37 WBC 1.8 L (3.8-10.6) k/uL RBC 3.21 L (4.30-5.90) m/uL Hgb 11.3 L (13.0-17.5) gm/dL Hct 34.6 L (39.0-53.0) % MCV 107.9 H (80.0-100.0) fL MCH 35.2 H (25.0-35.0) pg Plt Count 45 L (150-450) k/uL Neutrophils # (Manual) 0.60 L (1.3-7.7) k/uL Lymphocytes # (Manual) 0.85 L (1.0-4.8) k/uL Macrocytosis Marked A Carbon Dioxide 27.6 H (20.0-27.5) mmol/L BUN 8.5 L (9.0-27.0) mg/dL BUN/Creatinine Ratio 9.44 L (12.00-20.00) Ratio Glucose 182 H (70-110) mg/dL Calcium 8.5 L (8.7-10.3) mg/dL Total Bilirubin 1.30 H 1.50 H (0.30-1.20) mg/dL AST 73 H 59 H (14-35) U/L ALT 120 H 112 H (10-49) U/L Alkaline Phosphatase 127 H 134 H (41-126) U/L Microbiology - Last 24 Hours (Table) 11/17/21 16:15 Blood Culture - Preliminary Blood No Growth after 48 hours 11/17/21 16:00 Blood Culture - Preliminary Blood No Growth after 48 hours Diabetes panel 11/19/21 11/20/21 Range/Units 13:12 07:37 Sodium 142 140 (135-145) mmol/L Potassium 3.7 3.6 (3.5-5.5) mmol/L Chloride 103 102 (96-109) mmol/L Carbon Dioxide 26.4 27.6 H (20.0-27.5) mmol/L BUN 8.5 L 10.3 (9.0-27.0) mg/dL Creatinine 0.9 0.8 (0.6-1.5) mg/dL Glucose 182 H 98 (70-110) mg/dL Calcium 8.5 L 8.7 (8.7-10.3) mg/dL AST 73 H 59 H (14-35) U/L ALT 120 H 112 H (10-49) U/L Alkaline Phosphatase 127 H 134 H (41-126) U/L Total Protein 6.3 6.3 (6.2-8.2) g/dL Albumin 4.2 4.1 (3.8-4.9) g/dL Calcium panel 11/19/21 11/20/21 Range/Units 13:12 07:37 Calcium 8.5 L 8.7 (8.7-10.3) mg/dL Albumin 4.2 4.1 (3.8-4.9) g/dL Pituitary panel 11/19/21 11/20/21 Range/Units 13:12 07:37 Sodium 142 140 (135-145) mmol/L Potassium 3.7 3.6 (3.5-5.5) mmol/L Chloride 103 102 (96-109) mmol/L Carbon Dioxide 26.4 27.6 H (20.0-27.5) mmol/L BUN 8.5 L 10.3 (9.0-27.0) mg/dL Creatinine 0.9 0.8 (0.6-1.5) mg/dL Glucose 182 H 98 (70-110) mg/dL Calcium 8.5 L 8.7 (8.7-10.3) mg/dL Adrenal panel 11/19/21 11/20/21 Range/Units 13:12 07:37 Sodium 142 140 (135-145) mmol/L Potassium 3.7 3.6 (3.5-5.5) mmol/L Chloride 103 102 (96-109) mmol/L Carbon Dioxide 26.4 27.6 H (20.0-27.5) mmol/L BUN 8.5 L 10.3 (9.0-27.0) mg/dL Creatinine 0.9 0.8 (0.6-1.5) mg/dL Glucose 182 H 98 (70-110) mg/dL Calcium 8.5 L 8.7 (8.7-10.3) mg/dL Total Bilirubin 1.30 H 1.50 H (0.30-1.20) mg/dL AST 73 H 59 H (14-35) U/L ALT 120 H 112 H (10-49) U/L Alkaline Phosphatase 127 H 134 H (41-126) U/L Total Protein 6.3 6.3 (6.2-8.2) g/dL Albumin 4.2 4.1 (3.8-4.9) g/dL
[2021-11-20 13:25] LABS: Basophils # (M) 0.05 X 10*3/uL (0.00-0.10); Eosinophils # (M) 0.07 X 10*3/uL (0.04-0.35); HCT 32.1 % (39.6-50.0); HGB 10.8 g/dL (13.0-17.0); Immature Platelet Fraction 3.7 % (1.1-6.1); Lymphocytes # (M) 1.08 X 10*3/uL (0.90-5.00); MCH 35.6 pg (27.0-32.0); MCHC 33.6 g/dL (32.0-37.0); MCV 105.9 fL (80.0-97.0); Mean Platelet Volume 10.5 fL (9.5-12.2); Metamyelocytes % 1 % (0-0); Monocytes # (M) 0.33 X 10*3/uL (0.20-1.00); Myelocytes % 2 % (0-0); NRBC Per 100 WBC 0 /100 WBCS (0.0-0.0); Neutrophils # (M) 0.75 X 10*3/uL (2.00-8.90); Neutrophils % (M) 32 %; Platelet Count 43 X 10*3/uL (140-440); RBC 3.03 X 10*6/uL (4.40-5.60); RDW 17.2 % (11.5-14.5); WBC 2.35 X 10*3/uL (4.50-10.00)
--- NOTE | 2021-11-20 15:18 | P.PN ---
Subjective Progress Note Date: 11/20/21 Principal diagnosis: Diverticulitis Patient is a 66-year-old male presented to the hospital with abdominal pain in this patient did have a history of diverticulitis with CT suggestive of uncomplicated diverticulitis. On today's evaluation that is 11/20/2021, patient remains to be afebrile, patient was complaining of more left-sided pain this morning however decreased in intensity this afternoon, patient denies having any nausea or vomiting has been tolerating his diet, the patient denies chest pain shortness of breath or cough Objective - Vital Signs Vital signs: Vital Signs Temp 98.2 F 11/20/21 07:00 Pulse 57 L 11/20/21 08:00 Resp 16 11/20/21 08:00 BP 127/70 11/20/21 07:00 Pulse Ox 96 11/20/21 07:00 FiO2 Intake & Output 11/19/21 11/20/21 11/20/21 18:59 06:59 18:59 Intake Total 358 118 Output Total 150 Balance 208 118 Intake: Oral 358 118 Output: Urine 150 Other: Voiding Method Toilet Toilet Toilet # Voids 2 3 - Exam GENERAL DESCRIPTION: An elderly male lying in bed in no distress RESPIRATORY SYSTEM: Unlabored breathing , decreased breath sounds at bases HEART: S1 S2 regular rate and rhythm , ABDOMEN: Soft , no tenderness EXTREMITIES: No edema feet - Labs CBC & Chem 7: 11/20/21 07:37 11/20/21 07:37 Labs: Abnormal Lab Results - Last 24 Hours (Table) 11/19/21 11/19/21 Range/Units 13:12 13:12 WBC 1.8 L (3.8-10.6) k/uL RBC 3.21 L (4.30-5.90) m/uL Hgb 11.3 L (13.0-17.5) gm/dL Hct 34.6 L (39.0-53.0) % MCV 107.9 H (80.0-100.0) fL MCH 35.2 H (25.0-35.0) pg Plt Count 45 L (150-450) k/uL Neutrophils # (Manual) 0.60 L (1.3-7.7) k/uL Lymphocytes # (Manual) 0.85 L (1.0-4.8) k/uL Macrocytosis Marked A BUN 8.5 L (9.0-27.0) mg/dL BUN/Creatinine Ratio 9.44 L (12.00-20.00) Ratio Glucose 182 H (70-110) mg/dL Calcium 8.5 L (8.7-10.3) mg/dL Total Bilirubin 1.30 H (0.30-1.20) mg/dL AST 73 H (14-35) U/L ALT 120 H (10-49) U/L Alkaline Phosphatase 127 H (41-126) U/L Microbiology - Last 24 Hours (Table) 11/17/21 16:15 Blood Culture - Preliminary Blood No Growth after 48 hours 11/17/21 16:00 Blood Culture - Preliminary Blood No Growth after 48 hours Assessment and Plan (1) Diverticulitis Current Visit: Yes Status: Acute Code(s): K57.92 - DVTRCLI OF INTEST, PART UNSP, W/O PERF OR ABSCESS W/O BLEED SNOMED Code(s): 585669248 Plan: 1patient presented to hospital with abdominal pain constipation and this patient did have a fever, with evidence of diverticulitis on the CT will need to cover for the enteric gram-negative both aerobes and anaerobes. 2patient has shown some clinical improvement afebrile white count is normalized will continue with Unasyn to 3 g every 6 hours and monitor clinical course closely. Time with Patient: Less than 30
[2021-11-20] MEDS: SODIUM CHLORIDE 0.9% 1,000 ML IV SCH (16:22)
--- NOTE | 2021-11-20 16:31 | P.PN ---
Subjective Progress Note Date: 11/20/21 Principal diagnosis: Thrombocytopenia, diverticulitis and fever Platelets remain under 50K, discussed with primary team and asked to contact cardio regarding AC therapy as with his chronic ETOH use likely contributing to bone marrow suppression and thrombocytopenia ongoing monitoring cbc will be needed if AC is to continue Objective - Vital Signs Vital signs: Vital Signs Temp 98.6 F 11/20/21 15:00 Pulse 55 L 11/20/21 15:00 Resp 16 11/20/21 15:00 BP 127/70 11/20/21 15:00 Pulse Ox 94 L 11/20/21 15:00 FiO2 Intake & Output 11/19/21 11/20/21 11/20/21 18:59 06:59 18:59 Intake Total 358 416 Output Total 150 Balance 208 416 Intake: Oral 358 416 Output: Urine 150 Other: Voiding Method Toilet Toilet Toilet # Voids 2 3 3 - Exam Constitutional General appearance: cooperative, obese - EENT Eyes: EOMI ENT: NA/AT - Respiratory Respiratory: bilateral: diminished - Cardiovascular Rhythm: regularly irregular - Gastrointestinal General gastrointestinal: distended, hepatomegaly, soft - Neurologic Neurologic: CNII-XII intact - Musculoskeletal Musculoskeletal: generalized weakness - Labs CBC & Chem 7: 11/20/21 07:37 11/20/21 07:37 Labs: Abnormal Lab Results - Last 24 Hours (Table) 11/18/21 11/19/21 11/20/21 Range/Units 12:10 13:12 07:37 WBC 2.35 L (4.50-10.00) X 10*3/uL RBC 3.03 L (4.40-5.60) X 10*6/uL Hgb 10.8 L (13.0-17.0) g/dL Hct 32.1 L (39.6-50.0) % MCV 105.9 H (80.0-97.0) fL MCH 35.6 H (27.0-32.0) pg RDW 17.2 H (11.5-14.5) % Plt Count 43 L (140-440) X 10*3/uL Plt Count Comment A Metamyelocytes % 1 H (0-0) % Myelocytes % 2 H (0-0) % Neutrophils # (Manual) 0.75 L (2.00-8.90) X 10*3/uL Carbon Dioxide (20.0-27.5) mmol/L BUN 8.5 L (9.0-27.0) mg/dL BUN/Creatinine Ratio 9.44 L (12.00-20.00) Ratio Glucose 182 H (70-110) mg/dL Calcium 8.5 L (8.7-10.3) mg/dL Total Bilirubin 1.30 H (0.30-1.20) mg/dL AST 73 H (14-35) U/L ALT 120 H (10-49) U/L Alkaline Phosphatase 127 H (41-126) U/L Phlca-1-Ibrbivpnj 0.57 L (0.60-1.00) g/dL 11/20/21 Range/Units 07:37 WBC (4.50-10.00) X 10*3/uL RBC (4.40-5.60) X 10*6/uL Hgb (13.0-17.0) g/dL Hct (39.6-50.0) % MCV (80.0-97.0) fL MCH (27.0-32.0) pg RDW (11.5-14.5) % Plt Count (140-440) X 10*3/uL Plt Count Comment Metamyelocytes % (0-0) % Myelocytes % (0-0) % Neutrophils # (Manual) (2.00-8.90) X 10*3/uL Carbon Dioxide 27.6 H (20.0-27.5) mmol/L BUN (9.0-27.0) mg/dL BUN/Creatinine Ratio (12.00-20.00) Ratio Glucose (70-110) mg/dL Calcium (8.7-10.3) mg/dL Total Bilirubin 1.50 H (0.30-1.20) mg/dL AST 59 H (14-35) U/L ALT 112 H (10-49) U/L Alkaline Phosphatase 134 H (41-126) U/L Jxaor-6-Ospyvdyhb (0.60-1.00) g/dL Microbiology - Last 24 Hours (Table) 11/17/21 16:15 Blood Culture - Preliminary Blood No Growth after 48 hours 11/17/21 16:00 Blood Culture - Preliminary Blood No Growth after 48 hours Assessment and Plan (1) Macrocytic anemia Current Visit: Yes Status: Acute Code(s): D53.9 - NUTRITIONAL ANEMIA, UNSPECIFIED SNOMED Code(s): 15599579 (2) Thrombocytopenia Narrative/Plan: Hold AC under 50K Current Visit: Yes Status: Acute Code(s): D69.6 - THROMBOCYTOPENIA, UNSPECIFIED SNOMED Code(s): 843894383 (3) Leukopenia Current Visit: Yes Status: Acute Code(s): D72.819 - DECREASED WHITE BLOOD CELL COUNT, UNSPECIFIED SNOMED Code(s): 22851952 Plan: Pancytopenia work-up ordered HOLD ASA/NSAIDS and Anticoagulation if platelets under 50K Transfuse Hemo <7, Plt <10 (unless evidence of bleeding transfuse sooner) Great length discussing bone marrow suppression related to ETOH and cessation of importance for maintaing health HOLD Xarelto platelets less than 50K Defer decision for ongoing monitoring and use of AC risks (as it was prescribed atrial fib) Hopefully cessation from ETOH will help liver function and bone marrow function to improve. Dr. Schafer: I have completed the full history and physical and developed the above impression and plan, agree with above dictation, dictated as a ascribe.
[2021-11-21] MEDS: HYDROcodone/APAP 7.5-325MG 1 EACH TAB PO PRN ×2 (02:03→20:20)
[2021-11-21] MEDS: AMPICILLIN-SULBACTAM 3 GM in SODIUM CHLORIDE 0.9% 100 ML IVPB SCH ×4 (02:04→20:22)
[2021-11-21 08:12] VITALS: RESP 18
[2021-11-21 08:45] LABS: HCT 30.7 % (39.6-50.0); HGB 10.1 g/dL (13.0-17.0); MCH 34.9 pg (27.0-32.0); MCHC 32.9 g/dL (32.0-37.0); MCV 106.2 fL (80.0-97.0); Mean Platelet Volume 10.5 fL (9.5-12.2); NRBC Per 100 WBC 0 /100 WBCS (0.0-0.0); Platelet Count 44 X 10*3/uL (140-440); RBC 2.89 X 10*6/uL (4.40-5.60); WBC 2.05 X 10*3/uL (4.50-10.00)
[2021-11-21 08:57] LABS: African American GFR (CKD) 101.4 (60.0-200.0); Albumin 3.9 g/dL (3.8-4.9); Albumin/Globulin Ratio 1.86 (1.60-3.17); Anion Gap 11.2 mmol/L (10.00-18.00); Blood Urea Nitrogen 9.9 mg/dL (9.0-27.0); Calcium 8.6 mg/dL (8.7-10.3); Carbon Dioxide 26.8 mmol/L (20.0-27.5); Globulin 2.1 g/dL (1.6-3.3); Non-African American GFR(CKD) 87.5 (60.0-200.0); Potassium 3.6 mmol/L (3.5-5.5); Total Bilirubin 1.7 mg/dL (0.30-1.20)
[2021-11-21] MEDS: METOPROLOL SUCCINATE (ER) 25 MG TAB.ER.24H PO SCH (09:09)
[2021-11-21] MEDS: CYANOCOBALAMIN 500 MCG TAB PO SCH (09:09)
[2021-11-21] MEDS: FLECAINIDE 50 MG TAB PO SCH ×2 (09:09→20:20)
[2021-11-21] MEDS: DICYCLOMINE 10 MG CAP PO SCH ×4 (09:09→21:07)
[2021-11-21] MEDS: PANTOPRAZOLE 40 MG TABLET PO SCH (09:10)
[2021-11-21] MEDS: LOSARTAN 50 MG TAB PO SCH (09:10)
[2021-11-21] MEDS: amLODIPine 10 MG TAB PO SCH (09:10)
[2021-11-21] MEDS: LORATADINE 10 MG TAB PO SCH (09:10)
[2021-11-21] MEDS: LUBIPROSTONE 8 MCG PO SCH ×2 (09:10→20:23)
--- NOTE | 2021-11-21 09:25 | P.PN ---
Subjective Progress Note Date: 11/21/21 Principal diagnosis: Abdominal pain Patient says he is still having mild lower abdominal pain and feels the need to defecate. Passing flatus. No nausea or vomiting. Last bowel movement Tuesday. He is afebrile. Labs noted. Objective - Vital Signs Vital signs: Vital Signs Temp 98.2 F 11/21/21 07:00 Pulse 50 L 11/21/21 07:00 Resp 18 11/21/21 07:00 BP 142/72 11/21/21 07:00 Pulse Ox 95 11/21/21 07:00 FiO2 Intake & Output 11/20/21 11/21/21 11/21/21 18:59 06:59 18:59 Intake Total 416 240 Output Total 50 Balance 416 -50 240 Intake: Oral 416 240 Output: Urine 50 Emesis 0 Other: Voiding Method Toilet Toilet Urinal # Voids 3 1 # Bowel Movements 0 - Exam Abdomen: Soft, nondistended, mild left lower quadrant tenderness - Labs CBC & Chem 7: 11/21/21 06:07 11/21/21 06:07 Labs: Abnormal Lab Results - Last 24 Hours (Table) 11/18/21 11/20/21 11/20/21 Range/Units 12:10 07:37 07:37 WBC 2.35 L (4.50-10.00) X 10*3/uL RBC 3.03 L (4.40-5.60) X 10*6/uL Hgb 10.8 L (13.0-17.0) g/dL Hct 32.1 L (39.6-50.0) % MCV 105.9 H (80.0-97.0) fL MCH 35.6 H (27.0-32.0) pg RDW 17.2 H (11.5-14.5) % Plt Count 43 L (140-440) X 10*3/uL Plt Count Comment A Metamyelocytes % 1 H (0-0) % Myelocytes % 2 H (0-0) % Neutrophils # (Manual) 0.75 L (2.00-8.90) X 10*3/uL Carbon Dioxide 27.6 H (20.0-27.5) mmol/L BUN/Creatinine Ratio (12.00-20.00) Ratio Calcium (8.7-10.3) mg/dL Total Bilirubin 1.50 H (0.30-1.20) mg/dL AST 59 H (14-35) U/L ALT 112 H (10-49) U/L Alkaline Phosphatase 134 H (41-126) U/L Total Protein (6.2-8.2) g/dL Qrrom-2-Ywndkkfox 0.57 L (0.60-1.00) g/dL 11/21/21 11/21/21 Range/Units 06:07 06:07 WBC 2.05 L (4.50-10.00) X 10*3/uL RBC 2.89 L (4.40-5.60) X 10*6/uL Hgb 10.1 L (13.0-17.0) g/dL Hct 30.7 L (39.6-50.0) % MCV 106.2 H (80.0-97.0) fL MCH 34.9 H (27.0-32.0) pg RDW 17.0 H (11.5-14.5) % Plt Count 44 L (140-440) X 10*3/uL Plt Count Comment Metamyelocytes % (0-0) % Myelocytes % (0-0) % Neutrophils # (Manual) (2.00-8.90) X 10*3/uL Carbon Dioxide (20.0-27.5) mmol/L BUN/Creatinine Ratio 11.00 L (12.00-20.00) Ratio Calcium 8.6 L (8.7-10.3) mg/dL Total Bilirubin 1.70 H (0.30-1.20) mg/dL AST 52 H (14-35) U/L ALT 102 H (10-49) U/L Alkaline Phosphatase 156 H (41-126) U/L Total Protein 6.0 L (6.2-8.2) g/dL Nuwuq-8-Ynlpaebbm (0.60-1.00) g/dL Microbiology - Last 24 Hours (Table) 11/17/21 16:00 Blood Culture - Preliminary Blood No Growth after 72 hours 11/17/21 16:15 Blood Culture - Preliminary Blood No Growth after 72 hours Assessment and Plan (1) Diverticulitis Narrative/Plan: Continue antibiotics for diverticulitis. Continue observation of the gallbladder findings. Continue workup of the patient's pancytopenia. Outpatient GI evaluation advised. Will give 1 dose of magnesium citrate at this time. We'll follow. Current Visit: Yes Status: Acute Code(s): K57.92 - DVTRCLI OF INTEST, PART UNSP, W/O PERF OR ABSCESS W/O BLEED SNOMED Code(s): 996487494
[2021-11-21 10:31] LABS: Basophils # (A) 0.02 X 10*3/uL (0.00-0.10); Eosinophils # (A) 0.06 X 10*3/uL (0.04-0.35); Eosinophils % (A) 2.9 %; Immature Grans, Automated 4.4 %; Immature Platelet Fraction 4.3 % (1.1-6.1); Lymphocytes # (A) 0.83 X 10*3/uL (0.90-5.00); Lymphocytes % (A) 40.5 %; Macrocytosis (M) 2+; Monocytes # (A) 0.24 X 10*3/uL (0.20-1.00); Monocytes % (A) 11.7 %; Neutrophils # (A) 0.81 X 10*3/uL (1.80-7.70); Neutrophils % (A) 39.5 %
[2021-11-21] MEDS ORDERED: MAGNESIUM CITRATE 296 ML BOTTLE PO ONE (11:00)
--- NOTE | 2021-11-21 14:11 | P.PN ---
Subjective Progress Note Date: 11/21/21 Bennie Estrada, is a 66-year-old male who presented to [facility] emergency room with a chief complaint of left lower quadrant abdominal pain nausea and fever. He was evaluated in the emergency room vital examination on presentation revealed a temperature of 100.4 pulse 74 respiration 18 blood pressure 137/75 pulse ox 97% on room air Laboratory data revealsed a white blood count of 1.9 hemoglobin 11.4 platelet count 49 sodium 136 potassium 4.1 chloride 100 CO2 29 BUN 11 creatinine 0.78 AST elevated at 68 ALT 75 COVID-19 PCR was negative influenza A and B PCR negative RSV PCR was negative Testing in the emergency room revealed computed tomography scan of the abdomen and pelvis done in the emergency room revealed evidence of distal colonic diverticulosis with evidence of acute uncomplicated diverticulitis in the proximal sigmoid colon. Patient was admitted to medical floor for further evaluation and treatment. He was started on IV Unasyn in the emergency room, consultation for infectious disease and hematology were initiated. Past medical history is significant for history of hypertension, history of atrial fibrillation, history of gastroesophageal reflux disease, history of cardiac catheterization, history of cardiac ablation. On 11/18/2021 patient was seen and examined on the medical floor he is alert and oriented 3 in no apparent distress he is complaining of mild left lower quadrant abdominal pain otherwise he denies any complaints at this time there is no fever or chills no headache or dizziness no chest pain no shortness of breath no cough no nausea or vomiting no diarrhea and no urinary symptoms On 11/19/2021 patient was seen and examined on the medical floor he is alert and oriented 3 in no apparent distress there is no fever or chills no headache or dizziness no chest pain no shortness of breath no cough no nausea or vomiting patient has mild left lower quadrant abdominal pain no burning with urination no frequency or urgency and no hematuria. Elevated liver enzymes likely due to alcohol use, liver ultrasound was done and revealed evidence of wall thickening of the gallbladder, consultation for surgery was initiated, continue with curre nt medications at this time. On 11/20/2021 patient is alert and oriented 3. Discussed case with hematology service is recommending cardiology services to further evaluate need for anticoagulation due to marginal platelet count. Awaiting labs. At this time hematology, infectious disease and surgical services are all following. Patient reports improvement with abdominal pain has been tolerating diet denies any nausea vomiting or diarrhea. Patient has been maintained on IV Unasyn. At this time patient denies chest pain or shortness of breath. Patient denies nausea vomiting or diarrhea. Patient denies any urinary burning or frequency On 11/21/2021 patient was seen and examined on the medical floor he is alert and oriented 3 in no apparent distress but is no fever or chills no headache or dizziness no chest pain no shortness of breath no cough no nausea or vomiting he is still having significant pain in the left lower quadrant he is also complaining of constipation for several days he received magnesium citrate this morning, there is no urinary symptoms. Input from cardiology, infectious disease, and general surgery reviewed, will continue with current management will recheck in a.m. Objective - Vital Signs Vital signs: Vital Signs Temp 97.8 F 11/21/21 13:53 Pulse 46 L 11/21/21 13:53 Resp 18 11/21/21 13:53 BP 95/57 11/21/21 13:53 Pulse Ox 98 11/21/21 13:53 FiO2 Intake & Output 11/20/21 11/21/21 11/21/21 18:59 06:59 18:59 Intake Total 416 240 Output Total 50 Balance 416 -50 240 Intake: Oral 416 240 Output: Urine 50 Emesis 0 Other: Voiding Method Toilet Toilet Urinal # Voids 3 1 # Bowel Movements 0 - Exam In general patient is alert and oriented x in no distress HEENT head normocephalic and atraumatic Neck is supple no JVD no goiter no lymphadenopathy no carotid bruit Chest examination is clear to auscultation no crackles no wheezing Cardiac exam reveals regular heart sounds S1 and S2 no gallops no murmurs Abdomen is soft with tenderness in the left lower quadrant no organomegaly with normal bowel sounds Extremity exam reveals no edema no cyanosis or clubbing Neurological examination reveals no gross focal deficits - Labs CBC & Chem 7: 11/21/21 06:07 11/21/21 06:07 Labs: Abnormal Lab Results - Last 24 Hours (Table) 11/21/21 11/21/21 Range/Units 06:07 06:07 WBC 2.05 L (4.50-10.00) X 10*3/uL RBC 2.89 L (4.40-5.60) X 10*6/uL Hgb 10.1 L (13.0-17.0) g/dL Hct 30.7 L (39.6-50.0) % MCV 106.2 H (80.0-97.0) fL MCH 34.9 H (27.0-32.0) pg RDW 17.0 H (11.5-14.5) % Plt Count 44 L (140-440) X 10*3/uL Plt Count Comment DECREASED A Immature Gran # 0.09 H (0.00-0.04) X 10*3/uL Neutrophils # 0.81 L (1.80-7.70) X 10*3/uL Lymphocytes # 0.83 L (0.90-5.00) X 10*3/uL BUN/Creatinine Ratio 11.00 L (12.00-20.00) Ratio Calcium 8.6 L (8.7-10.3) mg/dL Total Bilirubin 1.70 H (0.30-1.20) mg/dL AST 52 H (14-35) U/L ALT 102 H (10-49) U/L Alkaline Phosphatase 156 H (41-126) U/L Total Protein 6.0 L (6.2-8.2) g/dL Microbiology - Last 24 Hours (Table) 11/17/21 16:00 Blood Culture - Preliminary Blood No Growth after 72 hours 11/17/21 16:15 Blood Culture - Preliminary Blood No Growth after 72 hours Assessment and Plan Plan: Acute diverticulitis, patient was started on IV antibiotic Febrile illness, could be related to diverticulitis, will check chest x-ray and urine analysis to rule out other source of infection Pancytopenia, consultation for hematology was initiated Daily alcohol use up to a pint daily, patient counseled in length in regards to stopping alcohol use Underlying history of hypertension Underlying history of hyperlipidemia Underlying history of atrial fibrillation. Eliquis currently on hold due to thrombocytopenia. Cardiology services consulted per pathology request Underlying history of osteoarthritis Underlying history of gastroesophageal reflux disease Patient remains on IV Unasyn Hematology, infectious disease, surgical services and cardiology services consulted Repeat labs ordered
[2021-11-21] MEDS: SODIUM CHLORIDE 0.9% 1,000 ML IV SCH (15:35)
--- NOTE | 2021-11-21 23:57 | P.PN ---
Subjective Progress Note Date: 11/21/21 Principal diagnosis: Diverticulitis Patient is a 66-year-old male presented to the hospital with abdominal pain in this patient did have a history of diverticulitis with CT suggestive of uncomplicated diverticulitis. On today's evaluation that is 11/21/2021, patient continues to be afebrile, patient abdominal pain has decreased in intensity , the patient is to that of constipation and didn't have any bowel movement and has been started on mag citrate by surgery, the patient denies having any chest pain shortness of breath or cough Objective - Vital Signs Vital signs: Vital Signs Temp 97.8 F 11/21/21 13:53 Pulse 46 L 11/21/21 13:53 Resp 18 11/21/21 13:53 BP 95/57 11/21/21 13:53 Pulse Ox 98 11/21/21 13:53 FiO2 Intake & Output 11/20/21 11/21/21 11/21/21 18:59 06:59 18:59 Intake Total 416 240 Output Total 50 Balance 416 -50 240 Intake: Oral 416 240 Output: Urine 50 Emesis 0 Other: Voiding Method Toilet Toilet Urinal # Voids 3 1 # Bowel Movements 0 - Exam GENERAL DESCRIPTION: An elderly male lying in bed in no distress RESPIRATORY SYSTEM: Unlabored breathing , decreased breath sounds at bases HEART: S1 S2 regular rate and rhythm , ABDOMEN: Soft , no tenderness EXTREMITIES: No edema feet - Labs CBC & Chem 7: 11/21/21 06:07 11/21/21 06:07 Labs: Abnormal Lab Results - Last 24 Hours (Table) 11/21/21 11/21/21 Range/Units 06:07 06:07 WBC 2.05 L (4.50-10.00) X 10*3/uL RBC 2.89 L (4.40-5.60) X 10*6/uL Hgb 10.1 L (13.0-17.0) g/dL Hct 30.7 L (39.6-50.0) % MCV 106.2 H (80.0-97.0) fL MCH 34.9 H (27.0-32.0) pg RDW 17.0 H (11.5-14.5) % Plt Count 44 L (140-440) X 10*3/uL Plt Count Comment DECREASED A Immature Gran # 0.09 H (0.00-0.04) X 10*3/uL Neutrophils # 0.81 L (1.80-7.70) X 10*3/uL Lymphocytes # 0.83 L (0.90-5.00) X 10*3/uL BUN/Creatinine Ratio 11.00 L (12.00-20.00) Ratio Calcium 8.6 L (8.7-10.3) mg/dL Total Bilirubin 1.70 H (0.30-1.20) mg/dL AST 52 H (14-35) U/L ALT 102 H (10-49) U/L Alkaline Phosphatase 156 H (41-126) U/L Total Protein 6.0 L (6.2-8.2) g/dL Microbiology - Last 24 Hours (Table) 11/17/21 16:00 Blood Culture - Preliminary Blood No Growth after 72 hours 11/17/21 16:15 Blood Culture - Preliminary Blood No Growth after 72 hours Assessment and Plan (1) Diverticulitis Current Visit: Yes Status: Acute Code(s): K57.92 - DVTRCLI OF INTEST, PART UNSP, W/O PERF OR ABSCESS W/O BLEED SNOMED Code(s): 668611750 Plan: 1patient presented to hospital with abdominal pain constipation and this patient did have a fever, with evidence of diverticulitis on the CT will need to cover for the enteric gram-negative both aerobes and anaerobes. 2patient is slowly clinically improving, patient is afebrile and will continue with Unasyn to 3 g every 6 hours and monitor clinical course closely. Time with Patient: Less than 30
[2021-11-22 02:11] VITALS: TEMP 97.7
[2021-11-22] MEDS: AMPICILLIN-SULBACTAM 3 GM in SODIUM CHLORIDE 0.9% 100 ML IVPB SCH ×2 (02:58→07:35)
[2021-11-22 07:26] VITALS: BP 115/60; PULSE 54
[2021-11-22] MEDS: LORATADINE 10 MG TAB PO SCH (07:37)
[2021-11-22] MEDS: CYANOCOBALAMIN 500 MCG TAB PO SCH (07:37)
[2021-11-22] MEDS: LOSARTAN 50 MG TAB PO SCH (07:37)
[2021-11-22] MEDS: PANTOPRAZOLE 40 MG TABLET PO SCH (07:37)
[2021-11-22] MEDS: METOPROLOL SUCCINATE (ER) 25 MG TAB.ER.24H PO SCH (07:37)
[2021-11-22] MEDS: DICYCLOMINE 10 MG CAP PO SCH (07:37)
[2021-11-22] MEDS: FLECAINIDE 50 MG TAB PO SCH (07:38)
[2021-11-22] MEDS: amLODIPine 10 MG TAB PO SCH (07:38)
[2021-11-22] MEDS: LUBIPROSTONE 8 MCG PO SCH (07:38)
--- NOTE | 2021-11-22 10:17 | P.DS ---
Providers Date of admission: 11/18/21 11:01 Expected date of discharge: 11/22/21 Attending physician: Nelsy Zuniga Consults: 11/17/21 14:50 Consult Physician Routine Consulting Provider: Ludwin Pickard Consult Reason/Comments: pancytopenia, NOS Do you want consulting provider notified?: Yes 11/17/21 18:15 Consult Physician Routine Consulting Provider: Ludwin Pickard Consult Reason/Comments: Pancytopenia Do you want consulting provider notified?: Yes Consult Physician Routine Consulting Provider: Chapin Jara Consult Reason/Comments: Febrile illness, acute diverticulitis Do you want consulting provider notified?: Yes 11/19/21 14:15 Consult Physician Routine Consulting Provider: James Gilmore Consult Reason/Comments: cholecystitis Do you want consulting provider notified?: Yes Primary care physician: Cici Cordova [facility] Course: Diagnosis on discharge: Acute diverticulitis, patient was started on IV antibiotic Febrile illness, could be related to diverticulitis, will check chest x-ray and urine analysis to rule out other source of infection Pancytopenia, consultation for hematology was initiated Daily alcohol use up to a pint daily, patient counseled in length in regards to stopping alcohol use Underlying history of hypertension Underlying history of hyperlipidemia Underlying history of atrial fibrillation. Eliquis currently on hold due to thrombocytopenia. Recommendation from cardiology and hematology is to resume and requests when platelet count is above 50,000. Underlying history of osteoarthritis Underlying history of gastroesophageal reflux disease Hospital course: Bennie Estrada, is a 66-year-old male who presented to [facility] emergency room with a chief complaint of left lower quadrant abdominal pain nausea and fever. He was evaluated in the emergency room vital examination on presentation revealed a temperature of 100.4 pulse 74 respiration 18 blood pressure 137/75 pulse ox 97% on room air Laboratory data revealsed a white blood count of 1.9 hemoglobin 11.4 platelet count 49 sodium 136 potassium 4.1 chloride 100 CO2 29 BUN 11 creatinine 0.78 AST elevated at 68 ALT 75 COVID-19 PCR was negative influenza A and B PCR negative RSV PCR was negative Testing in the emergency room revealed computed tomography scan of the abdomen and pelvis done in the emergency room revealed evidence of distal colonic diverticulosis with evidence of acute uncomplicated diverticulitis in the proximal sigmoid colon. Patient was admitted to medical floor for further evaluation and treatment. He was started on IV Unasyn in the emergency room, consultation for infectious disease and hematology were initiated. Past medical history is significant for history of hypertension, history of atrial fibrillation, history of gastroesophageal reflux disease, history of cardiac catheterization, history of cardiac ablation. On 11/18/2021 patient was seen and examined on the medical floor he is alert and oriented 3 in no apparent distress he is complaining of mild left lower quadrant abdominal pain otherwise he denies any complaints at this time there is no fever or chills no headache or dizziness no chest pain no shortness of breath no cough no nausea or vomiting no diarrhea and no urinary symptoms On 11/19/2021 patient was seen and examined on the medical floor he is alert and oriented 3 in no apparent distress there is no fever or chills no headache or dizziness no chest pain no shortness of breath no cough no nausea or vomiting patient has mild left lower quadrant abdominal pain no burning with urination no frequency or urgency and no hematuria. Elevated liver enzymes likely due to alcohol use, liver ultrasound was done and revealed evidence of wall thickening of the gallbladder, consultation for surgery was initiated, continue with current medications at this time. On 11/20/2021 patient is alert and oriented 3. Discussed case with hematology service is recommending cardiology services to further evaluate need for anticoagulation due to marginal platelet count. Awaiting labs. At this time hematology, infectious disease and surgical services are all following. Patient reports improvement with abdominal pain has been tolerating diet denies any nausea vomiting or diarrhea. Patient has been maintained on IV Unasyn. At this time patient denies chest pain or shortness of breath. Patient denies nausea vomiting or diarrhea. Patient denies any urinary burning or frequency On 11/21/2021 patient was seen and examined on the medical floor he is alert and oriented 3 in no apparent distress but is no fever or chills no headache or dizziness no chest pain no shortness of breath no cough no nausea or vomiting he is still having significant pain in the left lower quadrant he is also complaining of constipation for several days he received magnesium citrate this morning, there is no urinary symptoms. Input from cardiology, infectious disease, and general surgery reviewed, will continue with current management will recheck in a.m. On 11/22/2021 patient was seen and examined on the medical floor he is alert and oriented 3 in no apparent distress he had a bowel movement and his abdominal pain has improved significantly otherwise he denies any complaints there is no fever or chills no headache or dizziness no chest pain no shortness of breath no cough no nausea or vomiting no abdominal pain no diarrhea and no urinary symptoms. He was cleared by infectious disease for discharge to home on Augmentin 875 mg twice daily for 10 days. Patient should follow up with his primary care physician closely, he should have a CBC once weekly, and Eliquis should be resumed once platelet count is above 50,000. Patient Condition at Discharge: Fair Plan - Discharge Summary Discharge Rx Participant: No New Discharge Prescriptions: New Amoxicillin/Potassium Clav [Augmentin 875-125 Tablet] 1 tab PO Q12HR 10 Days #20 tab Continue Flecainide Acetate [Tambocor] 100 mg PO Q12HR amLODIPine BES/OLMESARTAN MED [amLODIPine BES/OLMESARTAN MED 10-20 mg] 1 tab PO DAILY Metoprolol Succinate (ER) [Toprol XL] 25 mg PO DAILY Omeprazole 40 mg PO DAILY Cyanocobalamin (Vitamin B-12) [Vitamin B-12] 1,000 mcg PO DAILY Dicyclomine HCl 10 mg PO QID Loratadine [Claritin] 10 mg PO DAILY Albuterol Inhaler [Ventolin Hfa Inhaler] 2 puff INHALATION RT-QID PRN #8 gm PRN Reason: Shortness Of Breath Lubiprostone [Amitiza] 8 mcg PO BID HYDROcodone/APAP 7.5-325MG [[place] 7.5-325] 1 tab PO TID PRN PRN Reason: Pain Discontinued Apixaban [Eliquis] 5 mg PO BID Discharge Medication List Flecainide Acetate [Tambocor] 100 mg PO Q12HR 02/29/20 [History] amLODIPine BES/OLMESARTAN MED [amLODIPine BES/OLMESARTAN MED 10-20 mg] 1 tab PO DAILY 02/29/20 [History] Metoprolol Succinate (ER) [Toprol XL] 25 mg PO DAILY 05/29/21 [History] Omeprazole 40 mg PO DAILY 05/29/21 [History] Albuterol Inhaler [Ventolin Hfa Inhaler] 2 puff INHALATION RT-QID PRN #8 gm 06/02/21 [Rx] Cyanocobalamin (Vitamin B-12) [Vitamin B-12] 1,000 mcg PO DAILY 11/17/21 [History] Dicyclomine HCl 10 mg PO QID 11/17/21 [History] HYDROcodone/APAP 7.5-325MG [[place] 7.5-325] 1 tab PO TID PRN 11/17/21 [History] Loratadine [Claritin] 10 mg PO DAILY 11/17/21 [History] Lubiprostone [Amitiza] 8 mcg PO BID 11/17/21 [History] Amoxicillin/Potassium Clav [Augmentin 875-125 Tablet] 1 tab PO Q12HR 10 Days #20 tab 11/22/21 [Rx] Follow up Appointment(s)/Referral(s): Cici Cordova MD [Primary Care Provider] - 1-2 days
[2021-11-22 10:37] LABS: African American GFR (CKD) 112.4 (60.0-200.0); Albumin 4.2 g/dL (3.8-4.9); Albumin/Globulin Ratio 1.83 (1.60-3.17); Anion Gap 11.9 mmol/L (10.00-18.00); BUN/Creat Ratio 14.29 Ratio (12.00-20.00); Calcium 8.7 mg/dL (8.7-10.3); Carbon Dioxide 25.1 mmol/L (20.0-27.5); Globulin 2.3 g/dL (1.6-3.3); Potassium 3.3 mmol/L (3.5-5.5); Total Bilirubin 1.7 mg/dL (0.30-1.20); Total Protein 6.5 g/dL (6.2-8.2)
[2021-11-22 10:41] LABS: HCT 30.2 % (39.6-50.0); HGB 10.3 g/dL (13.0-17.0); MCH 35.4 pg (27.0-32.0); MCHC 34.1 g/dL (32.0-37.0); MCV 103.8 fL (80.0-97.0); Mean Platelet Volume 10.2 fL (9.5-12.2); NRBC Per 100 WBC 0 /100 WBCS (0.0-0.0); Platelet Count 52 X 10*3/uL (140-440); RBC 2.91 X 10*6/uL (4.40-5.60); RDW 16.5 % (11.5-14.5); WBC 2.17 X 10*3/uL (4.50-10.00)
[2021-11-22 11:31] LABS: Basophils # (A) 0.01 X 10*3/uL (0.00-0.10); Basophils % (A) 0.5 %; Eosinophils # (A) 0.09 X 10*3/uL (0.04-0.35); Eosinophils % (A) 4.1 %; Immature Grans, Automated 4.6 %; Immature Platelet Fraction 4.2 % (1.1-6.1); Lymphocytes # (A) 0.82 X 10*3/uL (0.90-5.00); Lymphocytes % (A) 37.8 %; Monocytes # (A) 0.24 X 10*3/uL (0.20-1.00); Monocytes % (A) 11.1 %; Neutrophils # (A) 0.91 X 10*3/uL (1.80-7.70); Neutrophils % (A) 41.9 %; RBC Morphology NORMAL
--- NOTE | 2021-11-22 12:03 | P.PN ---
Subjective Progress Note Date: 11/22/21 Principal diagnosis: Abdominal pain Patient doing well today. Says his pain is now gone. He had multiple bowel movements yesterday. He would like to go home today. Tolerating diet. Objective - Vital Signs Vital signs: Vital Signs Temp 97.7 F 11/22/21 07:24 Pulse 54 L 11/22/21 07:24 Resp 18 11/22/21 07:24 BP 115/60 11/22/21 07:24 Pulse Ox 94 L 11/22/21 07:24 FiO2 Intake & Output 11/21/21 11/22/21 11/22/21 18:59 06:59 18:59 Intake Total 358 Output Total 0 Balance 358 0 Intake: Oral 358 Output: Emesis 0 Other: # Voids 3 - Exam Abdomen: Soft, nontender, nondistended - Labs CBC & Chem 7: 11/22/21 06:30 11/22/21 06:30 Labs: Abnormal Lab Results - Last 24 Hours (Table) 11/22/21 11/22/21 Range/Units 06:30 06:30 WBC 2.17 L (4.50-10.00) X 10*3/uL RBC 2.91 L (4.40-5.60) X 10*6/uL Hgb 10.3 L (13.0-17.0) g/dL Hct 30.2 L (39.6-50.0) % MCV 103.8 H (80.0-97.0) fL MCH 35.4 H (27.0-32.0) pg RDW 16.5 H (11.5-14.5) % Plt Count 52 L (140-440) X 10*3/uL Plt Count Comment DECREASED A Immature Gran # 0.10 H (0.00-0.04) X 10*3/uL Neutrophils # 0.91 L (1.80-7.70) X 10*3/uL Lymphocytes # 0.82 L (0.90-5.00) X 10*3/uL Potassium 3.3 L (3.5-5.5) mmol/L Glucose 115 H (70-110) mg/dL Total Bilirubin 1.70 H (0.30-1.20) mg/dL AST 52 H (14-35) U/L ALT 103 H (10-49) U/L Alkaline Phosphatase 191 H (41-126) U/L Microbiology - Last 24 Hours (Table) 11/17/21 16:15 Blood Culture - Preliminary Blood No Growth after 96 hours 11/17/21 16:00 Blood Culture - Preliminary Blood No Growth after 96 hours Assessment and Plan (1) Diverticulitis Narrative/Plan: Patient doing well at this time. May discharge. Follow-up in office to discuss gallbladder and diverticulitis issues. Follow-up with GI to discuss liver dysfunction and possible cirrhosis. Status: Acute Code(s): K57.92 - DVTRCLI OF INTEST, PART UNSP, W/O PERF OR ABSCESS W/O BLEED SNOMED Code(s): 257424685
== END 2021-11-22 11:13 | disposition home or self-care (01) | DRG 392 ==
LOC: EC 10:05 → 6NMEDSUR 14:50 → OBSVTOIN 11-18 11:01
PROVIDERS: ADMIT Internal Medicine; ATTEND Internal Medicine
DX: K57.32 Diverticulitis of large intestine without perforation or abscess without bleeding (principal); D61.818 Other pancytopenia; I10 Essential (primary) hypertension; Z20.822 Contact with and (suspected) exposure to COVID-19; E78.5 Hyperlipidemia, unspecified; D53.9 Nutritional anemia, unspecified; M19.90 Unspecified osteoarthritis, unspecified site; K82.8 Other specified diseases of gallbladder; I48.0 Paroxysmal atrial fibrillation; D69.6 Thrombocytopenia, unspecified; K21.9 Gastro-esophageal reflux disease without esophagitis; Z87.891 Personal history of nicotine dependence; F10.20 Alcohol dependence, uncomplicated; F41.9 Anxiety disorder, unspecified; K59.00 Constipation, unspecified; K81.9 Cholecystitis, unspecified; Z79.01 Long term (current) use of anticoagulants; Z79.899 Other long term (current) drug therapy; Z71.41 Alcohol abuse counseling and surveillance of alcoholic; Z86.79 Personal history of other diseases of the circulatory system; Z87.01 Personal history of pneumonia (recurrent)
CPT/HCPCS: 36415; 71045; 74177; 76705; 80053; 81003; 82607; 82728; 82746; 82784; 83540; 83550; 83605; 83615; 83690; 83735; 83883; 83921; 84132; 84165; 84425; 85025; 85045; 85610; 85652; 85730; 86038; 86334; 86431; 87040; 87636; 94640; 96361; 96374; 99285

== ENCOUNTER 2021-12-29 14:04 | Inpatient (IN) | payer MEDICARE, OTHER ==
[2021-12-29] MEDS ORDERED: ACETAMINOPHEN TAB 500 MG TAB PO STA (14:13)
[2021-12-29] MEDS ORDERED: IBUPROFEN 600 MG TAB PO STA (14:13)
[2021-12-29] MEDS ORDERED: SODIUM CHLORIDE 0.9% 1,000 ML IV ONE ×2 (14:14→16:55)
--- NOTE | 2021-12-29 14:24 | ED ---
General Adult HPI - General Chief complaint: Chest Pain Stated complaint: Chest pain Time Seen by Provider: 12/29/21 14:10 Source: patient, EMS, RN notes reviewed, old records reviewed Mode of arrival: EMS Limitations: no limitations - History of Present Illness Initial comments: This is a 66-year-old male presents emergency Department the past medical history significant for atrial fibrillation and is currently being worked up by Dr. Pulido for potential cancer. Patient is brought in by EMS and they stated that he is been dizzy for the last 3 days and having hard time walking without grabbing onto things. Patient tells me his been ongoing since October. Patient states over the last couple of days he's been much weaker than just feeling worse and that is why his finally called and goes today. Patient stated earlier today he did have some chest pain. Patient denies any chest pain currently. Patient denies any shortness of breath. Patient states he does have an occasional dry cough but no sputum production. Patient denies any palpita tion. Patient denies any abdominal pain patient denies any vomiting but is nauseated. Patient denies any diarrhea. Patient states movement of the head does not appear to make any of the dizziness worse. Patient has no other complaints at this time. - Related Data Home Medications Medication Instructions Recorded Confirmed Flecainide Acetate [Tambocor] 100 mg PO Q12HR 02/29/20 12/29/21 amLODIPine BES/OLMESARTAN MED 1 tab PO DAILY 02/29/20 12/29/21 [amLODIPine BES/OLMESARTAN MED 10-20 mg] Metoprolol Succinate (ER) [Toprol 25 mg PO DAILY 05/29/21 12/29/21 XL] Omeprazole 40 mg PO DAILY 05/29/21 12/29/21 Cyanocobalamin (Vitamin B-12) 1,000 mcg PO DAILY 11/17/21 12/29/21 [Vitamin B-12] Dicyclomine HCl 10 mg PO QID 11/17/21 12/29/21 HYDROcodone/APAP 7.5-325MG [[place] 1 tab PO TID PRN 11/17/21 12/29/21 7.5-325] Loratadine [Claritin] 10 mg PO DAILY 11/17/21 12/29/21 Lubiprostone [Amitiza] 8 mcg PO BID 11/17/21 12/29/21 Apixaban [Eliquis] 5 mg PO BID 12/29/21 12/29/21 Previous Rx's Medication Instructions Recorded Albuterol Inhaler [Ventolin Hfa 2 puff INHALATION RT-QID PRN #8 gm 06/02/21 Inhaler] Allergies Allergy/AdvReac Type Severity Reaction Status Date / Time No Known Allergies Allergy Verified 12/29/21 15:39 Review of Systems ROS Statement: Those systems with pertinent positive or pertinent negative responses have been documented in the HPI. ROS Other: All systems not noted in ROS Statement are negative. Past Medical History Past Medical History: Atrial Fibrillation, GERD/Reflux, Hypertension, Osteoarthritis (OA), Pneumonia Additional Past Medical History / Comment(s): Chronic LOWER & CERVIAL BACK PAIN History of Any Multi-Drug Resistant Organisms: None Reported Past Surgical History: Cardiac Ablation, Heart Catheterization, Tonsillectomy Additional Past Surgical History / Comment(s): ORAL SURGERY, COLONOSCOPY, BACK - STEROID INJECTIONS,TIMMY, cardioversion Past Anesthesia/Blood Transfusion Reactions: No Reported Reaction Past Psychological History: Anxiety Smoking Status: Former smoker Past Alcohol Use History: Occasional Past Drug Use History: None Reported - Past Family History Mother Family Medical History: No Reported History General Exam - General Exam Comments Initial Comments: GENERAL: Patient is well-developed and well-nourished. Patient is nontoxic and well- hydrated and is in mild distress. I took the patient's oral temperature was 104.6. ENT: Neck is soft and supple. No significant lymphadenopathy is noted. Oropharynx is clear. Moist mucous membranes. Neck has full range of motion without eliciting any pain. EYES: The sclera were anicteric and conjunctiva were pink and moist. Extraocular movements were intact and pupils were equal round and reactive to light. Eyelids were unremarkable. PULMONARY: Unlabored respirations. Good breath sounds bilaterally. No audible rales rhonchi or wheezing was noted. CARDIOVASCULAR: There is a regular rate and rhythm without any murmurs gallops or rubs. ABDOMEN: Soft and nontender with normal bowel sounds. SKIN: Skin is clear with no lesions or rashes and otherwise unremarkable. NEUROLOGIC: Patient is alert and oriented x3. Cranial nerves II through XII are grossly intact. Motor and sensory are also intact. Normal speech, volume and content. Symmetrical smile. Finger nose testing bilaterally was normal MUSCULOSKELETAL: Normal extremities with adequate strength and full range of motion. LYMPHATICS: No significant lymphadenopathy is noted PSYCHIATRIC: Normal psychiatric evaluation. Limitations: no limitations Course Vital Signs 12/29/21 12/29/21 14:07 14:13 Temperature 104.6 F H Pulse Rate 77 Pulse Rate [ 68 Gold Assayer ] Respiratory 16 Rate Blood Pressure 108/47 O2 Sat by Pulse 98 Oximetry Medical Decision Making - Medical Decision Making EKG shows sinus rhythm at 70 bpm MA interval 193 QRS 106 QT intervals 41 QTC is 422. Patient's EKG shows no ST segment elevation or depression. Chest x-ray shows no acute abnormality. Because the patient's high temperature and low white count I started the patient on cefepime. I spoke with oncology and they were in agreement with my plan of action they will be consulted on the patient. Patient's hemoglobin was below 7 so the the patient received one unit of packed red blood cells. Patient also received Motrin Tylenol for the fever and did feel better he also got a bolus of fluid. I spoke with Dr. Zuniga he agreed to admit the patient admitted the patient wrote admitting orders. - Lab Data Result diagrams: 12/29/21 14:31 12/29/21 14:31 Lab Results 12/29/21 12/29/21 12/29/21 Range/Units 14:31 14:31 14:31 WBC 1.6 L (3.8-10.6) k/uL RBC 1.59 L (4.30-5.90) m/uL Hgb 6.3 L* D (13.0-17.5) gm/dL Hct 17.3 L* (39.0-53.0) % MCV 108.5 H (80.0-100.0) fL MCH 39.3 H (25.0-35.0) pg MCHC 36.2 (31.0-37.0) g/dL RDW 14.5 (11.5-15.5) % Plt Count 22 L D (150-450) k/uL MPV 9.6 Neutrophils % (Manual) 62 % Band Neuts % (Manual) 4 % Lymphocytes % (Manual) 20 % Monocytes % (Manual) 10 % Eosinophils % (Manual) 4 % Neutrophils # (Manual) 1.00 L (1.3-7.7) k/uL Lymphocytes # (Manual) 0.32 L (1.0-4.8) k/uL Monocytes # (Manual) 0.16 (0-1.0) k/uL Eosinophils # (Manual) 0.06 (0-0.7) k/uL Nucleated RBCs 0 (0-0) /100 WBC Manual Slide Review Performed Macrocytosis Marked A Sodium 134 L (137-145) mmol/L Potassium 3.5 (3.5-5.1) mmol/L Chloride 104 (98-107) mmol/L Carbon Dioxide 24 (22-30) mmol/L Anion Gap 6 mmol/L BUN 28 H (9-20) mg/dL Creatinine 0.97 (0.66-1.25) mg/dL Est GFR (CKD-EPI)AfAm >90 (>60 ml/min/1.73 sqM) Est GFR (CKD-EPI)NonAf 81 (>60 ml/min/1.73 sqM) Glucose 124 H (74-99) mg/dL Plasma Lactic Acid Alex 2.6 H* (0.7-2.0) mmol/L Calcium 8.1 L (8.4-10.2) mg/dL Total Bilirubin 1.3 (0.2-1.3) mg/dL AST 47 (17-59) U/L ALT 46 (4-49) U/L Alkaline Phosphatase 104 (38-126) U/L Total Protein 6.0 L (6.3-8.2) g/dL Albumin 3.6 (3.5-5.0) g/dL Coronavirus (PCR) (Not Detectd) Influenza Type A RNA (Not Detectd) Influenza Type B (PCR) (Not Detectd) 12/29/21 12/29/21 Range/Units 14:31 14:31 WBC (3.8-10.6) k/uL RBC (4.30-5.90) m/uL Hgb (13.0-17.5) gm/dL Hct (39.0-53.0) % MCV (80.0-100.0) fL MCH (25.0-35.0) pg MCHC (31.0-37.0) g/dL RDW (11.5-15.5) % Plt Count (150-450) k/uL MPV Neutrophils % (Manual) % Band Neuts % (Manual) % Lymphocytes % (Manual) % Monocytes % (Manual) % Eosinophils % (Manual) % Neutrophils # (Manual) (1.3-7.7) k/uL Lymphocytes # (Manual) (1.0-4.8) k/uL Monocytes # (Manual) (0-1.0) k/uL Eosinophils # (Manual) (0-0.7) k/uL Nucleated RBCs (0-0) /100 WBC Manual Slide Review Macrocytosis Sodium (137-145) mmol/L Potassium (3.5-5.1) mmol/L Chloride (98-107) mmol/L Carbon Dioxide (22-30) mmol/L Anion Gap mmol/L BUN (9-20) mg/dL Creatinine (0.66-1.25) mg/dL Est GFR (CKD-EPI)AfAm (>60 ml/min/1.73 sqM) Est GFR (CKD-EPI)NonAf (>60 ml/min/1.73 sqM) Glucose (74-99) mg/dL Plasma Lactic Acid Alex (0.7-2.0) mmol/L Calcium (8.4-10.2) mg/dL Total Bilirubin (0.2-1.3) mg/dL AST (17-59) U/L ALT (4-49) U/L Alkaline Phosphatase (38-126) U/L Total Protein (6.3-8.2) g/dL Albumin (3.5-5.0) g/dL Coronavirus (PCR) Not Detected (Not Detectd) Influenza Type A RNA Not Detected (Not Detectd) Influenza Type B (PCR) Not Detected (Not Detectd) Critical Care Time Critical Care Time: Yes Total Critical Care Time: 35 Disposition Clinical Impression: Anemia, Leukopenia, Thrombocytopenia, Fever of unknown origin Disposition: ADMITTED IP TO THIS HOSP Referrals: Cici Cordova MD [Primary Care Provider] - 1-2 days Time of Disposition: 16:54
[2021-12-29 14:37] LABS: MCH 39.3 pg (25.0-35.0); MCHC 36.2 g/dL (31.0-37.0); MCV 108.5 fL (80.0-100.0); Macrocytosis Marked; Mean Platelet Volume 9.6; RBC 1.59 m/uL (4.30-5.90); RDW 14.5 % (11.5-15.5); WBC 1.6 k/uL (3.8-10.6)
[2021-12-29 14:52] LABS: HCT 17.3 % (39.0-53.0); HGB 6.3 gm/dL (13.0-17.5)
[2021-12-29 14:58] LABS: ALT 46 U/L (4-49); AST 47 U/L (17-59); African American GFR (CKD) >90 (>60 ml/min/1.73 sqM); Albumin 3.6 g/dL (3.5-5.0); Alkaline Phosphatase 104 U/L (38-126); Anion Gap 6 mmol/L; Blood Urea Nitrogen 28 mg/dL (9-20); Calcium 8.1 mg/dL (8.4-10.2); Carbon Dioxide 24 mmol/L (22-30); Chloride 104 mmol/L (98-107); Glucose 124 mg/dL (74-99); Non-African American GFR(CKD) 81 (>60 ml/min/1.73 sqM); Potassium 3.5 mmol/L (3.5-5.1); Sodium 134 mmol/L (137-145); Total Bilirubin 1.3 mg/dL (0.2-1.3)
--- NOTE | 2021-12-29 15:05 | XR ---
EXAMINATION TYPE: XR chest 2V DATE OF EXAM: 12/29/2021 COMPARISON: Chest x-ray 11/17/2021 HISTORY: Difficulty breathing TECHNIQUE: Frontal and lateral views of the chest are obtained 3 images. FINDINGS: There is no focal air space opacity, pleural effusion, or pneumothorax seen. The cardiac silhouette size is within normal limits. The aorta is dense. There is thoracic spondylosis. The osse ous structures are intact. IMPRESSION: No acute cardiopulmonary process.
--- NOTE | 2021-12-29 15:17 | CT ---
EXAMINATION TYPE: CT brain wo con CT DLP: 1214.4 mGycm, Automated exposure control for dose reduction was used. DATE OF EXAM: 12/29/2021 3:07 PM COMPARISON: None. CLINICAL INDICATION:Male, 66 years old with history of Off-balance, Unsteady gait. TECHNIQUE: Brain: Multiple axial CT images of the brain were obtained without IV contrast. FINDINGS: Brain: Extra-axial spaces: No abnormal extra-axial fluid collections. Ventricular system: Within normal limits Cerebral parenchyma: No acute intraparenchymal hemorrhage or mass effect. The lopez-white junction is well differentiated. Cerebellum: Unremarkable. Mass effect: No evidence of midline shift. Intracranial vasculature: Atherosclerotic calcifications of the intracranial vessels. Soft tissues: Normal. Calvarium/osseous structures: No depressed skull fracture. Paranasal sinuses and mastoid air cells: Mild scattered paranasal sinus disease. Visualized orbits: Orbital contents are intact. IMPRESSION: No acute intracranial process.
[2021-12-29 16:00] LABS: Band Neutrophils % 4 %; Eosinophils # (M) 0.06 k/uL (0-0.7); Lymphocytes # (M) 0.32 k/uL (1.0-4.8); Monocytes # (M) 0.16 k/uL (0-1.0); Neutrophils % (M) 62 %; Nucleated Red Blood Cells 0 /100 WBC (0-0); Platelet Count 22 k/uL (150-450); Total Cells Counted 100
[2021-12-29] MEDS ORDERED: CEFEPIME 2 GM in SODIUM CHLORIDE 0.9% 100 ML IVPB STA (16:39)
[2021-12-29 17:41] LABS: MCH 36.9 pg (25.0-35.0); MCHC 33.5 g/dL (31.0-37.0); MCV 110.3 fL (80.0-100.0); Macrocytosis Marked; Mean Platelet Volume 9.6; RBC 1.63 m/uL (4.30-5.90); RDW 14.5 % (11.5-15.5)
[2021-12-29 17:51] LABS: INR 1.3 (<1.2); Partial Thromboplastin Time 29.2 sec (22.0-30.0); Prothrombin Time 13.8 sec (9.0-12.0)
[2021-12-29 18:00] LABS: HCT 17.9 % (39.0-53.0)
[2021-12-29 18:01] LABS: WBC 1.1 k/uL (3.8-10.6)
[2021-12-29 19:27] LABS: Band Neutrophils % 4 %; Eosinophils # (M) 0.01 k/uL (0-0.7); Lymphocytes # (M) 0.19 k/uL (1.0-4.8); Monocytes # (M) 0.13 k/uL (0-1.0); Neutrophils % (M) 66 %; Nucleated Red Blood Cells 0 /100 WBC (0-0); Total Cells Counted 100
[2021-12-29 19:28] LABS: Platelet Count 27 k/uL (150-450)
[2021-12-29 19:29] LABS: Anisocytosis Slight
[2021-12-29] MEDS ORDERED: ALBUTEROL NEBULIZED 2.5 MG/3 ML INHALATION PRN (22:25)
[2021-12-29] MEDS ORDERED: VANCOMYCIN IV PER PHARMACY 1 EACH MISC MISCELLANE PRN (22:36)
[2021-12-29] MEDS ORDERED: ACETAMINOPHEN TAB 325 MG TAB PO PRN (22:37)
[2021-12-29] MEDS ORDERED: VANCOMYCIN 1,500 MG in SODIUM CHLORIDE 0.9% 250 ML IVPB ONE (22:45)
[2021-12-29 23:26] LABS: Appearance,Urine Clear (Clear); Bilirubin,Urine Negative (Negative); Blood,Urine Trace (Negative); Color,Urine Yellow; Glucose,Urine (UA) Negative (Negative); Ketones,Urine Trace (Negative); Leukocyte Esterase,Urine Negative (Negative); Mucus,Urine Rare /hpf; Nitrite,Urine Negative (Negative); Protein,Urine 1+ (Negative); RBC,Urine 1 /hpf (0-5); Specific Gravity,Urine 1.021 (1.001-1.035); Squamous Epithelial Cell,Urine <1 /hpf (0-4); WBC,Urine 2 /hpf (0-5)
[2021-12-30] MEDS: CEFEPIME 2 GM in SODIUM CHLORIDE 0.9% 100 ML IVPB SCH ×3 (02:11→20:00)
[2021-12-30] MEDS: APIXABAN 5 MG TAB PO SCH ×2 (07:29→20:36)
[2021-12-30] MEDS: LOSARTAN 50 MG TAB PO SCH (07:30)
[2021-12-30] MEDS: DICYCLOMINE 10 MG CAP PO SCH ×4 (07:31→21:13)
[2021-12-30] MEDS: CYANOCOBALAMIN 500 MCG TAB PO SCH (07:31)
[2021-12-30] MEDS: LORATADINE 10 MG TAB PO SCH (07:31)
[2021-12-30] MEDS: PANTOPRAZOLE 40 MG TABLET PO SCH (07:31)
[2021-12-30] MEDS: FLECAINIDE 50 MG TAB PO SCH ×2 (07:31→20:36)
[2021-12-30] MEDS: METOPROLOL SUCCINATE (ER) 25 MG TAB.ER.24H PO SCH (07:31)
[2021-12-30] MEDS: LUBIPROSTONE 8 MCG PO SCH ×2 (07:37→20:34)
[2021-12-30] MEDS: HYDROcodone/APAP 7.5-325MG 1 EACH TAB PO PRN ×2 (07:41→14:58)
[2021-12-30] MEDS: VANCOMYCIN 1,500 MG in SODIUM CHLORIDE 0.9% 250 ML IVPB SCH ×2 (08:21→21:13)
[2021-12-30 10:49] LABS: African American GFR (CKD) 88.2 (60.0-200.0); Albumin 3.9 g/dL (3.8-4.9); Albumin/Globulin Ratio 1.86 (1.60-3.17); BUN/Creat Ratio 17.43 Ratio (12.00-20.00); Blood Urea Nitrogen 17.6 mg/dL (9.0-27.0); Calcium 8.3 mg/dL (8.7-10.3); Carbon Dioxide 20.8 mmol/L (20.0-27.5); Globulin 2.1 g/dL (1.6-3.3); Non-African American GFR(CKD) 76.1 (60.0-200.0); Potassium 3.5 mmol/L (3.5-5.5); Total Bilirubin 2.1 mg/dL (0.30-1.20); Total Protein 6.1 g/dL (6.2-8.2)
[2021-12-30 11:01] LABS: INR 1.3 (<1.2); Prothrombin Time 13.7 sec (9.0-12.0)
[2021-12-30 11:02] LABS: Partial Thromboplastin Time 27.7 sec (22.0-30.0)
[2021-12-30 13:12] LABS: NRBC Per 100 WBC 0 /100 WBCS (0.0-0.0)
[2021-12-30 13:13] LABS: Basophils # (M) 0 X 10*3/uL (0.00-0.10); Eosinophils # (M) 0 X 10*3/uL (0.04-0.35); HCT 19.3 % (39.6-50.0); HGB 6.4 g/dL (13.0-17.0); Immature Platelet Fraction 8.3 % (1.1-6.1); Lymphocytes # (M) 0.76 X 10*3/uL (0.90-5.00); MCH 36.4 pg (27.0-32.0); MCHC 33.2 g/dL (32.0-37.0); MCV 109.7 fL (80.0-97.0); Mean Platelet Volume 11.4 fL (9.5-12.2); Monocytes # (M) 0.05 X 10*3/uL (0.20-1.00); Myelocytes % 5 % (0-0); Neutrophils # (M) 0.76 X 10*3/uL (2.00-8.90); Neutrophils % (M) 46 %; Platelet Count 23 X 10*3/uL (140-440); RBC 1.76 X 10*6/uL (4.40-5.60); RDW 17.9 % (11.5-14.5); WBC 1.66 X 10*3/uL (4.50-10.00)
[2021-12-30] MEDS ORDERED: methylPREDNISolone SOD SUCCIN 60 MG in SODIUM CHLORIDE 0.9% 100 ML IVPB STA (14:44)
[2021-12-30] MEDS ORDERED: diphenhydrAMINE 50 MG/ML 1 ML VIAL IVP STA (14:44)
[2021-12-30] MEDS ORDERED: FAMOTIDINE 20 MG TAB PO STA (14:45)
[2021-12-30] MEDS: IOPAMIDOL CONTRAST (ORAL USE) VIAL PO PRN ×2 (14:54→16:10)
[2021-12-30] MEDS ORDERED: methylPREDNISolone SOD SUCCI 125 MG/2 ML VIAL IV STA (14:57)
--- NOTE | 2021-12-30 14:59 | P.CONS ---
History of Present Illness - Reason for Consult Consult date: 12/30/21 Pancytopenia Requesting physician: Romel Gutierrez - History of Present Illness Patient was recently seen in hospital begining of November with pancytopenia, at that time a completed work-up was performed and felt to be caused from bone marrow suppression with chronic ETOH use as well as worsened with acute inflammation of diverticuli He now presents for the same. he states he did have one drink since leaving hospital but none in the past 3 weeks. His hemoglobin has dropped requiring blood transfusion and he unfortunetly had a reacction to blood overnight therefore unit of PRBC could not be full transfused. Today hemoglobin is 6.4 and premedication was ordered. Additional work-up for pancytopenia Review of Systems All systems: negative Constitutional: Reports as per HPI Past Medical History Past Medical History: Atrial Fibrillation, COPD, GERD/Reflux, Hypertension, Osteoarthritis (OA), Pneumonia Additional Past Medical History / Comment(s): Chronic LOWER & CERVIAL BACK PAIN, Diverticulitis History of Any Multi-Drug Resistant Organisms: None Reported Past Surgical History: Cardiac Ablation, Heart Catheterization, Tonsillectomy Additional Past Surgical History / Comment(s): ORAL SURGERY, COLONOSCOPY, BACK - STEROID INJECTIONS,TIMMY, cardioversion Past Anesthesia/Blood Transfusion Reactions: No Reported Reaction Past Psychological History: No Psychological Hx Reported Smoking Status: Former smoker Past Alcohol Use History: Occasional Additional Past Alcohol Use History / Comment(s): STARTED SMOKING AT AGE 16 QUIT AT AGE 50 SMOKED 1PPD, yomairan quit drinking Nov 17 2021, patient was drinking a pint per day, has not drink since Past Drug Use History: None Reported - Past Family History Mother Family Medical History: No Reported History Medications and Allergies Home Medications Medication Instructions Recorded Confirmed Type Flecainide Acetate [Tambocor] 100 mg PO Q12HR 02/29/20 12/29/21 History amLODIPine BES/OLMESARTAN MED 1 tab PO DAILY 02/29/20 12/29/21 History [amLODIPine BES/OLMESARTAN MED 10-20 mg] Metoprolol Succinate (ER) [Toprol 25 mg PO DAILY 05/29/21 12/29/21 History XL] Omeprazole 40 mg PO DAILY 05/29/21 12/29/21 History Albuterol Inhaler [Ventolin Hfa 2 puff INHALATION RT-QID PRN #8 gm 06/02/21 12/29/21 Rx Inhaler] Cyanocobalamin (Vitamin B-12) 1,000 mcg PO DAILY 11/17/21 12/29/21 History [Vitamin B-12] Dicyclomine HCl 10 mg PO QID 11/17/21 12/29/21 History HYDROcodone/APAP 7.5-325MG [[place] 1 tab PO TID PRN 11/17/21 12/29/21 History 7.5-325] Loratadine [Claritin] 10 mg PO DAILY 11/17/21 12/29/21 History Lubiprostone [Amitiza] 8 mcg PO BID 11/17/21 12/29/21 History Apixaban [Eliquis] 5 mg PO BID 12/29/21 12/29/21 History Allergies Allergy/AdvReac Type Severity Reaction Status Date / Time ibuprofen [From Motrin] Allergy Unknown Verified 12/29/21 21:21 tree nut [Nut] AdvReac Unknown Verified 12/29/21 18:38 Physical Exam Vitals: Vital Signs Temp Pulse Pulse Pulse Resp BP BP 12/30/21 12:04 98.1 F 57 L 18 107/54 12/30/21 08:30 69 18 12/30/21 07:42 99.2 F 69 136/69 12/30/21 05:28 98.1 F 64 18 142/63 12/30/21 02:00 98.9 F 12/29/21 21:56 102.3 F H 91 110/48 12/29/21 21:53 102.3 F H 91 18 110/48 12/29/21 21:35 99.2 F 80 18 150/66 12/29/21 21:00 99.2 F 80 18 150/66 12/29/21 20:20 98.9 F 59 L 22 108/52 12/29/21 20:05 98.5 F 61 20 117/51 12/29/21 19:38 97.8 F Pulse Ox 12/30/21 12:04 93 L 12/30/21 08:30 12/30/21 07:42 12/30/21 05:28 94 L 12/30/21 02:00 12/29/21 21:56 95 12/29/21 21:53 95 12/29/21 21:35 96 12/29/21 21:00 96 12/29/21 20:20 96 12/29/21 20:05 96 12/29/21 19:38 Intake and Output 12/29/21 12/30/21 12/30/21 22:59 06:59 14:59 Intake Total 0 1325 Balance 0 1325 Intake: Intake, IV Titration 1025 Amount Sodium Chloride 0.9% 1, 900 000 ml @ 100 mls/hr IV . Q10H ONE Rx#:[id number] Vancomycin 1,500 mg In 125 Sodium Chloride 0.9% 250 ml @ 125 mls/hr IVPB Q12H [facility] Rx#:[id number] Oral 300 Blood Product 0 Rc As-1 Unit 0 [id number] Other: Voiding Method Toilet Toilet # Voids 3 2 # Bowel Movements 1 1 Weight 83.915 kg - Constitutional General appearance: cooperative, obese - EENT Eyes: EOMI ENT: NA/AT - Respiratory Respiratory: bilateral: diminished - Cardiovascular Rhythm: regularly irregular - Gastrointestinal General gastrointestinal: distended, hepatomegaly, soft - Neurologic Neurologic: CNII-XII intact - Musculoskeletal Musculoskeletal: generalized weaknes - Constitutional General appearance: cooperative Results CBC & Chem 7: 12/30/21 06:37 12/30/21 06:37 Labs: Abnormal Lab Results - Last 24 Hours (Table) 12/29/21 12/29/21 12/29/21 Range/Units 14:31 14:31 14:31 WBC 1.6 L (3.8-10.6) k/uL RBC 1.59 L (4.30-5.90) m/uL Hgb 6.3 L* D (13.0-17.5) gm/dL Hct 17.3 L* (39.0-53.0) % MCV 108.5 H (80.0-100.0) fL MCH 39.3 H (25.0-35.0) pg RDW (11.5-14.5) % Plt Count 22 L D (150-450) k/uL Plt Count Comment Myelocytes % (0-0) % Neutrophils # (Manual) 1.00 L (1.3-7.7) k/uL Lymphocytes # (Manual) 0.32 L (1.0-4.8) k/uL Monocytes # (Manual) (0.20-1.00) X 10*3/uL Eosinophils # (Manual) (0.04-0.35) X 10*3/uL Immature Plt Fraction (1.1-6.1) % Macrocytosis Marked A PT (9.0-12.0) sec INR (<1.2) Sodium 134 L (137-145) mmol/L BUN 28 H (9-20) mg/dL Glucose 124 H (74-99) mg/dL Plasma Lactic Acid Alex (0.7-2.0) mmol/L Calcium 8.1 L (8.4-10.2) mg/dL Total Bilirubin (0.30-1.20) mg/dL AST (14-35) U/L ALT (10-49) U/L Alkaline Phosphatase (41-126) U/L Total Protein 6.0 L (6.3-8.2) g/dL Urine Protein 1+ H (Negative) Urine Ketones Trace H (Negative) Urine Blood Trace H (Negative) Urine Mucus Rare H (None) /hpf Crossmatch 12/29/21 12/29/21 12/29/21 Range/Units 14:31 17:25 17:25 WBC (3.8-10.6) k/uL RBC (4.30-5.90) m/uL Hgb (13.0-17.5) gm/dL Hct (39.0-53.0) % MCV (80.0-100.0) fL MCH (25.0-35.0) pg RDW (11.5-14.5) % Plt Count (150-450) k/uL Plt Count Comment Myelocytes % (0-0) % Neutrophils # (Manual) (1.3-7.7) k/uL Lymphocytes # (Manual) (1.0-4.8) k/uL Monocytes # (Manual) (0.20-1.00) X 10*3/uL Eosinophils # (Manual) (0.04-0.35) X 10*3/uL Immature Plt Fraction (1.1-6.1) % Macrocytosis PT 13.8 H (9.0-12.0) sec INR 1.3 H (<1.2) Sodium (137-145) mmol/L BUN (9-20) mg/dL Glucose (74-99) mg/dL Plasma Lactic Acid Alex 2.6 H* (0.7-2.0) mmol/L Calcium (8.4-10.2) mg/dL Total Bilirubin (0.30-1.20) mg/dL AST (14-35) U/L ALT (10-49) U/L Alkaline Phosphatase (41-126) U/L Total Protein (6.3-8.2) g/dL Urine Protein (Negative) Urine Ketones (Negative) Urine Blood (Negative) Urine Mucus (None) /hpf Crossmatch See Detail 12/29/21 12/30/21 12/30/21 Range/Units 17:25 06:37 06:37 WBC 1.1 L* 1.66 L (3.8-10.6) k/uL RBC 1.63 L 1.76 L (4.30-5.90) m/uL Hgb 6.0 L* 6.4 L* (13.0-17.5) gm/dL Hct 17.9 L* 19.3 L* (39.0-53.0) % MCV 110.3 H 109.7 H (80.0-100.0) fL MCH 36.9 H 36.4 H (25.0-35.0) pg RDW 17.9 H (11.5-14.5) % Plt Count 27 L 23 L (150-450) k/uL Plt Count Comment A Myelocytes % 5 H (0-0) % Neutrophils # (Manual) 0.70 L 0.76 L (1.3-7.7) k/uL Lymphocytes # (Manual) 0.19 L 0.76 L (1.0-4.8) k/uL Monocytes # (Manual) 0.05 L (0.20-1.00) X 10*3/uL Eosinophils # (Manual) 0 L (0.04-0.35) X 10*3/uL Immature Plt Fraction 8.3 H (1.1-6.1) % Macrocytosis Marked A PT (9.0-12.0) sec INR (<1.2) Sodium (137-145) mmol/L BUN (9-20) mg/dL Glucose 113 H (74-99) mg/dL Plasma Lactic Acid Alex (0.7-2.0) mmol/L Calcium 8.3 L (8.4-10.2) mg/dL Total Bilirubin 2.10 H (0.30-1.20) mg/dL AST 103 H (14-35) U/L ALT 99 H (10-49) U/L Alkaline Phosphatase 162 H (41-126) U/L Total Protein 6.1 L (6.3-8.2) g/dL Urine Protein (Negative) Urine Ketones (Negative) Urine Blood (Negative) Urine Mucus (None) /hpf Crossmatch 12/30/21 Range/Units 10:26 WBC (3.8-10.6) k/uL RBC (4.30-5.90) m/uL Hgb (13.0-17.5) gm/dL Hct (39.0-53.0) % MCV (80.0-100.0) fL MCH (25.0-35.0) pg RDW (11.5-14.5) % Plt Count (150-450) k/uL Plt Count Comment Myelocytes % (0-0) % Neutrophils # (Manual) (1.3-7.7) k/uL Lymphocytes # (Manual) (1.0-4.8) k/uL Monocytes # (Manual) (0.20-1.00) X 10*3/uL Eosinophils # (Manual) (0.04-0.35) X 10*3/uL Immature Plt Fraction (1.1-6.1) % Macrocytosis PT 13.7 H (9.0-12.0) sec INR 1.3 H (<1.2) Sodium (137-145) mmol/L BUN (9-20) mg/dL Glucose (74-99) mg/dL Plasma Lactic Acid Alex (0.7-2.0) mmol/L Calcium (8.4-10.2) mg/dL Total Bilirubin (0.30-1.20) mg/dL AST (14-35) U/L ALT (10-49) U/L Alkaline Phosphatase (41-126) U/L Total Protein (6.3-8.2) g/dL Urine Protein (Negative) Urine Ketones (Negative) Urine Blood (Negative) Urine Mucus (None) /hpf Crossmatch Assessment and Plan Plan: Assessment and Plan (1) Macrocytic anemia Current Visit: Yes Status: Acute Code(s): D53.9 - NUTRITIONAL ANEMIA, UNSPECIFIED SNOMED Code(s): 20058980 - Premedicate and transfuse today hemoglobin 6.4 (2) Thrombocytopenia Narrative/Plan: Hold AC under 50K Current Visit: Yes Status: Acute Code(s): D69.6 - THROMBOCYTOPENIA, UNSPECIFIED SNOMED Code(s): 614206681 (3) Leukopenia Current Visit: Yes Status: Acute Code(s): D72.819 - DECREASED WHITE BLOOD CELL COUNT, UNSPECIFIED SNOMED Code(s): 08649908 Plan: Pancytopenia work-up ordered HOLD ASA/NSAIDS and Anticoagulation if platelets under 50K Transfuse Hemo <7, Plt <10 (unless evidence of bleeding transfuse sooner) Great length discussing bone marrow suppression related to ETOH and cessation of importance for maintaing health HOLD AC platelets less than 50K If does not improve then a bone marrow biopsy may be needed Outpatient Defer decision for ongoing monitoring and use of AC risks (as it was prescribed atrial fib) Hopefully cessation from ETOH will help liver function and bone marrow function to improve. Dr. Schafer: I have completed the full history and physical and developed the above impression and plan, agree with above dictation, dictated as a ascribe.
[2021-12-30] MEDS ORDERED: IOPAMIDOL CONTRAST (ORAL USE) VIAL PO PRN (16:09)
[2021-12-30 17:12] LABS: % Iron Saturation 45.45 (15.00-50.00); Magnesium 1.8 mg/dL (1.5-2.4)
--- NOTE | 2021-12-30 17:29 | P.HPIM ---
History of Present Illness H&P Date: 12/30/21 Bennie Estrada, is a 66-year-old male who presented to [facility] emergency room with a chief complaint of dizziness and unsteady gait He was evaluated in the emergency room vital examination on presentation revealed a temperature of 104.6 pulse 77 respirations 16 blood pressure 108/47 pulse ox 98% on room air Laboratory data revealed a white blood count of 1.6 hemoglobin 6.3 platelet count 22,000 and 134 potassium 3.5 chloride 104 CO2 24 BUN 28 creatinine 0.97 lactic acid 2.6 urine analysis revealed no evidence of urinary tract infections Testing in the emergency room revealed chest x-ray revealed no acute cardiopulmonary pulmonary process, computed tomography scan of the brain reveals no acute intracranial process, EKG revealed sinus rhythm with sinus arrhythmia with incomplete right bundle branch block. Patient was admitted to medical floor for further evaluation and treatment, he was started empirically on IV antibiotics in the emergency room, oncology consultation and infectious disease consultation were requested Past medical history is significant for history of hypertension, history of alcohol abuse, history of primary thrombocytopenia, previous history of atrial fibrillation Past Medical History Past Medical History: Atrial Fibrillation, COPD, GERD/Reflux, Hypertension, Osteoarthritis (OA), Pneumonia Additional Past Medical History / Comment(s): Chronic LOWER & CERVIAL BACK PAIN, Diverticulitis History of Any Multi-Drug Resistant Organisms: None Reported Past Surgical History: Cardiac Ablation, Heart Catheterization, Tonsillectomy Additional Past Surgical History / Comment(s): ORAL SURGERY, COLONOSCOPY, BACK - STEROID INJECTIONS,TIMMY, cardioversion Past Anesthesia/Blood Transfusion Reactions: No Reported Reaction Past Psychological History: No Psychological Hx Reported Smoking Status: Former smoker Past Alcohol Use History: Occasional Additional Past Alcohol Use History / Comment(s): STARTED SMOKING AT AGE 16 QUIT AT AGE 50 SMOKED 1PPD, cathie quit drinking Nov 17 2021, patient was drinking a pint per day, has not drink since Past Drug Use History: None Reported - Past Family History Mother Family Medical History: No Reported History Medications and Allergies Home Medications Medication Instructions Recorded Confirmed Type Flecainide Acetate [Tambocor] 100 mg PO Q12HR 02/29/20 12/29/21 History amLODIPine BES/OLMESARTAN MED 1 tab PO DAILY 02/29/20 12/29/21 History [amLODIPine BES/OLMESARTAN MED 10-20 mg] Metoprolol Succinate (ER) [Toprol 25 mg PO DAILY 05/29/21 12/29/21 History XL] Omeprazole 40 mg PO DAILY 05/29/21 12/29/21 History Albuterol Inhaler [Ventolin Hfa 2 puff INHALATION RT-QID PRN #8 gm 06/02/21 12/29/21 Rx Inhaler] Cyanocobalamin (Vitamin B-12) 1,000 mcg PO DAILY 11/17/21 12/29/21 History [Vitamin B-12] Dicyclomine HCl 10 mg PO QID 11/17/21 12/29/21 History HYDROcodone/APAP 7.5-325MG [[place] 1 tab PO TID PRN 11/17/21 12/29/21 History 7.5-325] Loratadine [Claritin] 10 mg PO DAILY 11/17/21 12/29/21 History Lubiprostone [Amitiza] 8 mcg PO BID 11/17/21 12/29/21 History Apixaban [Eliquis] 5 mg PO BID 12/29/21 12/29/21 History Allergies Allergy/AdvReac Type Severity Reaction Status Date / Time ibuprofen [From Motrin] Allergy Unknown Verified 12/29/21 21:21 tree nut [Nut] AdvReac Unknown Verified 12/29/21 18:38 Physical Exam Vitals: Vital Signs Temp Pulse Pulse Pulse Resp BP BP 12/30/21 12:04 98.1 F 57 L 18 107/54 12/30/21 08:30 69 18 12/30/21 07:42 99.2 F 69 136/69 12/30/21 05:28 98.1 F 64 18 142/63 12/30/21 02:00 98.9 F 12/29/21 21:56 102.3 F H 91 110/48 12/29/21 21:53 102.3 F H 91 18 110/48 12/29/21 21:35 99.2 F 80 18 150/66 12/29/21 21:00 99.2 F 80 18 150/66 12/29/21 20:20 98.9 F 59 L 22 108/52 12/29/21 20:05 98.5 F 61 20 117/51 12/29/21 19:38 97.8 F 12/29/21 14:13 68 12/29/21 14:07 104.6 F H 77 16 108/47 Pulse Ox 12/30/21 12:04 93 L 12/30/21 08:30 12/30/21 07:42 12/30/21 05:28 94 L 12/30/21 02:00 12/29/21 21:56 95 12/29/21 21:53 95 12/29/21 21:35 96 12/29/21 21:00 96 12/29/21 20:20 96 12/29/21 20:05 96 12/29/21 19:38 12/29/21 14:13 12/29/21 14:07 98 Intake and Output 12/29/21 12/30/21 12/30/21 22:59 06:59 14:59 Intake Total 0 1325 Balance 0 1325 Intake: Intake, IV Titration 1025 Amount Sodium Chloride 0.9% 1, 900 000 ml @ 100 mls/hr IV . Q10H ONE Rx#:[id number] Vancomycin 1,500 mg In 125 Sodium Chloride 0.9% 250 ml @ 125 mls/hr IVPB Q12H [facility] Rx#:[id number] Oral 300 Blood Product 0 Rc As-1 Unit 0 [id number] Other: Voiding Method Toilet Toilet # Voids 3 2 # Bowel Movements 1 1 Weight 83.915 kg In general patient is alert and oriented x 3 in no distress HEENT head normocephalic and atraumatic Neck is supple no JVD no goiter no lymphadenopathy no carotid bruit Chest examination is clear to auscultation no crackles no wheezing Cardiac exam reveals regular heart sounds S1 and S2 no gallops no murmurs Abdomen is soft nontender no organomegaly with normal bowel sounds Extremity exam reveals no edema no cyanosis or clubbing Neurological examination reveals no gross focal deficits Results CBC & Chem 7: 12/30/21 06:37 12/30/21 06:37 Labs: Abnormal Lab Results - Last 24 Hours (Table) 12/29/21 12/29/21 12/29/21 Range/Units 14:31 14:31 14:31 WBC 1.6 L (3.8-10.6) k/uL RBC 1.59 L (4.30-5.90) m/uL Hgb 6.3 L* D (13.0-17.5) gm/dL Hct 17.3 L* (39.0-53.0) % MCV 108.5 H (80.0-100.0) fL MCH 39.3 H (25.0-35.0) pg Plt Count 22 L D (150-450) k/uL Neutrophils # (Manual) 1.00 L (1.3-7.7) k/uL Lymphocytes # (Manual) 0.32 L (1.0-4.8) k/uL Macrocytosis Marked A PT (9.0-12.0) sec INR (<1.2) Sodium 134 L (137-145) mmol/L BUN 28 H (9-20) mg/dL Glucose 124 H (74-99) mg/dL Plasma Lactic Acid Alex (0.7-2.0) mmol/L Calcium 8.1 L (8.4-10.2) mg/dL Total Bilirubin (0.30-1.20) mg/dL AST (14-35) U/L ALT (10-49) U/L Alkaline Phosphatase (41-126) U/L Total Protein 6.0 L (6.3-8.2) g/dL Urine Protein 1+ H (Negative) Urine Ketones Trace H (Negative) Urine Blood Trace H (Negative) Urine Mucus Rare H (None) /hpf Crossmatch 12/29/21 12/29/21 12/29/21 Range/Units 14:31 17:25 17:25 WBC (3.8-10.6) k/uL RBC (4.30-5.90) m/uL Hgb (13.0-17.5) gm/dL Hct (39.0-53.0) % MCV (80.0-100.0) fL MCH (25.0-35.0) pg Plt Count (150-450) k/uL Neutrophils # (Manual) (1.3-7.7) k/uL Lymphocytes # (Manual) (1.0-4.8) k/uL Macrocytosis PT 13.8 H (9.0-12.0) sec INR 1.3 H (<1.2) Sodium (137-145) mmol/L BUN (9-20) mg/dL Glucose (74-99) mg/dL Plasma Lactic Acid Alex 2.6 H* (0.7-2.0) mmol/L Calcium (8.4-10.2) mg/dL Total Bilirubin (0.30-1.20) mg/dL AST (14-35) U/L ALT (10-49) U/L Alkaline Phosphatase (41-126) U/L Total Protein (6.3-8.2) g/dL Urine Protein (Negative) Urine Ketones (Negative) Urine Blood (Negative) Urine Mucus (None) /hpf Crossmatch See Detail 12/29/21 12/30/21 12/30/21 Range/Units 17:25 06:37 10:26 WBC 1.1 L* (3.8-10.6) k/uL RBC 1.63 L (4.30-5.90) m/uL Hgb 6.0 L* (13.0-17.5) gm/dL Hct 17.9 L* (39.0-53.0) % MCV 110.3 H (80.0-100.0) fL MCH 36.9 H (25.0-35.0) pg Plt Count 27 L (150-450) k/uL Neutrophils # (Manual) 0.70 L (1.3-7.7) k/uL Lymphocytes # (Manual) 0.19 L (1.0-4.8) k/uL Macrocytosis Marked A PT 13.7 H (9.0-12.0) sec INR 1.3 H (<1.2) Sodium (137-145) mmol/L BUN (9-20) mg/dL Glucose 113 H (74-99) mg/dL Plasma Lactic Acid Alex (0.7-2.0) mmol/L Calcium 8.3 L (8.4-10.2) mg/dL Total Bilirubin 2.10 H (0.30-1.20) mg/dL AST 103 H (14-35) U/L ALT 99 H (10-49) U/L Alkaline Phosphatase 162 H (41-126) U/L Total Protein 6.1 L (6.3-8.2) g/dL Urine Protein (Negative) Urine Ketones (Negative) Urine Blood (Negative) Urine Mucus (None) /hpf Crossmatch Thrombosis Risk Factor Assmnt - Choose All That Apply Each Factor Represents 1 point: Abnormal pulmonary function (COPD) Each Risk Factor Represents 2 Points: Age 61-74 years Other congenital or acquired thrombophilia - If yes, enter type in comment: No Thrombosis Risk Factor Assessment Total Risk Factor Score: 3 Thrombosis Risk Factor Assessment Level: Moderate Risk Assessment and Plan Plan: Febrile illness, with leukopenia, no clear source of infection, patient was started on empiric antibiotic in the emergency room Pancytopenia with Leukopenia anemia and thrombocytopenia, could be related to history of excessive alcohol use hematology consultation requested Underlying history of hypertension Underlying history of paroxysmal atrial fibrillation Previous history of excessive alcohol use At this time patient is admitted to medical floor Blood cultures ordered He was started on IV antibiotics cefepime and vancomycin empirically in the emergency room Symptomatic management for fever IV fluids, consultation for hematology and infectious disease initiated Will recheck labs and follow-up in a.m.
[2021-12-30 17:42] LABS: Reticulocyte % 0.42 % (0.10-1.80)
--- NOTE | 2021-12-30 20:38 | CT ---
EXAMINATION TYPE: CT abdomen pelvis w con CT DLP: 1366 mGycm, Automated exposure control for dose reduction was used. DATE OF EXAM: 12/30/2021 5:11 PM COMPARISON: CT abdomen pelvis most recent from 11/17/2021. CLINICAL INDICATION:Male, 66 years old with history of liver and hx: ETOH; fever and diverticulitis TECHNIQUE: Standard CT of the abdomen and pelvis following the administration of 100 cc of Isovue 3 00 IV contrast material and oral contrast. Coronal and sagittal reformats were performed. FINDINGS: LOWER CHEST: Unremarkable ABDOMEN LIVER: Mild periportal edema noted. GALLBLADDER AND BILE DUCTS: There is circumferential wall thickening of the gallbladder lumen measuri ng up to 7 mm. There is layering choleliths present. PANCREAS: Mild fat stranding changes around the pancreatic head. SPLEEN: Unremarkable. ADRENAL GLANDS: Unremarkable. KIDNEYS AND URETERS: No evidence of hydronephrosis or renal calculus. The ureters are unremarkable. PELVIS BLADDER: Unremarkable REPRODUCTIVE: Prostate is enlarged in size measuring 5.1 cm in transverse dimension. There is median lobe hypertrophy changes. ABDOMEN & PELVIS STOMACH AND BOWEL: Scattered diverticula are noted throughout the colon. No evidence of bowel obstruc tion. There is a moderate to large stool burden throughout the colon. PERITONEUM: No evidence of pneumoperitoneum or free fluid. VASCULATURE: No evidence of aortic aneurysm. MUSCULOSKELETAL: No acute osseous abnormalities. Spondylolisthesis of L5 on S1 with bilateral spondyl olysis. Stable lucent lesion in the L1 vertebral body measuring 11 mm. LYMPH NODES: Multiple borderline enlarged lymph nodes are seen in the lung the course of the aorta an d the abdomen. The largest on the right measuring up to 10 mm in short axis. There is a portacaval ly mph node measuring 16 mm in short axis. These findings are stable from prior on 11/17/2021 SOFT TISSUE/ABDOMINAL WALL: Unremarkable IMPRESSION: 1. Subtle peripancreatic fat stranding changes concerning for acute pancreatitis. Correlate with seru m lipase. 2. Gallbladder wall thickening with cholelithiasis. There is no significant adjacent inflammation sug gesting that this could be due to a systemic cause given the periportal edema. Consider clinical ronnie elation and if necessary a HIDA scan to rule out acute cholecystitis. 3. Prostatomegaly correlate serum PSA. 4. Colonic diverticulosis without evidence of diverticulitis. 5. Moderate to large stool burden throughout the colon. 6. Stable L1 vertebral body lucent lesion. This is nonspecific finding correlation with history of ma lignancy and comparison with more remote priors may be of benefit.
--- NOTE | 2021-12-30 23:33 | P.CONS ---
History of Present Illness - Reason for Consult Consult date: 12/30/21 Fever Requesting physician: Nelsy Zuniga - Chief Complaint Not feeling well and fever x 1 day - History of Present Illness Patient is a 66-year-old male with a past medical he significant for recurrent diverticulitis with recent admission to the hospital and was treated for diverticulitis subsequently charged home on oral antibiotics patient mention seem to have a problem with a low blood count and the patient apparently was supposed to follow-up with hematology oncology for further work-up however yesterday the patient did have acute illness with the patient did have a generalized not feeling well weakness some fever and chills and did have some vague abdominal pain and episode of vomiting patient also constipated and did have a bowel movement every 3 to 4 days, patient denies having URI symptoms no chest pain or shortness of breath or cough no urinary symptoms no joint swelling or any rash patient on presentation to the hospital did have a fever of 104.6 F no hypoxemia no need for supplemental oxygen patient was noticed to be anemic with a hemoglobin of 6.3 vital 1.6 and a platelet count of 22 patient did have a elevated lactic acid creatinine was normal initially was also normal however repeat level exams are elevated influenza and COVID PCR was negative patient did have a chest x-ray no acute cardiopulmonary process CT of the brain was negative for any bleed patient was started on vancomycin and cefepime admitted to hospital infectious disease was consulted for further management of antibiotic therapy Review of Systems Positive point has been mentioned in the HPI rest of the systems are negative Past Medical History Past Medical History: Atrial Fibrillation, COPD, GERD/Reflux, Hypertension, Osteoarthritis (OA), Pneumonia Additional Past Medical History / Comment(s): Chronic LOWER & CERVIAL BACK PAIN, Diverticulitis History of Any Multi-Drug Resistant Organisms: None Reported Past Surgical History: Cardiac Ablation, Heart Catheterization, Tonsillectomy Additional Past Surgical History / Comment(s): ORAL SURGERY, COLONOSCOPY, BACK - STEROID INJECTIONS,TIMMY, cardioversion Past Anesthesia/Blood Transfusion Reactions: No Reported Reaction Past Psychological History: No Psychological Hx Reported Smoking Status: Former smoker Past Alcohol Use History: Occasional Additional Past Alcohol Use History / Comment(s): STARTED SMOKING AT AGE 16 QUIT AT AGE 50 SMOKED 1PPD, patietn quit drinking Nov 17 2021, patient was drinking a pint per day, has not drink since Past Drug Use History: None Reported - Past Family History Mother Family Medical History: No Reported History Medications and Allergies Home Medications Medication Instructions Recorded Confirmed Type Flecainide Acetate [Tambocor] 100 mg PO Q12HR 02/29/20 12/29/21 History amLODIPine BES/OLMESARTAN MED 1 tab PO DAILY 02/29/20 12/29/21 History [amLODIPine BES/OLMESARTAN MED 10-20 mg] Metoprolol Succinate (ER) [Toprol 25 mg PO DAILY 05/29/21 12/29/21 History XL] Omeprazole 40 mg PO DAILY 05/29/21 12/29/21 History Albuterol Inhaler [Ventolin Hfa 2 puff INHALATION RT-QID PRN #8 gm 06/02/21 12/29/21 Rx Inhaler] Cyanocobalamin (Vitamin B-12) 1,000 mcg PO DAILY 11/17/21 12/29/21 History [Vitamin B-12] Dicyclomine HCl 10 mg PO QID 11/17/21 12/29/21 History HYDROcodone/APAP 7.5-325MG [[place] 1 tab PO TID PRN 11/17/21 12/29/21 History 7.5-325] Loratadine [Claritin] 10 mg PO DAILY 11/17/21 12/29/21 History Lubiprostone [Amitiza] 8 mcg PO BID 11/17/21 12/29/21 History Apixaban [Eliquis] 5 mg PO BID 12/29/21 12/29/21 History Allergies Allergy/AdvReac Type Severity Reaction Status Date / Time ibuprofen [From Motrin] Allergy Unknown Verified 12/29/21 21:21 tree nut [Nut] AdvReac Unknown Verified 12/29/21 18:38 Physical Exam Vitals: Vital Signs Temp Pulse Pulse Pulse Resp BP BP 12/30/21 12:04 98.1 F 57 L 18 107/54 12/30/21 08:30 69 18 12/30/21 07:42 99.2 F 69 136/69 12/30/21 05:28 98.1 F 64 18 142/63 12/30/21 02:00 98.9 F 12/29/21 21:56 102.3 F H 91 110/48 12/29/21 21:53 102.3 F H 91 18 110/48 12/29/21 21:35 99.2 F 80 18 150/66 12/29/21 21:00 99.2 F 80 18 150/66 12/29/21 20:20 98.9 F 59 L 22 108/52 12/29/21 20:05 98.5 F 61 20 117/51 12/29/21 19:38 97.8 F 12/29/21 14:13 68 12/29/21 14:07 104.6 F H 77 16 108/47 Pulse Ox 12/30/21 12:04 93 L 12/30/21 08:30 12/30/21 07:42 12/30/21 05:28 94 L 12/30/21 02:00 12/29/21 21:56 95 12/29/21 21:53 95 12/29/21 21:35 96 12/29/21 21:00 96 12/29/21 20:20 96 12/29/21 20:05 96 12/29/21 19:38 12/29/21 14:13 12/29/21 14:07 98 Intake and Output 12/29/21 12/30/21 12/30/21 22:59 06:59 14:59 Intake Total 0 1325 Balance 0 1325 Intake: Intake, IV Titration 1025 Amount Sodium Chloride 0.9% 1, 900 000 ml @ 100 mls/hr IV . Q10H ONE Rx#:[id number] Vancomycin 1,500 mg In 125 Sodium Chloride 0.9% 250 ml @ 125 mls/hr IVPB Q12H [facility] Rx#:[id number] Oral 300 Blood Product 0 Rc As-1 Unit 0 [id number] Other: Voiding Method Toilet Toilet # Voids 3 2 # Bowel Movements 1 1 Weight 83.915 kg GENERAL DESCRIPTION: Elderly male lying in bed, no distress. No tachypnea or accessory muscle of respiration use. HEENT: Shows Pallor , no scleral icterus. Oral mucous membrane is dry. No pharyngeal erythema or thrush NECK: Trachea central, no thyromegaly. LUNGS: Unlabored breathing. Clear to auscultation anteriorly. No wheeze or crackle. HEART: S1, S2, regular rate and rhythm. No loud murmur ABDOMEN: Soft, mild right-sided tenderness , no guarding or rigidity, no organomegaly EXTREMITIES: No edema of feet. SKIN: No rash, no masses palpable. NEUROLOGICAL: The patient is awake, alert, oriented x3, mood and affect normal. Results CBC & Chem 7: 01/01/22 14:39 12/31/21 08:14 Labs: Abnormal Lab Results - Last 24 Hours (Table) 12/29/21 12/29/21 12/29/21 Range/Units 14:31 14:31 14:31 WBC 1.6 L (3.8-10.6) k/uL RBC 1.59 L (4.30-5.90) m/uL Hgb 6.3 L* D (13.0-17.5) gm/dL Hct 17.3 L* (39.0-53.0) % MCV 108.5 H (80.0-100.0) fL MCH 39.3 H (25.0-35.0) pg RDW (11.5-14.5) % Plt Count 22 L D (150-450) k/uL Plt Count Comment Myelocytes % (0-0) % Neutrophils # (Manual) 1.00 L (1.3-7.7) k/uL Lymphocytes # (Manual) 0.32 L (1.0-4.8) k/uL Monocytes # (Manual) (0.20-1.00) X 10*3/uL Eosinophils # (Manual) (0.04-0.35) X 10*3/uL Immature Plt Fraction (1.1-6.1) % Macrocytosis Marked A PT (9.0-12.0) sec INR (<1.2) Sodium 134 L (137-145) mmol/L BUN 28 H (9-20) mg/dL Glucose 124 H (74-99) mg/dL Plasma Lactic Acid Alex (0.7-2.0) mmol/L Calcium 8.1 L (8.4-10.2) mg/dL Total Bilirubin (0.30-1.20) mg/dL AST (14-35) U/L ALT (10-49) U/L Alkaline Phosphatase (41-126) U/L Total Protein 6.0 L (6.3-8.2) g/dL Urine Protein 1+ H (Negative) Urine Ketones Trace H (Negative) Urine Blood Trace H (Negative) Urine Mucus Rare H (None) /hpf Crossmatch 12/29/21 12/29/21 12/29/21 Range/Units 14:31 17:25 17:25 WBC (3.8-10.6) k/uL RBC (4.30-5.90) m/uL Hgb (13.0-17.5) gm/dL Hct (39.0-53.0) % MCV (80.0-100.0) fL MCH (25.0-35.0) pg RDW (11.5-14.5) % Plt Count (150-450) k/uL Plt Count Comment Myelocytes % (0-0) % Neutrophils # (Manual) (1.3-7.7) k/uL Lymphocytes # (Manual) (1.0-4.8) k/uL Monocytes # (Manual) (0.20-1.00) X 10*3/uL Eosinophils # (Manual) (0.04-0.35) X 10*3/uL Immature Plt Fraction (1.1-6.1) % Macrocytosis PT 13.8 H (9.0-12.0) sec INR 1.3 H (<1.2) Sodium (137-145) mmol/L BUN (9-20) mg/dL Glucose (74-99) mg/dL Plasma Lactic Acid Alex 2.6 H* (0.7-2.0) mmol/L Calcium (8.4-10.2) mg/dL Total Bilirubin (0.30-1.20) mg/dL AST (14-35) U/L ALT (10-49) U/L Alkaline Phosphatase (41-126) U/L Total Protein (6.3-8.2) g/dL Urine Protein (Negative) Urine Ketones (Negative) Urine Blood (Negative) Urine Mucus (None) /hpf Crossmatch See Detail 12/29/21 12/30/21 12/30/21 Range/Units 17:25 06:37 06:37 WBC 1.1 L* 1.66 L (3.8-10.6) k/uL RBC 1.63 L 1.76 L (4.30-5.90) m/uL Hgb 6.0 L* 6.4 L* (13.0-17.5) gm/dL Hct 17.9 L* 19.3 L* (39.0-53.0) % MCV 110.3 H 109.7 H (80.0-100.0) fL MCH 36.9 H 36.4 H (25.0-35.0) pg RDW 17.9 H (11.5-14.5) % Plt Count 27 L 23 L (150-450) k/uL Plt Count Comment A Myelocytes % 5 H (0-0) % Neutrophils # (Manual) 0.70 L 0.76 L (1.3-7.7) k/uL Lymphocytes # (Manual) 0.19 L 0.76 L (1.0-4.8) k/uL Monocytes # (Manual) 0.05 L (0.20-1.00) X 10*3/uL Eosinophils # (Manual) 0 L (0.04-0.35) X 10*3/uL Immature Plt Fraction 8.3 H (1.1-6.1) % Macrocytosis Marked A PT (9.0-12.0) sec INR (<1.2) Sodium (137-145) mmol/L BUN (9-20) mg/dL Glucose 113 H (74-99) mg/dL Plasma Lactic Acid Alex (0.7-2.0) mmol/L Calcium 8.3 L (8.4-10.2) mg/dL Total Bilirubin 2.10 H (0.30-1.20) mg/dL AST 103 H (14-35) U/L ALT 99 H (10-49) U/L Alkaline Phosphatase 162 H (41-126) U/L Total Protein 6.1 L (6.3-8.2) g/dL Urine Protein (Negative) Urine Ketones (Negative) Urine Blood (Negative) Urine Mucus (None) /hpf Crossmatch 12/30/21 Range/Units 10:26 WBC (3.8-10.6) k/uL RBC (4.30-5.90) m/uL Hgb (13.0-17.5) gm/dL Hct (39.0-53.0) % MCV (80.0-100.0) fL MCH (25.0-35.0) pg RDW (11.5-14.5) % Plt Count (150-450) k/uL Plt Count Comment Myelocytes % (0-0) % Neutrophils # (Manual) (1.3-7.7) k/uL Lymphocytes # (Manual) (1.0-4.8) k/uL Monocytes # (Manual) (0.20-1.00) X 10*3/uL Eosinophils # (Manual) (0.04-0.35) X 10*3/uL Immature Plt Fraction (1.1-6.1) % Macrocytosis PT 13.7 H (9.0-12.0) sec INR 1.3 H (<1.2) Sodium (137-145) mmol/L BUN (9-20) mg/dL Glucose (74-99) mg/dL Plasma Lactic Acid Alex (0.7-2.0) mmol/L Calcium (8.4-10.2) mg/dL Total Bilirubin (0.30-1.20) mg/dL AST (14-35) U/L ALT (10-49) U/L Alkaline Phosphatase (41-126) U/L Total Protein (6.3-8.2) g/dL Urine Protein (Negative) Urine Ketones (Negative) Urine Blood (Negative) Urine Mucus (None) /hpf Crossmatch Assessment and Plan (1) Fever Current Visit: Yes Status: Acute Code(s): R50.9 - FEVER, UNSPECIFIED SNOMED Code(s): 784579642 Plan: 1patient presented hospital with sepsis in this patient did have fever elevated lactic acid patient did have a week abdominal pain nausea vomiting and did have right-sided abdominal tenderness with elevated liver enzymes high clinic suspicious for possible gallbladder disease versus diverticulitis in this patient who did have history of recurrent diverticulitis. 2we will obtain a CT of abdominal pelvis. 3continue with cefepime however discontinue vancomycin. We will follow on clinical condition and cultures to further adjust medication if needed Thank you for this consultation will follow this patient along with you Time with Patient: Greater than 30
[2021-12-31] MEDS: CEFEPIME 2 GM in SODIUM CHLORIDE 0.9% 100 ML IVPB SCH ×3 (03:20→19:57)
[2021-12-31] MEDS: HYDROcodone/APAP 7.5-325MG 1 EACH TAB PO PRN ×2 (03:20→21:36)
[2021-12-31] MEDS: APIXABAN 5 MG TAB PO SCH (04:35)
[2021-12-31] MEDS ORDERED: VANCOMYCIN TROUGH DUE 1 EACH MISC MISCELLANE ONE (08:00)
[2021-12-31 08:49] LABS: Anisocytosis Slight; HCT 22.4 % (39.0-53.0); MCH 36.3 pg (25.0-35.0); MCHC 34.2 g/dL (31.0-37.0); Macrocytosis Marked; Mean Platelet Volume 9.8; RBC 2.11 m/uL (4.30-5.90)
[2021-12-31 09:11] LABS: ALT 78 U/L (4-49); AST 52 U/L (17-59); African American GFR (CKD) >90 (>60 ml/min/1.73 sqM); Albumin 3.6 g/dL (3.5-5.0); Albumin/Globulin Ratio 1.3; Alkaline Phosphatase 148 U/L (38-126); Anion Gap 6 mmol/L; Blood Urea Nitrogen 19 mg/dL (9-20); Calcium 8.3 mg/dL (8.4-10.2); Carbon Dioxide 24 mmol/L (22-30); Chloride 109 mmol/L (98-107); Globulin 2.7 g/dL; Glucose 172 mg/dL (74-99); Lipase 124 U/L (23-300); Non-African American GFR(CKD) 90 (>60 ml/min/1.73 sqM); Sodium 139 mmol/L (137-145); Total Bilirubin 1.8 mg/dL (0.2-1.3); Total Protein 6.3 g/dL (6.3-8.2)
[2021-12-31 09:22] LABS: WBC 1.4 k/uL (3.8-10.6)
[2021-12-31 09:23] LABS: HGB 7.7 gm/dL (13.0-17.5); Platelet Count 25 k/uL (150-450)
[2021-12-31] MEDS: FLECAINIDE 50 MG TAB PO SCH ×2 (09:48→20:00)
[2021-12-31] MEDS: LOSARTAN 50 MG TAB PO SCH (09:49)
[2021-12-31] MEDS: METOPROLOL SUCCINATE (ER) 25 MG TAB.ER.24H PO SCH (09:49)
[2021-12-31] MEDS: DICYCLOMINE 10 MG CAP PO SCH ×4 (09:49→21:36)
[2021-12-31] MEDS: CYANOCOBALAMIN 500 MCG TAB PO SCH (09:49)
[2021-12-31] MEDS: LORATADINE 10 MG TAB PO SCH (09:49)
[2021-12-31] MEDS: PANTOPRAZOLE 40 MG TABLET PO SCH (09:49)
[2021-12-31] MEDS: LUBIPROSTONE 8 MCG PO SCH ×2 (10:19→19:48)
--- NOTE | 2021-12-31 10:37 | P.GSCN ---
History of Present Illness Consult date: 12/31/21 History of present illness: CHIEF COMPLAINT: Weakness HISTORY OF PRESENT ILLNESS: This is a 66-year-old male who presented to the hospital with complaints of dizziness, weakness and shakiness. He was found to have a fever 104.6. Patient also has been reporting is felt nauseated. He initially does says he has no abdominal pain. But does report occasionally he'll have some epigastric discomfort. He also reports is been constipated and did have some sharp abdominal discomfort in the lower abdomen. He was able to have small bowel movements. He reports no abdominal pain now. He's had no vomiting. He also reports a decreased appetite. Patient was found to be pancytopenic. Hemoglobin was 6.0. Interestingly unit of blood repeat hemoglobin 7.7. He denies any blood in his stools. Denies any black stools. He does have history of liver disease and heavy alcohol use. Patient reports since his last hospitalization in November for diverticulitis he's only had 1 alcoholic beverage. Patient does have mildly elevated LFTs and total bilirubin. Computed tomography scan abdomen and pelvis shows subtle peripancreatic fat shinning changes concerning for acute pancreatitis. Gallbladder wall thickening with cholelithiasis. There is no significant adjacent inflammation suggesting that this could be due to systemic cause given the periportal edema. Prostato megaly. Colonic diverticulosis without evidence of diverticulitis and moderate to large stool burden throughout the colon. Patient's Eliquis has been on hold due to thrombocytopenia. Last colonoscopy Juy 2020 revealed colon polyps. Surgical service has been consulted for cholecystitis. PAST MEDICAL HISTORY: See list. PAST SURGICAL HISTORY: See list. MEDICATIONS: See list. ALLERGIES: See list. SOCIAL HISTORY: No illicit drug use. REVIEW OF SYSTEMS: CONSTITUTIONAL: Denies fever or chills. HEENT: Denies blurred vision, vision changes, or eye pain. Denies hemoptysis CARDIOVASCULAR: Denies chest pain or pressure. RESPIRATORY: No shortness of breath. GASTROINTESTINAL: See HPI for pertinent findings HEMATOLOGIC: Denies bleeding disorders. GENITOURINARY: Denies any blood in urine or increased urinary frequency. SKIN: Denies pruitis. Denies rash. PHYSICAL EXAM: VITAL SIGNS: Reviewed GENERAL: Well-developed in no acute distress. HEENT: No sclera icterus. Extraocular movements grossly intact. Moist buccal mucosa. Head is atraumatic, normocephalic. No nasal drainage. ABDOMEN: Soft. Nondistended. Nontender NEUROLOGIC: Alert and oriented. Cranial nerves II through XII grossly intact. LABORATORY DATA: WBC 1.4 Hgb 7.7 platelets today are pending yesterday 23 Sodium 139 potassium 4.0 creatinine 0.85 Total bilirubin 2.10 down to 1.8 AST 103 down to 52 ALT 99 to 78 Alk phos 162-148 Lipase 124 Lactic acid 2.6 down to 0.8 IMAGING: Computed tomography scan abdomen and pelvis shows subtle peripancreatic fat shinning changes concerning for acute pancreatitis. Gallbladder wall thickening with cholelithiasis. There is no significant adjacent inflammation suggesting that this could be due to systemic cause given the periportal edema. Prostatomegaly. Colonic diverticulosis without evidence of diverticulitis and moderate to large stool burden throughout the colon. Stable L1 vertebral body lucent lesion. ASSESSMENT: 1. Gallbladder wall thickening with cholelithiasis. Patient reports no abdominal pain. Nontender right upper quadrant. 2. Pancytopenia 3. History of heavy alcohol use and possible underlying liver cirrhosis 4. Anemia status post blood transfusion PLAN: -Further recommendations forthcoming per surgeon -Pancytopenia workup per oncology -Continue supportive care Thank you for this consultation Physician Apn note has been reviewed by physician. Signing provider agrees with the documented findings, assessment, and plan of care. I have personally seen and examined the patient, reviewed the [employer] /PAs history, exam and MDM and agree with the assessment and plan as written. Based on total visit time, I have performed more than 50% of the visit. As above: Patient presented to the hospital complaining of fatigue and d izziness. Patient says his appetite is diminished. The constipation and lower abdominal pain he had during his last admission has resolved. We were consulted after a CAT scan showed gallbladder wall thickening and gallstones. Patient with significant liver dysfunction and findings on CAT scan of hepatic dysfunction with periportal edema noted. Patient denies right upper quadrant pain. Patient says he had night sweats. Has pancytopenia. Oncology is following. No immediate plans for bone marrow biopsy apparently. Continue diet as tolerated. No plans for cholecystectomy at this time. Continue GI and oncology workup. Will follow. Past Medical History Past Medical History: Atrial Fibrillation, COPD, GERD/Reflux, Hypertension, Osteoarthritis (OA), Pneumonia Additional Past Medical History / Comment(s): Chronic LOWER & CERVIAL BACK PAIN, Diverticulitis History of Any Multi-Drug Resistant Organisms: None Reported Past Surgical History: Cardiac Ablation, Heart Catheterization, Tonsillectomy Additional Past Surgical History / Comment(s): ORAL SURGERY, COLONOSCOPY, BACK - STEROID INJECTIONS,TIMMY, cardioversion Past Anesthesia/Blood Transfusion Reactions: No Reported Reaction Past Psychological History: No Psychological Hx Reported Smoking Status: Former smoker Past Alcohol Use History: Occasional Additional Past Alcohol Use History / Comment(s): STARTED SMOKING AT AGE 16 QUIT AT AGE 50 SMOKED 1PPD, cathie quit drinking Nov 17 2021, patient was drinking a pint per day, has not drink since Past Drug Use History: None Reported - Past Family History Mother Family Medical History: No Reported History Medications and Allergies Home Medications Medication Instructions Recorded Confirmed Type Flecainide Acetate [Tambocor] 100 mg PO Q12HR 02/29/20 12/29/21 History amLODIPine BES/OLMESARTAN MED 1 tab PO DAILY 02/29/20 12/29/21 History [amLODIPine BES/OLMESARTAN MED 10-20 mg] Metoprolol Succinate (ER) [Toprol 25 mg PO DAILY 05/29/21 12/29/21 History XL] Omeprazole 40 mg PO DAILY 05/29/21 12/29/21 History Albuterol Inhaler [Ventolin Hfa 2 puff INHALATION RT-QID PRN #8 gm 06/02/21 12/29/21 Rx Inhaler] Cyanocobalamin (Vitamin B-12) 1,000 mcg PO DAILY 11/17/21 12/29/21 History [Vitamin B-12] Dicyclomine HCl 10 mg PO QID 11/17/21 12/29/21 History HYDROcodone/APAP 7.5-325MG [[place] 1 tab PO TID PRN 11/17/21 12/29/21 History 7.5-325] Loratadine [Claritin] 10 mg PO DAILY 11/17/21 12/29/21 History Lubiprostone [Amitiza] 8 mcg PO BID 11/17/21 12/29/21 History Apixaban [Eliquis] 5 mg PO BID 12/29/21 12/29/21 History Allergies Allergy/AdvReac Type Severity Reaction Status Date / Time ibuprofen [From Motrin] Allergy Unknown Verified 12/29/21 21:21 tree nut [Nut] AdvReac Unknown Verified 12/29/21 18:38 Surgical - Exam Vital Signs Temp Pulse Resp BP Pulse Ox 104.6 F H 77 16 108/47 98 12/29/21 14:07 12/29/21 14:07 12/29/21 14:07 12/29/21 14:07 12/29/21 14:07 Results - Labs 12/31/21 08:14 12/31/21 08:14 Abnormal Lab Results - Last 24 Hours (Table) 12/29/21 12/30/21 12/30/21 Range/Units 17:25 06:37 06:37 WBC 1.66 L (4.50-10.00) X 10*3/uL RBC 1.76 L (4.40-5.60) X 10*6/uL Hgb 6.4 L* (13.0-17.0) g/dL Hct 19.3 L* (39.6-50.0) % MCV 109.7 H (80.0-97.0) fL MCH 36.4 H (27.0-32.0) pg RDW 17.9 H (11.5-14.5) % Plt Count 23 L (140-440) X 10*3/uL Plt Count Comment A Myelocytes % 5 H (0-0) % Neutrophils # (Manual) 0.76 L (2.00-8.90) X 10*3/uL Lymphocytes # (Manual) 0.76 L (0.90-5.00) X 10*3/uL Monocytes # (Manual) 0.05 L (0.20-1.00) X 10*3/uL Eosinophils # (Manual) 0 L (0.04-0.35) X 10*3/uL Immature Plt Fraction 8.3 H (1.1-6.1) % Macrocytosis PT (9.0-12.0) sec INR (<1.2) Chloride (98-107) mmol/L Glucose 113 H (70-110) mg/dL Calcium 8.3 L (8.7-10.3) mg/dL Transferrin (204.0-354.0) mg/dL Ferritin (22.0-322.0) ng/mL Total Bilirubin 2.10 H (0.30-1.20) mg/dL AST 103 H (14-35) U/L ALT 99 H (10-49) U/L Alkaline Phosphatase 162 H (41-126) U/L Lactate Dehydrogenase (120-246) U/L Total Protein 6.1 L (6.2-8.2) g/dL Crossmatch See Detail 12/30/21 12/30/21 12/30/21 Range/Units 10:26 10:26 16:11 WBC (4.50-10.00) X 10*3/uL RBC (4.40-5.60) X 10*6/uL Hgb (13.0-17.0) g/dL Hct (39.6-50.0) % MCV (80.0-97.0) fL MCH (27.0-32.0) pg RDW (11.5-14.5) % Plt Count (140-440) X 10*3/uL Plt Count Comment Myelocytes % (0-0) % Neutrophils # (Manual) (2.00-8.90) X 10*3/uL Lymphocytes # (Manual) (0.90-5.00) X 10*3/uL Monocytes # (Manual) (0.20-1.00) X 10*3/uL Eosinophils # (Manual) (0.04-0.35) X 10*3/uL Immature Plt Fraction (1.1-6.1) % Macrocytosis PT 13.7 H (9.0-12.0) sec INR 1.3 H (<1.2) Chloride (98-107) mmol/L Glucose (70-110) mg/dL Calcium (8.7-10.3) mg/dL Transferrin 187.0 L (204.0-354.0) mg/dL Ferritin 3750.0 H (22.0-322.0) ng/mL Total Bilirubin (0.30-1.20) mg/dL AST (14-35) U/L ALT (10-49) U/L Alkaline Phosphatase (41-126) U/L Lactate Dehydrogenase 310 H (120-246) U/L Total Protein (6.2-8.2) g/dL Crossmatch See Detail 12/31/21 12/31/21 Range/Units 08:14 08:14 WBC 1.4 L* (4.50-10.00) X 10*3/uL RBC 2.11 L (4.40-5.60) X 10*6/uL Hgb 7.7 L D (13.0-17.0) g/dL Hct 22.4 L (39.6-50.0) % MCV 106.0 H (80.0-97.0) fL MCH 36.3 H (27.0-32.0) pg RDW 17.0 H (11.5-14.5) % Plt Count (140-440) X 10*3/uL Plt Count Comment Myelocytes % (0-0) % Neutrophils # (Manual) (2.00-8.90) X 10*3/uL Lymphocytes # (Manual) (0.90-5.00) X 10*3/uL Monocytes # (Manual) (0.20-1.00) X 10*3/uL Eosinophils # (Manual) (0.04-0.35) X 10*3/uL Immature Plt Fraction (1.1-6.1) % Macrocytosis Marked A PT (9.0-12.0) sec INR (<1.2) Chloride 109 H (98-107) mmol/L Glucose 172 H (70-110) mg/dL Calcium 8.3 L (8.7-10.3) mg/dL Transferrin (204.0-354.0) mg/dL Ferritin (22.0-322.0) ng/mL Total Bilirubin 1.8 H (0.30-1.20) mg/dL AST (14-35) U/L ALT 78 H (10-49) U/L Alkaline Phosphatase 148 H (41-126) U/L Lactate Dehydrogenase (120-246) U/L Total Protein (6.2-8.2) g/dL Crossmatch Microbiology - Last 24 Hours (Table) 12/29/21 23:00 Blood Culture - Preliminary Blood No Growth after 24 hours 12/29/21 23:08 Blood Culture - Preliminary Blood No Growth after 24 hours 12/29/21 14:31 Blood Culture - Preliminary Blood No Growth after 24 hours 12/29/21 14:31 Blood Culture - Preliminary Blood No Growth after 24 hours Diabetes panel 12/30/21 12/31/21 Range/Units 06:37 08:14 Sodium 137 139 (135-145) mmol/L Potassium 3.5 4.0 (3.5-5.5) mmol/L Chloride 103 109 H (96-109) mmol/L Carbon Dioxide 20.8 24 (20.0-27.5) mmol/L BUN 17.6 19 (9.0-27.0) mg/dL Creatinine 1.0 0.85 (0.6-1.5) mg/dL Glucose 113 H 172 H (70-110) mg/dL Calcium 8.3 L 8.3 L (8.7-10.3) mg/dL AST 103 H 52 (14-35) U/L ALT 99 H 78 H (10-49) U/L Alkaline Phosphatase 162 H 148 H (41-126) U/L Total Protein 6.1 L 6.3 (6.2-8.2) g/dL Albumin 3.9 3.6 (3.8-4.9) g/dL Calcium panel 12/30/21 12/31/21 Range/Units 06:37 08:14 Calcium 8.3 L 8.3 L (8.7-10.3) mg/dL Albumin 3.9 3.6 (3.8-4.9) g/dL Pituitary panel 12/30/21 12/31/21 Range/Units 06:37 08:14 Sodium 137 139 (135-145) mmol/L Potassium 3.5 4.0 (3.5-5.5) mmol/L Chloride 103 109 H (96-109) mmol/L Carbon Dioxide 20.8 24 (20.0-27.5) mmol/L BUN 17.6 19 (9.0-27.0) mg/dL Creatinine 1.0 0.85 (0.6-1.5) mg/dL Glucose 113 H 172 H (70-110) mg/dL Calcium 8.3 L 8.3 L (8.7-10.3) mg/dL Adrenal panel 12/30/21 12/31/21 Range/Units 06:37 08:14 Sodium 137 139 (135-145) mmol/L Potassium 3.5 4.0 (3.5-5.5) mmol/L Chloride 103 109 H (96-109) mmol/L Carbon Dioxide 20.8 24 (20.0-27.5) mmol/L BUN 17.6 19 (9.0-27.0) mg/dL Creatinine 1.0 0.85 (0.6-1.5) mg/dL Glucose 113 H 172 H (70-110) mg/dL Calcium 8.3 L 8.3 L (8.7-10.3) mg/dL Total Bilirubin 2.10 H 1.8 H (0.30-1.20) mg/dL AST 103 H 52 (14-35) U/L ALT 99 H 78 H (10-49) U/L Alkaline Phosphatase 162 H 148 H (41-126) U/L Total Protein 6.1 L 6.3 (6.2-8.2) g/dL Albumin 3.9 3.6 (3.8-4.9) g/dL
--- NOTE | 2021-12-31 11:03 | CA ---
Transthoracic Echo Report Name: Bennie Estrada Age: 66 Gender: M : 1955 Exam Date: 12/30/2021 14:21 Exam Location: [facility] Ht (in): 72 Wt (lb): 185 Ordering Physician: Nelsy Zuniga MD Attending/Referring Phys: Talent Engineer Yuliet Mcginnis RDCS Procedure CPT: Indications: fever Cardiac Hx: Hx of afib in the past Technical Quality: Good Contrast 1: Total Dose (mL): Contrast 2: Total Dose (mL): MEASUREMENTS (Male / Female) Normal Values 2D ECHO LV Diastolic Diameter PLAX 3.6 cm 4.2 - 5.9 / 3.9 - 5.3 cm LV Systolic Diameter PLAX 2.2 cm IVS Diastolic Thickness 1.3 cm 0.6 - 1.0 / 0.6 - 0.9 cm LVPW Diastolic Thickness 1.7 cm 0.6 - 1.0 / 0.6 - 0.9 cm LV Relative Wall Thickness 0.8 RV Internal Dim ED PLAX 2.8 cm LA Volume 72.7 cm??? 18 - 58 / 22 - 52 cm??? M-MODE Aortic Root Diameter MM 4.1 cm LA Systolic Diameter MM 3.6 cm LA Ao Ratio MM 0.9 AV Cusp Separation MM 2.3 cm DOPPLER AV Peak Velocity 204.3 cm/s AV Peak Gradient 16.7 mmHg AV Mean Velocity 129.2 cm/s AV Mean Gradient 8.0 mmHg AV Velocity Time Integral 37.9 cm LVOT Peak Velocity 159.6 cm/s LVOT Peak Gradient 10.2 mmHg MV Area PHT 3.8 cm??? MR Peak Velocity 462.0 cm/s MR Peak Gradient 85.4 mmHg Mitral E Point Velocity 134.5 cm/s Mitral A Point Velocity 94.5 cm/s Mitral E to A Ratio 1.4 MV Deceleration Time 197.4 ms MV E' Velocity 14.6 cm/s Mitral E to MV E' Ratio 9.2 TR Peak Velocity 311.9 cm/s TR Peak Gradient 38.9 mmHg Right Ventricular Systolic Press 42.8 mmHg FINDINGS Left Ventricle Mildly increased septal wall thickness. Left ventricular ejection fraction is estimated at 55-60_ %.left ventricular cavity size normal. Indeterminate diastolic function. Right Ventricle The right ventricle is normal in size and function. Right Atrium The right atrium is normal in size. Left Atrium Moderately increased left atrial volume. Mitral Valve Structurally normal mitral valve without significant stenosis or prolapse. There is mild mitral regurgitation. Aortic Valve Structurally normal aortic valve without significant sclerosis or stenosis. There is no aortic regurgitation. Tricuspid Valve Structurally normal tricuspid valve without significant stenosis. Pulmonary artery systolic pressure is mildly elevated. Mild tricuspid regurgitation. Pulmonic Valve Structurally normal pulmonic valve without significant stenosis. There is no pulmonic regurgitation. Pericardium Normal pericardium without effusion. Aorta Aortic dilatation measuring 4.1 cm CONCLUSIONS 1. Normal left ventricle size and systolic function 2. Mild mitral and tricuspid regurgitation with mild pulmonary hypertension. 3. Mildly dilated ascending aorta Previewed by: Dr. Kassie Capellan MD (Electronically Signed) Final Date: 31 December 2021 11:02
[2021-12-31 12:38] LABS: Band Neutrophils % 4 %; Lymphocytes # (M) 0.42 k/uL (1.0-4.8); Metamyelocytes # (M) 0.03 k/uL (0); Metamyelocytes % 2 %; Monocytes # (M) 0.07 k/uL (0-1.0); Myelocytes # (M) 0.04 k/uL (0); Myelocytes % 3 %; Neutrophils % (M) 57 %; Nucleated Red Blood Cells 0 /100 WBC (0-0); Total Cells Counted 200
[2021-12-31 12:42] LABS: Poikilocytosis (M) Present
--- NOTE | 2021-12-31 15:58 | P.PN ---
Subjective Progress Note Date: 12/31/21 Principal diagnosis: Pancytopenia CT of abdomen reviewed. Anticoagulation should remain on hold with platelets less than 50K. Objective - Vital Signs Vital signs: Vital Signs Temp 97.9 F 12/31/21 11:33 Pulse 54 L 12/31/21 11:33 Resp 18 12/31/21 11:33 BP 101/55 12/31/21 11:33 Pulse Ox 95 12/31/21 11:33 FiO2 Intake & Output 12/30/21 12/31/21 12/31/21 18:59 06:59 18:59 Intake Total 360 1360 Output Total 900 Balance -540 1360 Intake: Intake, IV Titration 450 Amount Cefepime 2 gm In Sodium 200 Chloride 0.9% 100 ml @ 25 mls/hr IVPB Q8H [facility] Rx#: [id number] Vancomycin 1,500 mg In 250 Sodium Chloride 0.9% 250 ml @ 125 mls/hr IVPB Q12H [facility] Rx#:[id number] Oral 360 600 Blood Product 0 310 Rc As-1 Unit 0 310 [id number] Output: Urine 900 Other: Voiding Method Toilet Toilet # Voids 2 3 2 # Bowel Movements 1 1 - Exam - Constitutional General appearance: cooperative, obese - EENT Eyes: EOMI ENT: NA/AT - Respiratory Respiratory: bilateral: diminished - Cardiovascular Rhythm: regularly irregular - Gastrointestinal General gastrointestinal: distended, hepatomegaly, soft - Neurologic Neurologic: CNII-XII intact - Musculoskeletal Musculoskeletal: generalized weaknes - Constitutional General appearance: cooperative - Labs CBC & Chem 7: 12/31/21 08:14 12/31/21 08:14 Labs: Abnormal Lab Results - Last 24 Hours (Table) 12/29/21 12/30/21 12/30/21 Range/Units 17:25 06:37 10:26 WBC 1.66 L (4.50-10.00) X 10*3/uL RBC 1.76 L (4.40-5.60) X 10*6/uL Hgb 6.4 L* (13.0-17.0) g/dL Hct 19.3 L* (39.6-50.0) % MCV 109.7 H (80.0-97.0) fL MCH 36.4 H (27.0-32.0) pg RDW 17.9 H (11.5-14.5) % Plt Count 23 L (140-440) X 10*3/uL Plt Count Comment A Myelocytes % 5 H (0-0) % Neutrophils # (Manual) 0.76 L (2.00-8.90) X 10*3/uL Lymphocytes # (Manual) 0.76 L (0.90-5.00) X 10*3/uL Monocytes # (Manual) 0.05 L (0.20-1.00) X 10*3/uL Eosinophils # (Manual) 0 L (0.04-0.35) X 10*3/uL Metamyelocytes # (Man) (0) k/uL Myelocytes # (Manual) (0) k/uL Immature Plt Fraction 8.3 H (1.1-6.1) % Macrocytosis Chloride (98-107) mmol/L Glucose (74-99) mg/dL Calcium (8.4-10.2) mg/dL Transferrin 187.0 L (204.0-354.0) mg/dL Ferritin 3750.0 H (22.0-322.0) ng/mL Total Bilirubin (0.2-1.3) mg/dL ALT (4-49) U/L Alkaline Phosphatase (38-126) U/L Lactate Dehydrogenase 310 H (120-246) U/L Crossmatch See Detail 12/30/21 12/31/21 12/31/21 Range/Units 16:11 08:14 08:14 WBC 1.4 L* (4.50-10.00) X 10*3/uL RBC 2.11 L (4.40-5.60) X 10*6/uL Hgb 7.7 L D (13.0-17.0) g/dL Hct 22.4 L (39.6-50.0) % MCV 106.0 H (80.0-97.0) fL MCH 36.3 H (27.0-32.0) pg RDW 17.0 H (11.5-14.5) % Plt Count 25 L (140-440) X 10*3/uL Plt Count Comment Myelocytes % (0-0) % Neutrophils # (Manual) 0.80 L (2.00-8.90) X 10*3/uL Lymphocytes # (Manual) 0.42 L (0.90-5.00) X 10*3/uL Monocytes # (Manual) (0.20-1.00) X 10*3/uL Eosinophils # (Manual) (0.04-0.35) X 10*3/uL Metamyelocytes # (Man) 0.03 H (0) k/uL Myelocytes # (Manual) 0.04 H (0) k/uL Immature Plt Fraction (1.1-6.1) % Macrocytosis Marked A Chloride 109 H (98-107) mmol/L Glucose 172 H (74-99) mg/dL Calcium 8.3 L (8.4-10.2) mg/dL Transferrin (204.0-354.0) mg/dL Ferritin (22.0-322.0) ng/mL Total Bilirubin 1.8 H (0.2-1.3) mg/dL ALT 78 H (4-49) U/L Alkaline Phosphatase 148 H (38-126) U/L Lactate Dehydrogenase (120-246) U/L Crossmatch See Detail Microbiology - Last 24 Hours (Table) 12/29/21 23:00 Blood Culture - Preliminary Blood No Growth after 24 hours 12/29/21 23:08 Blood Culture - Preliminary Blood No Growth after 24 hours 12/29/21 14:31 Blood Culture - Preliminary Blood No Growth after 24 hours 12/29/21 14:31 Blood Culture - Preliminary Blood No Growth after 24 hours Assessment and Plan Plan: Assessment and Plan (1) Macrocytic anemia Current Visit: Yes Status: Acute Code(s): D53.9 - NUTRITIONAL ANEMIA, UNSPECIFIED SNOMED Code(s): 92222157 - Premedicate and transfuse today hemoglobin 6.4 (2) Thrombocytopenia Narrative/Plan: Hold AC under 50K Current Visit: Yes Status: Acute Code(s): D69.6 - THROMBOCYTOPENIA, UNSPECI FIED SNOMED Code(s): 185315930 (3) Leukopenia Current Visit: Yes Status: Acute Code(s): D72.819 - DECREASED WHITE BLOOD CELL COUNT, UNSPECIFIED SNOMED Code(s): 25822126 Plan: Pancytopenia work-up ordered HOLD ASA/NSAIDS and Anticoagulation if platelets under 50K Transfuse Hemo <7, Plt <10 (unless evidence of bleeding transfuse sooner) Great length discussing bone marrow suppression related to ETOH and cessation of importance for maintaing health HOLD AC platelets less than 50K If does not improve then a bone marrow biopsy may be needed Outpatient Defer decision for ongoing monitoring and use of AC risks (as it was prescribed atrial fib) Hopefully cessation from ETOH will help liver function and bone marrow function to improve. ] CT abdomen Reviewed and etiology ETOH, and no cholecystitis, if treatment of underlying inflammation resolved, and no improvement in counts, with continuous cessation of ETOH then a bone marrow biopsy will need to be considered Await surgery rec
[2021-12-31 17:26] VITALS: BMI 23.7
[2022-01-01] MEDS: CEFEPIME 2 GM in SODIUM CHLORIDE 0.9% 100 ML IVPB SCH ×3 (03:27→20:43)
[2022-01-01] MEDS: LOSARTAN 50 MG TAB PO SCH (08:41)
[2022-01-01] MEDS: DICYCLOMINE 10 MG CAP PO SCH ×4 (08:41→20:44)
[2022-01-01] MEDS: LORATADINE 10 MG TAB PO SCH (08:41)
[2022-01-01] MEDS: CYANOCOBALAMIN 500 MCG TAB PO SCH (08:41)
[2022-01-01] MEDS: FLECAINIDE 50 MG TAB PO SCH ×2 (08:42→20:44)
[2022-01-01] MEDS: METOPROLOL SUCCINATE (ER) 25 MG TAB.ER.24H PO SCH (08:42)
[2022-01-01] MEDS: PANTOPRAZOLE 40 MG TABLET PO SCH (08:42)
[2022-01-01] MEDS: LUBIPROSTONE 8 MCG PO SCH ×2 (08:46→20:46)
[2022-01-01] MEDS: HYDROcodone/APAP 7.5-325MG 1 EACH TAB PO PRN ×2 (12:18→23:29)
--- NOTE | 2022-01-01 13:42 | P.PN ---
Subjective Progress Note Date: 01/01/22 CHIEF COMPLAINT: Weakness HISTORY OF PRESENT ILLNESS: Patient lying in bed comfortably. He denies any ab dominal pain. But does have epigastric tenderness with palpation. Denies any nausea or vomiting. He is tolerating diet. He reports that his appetite is showing improvement. He is having bowel movements. He reports no blood in his stools. Afebrile. No new labs for today PHYSICAL EXAM: VITAL SIGNS: Reviewed. GENERAL: Well-developed in no acute distress. HEENT: No sclera icterus. Extraocular movements grossly intact. Moist buccal mucosa. Head is atraumatic, normocephalic. ABDOMEN: Soft. Nondistended. Epigastric tenderness. NEUROLOGIC: Alert and oriented. Cranial nerves II through XII grossly intact. ASSESSMENT: 1. Gallbladder wall thickening with cholelithiasis. Patient reports no abdominal pain. Nontender right upper quadrant. 2. Pancytopenia 3. History of heavy alcohol use and possible underlying liver cirrhosis 4. Anemia status post blood transfusion 5. Constipation PLAN: -No plans for cholecystectomy -Continue regular diet -Pancytopenia workup per oncology. Per oncology service possible bone marrow biopsy outpatient if not showing improvement. -Recommend GI evaluation for underlying liver disease Physician Ordnance Artificer Helper note has been reviewed by physician. Signing provider agrees with the documented findings, assessment, and plan of care. I have personally seen and examined the patient, reviewed the ANDROID ARCHITECT /PAs history, exam and MDM and agree with the assessment and plan as written. Based on total visit time, I have performed more than 50% of the visit. As above: Patient seems to be doing better. Today he admits to having mild midepigastric pain that comes and goes. No significant tenderness on exam. Continue following lab work. No plans for cholecystectomy until pancytopenia issues clarified. Dr. Hardin will be covering me over the weekend. I've asked her not to see the patient unless there are new issues. Please contact her in that case. We'll reevaluate patient on Tuesday. Objective - Vital Signs Vital signs: Vital Signs Temp 97.1 F L 01/01/22 08:51 Pulse 78 01/01/22 08:51 Resp 18 01/01/22 03:23 BP 132/68 01/01/22 08:51 Pulse Ox 95 01/01/22 03:23 FiO2 Intake & Output 07/01/01/22 01/01/22 18:59 06:59 18:59 Intake Total 800 Output Total 200 Balance 800 -200 Weight 83.915 kg Intake: Intake, IV Titration 200 Amount Cefepime 2 gm In Sodium 200 Chloride 0.9% 100 ml @ 25 mls/hr IVPB Q8H [facility] Rx#: [id number] Oral 600 Output: Urine 200 Other: Voiding Method Toilet # Voids 3 3 # Bowel Movements 1 - Labs CBC & Chem 7: 01/01/22 14:39 12/31/21 08:14 Labs: Abnormal Lab Results - Last 24 Hours (Table) 12/30/21 Range/Units 10:26 Vitamin B1 32 L (38-122) ug/L Microbiology - Last 24 Hours (Table) 12/29/21 23:08 Blood Culture - Preliminary Blood No Growth after 48 hours 12/29/21 23:00 Blood Culture - Preliminary Blood No Growth after 48 hours 12/29/21 14:31 Blood Culture - Preliminary Blood No Growth after 48 hours 12/29/21 14:31 Blood Culture - Preliminary Blood No Growth after 48 hours
--- NOTE | 2022-01-01 13:52 | P.PN ---
Subjective Progress Note Date: 12/31/21 Bennie Estrada, is a 66-year-old male who presented to [facility] emergency room with a chief complaint of dizziness and unsteady gait He was evaluated in the emergency room vital examination on presentation revealed a temperature of 104.6 pulse 77 respirations 16 blood pressure 108/47 pulse ox 98% on room air Laboratory data revealed a white blood count of 1.6 hemoglobin 6.3 platelet c ount 22,000 and 134 potassium 3.5 chloride 104 CO2 24 BUN 28 creatinine 0.97 lactic acid 2.6 urine analysis revealed no evidence of urinary tract infections Testing in the emergency room revealed chest x-ray revealed no acute cardiopulmonary pulmonary process, computed tomography scan of the brain reveals no acute intracranial process, EKG revealed sinus rhythm with sinus arrhythmia with incomplete right bundle branch block. Patient was admitted to medical floor for further evaluation and treatment, he was started empirically on IV antibiotics in the emergency room, oncology consultation and infectious disease consultation were requested Past medical history is significant for history of hypertension, history of alcohol abuse, history of primary thrombocytopenia, previous history of atrial fibrillation On 12/31/2021 patient was seen and examined on the medical floor he is alert and oriented 3 in no apparent distress there is no fever or chills no headache or dizziness no chest pain no shortness of breath no cough no nausea or vomiting no abdominal pain no diarrhea and no urinary symptoms, white blood count 1.4 hemoglobin 7.7 platelet count 25,000 Objective - Vital Signs Vital signs: Vital Signs Temp 97.4 F L 12/31/21 06:20 Pulse 66 12/31/21 06:20 Resp 18 12/31/21 06:20 BP 123/64 12/31/21 06:20 Pulse Ox 98 12/31/21 06:20 FiO2 Intake & Output 12/30/21 12/31/21 12/31/21 18:59 06:59 18:59 Intake Total 360 1360 Output Total 900 Balance -540 1360 Intake: Intake, IV Titration 450 Amount Cefepime 2 gm In Sodium 200 Chloride 0.9% 100 ml @ 25 mls/hr IVPB Q8H [facility] Rx#: [id number] Vancomycin 1,500 mg In 250 Sodium Chloride 0.9% 250 ml @ 125 mls/hr IVPB Q12H [facility] Rx#:[id number] Oral 360 600 Blood Product 0 310 Rc As-1 Unit 0 310 [id number] Output: Urine 900 Other: Voiding Method Toilet Toilet # Voids 2 3 2 # Bowel Movements 1 1 - Exam In general patient is alert and oriented x 3 in no distress HEENT head normocephalic and atraumatic Neck is supple no JVD no goiter no lymphadenopathy no carotid bruit Chest examination is clear to auscultation no crackles no wheezing Cardiac exam reveals regular heart sounds S1 and S2 no gallops no murmurs Abdomen is soft nontender no organomegaly with normal bowel sounds Extremity exam reveals no edema no cyanosis or clubbing Neurological examination reveals no gross focal deficits - Labs CBC & Chem 7: 12/31/21 08:14 12/31/21 08:14 Labs: Abnormal Lab Results - Last 24 Hours (Table) 12/29/21 12/30/21 12/30/21 Range/Units 17:25 06:37 10:26 WBC 1.66 L (4.50-10.00) X 10*3/uL RBC 1.76 L (4.40-5.60) X 10*6/uL Hgb 6.4 L* (13.0-17.0) g/dL Hct 19.3 L* (39.6-50.0) % MCV 109.7 H (80.0-97.0) fL MCH 36.4 H (27.0-32.0) pg RDW 17.9 H (11.5-14.5) % Plt Count 23 L (140-440) X 10*3/uL Plt Count Comment A Myelocytes % 5 H (0-0) % Neutrophils # (Manual) 0.76 L (2.00-8.90) X 10*3/uL Lymphocytes # (Manual) 0.76 L (0.90-5.00) X 10*3/uL Monocytes # (Manual) 0.05 L (0.20-1.00) X 10*3/uL Eosinophils # (Manual) 0 L (0.04-0.35) X 10*3/uL Immature Plt Fraction 8.3 H (1.1-6.1) % Macrocytosis PT (9.0-12.0) sec INR (<1.2) Chloride (98-107) mmol/L Glucose (74-99) mg/dL Calcium (8.4-10.2) mg/dL Transferrin 187.0 L (204.0-354.0) mg/dL Ferritin 3750.0 H (22.0-322.0) ng/mL Total Bilirubin (0.2-1.3) mg/dL ALT (4-49) U/L Alkaline Phosphatase (38-126) U/L Lactate Dehydrogenase 310 H (120-246) U/L Crossmatch See Detail 12/30/21 12/30/21 12/31/21 Range/Units 10:26 16:11 08:14 WBC (4.50-10.00) X 10*3/uL RBC (4.40-5.60) X 10*6/uL Hgb (13.0-17.0) g/dL Hct (39.6-50.0) % MCV (80.0-97.0) fL MCH (27.0-32.0) pg RDW (11.5-14.5) % Plt Count (140-440) X 10*3/uL Plt Count Comment Myelocytes % (0-0) % Neutrophils # (Manual) (2.00-8.90) X 10*3/uL Lymphocytes # (Manual) (0.90-5.00) X 10*3/uL Monocytes # (Manual) (0.20-1.00) X 10*3/uL Eosinophils # (Manual) (0.04-0.35) X 10*3/uL Immature Plt Fraction (1.1-6.1) % Macrocytosis PT 13.7 H (9.0-12.0) sec INR 1.3 H (<1.2) Chloride 109 H (98-107) mmol/L Glucose 172 H (74-99) mg/dL Calcium 8.3 L (8.4-10.2) mg/dL Transferrin (204.0-354.0) mg/dL Ferritin (22.0-322.0) ng/mL Total Bilirubin 1.8 H (0.2-1.3) mg/dL ALT 78 H (4-49) U/L Alkaline Phosphatase 148 H (38-126) U/L Lactate Dehydrogenase (120-246) U/L Crossmatch See Detail 12/31/21 Range/Units 08:14 WBC 1.4 L* (4.50-10.00) X 10*3/uL RBC 2.11 L (4.40-5.60) X 10*6/uL Hgb 7.7 L D (13.0-17.0) g/dL Hct 22.4 L (39.6-50.0) % MCV 106.0 H (80.0-97.0) fL MCH 36.3 H (27.0-32.0) pg RDW 17.0 H (11.5-14.5) % Plt Count (140-440) X 10*3/uL Plt Count Comment Myelocytes % (0-0) % Neutrophils # (Manual) (2.00-8.90) X 10*3/uL Lymphocytes # (Manual) (0.90-5.00) X 10*3/uL Monocytes # (Manual) (0.20-1.00) X 10*3/uL Eosinophils # (Manual) (0.04-0.35) X 10*3/uL Immature Plt Fraction (1.1-6.1) % Macrocytosis Marked A PT (9.0-12.0) sec INR (<1.2) Chloride (98-107) mmol/L Glucose (74-99) mg/dL Calcium (8.4-10.2) mg/dL Transferrin (204.0-354.0) mg/dL Ferritin (22.0-322.0) ng/mL Total Bilirubin (0.2-1.3) mg/dL ALT (4-49) U/L Alkaline Phosphatase (38-126) U/L Lactate Dehydrogenase (120-246) U/L Crossmatch Microbiology - Last 24 Hours (Table) 12/29/21 23:00 Blood Culture - Preliminary Blood No Growth after 24 hours 12/29/21 23:08 Blood Culture - Preliminary Blood No Growth after 24 hours 12/29/21 14:31 Blood Culture - Preliminary Blood No Growth after 24 hours 12/29/21 14:31 Blood Culture - Preliminary Blood No Growth after 24 hours Assessment and Plan Plan: Febrile illness, with leukopenia, no clear source of infection, patient was started on empiric antibiotic in the emergency room Pancytopenia with Leukopenia anemia and thrombocytopenia, could be related to history of excessive alcohol use hematology consultation requested Underlying history of hypertension Underlying history of paroxysmal atrial fibrillation Previous history of excessive alcohol use At this time patient is admitted to medical floor Blood cultures ordered He was started on IV antibiotics cefepime and vancomycin empirically in the emergency room Symptomatic management for fever IV fluids, consultation for hematology and infectious disease initiated Will recheck labs and follow-up in a.m.
--- NOTE | 2022-01-01 14:06 | P.PN ---
Subjective Progress Note Date: 01/01/22 Bennie Estrada, is a 66-year-old male who presented to [facility] emergency room with a chief complaint of dizziness and unsteady gait He was evaluated in the emergency room vital examination on presentation revealed a temperature of 104.6 pulse 77 respirations 16 blood pressure 108/47 pulse ox 98% on room air Laboratory data revealed a white blood count of 1.6 hemoglobin 6.3 platelet c ount 22,000 and 134 potassium 3.5 chloride 104 CO2 24 BUN 28 creatinine 0.97 lactic acid 2.6 urine analysis revealed no evidence of urinary tract infections Testing in the emergency room revealed chest x-ray revealed no acute cardiopulmonary pulmonary process, computed tomography scan of the brain reveals no acute intracranial process, EKG revealed sinus rhythm with sinus arrhythmia with incomplete right bundle branch block. Patient was admitted to medical floor for further evaluation and treatment, he was started empirically on IV antibiotics in the emergency room, oncology consultation and infectious disease consultation were requested Past medical history is significant for history of hypertension, history of alcohol abuse, history of primary thrombocytopenia, previous history of atrial fibrillation On 12/31/2021 patient was seen and examined on the medical floor he is alert and oriented 3 in no apparent distress there is no fever or chills no headache or dizziness no chest pain no shortness of breath no cough no nausea or vomiting no abdominal pain no diarrhea and no urinary symptoms, white blood count 1.4 hemoglobin 7.7 platelet count 25,000 On 01/01/2022 patient was seen and examined on the medical floor he is alert and oriented 3 in no apparent distress he is feeling better no new episodes of fever no headache or dizziness no chest pain no shortness of breath no cough no nausea or vomiting no abdominal pain no diarrhea no blood in the stools no burning with urination no frequency or urgency and no hematuria Objective - Vital Signs Vital signs: Vital Signs Temp 97.1 F L 01/01/22 08:51 Pulse 78 01/01/22 08:51 Resp 18 01/01/22 03:23 BP 132/68 01/01/22 08:51 Pulse Ox 95 01/01/22 03:23 FiO2 Intake & Output 12/31/21 01/01/22 01/01/22 18:59 06:59 18:59 Intake Total 800 Output Total 200 Balance 800 -200 Weight 83.915 kg Intake: Intake, IV Titration 200 Amount Cefepime 2 gm In Sodium 200 Chloride 0.9% 100 ml @ 25 mls/hr IVPB Q8H [facility] Rx#: [id number] Oral 600 Output: Urine 200 Other: Voiding Method Toilet # Voids 3 3 # Bowel Movements 1 - Exam In general patient is alert and oriented x 3 in no distress HEENT head normocephalic and atraumatic Neck is supple no JVD no goiter no lymphadenopathy no carotid bruit Chest examination is clear to auscultation no crackles no wheezing Cardiac exam reveals regular heart sounds S1 and S2 no gallops no murmurs Abdomen is soft nontender no organomegaly with normal bowel sounds Extremity exam reveals no edema no cyanosis or clubbing Neurological examination reveals no gross focal deficits - Labs CBC & Chem 7: 12/31/21 08:14 12/31/21 08:14 Labs: Abnormal Lab Results - Last 24 Hours (Table) 12/30/21 Range/Units 10:26 Vitamin B1 32 L (38-122) ug/L Microbiology - Last 24 Hours (Table) 12/29/21 23:08 Blood Culture - Preliminary Blood No Growth after 48 hours 12/29/21 23:00 Blood Culture - Preliminary Blood No Growth after 48 hours 12/29/21 14:31 Blood Culture - Preliminary Blood No Growth after 48 hours 12/29/21 14:31 Blood Culture - Preliminary Blood No Growth after 48 hours Assessment and Plan Plan: Febrile illness, with leukopenia, no clear source of infection, patient was s tarted on empiric antibiotic in the emergency room Pancytopenia with Leukopenia anemia and thrombocytopenia, could be related to history of excessive alcohol use hematology consultation requested Underlying history of hypertension Underlying history of paroxysmal atrial fibrillation Previous history of excessive alcohol use At this time patient is admitted to medical floor Blood cultures ordered He was started on IV antibiotics cefepime and vancomycin empirically in the emergency room Symptomatic management for fever IV fluids, consultation for hematology and infectious disease initiated Will recheck labs and follow-up in a.m.
--- NOTE | 2022-01-01 14:31 | P.CONS ---
History of Present Illness - Reason for Consult Consult date: 01/01/22 Liver disease Requesting physician: Nelsy Zuniga - Chief Complaint Chest pain - History of Present Illness This is a positive 66-year-old male who presented to the hospital with complaints of chest pain, dizziness, weakness and shakiness. He was found to have a fever 104.6. Patient also has been reporting is felt nauseated. He initially does says he has no abdominal pain. But does report occasionally he'll have some epigastric discomfort. He also reports is been constipated and did have some sharp abdominal discomfort in the lower abdomen. He was able to have small bowel movements. He reports no abdominal pain now. He's had no vomiting. He also reports a decreased appetite. Patient was found to be pancytopenic. He has a history of alcohol abuse and admits to drinking half a pint to 1 pint of scotch 5-7 days a week further last 10-15 years. He denies any previous history of known knowledge of liver disease. Denies any history of cirrhosis of the liver hepatitis. Gastroenterology was consulted for liver disease. He denies any blood in his stools. Denies any black stools. He was recently hospitalized and [place] of this year was also pancytopenic and seen by hematology and general surgery for diverticulitis. Patient reports since his last hospitalization in November for diverticulitis he's only had 1 alcoholic beverage. Computed tomography scan abdomen and pelvis shows subtle peripancreatic fat stranding changes concerning for acute pancreatitis. Gallbladder wall thickening with cholelithiasis. There is no significant adjacent inflammation suggesting that this could be due to systemic cause given the periportal edema. Prostatomegaly. Colonic diverticulosis without evidence of diverticulitis and moderate to large stool burden throughout the colon. Patient's Eliquis has been on hold due to thrombocytopenia. Last colonoscopy Ju[address] Jim revealed colon polyps. Patient also did a colonoscopy in April [address] Jim for hematochezia with findings at that time a pandiverticulosis, internal hemorrhoids, and colon polyps no active bleeding or old blood was seen through the colon. Patient's labs WBC 1.4 hemoglobin 7.7 hematocrit 22 platelet count 25,000 total bilirubin 1.8 AST 52 ALT 78 alkaline phosphatase 148. Iron studies within normal limits. Review of Systems REVIEW OF SYSTEMS: CARDIOPULMONARY: No chest pain or shortness of breath. Gastrointestinal: No abdominal pain. No nausea or vomiting. No hematemesis, coffee-ground emesis. No rectal bleeding, or melena. GENITOURINARY: No dysuria or hematuria. MUSCULOSKELETAL: Reports normal range of motion., Joint pain. SKIN: No rashes. No jaundice. ENDOCRINE: No chills, fevers. No excessive weight gain or loss. No polydipsia or polyuria. PSYCHIATRIC: Unremarkable. NEUROLOGY: No change in mental status. Denies dizziness, headache. ENT: Vision unremarkable. CONSTITUTIONAL: No recent weight loss. No fever, chills, night sweats. Past Medical History Past Medical History: Atrial Fibrillation, COPD, GERD/Reflux, Hypertension, Osteoarthritis (OA), Pneumonia Additional Past Medical History / Comment(s): Chronic LOWER & CERVIAL BACK PAIN, Diverticulitis History of Any Multi-Drug Resistant Organisms: None Reported Past Surgical History: Cardiac Ablation, Heart Catheterization, Tonsillectomy Additional Past Surgical History / Comment(s): ORAL SURGERY, COLONOSCOPY, BACK - STEROID INJECTIONS,TIMMY, cardioversion Past Anesthesia/Blood Transfusion Reactions: No Reported Reaction Past Psychological History: No Psychological Hx Reported Smoking Status: Former smoker Past Alcohol Use History: Occasional Additional Past Alcohol Use History / Comment(s): STARTED SMOKING AT AGE 16 QUIT AT AGE 50 SMOKED 1PPD, cathie quit drinking Nov 17 2021, patient was drinking a pint per day, has not drink since Past Drug Use History: None Reported - Past Family History Mother Family Medical History: No Reported History Medications and Allergies Home Medications Medication Instructions Recorded Confirmed Type Flecainide Acetate [Tambocor] 100 mg PO Q12HR 02/29/20 12/29/21 History amLODIPine BES/OLMESARTAN MED 1 tab PO DAILY 02/29/20 12/29/21 History [amLODIPine BES/OLMESARTAN MED 10-20 mg] Metoprolol Succinate (ER) [Toprol 25 mg PO DAILY 05/29/21 12/29/21 History XL] Omeprazole 40 mg PO DAILY 05/29/21 12/29/21 History Albuterol Inhaler [Ventolin Hfa 2 puff INHALATION RT-QID PRN #8 gm 06/02/21 12/29/21 Rx Inhaler] Cyanocobalamin (Vitamin B-12) 1,000 mcg PO DAILY 11/17/21 12/29/21 History [Vitamin B-12] Dicyclomine HCl 10 mg PO QID 11/17/21 12/29/21 History HYDROcodone/APAP 7.5-325MG [[place] 1 tab PO TID PRN 11/17/21 12/29/21 History 7.5-325] Loratadine [Claritin] 10 mg PO DAILY 11/17/21 12/29/21 History Lubiprostone [Amitiza] 8 mcg PO BID 11/17/21 12/29/21 History Apixaban [Eliquis] 5 mg PO BID 12/29/21 12/29/21 History Allergies Allergy/AdvReac Type Severity Reaction Status Date / Time ibuprofen [From Motrin] Allergy Unknown Verified 12/29/21 21:21 tree nut [Nut] AdvReac Unknown Verified 12/29/21 18:38 Physical Exam Vitals: Vital Signs Temp Pulse Resp BP Pulse Ox 01/01/22 13:00 97.1 F L 43 L 116/64 01/01/22 08:51 97.1 F L 78 132/68 01/01/22 03:23 98.1 F 55 L 18 106/55 95 12/31/21 20:15 18 12/31/21 18:56 97.8 F 50 L 18 122/66 98 Intake and Output 12/31/21 01/01/22 01/01/22 22:59 06:59 14:59 Intake Total 800 Output Total 200 Balance 800 -200 Intake: Intake, IV Titration 200 Amount Cefepime 2 gm In Sodium 200 Chloride 0.9% 100 ml @ 25 mls/hr IVPB Q8H [facility] Rx#: [id number] Oral 600 Output: Urine 200 Other: Voiding Method Toilet # Voids 3 3 Weight 83.915 kg General appearance: The patient is alert, oriented, appears in no acute distress. HET: Head is normocephalic and atraumatic. Conjunctiva pink. Sclera anicteric. Neck: Supple without lymphadenopathy. Trachea midline. Heart: S1 S2. Regular rate and rhythm. Lungs: Clear to auscultation. Abdomen: Soft, nontender, nondistended with bowel sounds. No guarding or rigidity. Skin: No rashes. No jaundice. Extremities: Normal skin color and turgor. No pedal edema. Neurological: No focal deficits. Alert and oriented x3. Results CBC & Chem 7: 01/01/22 14:39 12/31/21 08:14 Labs: Abnormal Lab Results - Last 24 Hours (Table) 12/30/21 Range/Units 10:26 Vitamin B1 32 L (38-122) ug/L Microbiology - Last 24 Hours (Table) 12/29/21 23:08 Blood Culture - Preliminary Blood No Growth after 48 hours 12/29/21 23:00 Blood Culture - Preliminary Blood No Growth after 48 hours 12/29/21 14:31 Blood Culture - Preliminary Blood No Growth after 48 hours 12/29/21 14:31 Blood Culture - Preliminary Blood No Growth after [address] scan - abdomen: report reviewed (As stated in HPI) Assessment and Plan (1) Alcoholic liver disease Narrative/Plan: 66-year-old male with a significant history of alcohol abuse with known underlying liver disease who presented to the emergency department with complaints of dizziness, chest pain, and overall not feeling well. He was noted to have a max temperature of 104.6 on admission. Gen. surgery has been following for cholelithiasis. Patient likely with underlying liver cirrhosis. Labs are consistent with underlying alcoholic liver disease. Patient with coa gulopathy likely due to underlying liver disease. Hematology is following for pancytopenia. Recommend alcohol abstinence. Current Visit: Yes Status: Acute Code(s): K70.9 - ALCOHOLIC LIVER DISEASE, UNSPECIFIED SNOMED Code(s): 32901568 (2) Pancytopenia Current Visit: Yes Status: Acute Code(s): D61.818 - OTHER PANCYTOPENIA SNOMED Code(s): 913267899 (3) Macrocytic anemia Current Visit: No Status: Acute Code(s): D53.9 - NUTRITIONAL ANEMIA, UNSPECIFIED SNOMED Code(s): 48685692 Plan: 1. Continue symptomatic and supportive care 2. Daily CBC 3. Continue with recommendations from hematology for pancytopenia 4. Continue with recommendations from general surgery 5. Avoid hepatotoxic medications 6. Recommend alcohol abstinence 7. Recommend outpatient follow-up with gastroenterology for continued surveillance of liver disease Thank you for allowing us to participate in the care of the patient, the GI service will sign off, gastroenterology will not be available at the hospital this weekend. If further evaluation by gastroenterology is required the patient will need transfer as per the primary team's discretion.
[2022-01-01 14:55] LABS: Anisocytosis Slight; HCT 22.4 % (39.0-53.0); HGB 7.5 gm/dL (13.0-17.5); MCH 35.7 pg (25.0-35.0); MCHC 33.5 g/dL (31.0-37.0); MCV 106.3 fL (80.0-100.0); Macrocytosis Marked; Mean Platelet Volume 9.3; RDW 16.9 % (11.5-15.5); WBC 2.3 k/uL (3.8-10.6)
[2022-01-01 15:20] LABS: Platelet Count 26 k/uL (150-450)
--- NOTE | 2022-01-01 15:40 | P.PN ---
Subjective Progress Note Date: 12/31/21 Principal diagnosis: Fever likely cholecystitis Patient is a 66-year-old male with a past medical history significant for recurrent diverticulitis presented to hospital with acute episode of not feeling well fever some abdominal discomfort and nausea, patient did have a CT of abdominal pelvis suggestive of cholecystitis. On today's evaluation that is 12/31/2021, the patient denies having any fever or any chills, patient denies having any chest pain or shortness of breath or cough no abdominal pain or diarrhea no urinary symptoms Objective - Vital Signs Vital signs: Vital Signs Temp 97.4 F L 12/31/21 06:20 Pulse 66 12/31/21 06:20 Resp 18 12/31/21 06:20 BP 123/64 12/31/21 06:20 Pulse Ox 98 12/31/21 06:20 FiO2 Intake & Output 12/30/21 12/31/21 12/31/21 18:59 06:59 18:59 Intake Total 360 1360 Output Total 900 Balance -540 1360 Intake: Intake, IV Titration 450 Amount Cefepime 2 gm In Sodium 200 Chloride 0.9% 100 ml @ 25 mls/hr IVPB Q8H [facility] Rx#: [id number] Vancomycin 1,500 mg In 250 Sodium Chloride 0.9% 250 ml @ 125 mls/hr IVPB Q12H [facility] Rx#:[id number] Oral 360 600 Blood Product 0 310 Rc As-1 Unit 0 310 [id number] Output: Urine 900 Other: Voiding Method Toilet Toilet # Voids 2 3 2 # Bowel Movements 1 1 - Exam GENERAL DESCRIPTION: An elderly male lying in bed in no distress RESPIRATORY SYSTEM: Unlabored breathing , decreased breath sounds at bases HEART: S1 S2 regular rate and rhythm , ABDOMEN: Soft , no tenderness EXTREMITIES: No edema feet - Labs CBC & Chem 7: 01/01/22 14:39 12/31/21 08:14 Labs: Abnormal Lab Results - Last 24 Hours (Table) 12/29/21 12/30/21 12/30/21 Range/Units 17:25 06:37 06:37 WBC 1.66 L (4.50-10.00) X 10*3/uL RBC 1.76 L (4.40-5.60) X 10*6/uL Hgb 6.4 L* (13.0-17.0) g/dL Hct 19.3 L* (39.6-50.0) % MCV 109.7 H (80.0-97.0) fL MCH 36.4 H (27.0-32.0) pg RDW 17.9 H (11.5-14.5) % Plt Count 23 L (140-440) X 10*3/uL Plt Count Comment A Myelocytes % 5 H (0-0) % Neutrophils # (Manual) 0.76 L (2.00-8.90) X 10*3/uL Lymphocytes # (Manual) 0.76 L (0.90-5.00) X 10*3/uL Monocytes # (Manual) 0.05 L (0.20-1.00) X 10*3/uL Eosinophils # (Manual) 0 L (0.04-0.35) X 10*3/uL Immature Plt Fraction 8.3 H (1.1-6.1) % Macrocytosis PT (9.0-12.0) sec INR (<1.2) Chloride (98-107) mmol/L Glucose 113 H (70-110) mg/dL Calcium 8.3 L (8.7-10.3) mg/dL Transferrin (204.0-354.0) mg/dL Ferritin (22.0-322.0) ng/mL Total Bilirubin 2.10 H (0.30-1.20) mg/dL AST 103 H (14-35) U/L ALT 99 H (10-49) U/L Alkaline Phosphatase 162 H (41-126) U/L Lactate Dehydrogenase (120-246) U/L Total Protein 6.1 L (6.2-8.2) g/dL Crossmatch See Detail 12/30/21 12/30/21 12/30/21 Range/Units 10:26 10:26 16:11 WBC (4.50-10.00) X 10*3/uL RBC (4.40-5.60) X 10*6/uL Hgb (13.0-17.0) g/dL Hct (39.6-50.0) % MCV (80.0-97.0) fL MCH (27.0-32.0) pg RDW (11.5-14.5) % Plt Count (140-440) X 10*3/uL Plt Count Comment Myelocytes % (0-0) % Neutrophils # (Manual) (2.00-8.90) X 10*3/uL Lymphocytes # (Manual) (0.90-5.00) X 10*3/uL Monocytes # (Manual) (0.20-1.00) X 10*3/uL Eosinophils # (Manual) (0.04-0.35) X 10*3/uL Immature Plt Fraction (1.1-6.1) % Macrocytosis PT 13.7 H (9.0-12.0) sec INR 1.3 H (<1.2) Chloride (98-107) mmol/L Glucose (70-110) mg/dL Calcium (8.7-10.3) mg/dL Transferrin 187.0 L (204.0-354.0) mg/dL Ferritin 3750.0 H (22.0-322.0) ng/mL Total Bilirubin (0.30-1.20) mg/dL AST (14-35) U/L ALT (10-49) U/L Alkaline Phosphatase (41-126) U/L Lactate Dehydrogenase 310 H (120-246) U/L Total Protein (6.2-8.2) g/dL Crossmatch See Detail 12/31/21 12/31/21 Range/Units 08:14 08:14 WBC 1.4 L* (4.50-10.00) X 10*3/uL RBC 2.11 L (4.40-5.60) X 10*6/uL Hgb 7.7 L D (13.0-17.0) g/dL Hct 22.4 L (39.6-50.0) % MCV 106.0 H (80.0-97.0) fL MCH 36.3 H (27.0-32.0) pg RDW 17.0 H (11.5-14.5) % Plt Count (140-440) X 10*3/uL Plt Count Comment Myelocytes % (0-0) % Neutrophils # (Manual) (2.00-8.90) X 10*3/uL Lymphocytes # (Manual) (0.90-5.00) X 10*3/uL Monocytes # (Manual) (0.20-1.00) X 10*3/uL Eosinophils # (Manual) (0.04-0.35) X 10*3/uL Immature Plt Fraction (1.1-6.1) % Macrocytosis Marked A PT (9.0-12.0) sec INR (<1.2) Chloride 109 H (98-107) mmol/L Glucose 172 H (70-110) mg/dL Calcium 8.3 L (8.7-10.3) mg/dL Transferrin (204.0-354.0) mg/dL Ferritin (22.0-322.0) ng/mL Total Bilirubin 1.8 H (0.30-1.20) mg/dL AST (14-35) U/L ALT 78 H (10-49) U/L Alkaline Phosphatase 148 H (41-126) U/L Lactate Dehydrogenase (120-246) U/L Total Protein (6.2-8.2) g/dL Crossmatch Microbiology - Last 24 Hours (Table) 12/29/21 23:00 Blood Culture - Preliminary Blood No Growth after 24 hours 12/29/21 23:08 Blood Culture - Preliminary Blood No Growth after 24 hours 12/29/21 14:31 Blood Culture - Preliminary Blood No Growth after 24 hours 12/29/21 14:31 Blood Culture - Preliminary Blood No Growth after 24 hours Assessment and Plan (1) Fever Current Visit: Yes Status: Acute Code(s): R50.9 - FEVER, UNSPECIFIED SNOMED Code(s): 196880116 Plan: 1patient presented hospital with sepsis in this patient did have fever elevated lactic acid patient did have a week abdominal pain nausea vomiting and did have right-sided abdominal tenderness with elevated liver enzymes high clinic suspi cious for possible gallbladder disease versus diverticulitis in this patient who did have history of recurrent diverticulitis. 2CT of abdominal pelvis is suggestive of cholecystitis and Gen. surgery has been consulted. 3patient to continue with cefepime and monitor clinical course closely Time with Patient: Less than 30
--- NOTE | 2022-01-01 15:41 | P.PN ---
Subjective Progress Note Date: 01/01/22 Principal diagnosis: Fever likely cholecystitis Patient is a 66-year-old male with a past medical history significant for recurrent diverticulitis presented to hospital with acute episode of not feeling well fever some abdominal discomfort and nausea, patient did have a CT of abdominal pelvis suggestive of cholecystitis. On today's evaluation that is 01/01/2022, the patient remains to be afebrile, patient denies having any chest pain or shortness of breath or cough, the patient currently denies any nausea vomiting or abdominal pain and no diarrhea no urinary symptoms Objective - Vital Signs Vital signs: Vital Signs Temp 97.1 F L 01/01/22 08:51 Pulse 78 01/01/22 08:51 Resp 18 01/01/22 03:23 BP 132/68 01/01/22 08:51 Pulse Ox 95 01/01/22 03:23 FiO2 Intake & Output 12/31/21 01/01/22 01/01/22 18:59 06:59 18:59 Intake Total 800 Output Total 200 Balance 800 -200 Weight 83.915 kg Intake: Intake, IV Titration 200 Amount Cefepime 2 gm In Sodium 200 Chloride 0.9% 100 ml @ 25 mls/hr IVPB Q8H [facility] Rx#: [id number] Oral 600 Output: Urine 200 Other: Voiding Method Toilet # Voids 3 3 # Bowel Movements 1 - Exam GENERAL DESCRIPTION: An elderly male lying in bed in no distress RESPIRATORY SYSTEM: Unlabored breathing , decreased breath sounds at bases HEART: S1 S2 regular rate and rhythm , ABDOMEN: Soft , no tenderness EXTREMITIES: No edema feet - Labs CBC & Chem 7: 01/01/22 14:39 12/31/21 08:14 Labs: Abnormal Lab Results - Last 24 Hours (Table) 12/30/21 12/31/21 Range/Units 10:26 08:14 Plt Count 25 L (150-450) k/uL Neutrophils # (Manual) 0.80 L (1.3-7.7) k/uL Lymphocytes # (Manual) 0.42 L (1.0-4.8) k/uL Metamyelocytes # (Man) 0.03 H (0) k/uL Myelocytes # (Manual) 0.04 H (0) k/uL Vitamin B1 32 L (38-122) ug/L Microbiology - Last 24 Hours (Table) 12/29/21 23:08 Blood Culture - Preliminary Blood No Growth after 48 hours 12/29/21 23:00 Blood Culture - Preliminary Blood No Growth after 48 hours 12/29/21 14:31 Blood Culture - Preliminary Blood No Growth after 48 hours 12/29/21 14:31 Blood Culture - Preliminary Blood No Growth after 48 hours Assessment and Plan (1) Fever Current Visit: Yes Status: Acute Code(s): R50.9 - FEVER, UNSPECIFIED SNOMED Code(s): 140077240 Plan: 1patient presented hospital with sepsis in this patient did have fever elevated lactic acid patient did have a week abdominal pain nausea vomiting and did have right-sided abdominal tenderness with elevated liver enzymes high clinic suspicious for possible gallbladder disease versus diverticulitis in this patient who did have history of recurrent diverticulitis. 2CT of abdominal pelvis is suggestive of cholecystitis and Gen. surgery has seen the patient recommending no surgery because of his thrombocytopenia for the patient is being monitored by hematology oncology 3patient currently be treated with cefepime which will be continued as the patient fever has resolved and monitor clinical course closely Time with Patient: Less than 30
--- NOTE | 2022-01-01 15:42 | CDI ---
Documentation Clarification Form Date: 01/01/2022 03:09:54 PM From: Kayli Paz RN, CCDS Admit Date: 12/29/2021 04:55:00 PM Patient Name: Bennie Estrada Visit Number: [id number] Discharge Date: ATTENTION: The Clinical Documentation Specialists (CDI) and [facility] Coding Staff appreciate your assistance in clarifying documentation. Please respond to the clarification below the line at the bottom and electronically sign. The CDI & [facility] Coding staff will review the response and follow-up if needed. Please note: Queries are made part of the Legal Health Record. If you have any questions, please contact the author of this message via ITS. Dr. Nelsy Zuniga The patient presented with the following clinical indicators. Additional clarification regarding the etiology/cause of the clinical indicators is requested. 12/30 ID: Patient presented to hospital with sepsis in this patient did have fever elevated lactic acid. Patient did have abdominal pain nausea vomiting and did have right-sided abdominal tenderness with elevated liver enzymes high clinic suspicious for possible gallbladder disease versus diverticulitis with history of recurrent diverticulitis. History/Risk Factors: Atrial Fibrillation, COPD, Hypertension, recurrent diverticulitis Former smoker Clinical Indicators: 66-year-old male with complaints of weakness, fever and chills, some vague abdominal pain and episode of vomiting. 12/29 WBC: 1.66, HGB 6.4, HCT 19.3 (12/29/21 @ 21:35) 110/48 91 18 102.3 95 % RA 12/29 Lactic acid: 2.6 12/29 Vital signs: 108/47 77 16 104.6 98 % RA CT of Abdomen/pelvis: Subtile peripancreatic fat stranding changes concerning for acute pancreatitis. Correlate with serum lipase. Gallbladder wall thickening with cholelithiasis. There is no significant adjacent inflammation suggesting that this could be due to a systemic cause given the periportal edema. HIDA scan to rule out acute cholecystitis. Colonic diverticulosis without evidence of diverticulitis. 12/29 Blood cultures: No growth after 48 hours Treatment: Vancomycin 1,500 MG IVPB ONCE PTD, (12/29 -12/30) Cefepime 2GM IVPB Q 8 HRS IV Bolus: .9NS 1,000 MLS (12/29) In your professional opinion, please clarify if these findings signify one of the following conditions: [ xxx ] Sepsis POA [ ] Sepsis ruled out [ ] SIRS, without underlying infectious process [ ] Other, please specify [ ] Unable to determine SIRS Criteria: 2 or more of the following may indicate SIRS -Temperature < 96.8F (36C) or > 101.0F (38.3C) -Heart Rate > 90 bpm -Respiratory Rate > 20 breaths/min or PaCO2 < 32 mmHg -White Blood Cell Count > 12,000 or < 4,000 cells/mm3 or > 10% bands (Template Last Reviewed: July 2020) MTDD
[2022-01-01 16:27] LABS: Band Neutrophils % 9 %; Eosinophils # (M) 0.12 k/uL (0-0.7); Lymphocytes # (M) 0.99 k/uL (1.0-4.8); Metamyelocytes # (M) 0.05 k/uL (0); Metamyelocytes % 2 %; Monocytes # (M) 0.14 k/uL (0-1.0); Neutrophils % (M) 35 %; Nucleated Red Blood Cells 0 /100 WBC (0-0); Total Cells Counted 100
--- NOTE | 2022-01-02 00:04 | P.PN ---
Subjective Progress Note Date: 01/01/22 the patient subjectively feels better. His issues with spontaneous sweats, as well as subjective fevers are significantly improved. No obvious bleeding or bruising. Objective - Vital Signs Vital signs: Vital Signs Temp 98.3 F 01/01/22 21:00 Pulse 50 L 01/01/22 21:00 Resp 16 01/01/22 21:00 BP 107/55 01/01/22 21:00 Pulse Ox 97 01/01/22 21:00 FiO2 Intake & Output 01/01/22 01/01/22 01/02/22 06:59 18:59 06:59 Intake Total 800 237 Output Total 200 Balance 800 -200 237 Intake: Intake, IV Titration 200 Amount Cefepime 2 gm In Sodium 200 Chloride 0.9% 100 ml @ 25 mls/hr IVPB Q8H [facility] Rx#: [id number] Oral 600 237 Output: Urine 200 Other: Voiding Method Toilet Toilet # Voids 3 4 - Constitutional General appearance: Present: no acute distress - EENT Eyes: Present: EOMI ENT: Present: hearing grossly normal - Respiratory Respiratory: bilateral: CTA - Cardiovascular Rhythm: regular Heart sounds: normal: S1, S2 - Gastrointestinal General gastrointestinal: Present: normal bowel sounds, soft - Integumentary Integumentary: Present: normal - Neurologic Neurologic: Present: CNII-XII intact - Musculoskeletal Musculoskeletal: Present: strength equal bilaterally - Psychiatric Psychiatric: Present: A&O x's 3, appropriate affect - Labs CBC & Chem 7: 01/01/22 14:39 12/31/21 08:14 Labs: Abnormal Lab Results - Last 24 Hours (Table) 12/30/21 01/01/22 Range/Units 10:26 14:39 WBC 2.3 L (3.8-10.6) k/uL RBC 2.10 L (4.30-5.90) m/uL Hgb 7.5 L (13.0-17.5) gm/dL Hct 22.4 L (39.0-53.0) % MCV 106.3 H (80.0-100.0) fL MCH 35.7 H (25.0-35.0) pg RDW 16.9 H (11.5-15.5) % Plt Count 26 L (150-450) k/uL Neutrophils # (Manual) 1.00 L (1.3-7.7) k/uL Lymphocytes # (Manual) 0.99 L (1.0-4.8) k/uL Metamyelocytes # (Man) 0.05 H (0) k/uL Macrocytosis Marked A Vitamin B1 32 L (38-122) ug/L Microbiology - Last 24 Hours (Table) 12/29/21 14:31 Blood Culture - Preliminary Blood No Growth after 72 hours 12/29/21 14:31 Blood Culture - Preliminary Blood No Growth after 72 hours 12/29/21 23:08 Blood Culture - Preliminary Blood No Growth after 48 hours 12/29/21 23:00 Blood Culture - Preliminary Blood No Growth after 48 hours Assessment and Plan (1) Pancytopenia Narrative/Plan: etiology of his pancytopenia . Currently is not totally clear. During his previous admission. It was assumed that this was due to ongoing alcohol use. This was ordered by improvement in his counts during that admission when the patient had been off alcohol. however, during this admission, his counts were lower than his previous baseline, despite the patient strongly assuredness that he had been abstinent since his last admission. - A repeat workup, including CT scans check for any infection or inflammation were negative. - The patient had been having some B symptoms, which, however, have improved. - Case was discussed in detail with gastroenterology, worsening the patient for probable cirrhosis. If the patient does have cirrhosis, it can definitely affect his blood counts but it would be unusual to find progressive cytopenias If the patient has actually quit drinking - labs today showed hemoglobin and platelets to be stable with some improvement in his WBC. The patient also feel symptomatically better. Therefore it is possible that he may have been having some inflammation, such as a viral infection, that could be causing repeat pancytopenia. At this time, We'll follow the patient regular labs. if his counts do not improve, the plan would be to schedule a bone marrow, most likely next week. - Continue to monitor, and transfuse if needed to keep hemoglobin greater than 7, and platelets greater than 10. Current Visit: Yes Status: Acute Code(s): D61.818 - OTHER PANCYTOPENIA SNOMED Code(s): 770180722
[2022-01-02] MEDS: CEFEPIME 2 GM in SODIUM CHLORIDE 0.9% 100 ML IVPB SCH ×3 (05:16→21:16)
[2022-01-02] MEDS: DICYCLOMINE 10 MG CAP PO SCH ×4 (08:45→21:16)
[2022-01-02] MEDS: CYANOCOBALAMIN 500 MCG TAB PO SCH (08:45)
[2022-01-02] MEDS: METOPROLOL SUCCINATE (ER) 25 MG TAB.ER.24H PO SCH (08:45)
[2022-01-02] MEDS: FLECAINIDE 50 MG TAB PO SCH ×2 (08:45→21:16)
[2022-01-02] MEDS: LOSARTAN 50 MG TAB PO SCH (08:45)
[2022-01-02] MEDS: LORATADINE 10 MG TAB PO SCH (08:45)
[2022-01-02] MEDS: PANTOPRAZOLE 40 MG TABLET PO SCH (08:45)
[2022-01-02 09:45] LABS: African American GFR (CKD) 98.6 (60.0-200.0); Albumin 3.7 g/dL (3.8-4.9); Albumin/Globulin Ratio 1.68 (1.60-3.17); Anion Gap 10.6 mmol/L (10.00-18.00); BUN/Creat Ratio 23.89 Ratio (12.00-20.00); Calcium 8.8 mg/dL (8.7-10.3); Carbon Dioxide 24.4 mmol/L (20.0-27.5); Globulin 2.2 g/dL (1.6-3.3); Non-African American GFR(CKD) 85.1 (60.0-200.0); Potassium 3.6 mmol/L (3.5-5.5); Total Bilirubin 0.8 mg/dL (0.30-1.20); Total Protein 5.9 g/dL (6.2-8.2)
[2022-01-02 10:26] LABS: Basophils # (M) 0.02 X 10*3/uL (0.00-0.10); Eosinophils # (M) 0.13 X 10*3/uL (0.04-0.35); HGB 7.1 g/dL (13.0-17.0); Immature Platelet Fraction 7.9 % (1.1-6.1); Lymphocytes # (M) 0.93 X 10*3/uL (0.90-5.00); MCH 34.8 pg (27.0-32.0); MCHC 32.3 g/dL (32.0-37.0); MCV 107.8 fL (80.0-97.0); Mean Platelet Volume 11.3 fL (9.5-12.2); Metamyelocytes % 1 % (0-0); Monocytes # (M) 0.09 X 10*3/uL (0.20-1.00); Myelocytes % 5 % (0-0); NRBC Per 100 WBC 0 /100 WBCS (0.0-0.0); Neutrophils # (M) 0.91 X 10*3/uL (2.00-8.90); Neutrophils % (M) 41 %; Platelet Count 23 X 10*3/uL (140-440); RBC 2.04 X 10*6/uL (4.40-5.60); RBC Morphology NORMAL; RDW 17.9 % (11.5-14.5); WBC 2.22 X 10*3/uL (4.50-10.00)
--- NOTE | 2022-01-02 12:11 | P.PN ---
Subjective Progress Note Date: 01/02/22 Bennie Estrada, is a 66-year-old male who presented to [facility] emergency room with a chief complaint of dizziness and unsteady gait He was evaluated in the emergency room vital examination on presentation revealed a temperature of 104.6 pulse 77 respirations 16 blood pressure 108/47 pulse ox 98% on room air Laboratory data revealed a white blood count of 1.6 hemoglobin 6.3 platelet c ount 22,000 and 134 potassium 3.5 chloride 104 CO2 24 BUN 28 creatinine 0.97 lactic acid 2.6 urine analysis revealed no evidence of urinary tract infections Testing in the emergency room revealed chest x-ray revealed no acute cardiopulmonary pulmonary process, computed tomography scan of the brain reveals no acute intracranial process, EKG revealed sinus rhythm with sinus arrhythmia with incomplete right bundle branch block. Patient was admitted to medical floor for further evaluation and treatment, he was started empirically on IV antibiotics in the emergency room, oncology consultation and infectious disease consultation were requested Past medical history is significant for history of hypertension, history of alcohol abuse, history of primary thrombocytopenia, previous history of atrial fibrillation On 12/31/2021 patient was seen and examined on the medical floor he is alert and oriented 3 in no apparent distress there is no fever or chills no headache or dizziness no chest pain no shortness of breath no cough no nausea or vomiting no abdominal pain no diarrhea and no urinary symptoms, white blood count 1.4 hemoglobin 7.7 platelet count 25,000 On 01/01/2022 patient was seen and examined on the medical floor he is alert and oriented 3 in no apparent distress he is feeling better no new episodes of fever no headache or dizziness no chest pain no shortness of breath no cough no nausea or vomiting no abdominal pain no diarrhea no blood in the stools no burning with urination no frequency or urgency and no hematuria. On 01/02/2022 patient was seen and examined on the medical floor he is alert and oriented 3 in no apparent distress he is feeling clinically better there is no fever or chills no headache or dizziness no chest pain no shortness of breath no cough no nausea or vomiting no abdominal pain no diarrhea no blood in the stools no burning with urination no frequency or urgency no hematuria white blood count is still low at 2.2 to hemoglobin low at 7.1 and platelet low at 23,000 at this time will continue with current management awaiting further recommendation from hematology Objective - Vital Signs Vital signs: Vital Signs Temp 98.1 F 01/02/22 05:21 Pulse 55 L 01/02/22 08:49 Resp 15 01/02/22 05:21 BP 130/72 01/02/22 08:49 Pulse Ox 94 L 01/02/22 05:21 FiO2 Intake & Output 01/01/22 01/02/22 01/02/22 18:59 06:59 18:59 Intake Total 237 Output Total 200 400 Balance -200 -163 Intake: Oral 237 Output: Urine 200 400 Other: Voiding Method Toilet # Voids 4 - Exam In general patient is alert and oriented x 3 in no distress HEENT head normocephalic and atraumatic Neck is supple no JVD no goiter no lymphadenopathy no carotid bruit Chest examination is clear to auscultation no crackles no wheezing Cardiac exam reveals regular heart sounds S1 and S2 no gallops no murmurs Abdomen is soft nontender no organomegaly with normal bowel sounds Extremity exam reveals no edema no cyanosis or clubbing Neurological examination reveals no gross focal deficits - Labs CBC & Chem 7: 01/02/22 05:32 01/02/22 05:32 Labs: Abnormal Lab Results - Last 24 Hours (Table) 01/01/22 Range/Units 14:39 WBC 2.3 L (3.8-10.6) k/uL RBC 2.10 L (4.30-5.90) m/uL Hgb 7.5 L (13.0-17.5) gm/dL Hct 22.4 L (39.0-53.0) % MCV 106.3 H (80.0-100.0) fL MCH 35.7 H (25.0-35.0) pg RDW 16.9 H (11.5-15.5) % Plt Count 26 L (150-450) k/uL Neutrophils # (Manual) 1.00 L (1.3-7.7) k/uL Lymphocytes # (Manual) 0.99 L (1.0-4.8) k/uL Metamyelocytes # (Man) 0.05 H (0) k/uL Macrocytosis Marked A Microbiology - Last 24 Hours (Table) 12/29/21 23:00 Blood Culture - Preliminary Blood No Growth after 72 hours 12/29/21 23:08 Blood Culture - Preliminary Blood No Growth after 72 hours 12/29/21 14:31 Blood Culture - Preliminary Blood No Growth after 72 hours 12/29/21 14:31 Blood Culture - Preliminary Blood No Growth after 72 hours Assessment and Plan Plan: Febrile illness, with leukopenia, no clear source of infection, patient was started on empiric antibiotic in the emergency room Pancytopenia with Leukopenia anemia and thrombocytopenia, could be related to history of excessive alcohol use hematology consultation requested Underlying history of hypertension Underlying history of paroxysmal atrial fibrillation Previous history of excessive alcohol use At this time patient is admitted to medical floor Blood cultures ordered He was started on IV antibiotics cefepime and vancomycin empirically in the emergency room Symptomatic management for fever IV fluids, consultation for hematology and infectious disease initiated Will recheck labs and follow-up in a.m.
[2022-01-02] MEDS: LUBIPROSTONE 8 MCG PO SCH ×2 (13:49→21:17)
[2022-01-02] MEDS: HYDROcodone/APAP 7.5-325MG 1 EACH TAB PO PRN (21:20)
--- NOTE | 2022-01-03 00:38 | P.PN ---
Subjective Progress Note Date: 01/02/22 Principal diagnosis: Fever likely cholecystitis Patient is a 66-year-old male with a past medical history significant for recurrent diverticulitis presented to hospital with acute episode of not feeling well fever some abdominal discomfort and nausea, patient did have a CT of abdominal pelvis suggestive of cholecystitis. On today's evaluation that is 01/02/2022, the patient continues to be afebrile, patient chest pain or shortness of breath or cough, the patient did not have any further nausea vomiting or abdominal pain and no diarrhea no urinary symptoms Objective - Vital Signs Vital signs: Vital Signs Temp 98.1 F 01/02/22 05:21 Pulse 55 L 01/02/22 08:49 Resp 15 01/02/22 05:21 BP 130/72 01/02/22 08:49 Pulse Ox 94 L 01/02/22 05:21 FiO2 Intake & Output 01/01/22 01/02/22 01/02/22 18:59 06:59 18:59 Intake Total 237 Output Total 200 400 Balance -200 -163 Intake: Oral 237 Output: Urine 200 400 Other: Voiding Method Toilet # Voids 4 - Exam GENERAL DESCRIPTION: An elderly male lying in bed in no distress RESPIRATORY SYSTEM: Unlabored breathing , decreased breath sounds at bases HEART: S1 S2 regular rate and rhythm , ABDOMEN: Soft , no tenderness EXTREMITIES: No edema feet - Labs CBC & Chem 7: 01/02/22 05:32 01/02/22 05:32 Labs: Abnormal Lab Results - Last 24 Hours (Table) 01/01/22 01/02/22 01/02/22 Range/Units 14:39 05:32 05:32 WBC 2.3 L 2.22 L (3.8-10.6) k/uL RBC 2.10 L 2.04 L (4.30-5.90) m/uL Hgb 7.5 L 7.1 L (13.0-17.5) gm/dL Hct 22.4 L 22.0 L (39.0-53.0) % MCV 106.3 H 107.8 H (80.0-100.0) fL MCH 35.7 H 34.8 H (25.0-35.0) pg RDW 16.9 H 17.9 H (11.5-15.5) % Plt Count 26 L 23 L (150-450) k/uL Plt Count Comment A Metamyelocytes % 1 H (0-0) % Myelocytes % 5 H (0-0) % Neutrophils # (Manual) 1.00 L 0.91 L (1.3-7.7) k/uL Lymphocytes # (Manual) 0.99 L (1.0-4.8) k/uL Monocytes # (Manual) 0.09 L (0.20-1.00) X 10*3/uL Metamyelocytes # (Man) 0.05 H (0) k/uL Immature Plt Fraction 7.9 H (1.1-6.1) % Macrocytosis Marked A BUN/Creatinine Ratio 23.89 H (12.00-20.00) Ratio ALT 66 H (10-49) U/L Alkaline Phosphatase 131 H (41-126) U/L Total Protein 5.9 L (6.2-8.2) g/dL Albumin 3.7 L (3.8-4.9) g/dL Microbiology - Last 24 Hours (Table) 12/29/21 23:00 Blood Culture - Preliminary Blood No Growth after 72 hours 12/29/21 23:08 Blood Culture - Preliminary Blood No Growth after 72 hours 12/29/21 14:31 Blood Culture - Preliminary Blood No Growth after 72 hours 12/29/21 14:31 Blood Culture - Preliminary Blood No Growth after 72 hours Assessment and Plan (1) Fever Current Visit: Yes Status: Acute Code(s): R50.9 - FEVER, UNSPECIFIED SNOMED Code(s): 667739377 Plan: 1patient presented hospital with sepsis in this patient did have fever elevated lactic acid patient did have a week abdominal pain nausea vomiting and did have right-sided abdominal tenderness with elevated liver enzymes high clinic suspicious for possible gallbladder disease versus diverticulitis in this patient who did have history of recurrent diverticulitis. 2CT of abdominal pelvis is suggestive of cholecystitis and Gen. surgery has s een the patient recommending no surgery because of his thrombocytopenia for the patient is being monitored by hematology oncology 3patient slowly clinically improving and will continue with cefepime and monitor clinical course closely Time with Patient: Less than 30
[2022-01-03] MEDS: HYDROcodone/APAP 7.5-325MG 1 EACH TAB PO PRN (05:40)
[2022-01-03] MEDS: CEFEPIME 2 GM in SODIUM CHLORIDE 0.9% 100 ML IVPB SCH ×2 (05:40→12:04)
[2022-01-03] MEDS: FLECAINIDE 50 MG TAB PO SCH ×2 (08:38→21:55)
[2022-01-03] MEDS: CYANOCOBALAMIN 500 MCG TAB PO SCH (08:38)
[2022-01-03] MEDS: METOPROLOL SUCCINATE (ER) 25 MG TAB.ER.24H PO SCH (08:38)
[2022-01-03] MEDS: PANTOPRAZOLE 40 MG TABLET PO SCH (08:38)
[2022-01-03] MEDS: LORATADINE 10 MG TAB PO SCH (08:38)
[2022-01-03] MEDS: DICYCLOMINE 10 MG CAP PO SCH ×4 (08:38→21:55)
[2022-01-03] MEDS: LOSARTAN 50 MG TAB PO SCH (08:38)
[2022-01-03] MEDS: LUBIPROSTONE 8 MCG PO SCH ×2 (08:40→22:53)
--- NOTE | 2022-01-03 11:40 | P.PN ---
Subjective Progress Note Date: 01/03/22 Pt continue to feel well subjectively, with no recurrence of fevers/sweats. Appetite and energy are better Objective - Vital Signs Vital signs: Vital Signs Temp 98.2 F 01/03/22 05:00 Pulse 68 01/03/22 05:00 Resp 16 01/03/22 05:00 BP 109/63 01/03/22 05:00 Pulse Ox 98 01/03/22 05:00 FiO2 Intake & Output 01/02/22 01/03/22 01/03/22 18:59 06:59 18:59 Intake Total 340 100 Balance 340 100 Intake: Intake, IV Titration 100 100 Amount Cefepime 2 gm In Sodium 100 100 Chloride 0.9% 100 ml @ 25 mls/hr IVPB Q8H [facility] Rx#: [id number] Oral 240 Other: Voiding Method Toilet Toilet Urinal Urinal # Voids 2 # Bowel Movements 1 - Constitutional General appearance: Present: no acute distress - EENT Eyes: Present: EOMI ENT: Present: hearing grossly normal, normal oropharynx - Respiratory Respiratory: bilateral: CTA - Cardiovascular Rhythm: regular Heart sounds: normal: S1, S2 - Gastrointestinal General gastrointestinal: Present: normal bowel sounds, soft - Integumentary Integumentary: Present: normal - Neurologic Neurologic: Present: CNII-XII intact - Musculoskeletal Musculoskeletal: Present: generalized weakness, strength equal bilaterally - Psychiatric Psychiatric: Present: A&O x's 3, appropriate affect - Labs CBC & Chem 7: 01/02/22 05:32 01/02/22 05:32 Labs: Microbiology - Last 24 Hours (Table) 12/29/21 23:00 Blood Culture - Preliminary Blood No Growth after 96 hours 12/29/21 23:08 Blood Culture - Preliminary Blood No Growth after 96 hours 12/29/21 14:31 Blood Culture - Preliminary Blood No Growth after 96 hours 12/29/21 14:31 Blood Culture - Preliminary Blood No Growth after 96 hours Assessment and Plan (1) Pancytopenia Narrative/Plan: Las from 01/02 had shown no further improvement,with actully a slight drop in ANC. check labs today. If no significant improvement, plan bone marrow later this wk. Rationale was again d/w pt in detail. If counts are stable in this range, this could be done as an outpt also - Supportive transfusions if needed, to keep Hgb > 7, plt > 10 Current Visit: Yes Status: Acute Code(s): D61.818 - OTHER PANCYTOPENIA SN OMED Code(s): 351665853
[2022-01-03 17:57] LABS: Basophils # (M) 0.06 X 10*3/uL (0.00-0.10); Eosinophils # (M) 0.16 X 10*3/uL (0.04-0.35); HCT 20.2 % (39.6-50.0); HGB 6.5 g/dL (13.0-17.0); Immature Platelet Fraction 6.7 % (1.1-6.1); MCH 34.8 pg (27.0-32.0); MCHC 32.2 g/dL (32.0-37.0); Macrocytosis (M) 2+; Mean Platelet Volume 12.6 fL (9.5-12.2); Monocytes # (M) 0.12 X 10*3/uL (0.20-1.00); Myelocytes % 5 % (0-0); NRBC Per 100 WBC 0 /100 WBCS (0.0-0.0); Neutrophils # (M) 0.73 X 10*3/uL (2.00-8.90); Neutrophils % (M) 37 %; Platelet Count 19 X 10*3/uL (140-440); RBC 1.87 X 10*6/uL (4.40-5.60); RDW 17.2 % (11.5-14.5); Sickle Cells 2+; WBC 1.96 X 10*3/uL (4.50-10.00)
[2022-01-03] MEDS ORDERED: methylPREDNISolone SOD SUCCI 125 MG/2 ML VIAL IV STA (21:08)
[2022-01-03] MEDS ORDERED: FAMOTIDINE 20 MG/2 ML VIAL IV ONE (21:09)
[2022-01-03] MEDS ORDERED: diphenhydrAMINE 50 MG/ML 1 ML VIAL IVP STA (21:10)
--- NOTE | 2022-01-03 22:38 | P.PN ---
Subjective Progress Note Date: 01/03/22 Principal diagnosis: Fever likely cholecystitis Patient is a 66-year-old male with a past medical history significant for recurrent diverticulitis presented to hospital with acute episode of not feeling well fever some abdominal discomfort and nausea, patient did have a CT of abdominal pelvis suggestive of cholecystitis. On today's evaluation that is 01/03/2022, the patient currently denies any fever, patient denies chest pain or shortness of breath or cough, the patient denies nausea vomiting or abdominal pain and no diarrhea no urinary symptoms Objective - Vital Signs Vital signs: Vital Signs Temp 98.5 F 01/03/22 13:00 Pulse 49 L 01/03/22 13:00 Resp 18 01/03/22 13:00 BP 119/66 01/03/22 13:00 Pulse Ox 96 01/03/22 13:00 FiO2 Intake & Output 01/02/22 01/03/22 01/03/22 18:59 06:59 18:59 Intake Total 340 100 Balance 340 100 Intake: Intake, IV Titration 100 100 Amount Cefepime 2 gm In Sodium 100 100 Chloride 0.9% 100 ml @ 25 mls/hr IVPB Q8H [facility] Rx#: [id number] Oral 240 Other: Voiding Method Toilet Toilet Urinal Urinal # Voids 2 # Bowel Movements 1 - Exam GENERAL DESCRIPTION: An elderly male lying in bed in no distress RESPIRATORY SYSTEM: Unlabored breathing , decreased breath sounds at bases HEART: S1 S2 regular rate and rhythm , ABDOMEN: Soft , no tenderness EXTREMITIES: No edema feet - Labs CBC & Chem 7: 01/03/22 11:55 01/02/22 05:32 Labs: Microbiology - Last 24 Hours (Table) 12/29/21 23:00 Blood Culture - Preliminary Blood No Growth after 96 hours 12/29/21 23:08 Blood Culture - Preliminary Blood No Growth after 96 hours 12/29/21 14:31 Blood Culture - Preliminary Blood No Growth after 96 hours 12/29/21 14:31 Blood Culture - Preliminary Blood No Growth after 96 hours Assessment and Plan (1) Fever Current Visit: Yes Status: Acute Code(s): R50.9 - FEVER, UNSPECIFIED SNOMED Code(s): 189538621 Plan: 1patient presented hospital with sepsis in this patient did have fever elevated lactic acid patient did have a week abdominal pain nausea vomiting and did have right-sided abdominal tenderness with elevated liver enzymes high clinic suspicious for possible gallbladder disease versus diverticulitis in this patient who did have history of recurrent diverticulitis. 2CT of abdominal pelvis is suggestive of cholecystitis and Gen. surgery has seen the patient recommending no surgery because of his thrombocytopenia for the patient is being monitored by hematology oncology 3patient has shown clinical improvement as for his symptomatology is concerned will continue with cefepime while inpatient and plan to finish therapy with oral Ceftin discussed with the admitting physician Time with Patient: Less than 30
[2022-01-04] MEDS: CEFEPIME 2 GM in SODIUM CHLORIDE 0.9% 100 ML IVPB SCH ×3 (01:05→17:31)
[2022-01-04] MEDS: HYDROcodone/APAP 7.5-325MG 1 EACH TAB PO PRN ×2 (02:10→21:16)
[2022-01-04] MEDS: METOPROLOL SUCCINATE (ER) 25 MG TAB.ER.24H PO SCH (08:55)
[2022-01-04] MEDS: DICYCLOMINE 10 MG CAP PO SCH ×4 (08:55→21:13)
[2022-01-04] MEDS: LOSARTAN 50 MG TAB PO SCH (08:55)
[2022-01-04] MEDS: PANTOPRAZOLE 40 MG TABLET PO SCH (08:55)
[2022-01-04] MEDS: LORATADINE 10 MG TAB PO SCH (08:55)
[2022-01-04] MEDS: CYANOCOBALAMIN 500 MCG TAB PO SCH (08:55)
[2022-01-04] MEDS: FLECAINIDE 50 MG TAB PO SCH ×2 (08:56→21:13)
[2022-01-04] MEDS: LUBIPROSTONE 8 MCG PO SCH ×2 (08:58→20:48)
--- NOTE | 2022-01-04 09:30 | P.PN ---
Subjective Progress Note Date: 01/03/22 Bennie Estrada, is a 66-year-old male who presented to [facility] emergency room with a chief complaint of dizziness and unsteady gait He was evaluated in the emergency room vital examination on presentation revealed a temperature of 104.6 pulse 77 respirations 16 blood pressure 108/47 pulse ox 98% on room air Laboratory data revealed a white blood count of 1.6 hemoglobin 6.3 platelet c ount 22,000 and 134 potassium 3.5 chloride 104 CO2 24 BUN 28 creatinine 0.97 lactic acid 2.6 urine analysis revealed no evidence of urinary tract infections Testing in the emergency room revealed chest x-ray revealed no acute cardiopulmonary pulmonary process, computed tomography scan of the brain reveals no acute intracranial process, EKG revealed sinus rhythm with sinus arrhythmia with incomplete right bundle branch block. Patient was admitted to medical floor for further evaluation and treatment, he was started empirically on IV antibiotics in the emergency room, oncology consultation and infectious disease consultation were requested Past medical history is significant for history of hypertension, history of alcohol abuse, history of primary thrombocytopenia, previous history of atrial fibrillation On 12/31/2021 patient was seen and examined on the medical floor he is alert and oriented 3 in no apparent distress there is no fever or chills no headache or dizziness no chest pain no shortness of breath no cough no nausea or vomiting no abdominal pain no diarrhea and no urinary symptoms, white blood count 1.4 hemoglobin 7.7 platelet count 25,000 On 01/01/2022 patient was seen and examined on the medical floor he is alert and oriented 3 in no apparent distress he is feeling better no new episodes of fever no headache or dizziness no chest pain no shortness of breath no cough no nausea or vomiting no abdominal pain no diarrhea no blood in the stools no burning with urination no frequency or urgency and no hematuria. On 01/02/2022 patient was seen and examined on the medical floor he is alert and oriented 3 in no apparent distress he is feeling clinically better there is no fever or chills no headache or dizziness no chest pain no shortness of breath no cough no nausea or vomiting no abdominal pain no diarrhea no blood in the stools no burning with urination no frequency or urgency no hematuria white blood count is still low at 2.2 to hemoglobin low at 7.1 and platelet low at 23,000 at this time will continue with current management awaiting further recommendation from hematology On 01/03/2022 patient was seen and examined on the medical floor he is alert and oriented in no distress he is feeling clinically better there is no fever or chills no headache or dizziness no chest pain no shortness of breath no cough no nausea or vomiting no abdominal pain no diarrhea no blood in the stools no burning with urination no frequency or urgency no hematuria white blood count is still low at 2.2 to hemoglobin low at 6.5 and platelet low at 19,000 at this time will continue with current management awaiting further recommendation from hematology Objective - Vital Signs Vital signs: Vital Signs Temp 98.2 F 01/03/22 05:00 Pulse 68 01/03/22 05:00 Resp 16 01/03/22 05:00 BP 109/63 01/03/22 05:00 Pulse Ox 98 01/03/22 05:00 FiO2 Intake & Output 01/02/22 01/03/22 01/03/22 18:59 06:59 18:59 Intake Total 340 100 Balance 340 100 Intake: Intake, IV Titration 100 100 Amount Cefepime 2 gm In Sodium 100 100 Chloride 0.9% 100 ml @ 25 mls/hr IVPB Q8H [facility] Rx#: [id number] Oral 240 Other: Voiding Method Toilet Urinal # Voids 2 # Bowel Movements 1 - Exam In general patient is alert and oriented x 3 in no distress HEENT head normocephalic and atraumatic Neck is supple no JVD no goiter no lymphadenopathy no carotid bruit Chest examination is clear to auscultation no crackles no wheezing Cardiac exam reveals regular heart sounds S1 and S2 no gallops no murmurs Abdomen is soft nontender no organomegaly with normal bowel sounds Extremity exam reveals no edema no cyanosis or clubbing Neurological examination reveals no gross focal deficits - Labs CBC & Chem 7: 01/03/22 11:55 01/02/22 05:32 Labs: Microbiology - Last 24 Hours (Table) 12/29/21 23:00 Blood Culture - Preliminary Blood No Growth after 96 hours 12/29/21 23:08 Blood Culture - Preliminary Blood No Growth after 96 hours 12/29/21 14:31 Blood Culture - Preliminary Blood No Growth after 96 hours 12/29/21 14:31 Blood Culture - Preliminary Blood No Growth after 96 hours Assessment and Plan Plan: Febrile illness, with leukopenia, no clear source of infection, patient was started on empiric antibiotic in the emergency room Pancytopenia with Leukopenia anemia and thrombocytopenia, could be related to history of excessive alcohol use hematology consultation requested Underlying history of hypertension Underlying history of paroxysmal atrial fibrillation Previous history of excessive alcohol use At this time patient is admitted to medical floor Blood cultures ordered He was started on IV antibiotics cefepime and vancomycin empirically in the emergency room Symptomatic management for fever IV fluids, consultation for hematology and infectious disease initiated Will recheck labs and follow-up in a.m.
[2022-01-04 11:48] LABS: African American GFR (CKD) 104.9 (60.0-200.0); Albumin 3.9 g/dL (3.8-4.9); Albumin/Globulin Ratio 1.71 (1.60-3.17); Anion Gap 11.4 mmol/L (10.00-18.00); BUN/Creat Ratio 23.67 Ratio (12.00-20.00); Blood Urea Nitrogen 19.6 mg/dL (9.0-27.0); Calcium 8.6 mg/dL (8.7-10.3); Carbon Dioxide 23.6 mmol/L (20.0-27.5); Globulin 2.3 g/dL (1.6-3.3); Non-African American GFR(CKD) 90.5 (60.0-200.0); Potassium 4.3 mmol/L (3.5-5.5); Total Protein 6.2 g/dL (6.2-8.2)
--- NOTE | 2022-01-04 12:28 | P.PN ---
Subjective Progress Note Date: 01/04/22 Principal diagnosis: Pancytopenia, liver disease This is a positive 66-year-old male who presented to the hospital with complaints of chest pain, dizziness, weakness and shakiness. He was found to have a fever 104.6. Patient also has been reporting is felt nauseated. He initially does says he has no abdominal pain. But does report occasionally he'll have some epigastric discomfort. He also reports is been constipated and did have some sharp abdominal discomfort in the lower abdomen. He was able to have small bowel movements. He reports no abdominal pain now. He's had no vomiting. He also reports a decreased appetite. Patient was found to be pancytopenic. He has a history of alcohol abuse and admits to drinking half a pint to 1 pint of scotch 5-7 days a week further last 10-15 years. He denies any previous history of known knowledge of liver disease. Denies any history of cirrhosis of the liver hepatitis. Gastroenterology was consulted for liver disease. He denies any blood in his stools. Denies any black stools. He was recently hospitalized and November of this year was also pancytopenic and seen by hematology and general surgery for diverticulitis. Patient reports since his last hospitalization in November for diverticulitis he's only had 1 alcoholic beverage. Computed tomography scan abdomen and pelvis shows subtle peripancreatic fat stranding changes concerning for acute pancreatitis. Gallbladder wall thickening with cholelithiasis. There is no significant adjacent inflammation suggesting that this could be due to systemic cause given the periportal edema. Prostatomegaly. Colonic diverticulosis without evidence of diverticulitis and moderate to large stool burden throughout the colon. Patient's Eliquis has been on hold due to thrombocytopenia. Last colonoscopy Ju[address] Jim revealed colon polyps. Patient also did a colonoscopy in April [address] Jim for hematochezia with findings at that time a pandiverticulosis, internal hemorrhoids, and colon polyps no active bleeding or old blood was seen through the colon. Patient's labs WBC 1.4 hemoglobin 7.7 hematocrit 22 platelet count 25,000 total bilirubin 1.8 AST 52 ALT 78 alkaline phosphatase 148. Iron studies within normal limits. 01/04/22: Patient was seen today as a follow-up. He continues to have a drop in his platelet count. Hematology continues to follow closely. They're considering possible bone marrow biopsy. Patient otherwise states he's feeling well. No abdominal pain, no nausea or vomiting. He's been afebrile. Today's labs are currently pending. Objective - Vital Signs Vital signs: Vital Signs Temp 97.6 F 01/04/22 04:41 Pulse 48 L 01/04/22 04:41 Resp 18 01/04/22 04:41 BP 128/56 01/04/22 04:41 Pulse Ox 98 01/04/22 04:41 FiO2 Intake & Output 01/03/22 01/04/22 01/04/22 18:59 06:59 18:59 Intake Total 430 Balance 430 Intake: Blood Product 430 Rc As-1 Unit 120 [id number] Rc Irr As1 Unit 310 [id number] Other: Voiding Method Toilet Urinal # Voids 2 4 - Exam General appearance: The patient is alert, oriented, appears in no acute distress. HET: Head is normocephalic and atraumatic. Conjunctiva pink. Sclera anicteric. Neck: Supple without lymphadenopathy. Abdomen: Soft, nontender, nondistended with bowel sounds. No guarding or rigidity. Extremities: Normal skin color and turgor. No pedal edema Skin: No rashes, no jaundice Neurological: No focal deficits. Alert and oriented -3. - Labs CBC & Chem 7: 01/04/22 06:41 01/04/22 06:41 Labs: Abnormal Lab Results - Last 24 Hours (Table) 12/29/21 01/03/22 01/03/22 Range/Units 17:25 11:55 19:13 WBC 1.96 L (4.50-10.00) X 10*3/uL RBC 1.87 L (4.40-5.60) X 10*6/uL Hgb 6.5 L* (13.0-17.0) g/dL Hct 20.2 L (39.6-50.0) % MCV 108.0 H (80.0-97.0) fL MCH 34.8 H (27.0-32.0) pg RDW 17.2 H (11.5-14.5) % Plt Count 19 L* (140-440) X 10*3/uL Plt Count Comment A MPV 12.6 H (9.5-12.2) fL Myelocytes % 5 H (0-0) % Neutrophils # (Manual) 0.73 L (2.00-8.90) X 10*3/uL Lymphocytes # (Manual) 0.80 L (0.90-5.00) X 10*3/uL Monocytes # (Manual) 0.12 L (0.20-1.00) X 10*3/uL Immature Plt Fraction 6.7 H (1.1-6.1) % Crossmatch See Detail See Detail Microbiology - Last 24 Hours (Table) 12/29/21 23:00 Blood Culture - Preliminary Blood No Growth after 120 hours 12/29/21 23:08 Blood Culture - Preliminary Blood No Growth after 120 hours 12/29/21 14:31 Blood Culture - Preliminary Blood No Growth after 120 hours 12/29/21 14:31 Blood Culture - Preliminary Blood No Growth after 120 hours Assessment and Plan (1) Alcoholic liver disease Narrative/Plan: 66-year-old male with a significant history of alcohol abuse with known underlying liver disease who presented to the emergency department with complaints of dizziness, chest pain, and overall not feeling well. He was noted to have a max temperature of 104.6 on admission. Gen. surgery has been following for cholelithiasis. Patient likely with underlying liver cirrhosis. Labs are consistent with underlying alcoholic liver disease. Patient with coagulopathy likely due to underlying liver disease. Hematology is following for pancytopenia. Recommend alcohol abstinence. Current Visit: Yes Status: Acute Code(s): K70.9 - ALCOHOLIC LIVER DISEASE, UNSPECIFIED SNOMED Code(s): 02613049 (2) Pancytopenia Narrative/Plan: Hematology following closely. Possible bone marrow biopsy later this week per their notes. Continue with recommendations from hematology. Current Visit: Yes Status: Acute Code(s): D61.818 - OTHER PANCYTOPENIA SNOMED Code(s): 952967606 (3) Macrocytic anemia Current Visit: No Status: Acute Code(s): D53.9 - NUTRITIONAL ANEMIA, UNS PECIFIED SNOMED Code(s): 91829112 Plan: 1. Continue symptomatic and supportive care 2. Daily CBC 3. Continue with recommendations from hematology for pancytopenia 4. Continue with recommendations from general surgery 5. Avoid hepatotoxic medications 6. Recommend alcohol abstinence 7. Recommend outpatient follow-up with gastroenterology for continued surveillance of liver disease Thank you for this consultation, we will sign off at this time and follow up outpatient Dr. Brendan Pitts I agree with the dictator's note, documented as a scribe by Candy Mcmullen.
[2022-01-04 12:30] LABS: Basophils # (M) 0 X 10*3/uL (0.00-0.10); Eosinophils # (M) 0 X 10*3/uL (0.04-0.35); HCT 23.7 % (39.6-50.0); HGB 7.6 g/dL (13.0-17.0); Immature Platelet Fraction 7.6 % (1.1-6.1); Lymphocytes # (M) 0.54 X 10*3/uL (0.90-5.00); MCH 33.8 pg (27.0-32.0); MCHC 32.1 g/dL (32.0-37.0); MCV 105.3 fL (80.0-97.0); Metamyelocytes % 1 % (0-0); Monocytes # (M) 0.06 X 10*3/uL (0.20-1.00); Myelocytes % 9 % (0-0); NRBC Per 100 WBC 0 /100 WBCS (0.0-0.0); Neutrophils # (M) 1.26 X 10*3/uL (2.00-8.90); Neutrophils % (M) 61 %; Platelet Count 21 X 10*3/uL (140-440); RBC 2.25 X 10*6/uL (4.40-5.60); RDW 18.9 % (11.5-14.5); WBC 2.07 X 10*3/uL (4.50-10.00)
--- NOTE | 2022-01-04 13:16 | P.PN ---
Subjective Progress Note Date: 01/04/22 CHIEF COMPLAINT: Weakness HISTORY OF PRESENT ILLNESS: Patient is sitting up at bedside chair. He denies any abdominal pain. Denies any nausea or vomiting. He reports having bowel movements. Denies any blood or black stools. Patient did require unit of blood yesterday for hemoglobin was 6.5. Patient followed by hematology service. The planning possible bone marrow biopsy this week. Afebrile. WBC 2.07 hemoglobin 7.6 platelets 21 total bilirubin 1.0 AST 32 ALT 70 alk phos 180. Patient seen by GI service for underlying liver disease. PHYSICAL EXAM: VITAL SIGNS: Reviewed. GENERAL: Well-developed in no acute distress. HEENT: No sclera icterus. Extraocular movements grossly intact. Moist buccal mucosa. Head is atraumatic, normocephalic. ABDOMEN: Soft. Nondistended. Nontender NEUROLOGIC: Alert and oriented. Cranial nerves II through XII grossly intact. ASSESSMENT: 1. Cholecystitis. Gallbladder wall thickening with cholelithiasis. Patient reports no abdominal pain. Nontender right upper quadrant. 2. Pancytopenia 3. History of heavy alcohol use and possible underlying liver cirrhosis 4. Anemia status post blood transfusion 5. Constipation PLAN: -No plans for cholecystectomy until pancytopenia issues clarified -Continue regular diet -Pancytopenia workup per oncology. Per oncology service possible bone marrow biopsy this week Physician Display [employer]rication Supervisor note has been reviewed by physician. Signing provider agrees with the documented findings, assessment, and plan of care. I have personally seen and examined the patient, reviewed the COMPOUND COATING MACHINE OFFBEARER /PAs history, exam and MDM and agree with the assessment and plan as written. Based on total visit time, I have performed more than 50% of the visit. As above: Patient doing well. No complaints. Denies pain. Labs still show pancytopenia. Tentative plans for bone marrow biopsy. Denies abdominal pain. Nontender on exam. Continue workup by hematology. We'll sign off at this point. Patient will follow-up in the office 1-2 weeks. Objective - Vital Signs Vital signs: Vital Signs Temp 97.6 F 01/04/22 11:26 Pulse 48 L 01/04/22 11:26 Resp 15 01/04/22 11:26 BP 103/51 01/04/22 11:26 Pulse Ox 99 01/04/22 11:26 FiO2 Intake & Output 07/01/04/22 01/04/22 18:59 06:59 18:59 Intake Total 430 Balance 430 Intake: Blood Product 430 Rc As-1 Unit 120 [id number] Rc Irr As1 Unit 310 [id number] Other: Voiding Method Toilet Toilet Urinal Urinal # Voids 2 4 - Labs CBC & Chem 7: 01/04/22 06:41 01/04/22 06:41 Labs: Abnormal Lab Results - Last 24 Hours (Table) 12/29/21 01/03/22 01/03/22 Range/Units 17:25 11:55 19:13 WBC 1.96 L (4.50-10.00) X 10*3/uL RBC 1.87 L (4.40-5.60) X 10*6/uL Hgb 6.5 L* (13.0-17.0) g/dL Hct 20.2 L (39.6-50.0) % MCV 108.0 H (80.0-97.0) fL MCH 34.8 H (27.0-32.0) pg RDW 17.2 H (11.5-14.5) % Plt Count 19 L* (140-440) X 10*3/uL Plt Count Comment A MPV 12.6 H (9.5-12.2) fL Metamyelocytes % (0-0) % Myelocytes % 5 H (0-0) % Neutrophils # (Manual) 0.73 L (2.00-8.90) X 10*3/uL Lymphocytes # (Manual) 0.80 L (0.90-5.00) X 10*3/uL Monocytes # (Manual) 0.12 L (0.20-1.00) X 10*3/uL Eosinophils # (Manual) (0.04-0.35) X 10*3/uL Immature Plt Fraction 6.7 H (1.1-6.1) % BUN/Creatinine Ratio (12.00-20.00) Ratio Glucose (70-110) mg/dL Calcium (8.7-10.3) mg/dL ALT (10-49) U/L Alkaline Phosphatase (41-126) U/L Crossmatch See Detail See Detail 01/04/22 01/04/22 Range/Units 06:41 06:41 WBC 2.07 L (4.50-10.00) X 10*3/uL RBC 2.25 L (4.40-5.60) X 10*6/uL Hgb 7.6 L (13.0-17.0) g/dL Hct 23.7 L (39.6-50.0) % MCV 105.3 H (80.0-97.0) fL MCH 33.8 H (27.0-32.0) pg RDW 18.9 H (11.5-14.5) % Plt Count 21 L (140-440) X 10*3/uL Plt Count Comment A MPV (9.5-12.2) fL Metamyelocytes % 1 H (0-0) % Myelocytes % 9 H (0-0) % Neutrophils # (Manual) 1.26 L (2.00-8.90) X 10*3/uL Lymphocytes # (Manual) 0.54 L (0.90-5.00) X 10*3/uL Monocytes # (Manual) 0.06 L (0.20-1.00) X 10*3/uL Eosinophils # (Manual) 0 L (0.04-0.35) X 10*3/uL Immature Plt Fraction 7.6 H (1.1-6.1) % BUN/Creatinine Ratio 23.67 H (12.00-20.00) Ratio Glucose 181 H (70-110) mg/dL Calcium 8.6 L (8.7-10.3) mg/dL ALT 70 H (10-49) U/L Alkaline Phosphatase 180 H (41-126) U/L Crossmatch Microbiology - Last 24 Hours (Table) 12/29/21 23:00 Blood Culture - Preliminary Blood No Growth after 120 hours 12/29/21 23:08 Blood Culture - Preliminary Blood No Growth after 120 hours 12/29/21 14:31 Blood Culture - Preliminary Blood No Growth after 120 hours 12/29/21 14:31 Blood Culture - Preliminary Blood No Growth after 120 hours
--- NOTE | 2022-01-04 15:20 | P.PN ---
Subjective Progress Note Date: 01/04/22 Principal diagnosis: Pancytopenia Patient seen and examined, planning Bone Marrow Biopsy this week while inaptient Objective - Vital Signs Vital signs: Vital Signs Temp 97.6 F 01/04/22 04:41 Pulse 48 L 01/04/22 04:41 Resp 18 01/04/22 04:41 BP 128/56 01/04/22 04:41 Pulse Ox 98 01/04/22 04:41 FiO2 Intake & Output 01/03/22 01/04/22 01/04/22 18:59 06:59 18:59 Intake Total 430 Balance 430 Intake: Blood Product 430 Rc As-1 Unit 120 [id number] Rc Irr As1 Unit 310 [id number] Other: Voiding Method Toilet Urinal # Voids 2 4 - Exam - Constitutional General appearance: cooperative, obese - EENT Eyes: EOMI ENT: NA/AT - Respiratory Respiratory: bilateral: diminished - Cardiovascular Rhythm: regularly irregular - Gastrointestinal General gastrointestinal: distended, hepatomegaly, soft - Neurologic Neurologic: CNII-XII intact - Musculoskeletal Musculoskeletal: generalized weaknes - Constitutional General appearance: cooperative - Labs CBC & Chem 7: 01/04/22 06:41 01/04/22 06:41 Labs: Abnormal Lab Results - Last 24 Hours (Table) 12/29/21 01/03/22 01/03/22 Range/Units 17:25 11:55 19:13 WBC 1.96 L (4.50-10.00) X 10*3/uL RBC 1.87 L (4.40-5.60) X 10*6/uL Hgb 6.5 L* (13.0-17.0) g/dL Hct 20.2 L (39.6-50.0) % MCV 108.0 H (80.0-97.0) fL MCH 34.8 H (27.0-32.0) pg RDW 17.2 H (11.5-14.5) % Plt Count 19 L* (140-440) X 10*3/uL Plt Count Comment A MPV 12.6 H (9.5-12.2) fL Myelocytes % 5 H (0-0) % Neutrophils # (Manual) 0.73 L (2.00-8.90) X 10*3/uL Lymphocytes # (Manual) 0.80 L (0.90-5.00) X 10*3/uL Monocytes # (Manual) 0.12 L (0.20-1.00) X 10*3/uL Immature Plt Fraction 6.7 H (1.1-6.1) % Crossmatch See Detail See Detail Microbiology - Last 24 Hours (Table) 12/29/21 23:00 Blood Culture - Preliminary Blood No Growth after 120 hours 12/29/21 23:08 Blood Culture - Preliminary Blood No Growth after 120 hours 12/29/21 14:31 Blood Culture - Preliminary Blood No Growth after 120 hours 12/29/21 14:31 Blood Culture - Preliminary Blood No Growth after 120 hours Assessment and Plan Plan: Assessment and Plan (1) Macrocytic anemia Current Visit: Yes Status: Acute Code(s): D53.9 - NUTRITIONAL ANEMIA, UNSPECIFIED SNOMED Code(s): 80060459 - Premedicate and transfuse today hemoglobin 6.4 (2) Thrombocytopenia Narrative/Plan: Hold AC under 50K Current Visit: Yes Status: Acute Code(s): D69.6 - THROMBOCYTOPENIA, UNSPECIFIED SNOMED Code(s): 569281703 (3) Leukopenia Current Visit: Yes Status: Acute Code(s): D72.819 - DECREASED WHITE BLOOD CELL COUNT, UNSPECIFIED SNOMED Code(s): 30726242 Plan: Pancytopenia Reviewed with patient HOLD ASA/NSAIDS and Anticoagulation if platelets under 50K Transfuse Hemo <7, Plt <10 (unless evidence of bleeding transfuse sooner) Great length discussing bone marrow suppression related to ETOH and cessation of importance for maintaing health HOLD AC platelets less than 50K Bone Marrow biopsy will be set up ?Tuesday this wweek All questions answered remediation maybe required in educating patient Dr. Schafer: i have completed the full history and physical and developed the above impression and plan, agree with dictation, dictated as a ascribe.
--- NOTE | 2022-01-04 18:51 | P.PN ---
Subjective Progress Note Date: 01/04/22 Bennie Estrada, is a 66-year-old male who presented to [facility] emergency room with a chief complaint of dizziness and unsteady gait He was evaluated in the emergency room vital examination on presentation revealed a temperature of 104.6 pulse 77 respirations 16 blood pressure 108/47 pulse ox 98% on room air Laboratory data revealed a white blood count of 1.6 hemoglobin 6.3 platelet c ount 22,000 and 134 potassium 3.5 chloride 104 CO2 24 BUN 28 creatinine 0.97 lactic acid 2.6 urine analysis revealed no evidence of urinary tract infections Testing in the emergency room revealed chest x-ray revealed no acute cardiopulmonary pulmonary process, computed tomography scan of the brain reveals no acute intracranial process, EKG revealed sinus rhythm with sinus arrhythmia with incomplete right bundle branch block. Patient was admitted to medical floor for further evaluation and treatment, he was started empirically on IV antibiotics in the emergency room, oncology consultation and infectious disease consultation were requested Past medical history is significant for history of hypertension, history of alcohol abuse, history of primary thrombocytopenia, previous history of atrial fibrillation On 12/31/2021 patient was seen and examined on the medical floor he is alert and oriented 3 in no apparent distress there is no fever or chills no headache or dizziness no chest pain no shortness of breath no cough no nausea or vomiting no abdominal pain no diarrhea and no urinary symptoms, white blood count 1.4 hemoglobin 7.7 platelet count 25,000 On 01/01/2022 patient was seen and examined on the medical floor he is alert and oriented 3 in no apparent distress he is feeling better no new episodes of fever no headache or dizziness no chest pain no shortness of breath no cough no nausea or vomiting no abdominal pain no diarrhea no blood in the stools no burning with urination no frequency or urgency and no hematuria. On 01/02/2022 patient was seen and examined on the medical floor he is alert and oriented 3 in no apparent distress he is feeling clinically better there is no fever or chills no headache or dizziness no chest pain no shortness of breath no cough no nausea or vomiting no abdominal pain no diarrhea no blood in the stools no burning with urination no frequency or urgency no hematuria white blood count is still low at 2.2 to hemoglobin low at 7.1 and platelet low at 23,000 at this time will continue with current management awaiting further recommendation from hematology On 01/03/2022 patient was seen and examined on the medical floor he is alert and oriented in no distress he is feeling clinically better there is no fever or chills no headache or dizziness no chest pain no shortness of breath no cough no nausea or vomiting no abdominal pain no diarrhea no blood in the stools no burning with urination no frequency or urgency no hematuria white blood count is still low at 2.2 to hemoglobin low at 6.5 and platelet low at 19,000 at this time will continue with current management awaiting further recommendation from hematology. On 01/04/2022 patient was seen and examined on the medical floor he is alert and oriented 3 in no apparent distress there is no fever or chills no headache or dizziness no chest pain no shortness of breath no cough no nausea or vomiting no abdominal pain no diarrhea no blood in the stools no burning with urination no frequency or urgency and no hematuria. Hemoglobin dropped again yesterday to 6.5 patient received 1 unit of red blood cells transfusion last night hemoglobin today is up to 7.6. Objective - Vital Signs Vital signs: Vital Signs Temp 97.6 F 01/04/22 04:41 Pulse 48 L 01/04/22 04:41 Resp 18 01/04/22 04:41 BP 128/56 01/04/22 04:41 Pulse Ox 98 01/04/22 04:41 FiO2 Intake & Output 01/03/22 01/04/22 01/04/22 18:59 06:59 18:59 Intake Total 430 Balance 430 Intake: Blood Product 430 Rc As-1 Unit 120 [id number] Rc Irr As1 Unit 310 [id number] Other: Voiding Method Toilet Urinal # Voids 2 4 - Exam In general patient is alert and oriented x 3 in no distress HEENT head normocephalic and atraumatic Neck is supple no JVD no goiter no lymphadenopathy no carotid bruit Chest examination is clear to auscultation no crackles no wheezing Cardiac exam reveals regular heart sounds S1 and S2 no gallops no murmurs Abdomen is soft nontender no organomegaly with normal bowel sounds Extremity exam reveals no edema no cyanosis or clubbing Neurological examination reveals no gross focal deficits - Labs CBC & Chem 7: 01/04/22 06:41 01/04/22 06:41 Labs: Abnormal Lab Results - Last 24 Hours (Table) 12/29/21 01/03/22 01/03/22 Range/Units 17:25 11:55 19:13 WBC 1.96 L (4.50-10.00) X 10*3/uL RBC 1.87 L (4.40-5.60) X 10*6/uL Hgb 6.5 L* (13.0-17.0) g/dL Hct 20.2 L (39.6-50.0) % MCV 108.0 H (80.0-97.0) fL MCH 34.8 H (27.0-32.0) pg RDW 17.2 H (11.5-14.5) % Plt Count 19 L* (140-440) X 10*3/uL Plt Count Comment A MPV 12.6 H (9.5-12.2) fL Myelocytes % 5 H (0-0) % Neutrophils # (Manual) 0.73 L (2.00-8.90) X 10*3/uL Lymphocytes # (Manual) 0.80 L (0.90-5.00) X 10*3/uL Monocytes # (Manual) 0.12 L (0.20-1.00) X 10*3/uL Immature Plt Fraction 6.7 H (1.1-6.1) % Crossmatch See Detail See Detail Microbiology - Last 24 Hours (Table) 12/29/21 23:00 Blood Culture - Preliminary Blood No Growth after 120 hours 12/29/21 23:08 Blood Culture - Preliminary Blood No Growth after 120 hours 12/29/21 14:31 Blood Culture - Preliminary Blood No Growth after 120 hours 12/29/21 14:31 Blood Culture - Preliminary Blood No Growth after 120 hours Assessment and Plan Plan: Febrile illness, with leukopenia, no clear source of infection, patient was started on empiric antibiotic in the emergency room Pancytopenia with Leukopenia anemia and thrombocytopenia, could be related to history of excessive alcohol use hematology consultation requested Underlying history of hypertension Underlying history of paroxysmal atrial fibrillation Previous history of excessive alcohol use At this time patient is admitted to medical floor Blood cultures ordered He was started on IV antibiotics cefepime and vancomycin empirically in the emergency room Symptomatic management for fever IV fluids, consultation for hematology and infectious disease initiated Will recheck labs and follow-up in a.m.
[2022-01-05] MEDS: CEFEPIME 2 GM in SODIUM CHLORIDE 0.9% 100 ML IVPB SCH ×4 (00:02→23:43)
[2022-01-05] MEDS: HYDROcodone/APAP 7.5-325MG 1 EACH TAB PO PRN ×2 (04:36→23:43)
[2022-01-05] MEDS: METOPROLOL SUCCINATE (ER) 25 MG TAB.ER.24H PO SCH (08:25)
[2022-01-05] MEDS: LORATADINE 10 MG TAB PO SCH (08:25)
[2022-01-05] MEDS: CYANOCOBALAMIN 500 MCG TAB PO SCH (08:25)
[2022-01-05] MEDS: PANTOPRAZOLE 40 MG TABLET PO SCH (08:25)
[2022-01-05] MEDS: FLECAINIDE 50 MG TAB PO SCH ×2 (08:26→21:09)
[2022-01-05] MEDS: DICYCLOMINE 10 MG CAP PO SCH ×4 (08:26→21:09)
[2022-01-05] MEDS: LOSARTAN 50 MG TAB PO SCH (08:26)
[2022-01-05] MEDS: LUBIPROSTONE 8 MCG PO SCH ×2 (08:32→21:10)
[2022-01-05 10:47] LABS: African American GFR (CKD) 106.4 (60.0-200.0); Albumin 3.5 g/dL (3.8-4.9); Albumin/Globulin Ratio 1.75 (1.60-3.17); Anion Gap 8.9 mmol/L (10.00-18.00); BUN/Creat Ratio 30.75 Ratio (12.00-20.00); Blood Urea Nitrogen 24.6 mg/dL (9.0-27.0); Calcium 8.7 mg/dL (8.7-10.3); Carbon Dioxide 25.1 mmol/L (20.0-27.5); Non-African American GFR(CKD) 91.8 (60.0-200.0); Potassium 3.8 mmol/L (3.5-5.5); Total Bilirubin 0.6 mg/dL (0.30-1.20); Total Protein 5.5 g/dL (6.2-8.2)
[2022-01-05 11:44] LABS: Basophils # (M) 0 X 10*3/uL (0.00-0.10); Eosinophils # (M) 0.12 X 10*3/uL (0.04-0.35); HCT 20.3 % (39.6-50.0); HGB 6.7 g/dL (13.0-17.0); Immature Platelet Fraction 7.2 % (1.1-6.1); Lymphocytes # (M) 1.28 X 10*3/uL (0.90-5.00); MCH 34.4 pg (27.0-32.0); MCV 104.1 fL (80.0-97.0); Mean Platelet Volume 12.5 fL (9.5-12.2); Metamyelocytes % 1 % (0-0); Myelocytes % 3 % (0-0); NRBC Per 100 WBC 0 /100 WBCS (0.0-0.0); Neutrophils # (M) 1.19 X 10*3/uL (2.00-8.90); Neutrophils % (M) 41 %; Platelet Count 21 X 10*3/uL (140-440); RBC 1.95 X 10*6/uL (4.40-5.60); RDW 19.3 % (11.5-14.5); WBC 2.91 X 10*3/uL (4.50-10.00)
[2022-01-05] MEDS ORDERED: methylPREDNISolone SOD SUCCI 125 MG/2 ML VIAL IV STA (12:48)
[2022-01-05] MEDS ORDERED: diphenhydrAMINE 50 MG/ML 1 ML VIAL IVP STA (12:50)
[2022-01-05] MEDS: FAMOTIDINE 20 MG/2 ML VIAL IV SCH (12:59)
--- NOTE | 2022-01-05 19:41 | P.PN ---
Subjective Progress Note Date: 01/05/22 Bennie Estrada, is a 66-year-old male who presented to [facility] emergency room with a chief complaint of dizziness and unsteady gait He was evaluated in the emergency room vital examination on presentation revealed a temperature of 104.6 pulse 77 respirations 16 blood pressure 108/47 pulse ox 98% on room air Laboratory data revealed a white blood count of 1.6 hemoglobin 6.3 platelet c ount 22,000 and 134 potassium 3.5 chloride 104 CO2 24 BUN 28 creatinine 0.97 lactic acid 2.6 urine analysis revealed no evidence of urinary tract infections Testing in the emergency room revealed chest x-ray revealed no acute cardiopulmonary pulmonary process, computed tomography scan of the brain reveals no acute intracranial process, EKG revealed sinus rhythm with sinus arrhythmia with incomplete right bundle branch block. Patient was admitted to medical floor for further evaluation and treatment, he was started empirically on IV antibiotics in the emergency room, oncology consultation and infectious disease consultation were requested Past medical history is significant for history of hypertension, history of alcohol abuse, history of primary thrombocytopenia, previous history of atrial fibrillation On 12/31/2021 patient was seen and examined on the medical floor he is alert and oriented 3 in no apparent distress there is no fever or chills no headache or dizziness no chest pain no shortness of breath no cough no nausea or vomiting no abdominal pain no diarrhea and no urinary symptoms, white blood count 1.4 hemoglobin 7.7 platelet count 25,000 On 01/01/2022 patient was seen and examined on the medical floor he is alert and oriented 3 in no apparent distress he is feeling better no new episodes of fever no headache or dizziness no chest pain no shortness of breath no cough no nausea or vomiting no abdominal pain no diarrhea no blood in the stools no burning with urination no frequency or urgency and no hematuria. On 01/02/2022 patient was seen and examined on the medical floor he is alert and oriented 3 in no apparent distress he is feeling clinically better there is no fever or chills no headache or dizziness no chest pain no shortness of breath no cough no nausea or vomiting no abdominal pain no diarrhea no blood in the stools no burning with urination no frequency or urgency no hematuria white blood count is still low at 2.2 to hemoglobin low at 7.1 and platelet low at 23,000 at this time will continue with current management awaiting further recommendation from hematology On 01/03/2022 patient was seen and examined on the medical floor he is alert and oriented in no distress he is feeling clinically better there is no fever or chills no headache or dizziness no chest pain no shortness of breath no cough no nausea or vomiting no abdominal pain no diarrhea no blood in the stools no burning with urination no frequency or urgency no hematuria white blood count is still low at 2.2 to hemoglobin low at 6.5 and platelet low at 19,000 at this time will continue with current management awaiting further recommendation from hematology. On 01/04/2022 patient was seen and examined on the medical floor he is alert and oriented 3 in no apparent distress there is no fever or chills no headache or dizziness no chest pain no shortness of breath no cough no nausea or vomiting no abdominal pain no diarrhea no blood in the stools no burning with urination no frequency or urgency and no hematuria. Hemoglobin dropped again yesterday to 6.5 patient received 1 unit of red blood cells transfusion last night hemoglobin today is up to 7.6. On 01/05/2022 patient was seen and examined on the medical floor he is alert and oriented 3 in no apparent distress there is no fever or chills no headache or dizziness no chest pain no shortness of breath no cough no nausea or vomiting no abdominal pain no diarrhea and no urinary symptoms hemoglobin is down again to 6.71 unit of red blood cell transfusion was ordered, hematology following plan is for possible bone marrow biopsy tomorrow Objective - Vital Signs Vital signs: Vital Signs Temp 98.1 F 01/05/22 16:30 Pulse 43 L 01/05/22 16:30 Resp 18 01/05/22 16:30 BP 132/63 01/05/22 16:30 Pulse Ox 99 01/05/22 16:30 FiO2 Intake & Output 01/05/22 01/05/22 01/06/22 06:59 18:59 06:59 Intake Total 240 310 Balance 240 310 Intake: Oral 240 Blood Product 310 Rc Irr As1 Unit 310 [id number] Other: Voiding Method Toilet Toilet Urinal Urinal # Voids 5 2 - Exam In general patient is alert and oriented x 3 in no distress HEENT head normocephalic and atraumatic Neck is supple no JVD no goiter no lymphadenopathy no carotid bruit Chest examination is clear to auscultation no crackles no wheezing Cardiac exam reveals regular heart sounds S1 and S2 no gallops no murmurs Abdomen is soft nontender no organomegaly with normal bowel sounds Extremity exam reveals no edema no cyanosis or clubbing Neurological examination reveals no gross focal deficits - Labs CBC & Chem 7: 01/05/22 06:56 01/05/22 06:56 Labs: Abnormal Lab Results - Last 24 Hours (Table) 01/03/22 01/05/22 01/05/22 Range/Units 19:13 06:56 06:56 WBC 2.91 L (4.50-10.00) X 10*3/uL RBC 1.95 L (4.40-5.60) X 10*6/uL Hgb 6.7 L* (13.0-17.0) g/dL Hct 20.3 L (39.6-50.0) % MCV 104.1 H (80.0-97.0) fL MCH 34.4 H (27.0-32.0) pg RDW 19.3 H (11.5-14.5) % Plt Count 21 L (140-440) X 10*3/uL Plt Count Comment A MPV 12.5 H (9.5-12.2) fL Metamyelocytes % 1 H (0-0) % Myelocytes % 3 H (0-0) % Neutrophils # (Manual) 1.19 L (2.00-8.90) X 10*3/uL Immature Plt Fraction 7.2 H (1.1-6.1) % Anion Gap 8.90 L (10.00-18.00) mmol/L BUN/Creatinine Ratio 30.75 H (12.00-20.00) Ratio ALT 58 H (10-49) U/L Alkaline Phosphatase 134 H (41-126) U/L Total Protein 5.5 L (6.2-8.2) g/dL Albumin 3.5 L (3.8-4.9) g/dL Crossmatch See Detail Microbiology - Last 24 Hours (Table) 12/29/21 23:00 Blood Culture - Final Blood No Growth after 144 hours 12/29/21 23:08 Blood Culture - Final Blood No Growth after 144 hours 12/29/21 14:31 Blood Culture - Final Blood No Growth after 144 hours 12/29/21 14:31 Blood Culture - Final Blood No Growth after 144 hours Assessment and Plan Plan: Febrile illness, with leukopenia, no clear source of infection, patient was started on empiric antibiotic in the emergency room Pancytopenia with Leukopenia anemia and thrombocytopenia, could be related to history of excessive alcohol use hematology consultation requested Underlying history of hypertension Underlying history of paroxysmal atrial fibrillation Previous history of excessive alcohol use At this time patient is admitted to medical floor Blood cultures ordered He was started on IV antibiotics cefepime and vancomycin empirically in the emergency room Symptomatic management for fever IV fluids, consultation for hematology and infectious disease initiated Will recheck labs and follow-up in a.m.
--- NOTE | 2022-01-05 19:58 | P.PN ---
Subjective Progress Note Date: 01/05/22 Principal diagnosis: pancytopenia In f/u pt remains active, tolerating oral intake, no fevers, blood transfusion today Objective - Vital Signs Vital signs: Vital Signs Temp 98.1 F 01/05/22 16:30 Pulse 43 L 01/05/22 16:30 Resp 18 01/05/22 16:30 BP 132/63 01/05/22 16:30 Pulse Ox 99 01/05/22 16:30 FiO2 Intake & Output 01/05/22 01/05/22 01/06/22 06:59 18:59 06:59 Intake Total 240 310 Balance 240 310 Intake: Oral 240 Blood Product 310 Rc Irr As1 Unit 310 [id number] Other: Voiding Method Toilet Toilet Urinal Urinal # Voids 5 2 - Constitutional General appearance: Present: average body habitus, cooperative, no acute distress - EENT Eyes: Present: anicteric sclerae, EOMI ENT: Present: hearing grossly normal - Respiratory Details: resp even and unlabored - Integumentary Integumentary: Present: pale - Neurologic Neurologic: Present: CNII-XII intact - Musculoskeletal Musculoskeletal: Present: strength equal bilaterally - Psychiatric Psychiatric: Present: A&O x's 3, appropriate affect, intact judgment & insight - Labs CBC & Chem 7: 01/05/22 06:56 01/05/22 06:56 Labs: Abnormal Lab Results - Last 24 Hours (Table) 01/03/22 01/05/22 01/05/22 Range/Units 19:13 06:56 06:56 WBC 2.91 L (4.50-10.00) X 10*3/uL RBC 1.95 L (4.40-5.60) X 10*6/uL Hgb 6.7 L* (13.0-17.0) g/dL Hct 20.3 L (39.6-50.0) % MCV 104.1 H (80.0-97.0) fL MCH 34.4 H (27.0-32.0) pg RDW 19.3 H (11.5-14.5) % Plt Count 21 L (140-440) X 10*3/uL Plt Count Comment A MPV 12.5 H (9.5-12.2) fL Metamyelocytes % 1 H (0-0) % Myelocytes % 3 H (0-0) % Neutrophils # (Manual) 1.19 L (2.00-8.90) X 10*3/uL Immature Plt Fraction 7.2 H (1.1-6.1) % Anion Gap 8.90 L (10.00-18.00) mmol/L BUN/Creatinine Ratio 30.75 H (12.00-20.00) Ratio ALT 58 H (10-49) U/L Alkaline Phosphatase 134 H (41-126) U/L Total Protein 5.5 L (6.2-8.2) g/dL Albumin 3.5 L (3.8-4.9) g/dL Crossmatch See Detail Microbiology - Last 24 Hours (Table) 12/29/21 23:00 Blood Culture - Final Blood No Growth after 144 hours 12/29/21 23:08 Blood Culture - Final Blood No Growth after 144 hours 12/29/21 14:31 Blood Culture - Final Blood No Growth after 144 hours 12/29/21 14:31 Blood Culture - Final Blood No Growth after 144 hours Assessment and Plan (1) Pancytopenia Current Visit: Yes Status: Acute Priority: High Code(s): D61.818 - OTHER PANCYTOPENIA SNOMED Code(s): 350247375 Plan: Tentative BM Bx in AM. NPO after midnight Pt verbalized understanding procedure, intent and risks Transfuse for Hgb <7 and plt < 10K unless symptomatic Explained to pt that we can get him set up for CBC in the ofc and can order transfusions to be done outpt so, he can hopefully be discharged soon.
[2022-01-06] MEDS: CEFEPIME 2 GM in SODIUM CHLORIDE 0.9% 100 ML IVPB SCH ×2 (09:20→17:25)
[2022-01-06] MEDS: FLECAINIDE 50 MG TAB PO SCH ×2 (09:20→21:03)
[2022-01-06] MEDS: LOSARTAN 50 MG TAB PO SCH (09:20)
[2022-01-06] MEDS: CYANOCOBALAMIN 500 MCG TAB PO SCH (09:21)
[2022-01-06] MEDS: PANTOPRAZOLE 40 MG TABLET PO SCH (09:21)
[2022-01-06] MEDS: METOPROLOL SUCCINATE (ER) 25 MG TAB.ER.24H PO SCH ×2 (09:21→09:37)
[2022-01-06] MEDS: DICYCLOMINE 10 MG CAP PO SCH ×4 (09:21→21:03)
[2022-01-06] MEDS: FAMOTIDINE 20 MG/2 ML VIAL IV SCH (09:21)
[2022-01-06] MEDS: LORATADINE 10 MG TAB PO SCH (09:21)
[2022-01-06] MEDS: LUBIPROSTONE 8 MCG PO SCH ×2 (09:22→20:58)
[2022-01-06 09:44] LABS: African American GFR (CKD) 106.4 (60.0-200.0); Albumin 3.7 g/dL (3.8-4.9); Albumin/Globulin Ratio 1.54 (1.60-3.17); Anion Gap 7.3 mmol/L (10.00-18.00); Blood Urea Nitrogen 23.2 mg/dL (9.0-27.0); Calcium 8.9 mg/dL (8.7-10.3); Carbon Dioxide 25.7 mmol/L (20.0-27.5); Globulin 2.4 g/dL (1.6-3.3); Non-African American GFR(CKD) 91.8 (60.0-200.0); Potassium 4.1 mmol/L (3.5-5.5); Total Bilirubin 0.7 mg/dL (0.30-1.20); Total Protein 6.1 g/dL (6.2-8.2)
[2022-01-06 10:20] LABS: HCT 23.2 % (39.6-50.0); HGB 7.7 g/dL (13.0-17.0); MCH 33.5 pg (27.0-32.0); MCHC 33.2 g/dL (32.0-37.0); MCV 100.9 fL (80.0-97.0); NRBC Per 100 WBC 0 /100 WBCS (0.0-0.0); Platelet Count 33 X 10*3/uL (140-440); RDW 18.6 % (11.5-14.5); WBC 2.44 X 10*3/uL (4.50-10.00)
[2022-01-06 10:21] LABS: Basophils # (M) 0.02 X 10*3/uL (0.00-0.10); Eosinophils # (M) 0 X 10*3/uL (0.04-0.35); Immature Platelet Fraction 8.9 % (1.1-6.1); Metamyelocytes % 2 % (0-0); Monocytes # (M) 0.22 X 10*3/uL (0.20-1.00); Myelocytes % 6 % (0-0); Neutrophils # (M) 0.81 X 10*3/uL (2.00-8.90); Neutrophils % (M) 33 %
--- NOTE | 2022-01-06 10:44 | P.PN ---
Subjective Progress Note Date: 01/06/22 Principal diagnosis: Pancytopenia BM biopsy Scheduled 7:30 am tomorrow Discussed with patient and Objective - Vital Signs Vital signs: Vital Signs Temp 97.7 F 01/06/22 05:00 Pulse 48 L 01/06/22 05:00 Resp 16 01/06/22 05:00 BP 124/63 01/06/22 05:00 Pulse Ox 97 01/06/22 05:00 FiO2 Intake & Output 01/05/22 01/06/22 01/06/22 18:59 06:59 18:59 Intake Total 310 Balance 310 Intake: Blood Product 310 Rc Irr As1 Unit 310 [id number] Other: Voiding Method Toilet Toilet Urinal # Voids 2 2 - Exam - Constitutional General appearance: cooperative, obese - EENT Eyes: EOMI ENT: NA/AT - Respiratory Respiratory: bilateral: diminished - Cardiovascular Rhythm: regularly irregular - Gastrointestinal General gastrointestinal: distended, hepatomegaly, soft - Neurologic Neurologic: CNII-XII intact - Musculoskeletal Musculoskeletal: generalized weaknes - Constitutional General appearance: cooperative - Labs CBC & Chem 7: 01/06/22 05:59 01/06/22 05:59 Labs: Abnormal Lab Results - Last 24 Hours (Table) 01/03/22 01/05/22 01/05/22 Range/Units 19:13 06:56 06:56 WBC 2.91 L (4.50-10.00) X 10*3/uL RBC 1.95 L (4.40-5.60) X 10*6/uL Hgb 6.7 L* (13.0-17.0) g/dL Hct 20.3 L (39.6-50.0) % MCV 104.1 H (80.0-97.0) fL MCH 34.4 H (27.0-32.0) pg RDW 19.3 H (11.5-14.5) % Plt Count 21 L (140-440) X 10*3/uL Plt Count Comment A MPV 12.5 H (9.5-12.2) fL Metamyelocytes % 1 H (0-0) % Myelocytes % 3 H (0-0) % Neutrophils # (Manual) 1.19 L (2.00-8.90) X 10*3/uL Eosinophils # (Manual) (0.04-0.35) X 10*3/uL Immature Plt Fraction 7.2 H (1.1-6.1) % Anion Gap 8.90 L (10.00-18.00) mmol/L BUN/Creatinine Ratio 30.75 H (12.00-20.00) Ratio Glucose (70-110) mg/dL ALT 58 H (10-49) U/L Alkaline Phosphatase 134 H (41-126) U/L Total Protein 5.5 L (6.2-8.2) g/dL Albumin 3.5 L (3.8-4.9) g/dL Albumin/Globulin Ratio (1.60-3.17) g/dL Crossmatch See Detail 01/06/22 01/06/22 Range/Units 05:59 05:59 WBC 2.44 L (4.50-10.00) X 10*3/uL RBC 2.30 L (4.40-5.60) X 10*6/uL Hgb 7.7 L (13.0-17.0) g/dL Hct 23.2 L (39.6-50.0) % MCV 100.9 H (80.0-97.0) fL MCH 33.5 H (27.0-32.0) pg RDW 18.6 H (11.5-14.5) % Plt Count 33 L (140-440) X 10*3/uL Plt Count Comment A MPV (9.5-12.2) fL Metamyelocytes % 2 H (0-0) % Myelocytes % 6 H (0-0) % Neutrophils # (Manual) 0.81 L (2.00-8.90) X 10*3/uL Eosinophils # (Manual) 0 L (0.04-0.35) X 10*3/uL Immature Plt Fraction 8.9 H (1.1-6.1) % Anion Gap 7.30 L (10.00-18.00) mmol/L BUN/Creatinine Ratio 29.00 H (12.00-20.00) Ratio Glucose 111 H (70-110) mg/dL ALT 57 H (10-49) U/L Alkaline Phosphatase 132 H (41-126) U/L Total Protein 6.1 L (6.2-8.2) g/dL Albumin 3.7 L (3.8-4.9) g/dL Albumin/Globulin Ratio 1.54 L (1.60-3.17) g/dL Crossmatch Assessment and Plan Plan: Assessment and Plan (1) Macrocytic anemia Current Visit: Yes Status: Acute Code(s): D53.9 - NUTRITIONAL ANEMIA, UNSPECIFIED SNOMED Code(s): 13385594 - Premedicate and transfuse today hemoglobin 6.4 (2) Thrombocytopenia Narrative/Plan: Hold AC under 50K Current Visit: Yes Status: Acute Code(s): D69.6 - THROMBOCYTOPENIA, UNSPECIFIED SNOMED Code(s): 452128283 (3) Leukopenia Current Visit: Yes Status: Acute Code(s): D72.819 - DECREASED WHITE BLOOD CELL COUNT, UNSPECIFIED SNOMED Code(s): 12774589 Plan: Pancytopenia Reviewed with patient HOLD ASA/NSAIDS and Anticoagulation if platelets under 50K Transfuse Hemo <7, Plt <10 (unless evidence of bleeding transfuse sooner) Great length discussing bone marrow suppression related to ETOH and cessation of importance for maintaing health HOLD AC platelets less than 50K Bone Marrow biopsy will be set up scheduled at 7:30am All questions answered remediation maybe required in educating patient at bedside No transfusions needed today
[2022-01-06] MEDS: HYDROcodone/APAP 7.5-325MG 1 EACH TAB PO PRN (23:12)
[2022-01-07] MEDS: CEFEPIME 2 GM in SODIUM CHLORIDE 0.9% 100 ML IVPB SCH ×2 (00:07→08:11)
[2022-01-07] MEDS ORDERED: PROPOFOL 10 MG/ML 20 ML VIAL IV ONE (07:29)
[2022-01-07] MEDS ORDERED: SODIUM CHLORIDE 0.9% 500 ML 500 ML IV ONE (07:34)
[2022-01-07] MEDS: FAMOTIDINE 20 MG/2 ML VIAL IV SCH (08:11)
[2022-01-07] MEDS: CYANOCOBALAMIN 500 MCG TAB PO SCH (08:11)
[2022-01-07] MEDS: LOSARTAN 50 MG TAB PO SCH (08:11)
[2022-01-07] MEDS: FLECAINIDE 50 MG TAB PO SCH (08:12)
[2022-01-07] MEDS: LORATADINE 10 MG TAB PO SCH (08:12)
[2022-01-07] MEDS: LUBIPROSTONE 8 MCG PO SCH (08:12)
[2022-01-07] MEDS: DICYCLOMINE 10 MG CAP PO SCH ×2 (08:12→12:54)
[2022-01-07] MEDS: PANTOPRAZOLE 40 MG TABLET PO SCH (08:12)
[2022-01-07] MEDS: METOPROLOL SUCCINATE (ER) 25 MG TAB.ER.24H PO SCH (08:13)
--- NOTE | 2022-01-07 08:27 | P.PCN ---
Date of Procedure: 01/07/22 Preoperative Diagnosis: Pancytopenia, left shifted peripheral smear Postoperative Diagnosis: Same Procedure(s) Performed: Bone marrow aspiration biopsy Anesthesia: MAC Surgeon: Ludwin Pickard Multiple Needle Stitcher #1: Stated None Estimated Blood Loss (ml): 1 Pathology: other Condition: stable Disposition: floor Indications for Procedure: Pancytopenia with progression, left shifted peripheral smear, negative lab workup Operative Findings: Adequate samples Description of Procedure: The procedure was discussed in detail with the patient on the floor. Informed consent was obtained on the floor. He was brought to the outpatient endoscopy suite, and placed in the left lateral decubitus position. The area over both posterior iliac crest was cleaned and prepped with chlorhexidine and sterile draping. IV sedation was initiated. Local was administered with lidocaine to the right posterior iliac crest. A Jamshidi needle was then inserted and bone marrow aspirate and biopsy obtained. On withdrawal of the needle hemostasis was easily achieved blood loss was minimal and recovery from sedation was satisfactory. He appeared to have tolerated the procedure well without any obvious, immediate complications.
[2022-01-07 09:06] LABS: African American GFR (CKD) 101.4 (60.0-200.0); Albumin 3.7 g/dL (3.8-4.9); Albumin/Globulin Ratio 1.54 (1.60-3.17); Anion Gap 9.1 mmol/L (10.00-18.00); BUN/Creat Ratio 23.33 Ratio (12.00-20.00); Calcium 8.7 mg/dL (8.7-10.3); Carbon Dioxide 26.9 mmol/L (20.0-27.5); Globulin 2.4 g/dL (1.6-3.3); Non-African American GFR(CKD) 87.5 (60.0-200.0); Potassium 3.7 mmol/L (3.5-5.5); Total Bilirubin 0.7 mg/dL (0.30-1.20); Total Protein 6.1 g/dL (6.2-8.2)
--- NOTE | 2022-01-07 09:14 | P.PN ---
Subjective Progress Note Date: 01/07/22 Patient status was bone marrow aspiration biopsy, which she tolerated well. He denies any new B symptoms. No unusual bleeding or bruising. Objective - Vital Signs Vital signs: Vital Signs Temp 97.8 F 01/07/22 05:00 Pulse 50 L 01/07/22 08:40 Resp 16 01/07/22 08:40 BP 134/67 01/07/22 08:40 Pulse Ox 98 01/07/22 08:40 FiO2 Intake & Output 01/06/22 01/07/22 01/07/22 18:59 06:59 18:59 Intake Total 100 680 200 Output Total 200 500 Balance -100 180 200 Intake: IV 200 Intake, IV Titration 100 200 Amount Cefepime 2 gm In Sodium 100 200 Chloride 0.9% 100 ml @ 25 mls/hr IVPB Q8HR [facility] Rx# :[id number] Oral 480 Output: Urine 200 500 Other: Voiding Method Toilet # Voids 5 2 - Constitutional General appearance: Present: no acute distress - EENT Eyes: Present: EOMI ENT: Present: hearing grossly normal, normal oropharynx - Respiratory Respiratory: bilateral: CTA - Cardiovascular Rhythm: regular Heart sounds: normal: S1, S2 - Gastrointestinal General gastrointestinal: Present: normal bowel sounds, soft - Integumentary Integumentary: Present: normal - Neurologic Neurologic: Present: CNII-XII intact - Musculoskeletal Musculoskeletal: Present: generalized weakness, strength equal bilaterally - Psychiatric Psychiatric: Present: A&O x's 3, appropriate affect - Labs CBC & Chem 7: 01/06/22 05:59 01/07/22 06:09 Labs: Abnormal Lab Results - Last 24 Hours (Table) 01/06/22 01/06/22 01/07/22 Range/Units 05:59 05:59 06:09 WBC 2.44 L (4.50-10.00) X 10*3/uL RBC 2.30 L (4.40-5.60) X 10*6/uL Hgb 7.7 L (13.0-17.0) g/dL Hct 23.2 L (39.6-50.0) % MCV 100.9 H (80.0-97.0) fL MCH 33.5 H (27.0-32.0) pg RDW 18.6 H (11.5-14.5) % Plt Count 33 L (140-440) X 10*3/uL Plt Count Comment A Metamyelocytes % 2 H (0-0) % Myelocytes % 6 H (0-0) % Neutrophils # (Manual) 0.81 L (2.00-8.90) X 10*3/uL Eosinophils # (Manual) 0 L (0.04-0.35) X 10*3/uL Immature Plt Fraction 8.9 H (1.1-6.1) % Anion Gap 7.30 L 9.10 L (10.00-18.00) mmol/L BUN/Creatinine Ratio 29.00 H 23.33 H (12.00-20.00) Ratio Glucose 111 H (70-110) mg/dL ALT 57 H 57 H (10-49) U/L Alkaline Phosphatase 132 H (41-126) U/L Total Protein 6.1 L 6.1 L (6.2-8.2) g/dL Albumin 3.7 L 3.7 L (3.8-4.9) g/dL Albumin/Globulin Ratio 1.54 L 1.54 L (1.60-3.17) g/dL Assessment and Plan (1) Pancytopenia Narrative/Plan: Patient is status post bone marrow aspiration biopsy today for further workup. Counts are in a safe range yesterday. CBC from today is pending. - Check labs and repeat supportive transfusions, as needed to keep hemoglobin greater than 7, and platelets are than 10 - Do not resume anticoagulation unless platelets are greater than 50,000 - The patient's counts are in a safe range, and is otherwise felt to be medically stable, he can be discharged from the hematology standpoint. The plan would be to have regular CBCs as an outpatient with supportive transfusions to keep counts in a safe range. Once bone marrow results are available, more specific recommendations can be made based on the diagnosis. Current Visit: Yes Status: Acute Priority: High Code(s): D61.818 - OTHER PANCYTOPENIA SNOMED Code(s): 809746563 Plan: Defer to the admitting service for management of his other medical problems.
[2022-01-07 10:08] LABS: Basophils # (M) 0 X 10*3/uL (0.00-0.10); Eosinophils # (M) 0.21 X 10*3/uL (0.04-0.35); HCT 24.7 % (39.6-50.0); Immature Platelet Fraction 8.2 % (1.1-6.1); Lymphocytes # (M) 1.33 X 10*3/uL (0.90-5.00); MCH 32.9 pg (27.0-32.0); MCHC 32.4 g/dL (32.0-37.0); MCV 101.6 fL (80.0-97.0); Mean Platelet Volume 10.4 fL (9.5-12.2); Metamyelocytes % 2 % (0-0); Monocytes # (M) 0.36 X 10*3/uL (0.20-1.00); Myelocytes % 5 % (0-0); NRBC Per 100 WBC 0 /100 WBCS (0.0-0.0); Neutrophils # (M) 0.91 X 10*3/uL (2.00-8.90); Neutrophils % (M) 30 %; Platelet Count 21 X 10*3/uL (140-440); RBC 2.43 X 10*6/uL (4.40-5.60); RDW 17.9 % (11.5-14.5); WBC 3.03 X 10*3/uL (4.50-10.00)
[2022-01-07 11:43] VITALS: BP 142/72; PULSE 49; RESP 17; TEMP 98.4
[2022-01-07 14:25] LABS: Reticulocyte % 0.55 % (0.10-1.80)
--- NOTE | 2022-01-07 18:35 | P.PN ---
Subjective Progress Note Date: 01/06/22 Bennie Estrada, is a 66-year-old male who presented to [facility] emergency room with a chief complaint of dizziness and unsteady gait He was evaluated in the emergency room vital examination on presentation revealed a temperature of 104.6 pulse 77 respirations 16 blood pressure 108/47 pulse ox 98% on room air Laboratory data revealed a white blood count of 1.6 hemoglobin 6.3 platelet c ount 22,000 and 134 potassium 3.5 chloride 104 CO2 24 BUN 28 creatinine 0.97 lactic acid 2.6 urine analysis revealed no evidence of urinary tract infections Testing in the emergency room revealed chest x-ray revealed no acute cardiopulmonary pulmonary process, computed tomography scan of the brain reveals no acute intracranial process, EKG revealed sinus rhythm with sinus arrhythmia with incomplete right bundle branch block. Patient was admitted to medical floor for further evaluation and treatment, he was started empirically on IV antibiotics in the emergency room, oncology consultation and infectious disease consultation were requested Past medical history is significant for history of hypertension, history of alcohol abuse, history of primary thrombocytopenia, previous history of atrial fibrillation On 12/31/2021 patient was seen and examined on the medical floor he is alert and oriented 3 in no apparent distress there is no fever or chills no headache or dizziness no chest pain no shortness of breath no cough no nausea or vomiting no abdominal pain no diarrhea and no urinary symptoms, white blood count 1.4 hemoglobin 7.7 platelet count 25,000 On 01/01/2022 patient was seen and examined on the medical floor he is alert and oriented 3 in no apparent distress he is feeling better no new episodes of fever no headache or dizziness no chest pain no shortness of breath no cough no nausea or vomiting no abdominal pain no diarrhea no blood in the stools no burning with urination no frequency or urgency and no hematuria. On 01/02/2022 patient was seen and examined on the medical floor he is alert and oriented 3 in no apparent distress he is feeling clinically better there is no fever or chills no headache or dizziness no chest pain no shortness of breath no cough no nausea or vomiting no abdominal pain no diarrhea no blood in the stools no burning with urination no frequency or urgency no hematuria white blood count is still low at 2.2 to hemoglobin low at 7.1 and platelet low at 23,000 at this time will continue with current management awaiting further recommendation from hematology On 01/03/2022 patient was seen and examined on the medical floor he is alert and oriented in no distress he is feeling clinically better there is no fever or chills no headache or dizziness no chest pain no shortness of breath no cough no nausea or vomiting no abdominal pain no diarrhea no blood in the stools no burning with urination no frequency or urgency no hematuria white blood count is still low at 2.2 to hemoglobin low at 6.5 and platelet low at 19,000 at this time will continue with current management awaiting further recommendation from hematology. On 01/04/2022 patient was seen and examined on the medical floor he is alert and oriented 3 in no apparent distress there is no fever or chills no headache or dizziness no chest pain no shortness of breath no cough no nausea or vomiting no abdominal pain no diarrhea no blood in the stools no burning with urination no frequency or urgency and no hematuria. Hemoglobin dropped again yesterday to 6.5 patient received 1 unit of red blood cells transfusion last night hemoglobin today is up to 7.6. On 01/05/2022 patient was seen and examined on the medical floor he is alert and oriented 3 in no apparent distress there is no fever or chills no headache or dizziness no chest pain no shortness of breath no cough no nausea or vomiting no abdominal pain no diarrhea and no urinary symptoms hemoglobin is down again to 6.71 unit of red blood cell transfusion was ordered, hematology following plan is for possible bone marrow biopsy tomorrow On 01/06/2022 patient was seen and examined on the medical floor he is alert and oriented in no distress there is no fever or chills no headache or dizziness no chest pain no shortness of breath no cough no nausea or vomiting no abdominal pain no diarrhea and no urinary symptoms hemoglobin is down again to 6.71 unit of red blood cell transfusion was ordered, hematology following plan is for possible bone marrow biopsy tomorrow Objective - Vital Signs Vital signs: Vital Signs Temp 97.8 F 01/06/22 12:48 Pulse 54 L 01/06/22 12:48 Resp 17 01/06/22 12:48 BP 112/62 01/06/22 12:48 Pulse Ox 99 01/06/22 12:48 FiO2 Intake & Output 01/05/22 01/06/22 01/06/22 18:59 06:59 18:59 Intake Total 310 Balance 310 Intake: Blood Product 310 Rc Irr As1 Unit 310 [id number] Other: Voiding Method Toilet Toilet Urinal # Voids 2 2 - Exam In general patient is alert and oriented x 3 in no distress HEENT head normocephalic and atraumatic Neck is supple no JVD no goiter no lymphadenopathy no carotid bruit Chest examination is clear to auscultation no crackles no wheezing Cardiac exam reveals regular heart sounds S1 and S2 no gallops no murmurs Abdomen is soft nontender no organomegaly with normal bowel sounds Extremity exam reveals no edema no cyanosis or clubbing Neurological examination reveals no gross focal deficits - Labs CBC & Chem 7: 01/07/22 06:09 01/07/22 06:09 Labs: Abnormal Lab Results - Last 24 Hours (Table) 01/06/22 01/06/22 Range/Units 05:59 05:59 WBC 2.44 L (4.50-10.00) X 10*3/uL RBC 2.30 L (4.40-5.60) X 10*6/uL Hgb 7.7 L (13.0-17.0) g/dL Hct 23.2 L (39.6-50.0) % MCV 100.9 H (80.0-97.0) fL MCH 33.5 H (27.0-32.0) pg RDW 18.6 H (11.5-14.5) % Plt Count 33 L (140-440) X 10*3/uL Plt Count Comment A Metamyelocytes % 2 H (0-0) % Myelocytes % 6 H (0-0) % Neutrophils # (Manual) 0.81 L (2.00-8.90) X 10*3/uL Eosinophils # (Manual) 0 L (0.04-0.35) X 10*3/uL Immature Plt Fraction 8.9 H (1.1-6.1) % Anion Gap 7.30 L (10.00-18.00) mmol/L BUN/Creatinine Ratio 29.00 H (12.00-20.00) Ratio Glucose 111 H (70-110) mg/dL ALT 57 H (10-49) U/L Alkaline Phosphatase 132 H (41-126) U/L Total Protein 6.1 L (6.2-8.2) g/dL Albumin 3.7 L (3.8-4.9) g/dL Albumin/Globulin Ratio 1.54 L (1.60-3.17) g/dL Assessment and Plan Plan: Febrile illness, with leukopenia, no clear source of infection, patient was started on empiric antibiotic in the emergency room Pancytopenia with Leukopenia anemia and thrombocytopenia, could be related to history of excessive alcohol use hematology consultation requested Underlying history of hypertension Underlying history of paroxysmal atrial fibrillation Previous history of excessive alcohol use At this time patient is admitted to medical floor Blood cultures ordered He was started on IV antibiotics cefepime and vancomycin empirically in the emergency room Symptomatic management for fever IV fluids, consultation for hematology and infectious disease initiated Will recheck labs and follow-up in a.m.
--- NOTE | 2022-01-07 18:38 | P.DS ---
Providers Date of admission: 12/29/21 16:55 Expected date of discharge: 01/07/22 Attending physician: Nelsy Zuniga Consults: 12/29/21 16:55 Consult Physician Urgent Consulting Provider: Hannah Pulido Consult Reason/Comments: Pancytopenia Do you want consulting provider notified?: Yes 12/30/21 13:13 Consult Physician Routine Consulting Provider: Chapin Jraa Consult Reason/Comments: fever Do you want consulting provider notified?: Yes Primary care physician: Cici Cordova [facility] Course: Diagnosis on discharge: Febrile illness, with leukopenia, no clear source of infection, patient was started on empiric antibiotic in the emergency room Pancytopenia with Leukopenia anemia and thrombocytopenia, could be related to history of excessive alcohol use hematology consultation requested Underlying history of hypertension Underlying history of paroxysmal atrial fibrillation Previous history of excessive alcohol [facility] course: Bennie Estrada, is a 66-year-old male who presented to [facility] emergency room with a chief complaint of dizziness and unsteady gait He was evaluated in the emergency room vital examination on presentation revealed a temperature of 104.6 pulse 77 respirations 16 blood pressure 108/47 pulse ox 98% on room air Laboratory data revealed a white blood count of 1.6 hemoglobin 6.3 platelet count 22,000 and 134 potassium 3.5 chloride 104 CO2 24 BUN 28 creatinine 0.97 lactic acid 2.6 urine analysis revealed no evidence of urinary tract infections Testing in the emergency room revealed chest x-ray revealed no acute cardiopulmonary pulmonary process, computed tomography scan of the brain reveals no acute intracranial process, EKG revealed sinus rhythm with sinus arrhythmia with incomplete right bundle branch block. Patient was admitted to medical floor for further evaluation and treatment, he was started empirically on IV antibiotics in the emergency room, oncology consultation and infectious disease consultation were requested Past medical history is significant for history of hypertension, history of alcohol abuse, history of primary thrombocytopenia, previous history of atrial fibrillation On 12/31/2021 patient was seen and examined on the medical floor he is alert and oriented 3 in no apparent distress there is no fever or chills no headache or dizziness no chest pain no shortness of breath no cough no nausea or vomiting no abdominal pain no diarrhea and no urinary symptoms, white blood count 1.4 hemoglobin 7.7 platelet count 25,000 On 01/01/2022 patient was seen and examined on the medical floor he is alert and oriented 3 in no apparent distress he is feeling better no new episodes of fever no headache or dizziness no chest pain no shortness of breath no cough no nausea or vomiting no abdominal pain no diarrhea no blood in the stools no burning with urination no frequency or urgency and no hematuria. On 01/02/2022 patient was seen and examined on the medical floor he is alert and oriented 3 in no apparent distress he is feeling clinically better there is no fever or chills no headache or dizziness no chest pain no shortness of breath no cough no nausea or vomiting no abdominal pain no diarrhea no blood in the stools no burning with urination no frequency or urgency no hematuria white blood count is still low at 2.2 to hemoglobin low at 7.1 and platelet low at 23,000 at this time will continue with current management awaiting further recommendation from hematology On 01/03/2022 patient was seen and examined on the medical floor he is alert and oriented in no distress he is feeling clinically better there is no fever or chills no headache or dizziness no chest pain no shortness of breath no cough no nausea or vomiting no abdominal pain no diarrhea no blood in the stools no burning with urination no frequency or urgency no hematuria white blood count is still low at 2.2 to hemoglobin low at 6.5 and platelet low at 19,000 at this time will continue with current management awaiting further recommendation from hematology. On 01/04/2022 patient was seen and examined on the medical floor he is alert and oriented 3 in no apparent distress there is no fever or chills no headache or dizziness no chest pain no shortness of breath no cough no nausea or vomiting no abdominal pain no diarrhea no blood in the stools no burning with urination no frequency or urgency and no hematuria. Hemoglobin dropped again yesterday to 6.5 patient received 1 unit of red blood cells transfusion last night hemoglobin today is up to 7.6. On 01/05/2022 patient was seen and examined on the medical floor he is alert and oriented 3 in no apparent distress there is no fever or chills no headache or dizziness no chest pain no shortness of breath no cough no nausea or vomiting no abdominal pain no diarrhea and no urinary symptoms hemoglobin is down again to 6.71 unit of red blood cell transfusion was ordered, hematology following plan is for possible bone marrow biopsy tomorrow On 01/06/2022 patient was seen and examined on the medical floor he is alert and oriented in no distress there is no fever or chills no headache or dizziness no chest pain no shortness of breath no cough no nausea or vomiting no abdominal pain no diarrhea and no urinary symptoms hemoglobin is down again to 6.71 unit of red blood cell transfusion was ordered, hematology following plan is for possible bone marrow biopsy tomorrow On 01/07/2022 patient was seen and examined on the medical floor he is alert and oriented 3 in no apparent distress he underwent bone marrow biopsy this morning he was cleared by hematology to be discharged home. Case was discussed with infectious disease over the phone Dr. Jara recommended Ceftin 500 mg twice daily for 7 more days. Prescription given to patient. Patient should have a CBC done twice weekly on Mondays and , order for blood test was given to patient results will be forwarded to Dr. Pickard's office Follow-up was primary care physician within one week follow-up with oncology in 1-2 weeks Plan - Discharge Summary Discharge Rx Participant: Yes New Discharge Prescriptions: New cefUROXime axetiL [Cefuroxime] 500 mg PO BID 7 Days #14 tab Continue Flecainide Acetate [Tambocor] 100 mg PO Q12HR amLODIPine BES/OLMESARTAN MED [amLODIPine BES/OLMESARTAN MED 10-20 mg] 1 tab PO DAILY Metoprolol Succinate (ER) [Toprol XL] 25 mg PO DAILY Omeprazole 40 mg PO DAILY Cyanocobalamin (Vitamin B-12) [Vitamin B-12] 1,000 mcg PO DAILY Dicyclomine HCl 10 mg PO QID Loratadine [Claritin] 10 mg PO DAILY Albuterol Inhaler [Ventolin Hfa Inhaler] 2 puff INHALATION RT-QID PRN #8 gm PRN Reason: Shortness Of Breath Lubiprostone [Amitiza] 8 mcg PO BID HYDROcodone/APAP 7.5-325MG [[place] 7.5-325] 1 tab PO TID PRN PRN Reason: Pain Discontinued Apixaban [Eliquis] 5 mg PO BID Discharge Medication List Flecainide Acetate [Tambocor] 100 mg PO Q12HR 02/29/20 [History] amLODIPine BES/OLMESARTAN MED [amLODIPine BES/OLMESARTAN MED 10-20 mg] 1 tab PO DAILY 02/29/20 [History] Metoprolol Succinate (ER) [Toprol XL] 25 mg PO DAILY 05/29/21 [History] Omeprazole 40 mg PO DAILY 05/29/21 [History] Albuterol Inhaler [Ventolin Hfa Inhaler] 2 puff INHALATION RT-QID PRN #8 gm 06/02/21 [Rx] Cyanocobalamin (Vitamin B-12) [Vitamin B-12] 1,000 mcg PO DAILY 11/17/21 [History] Dicyclomine HCl 10 mg PO QID 11/17/21 [History] HYDROcodone/APAP 7.5-325MG [[place] 7.5-325] 1 tab PO TID PRN 11/17/21 [History] Loratadine [Claritin] 10 mg PO DAILY 11/17/21 [History] Lubiprostone [Amitiza] 8 mcg PO BID 11/17/21 [History] cefUROXime axetiL [Cefuroxime] 500 mg PO BID 7 Days #14 tab 01/07/22 [Rx] Follow up Appointment(s)/Referral(s): James Gilmore MD [Medical Doctor] - 01/20/22 2:15 pm Ludwin Pickard MD [STAFF PHYSICIAN] - 1 Week (office will call patient to schedule appt;) Cici Cordova MD [Primary Care Provider] - 01/14/22 11:00 am Bridgett Pitts MD [STAFF PHYSICIAN] - 3 Weeks (office will call patient when they have a cancellation to make apptl) Patient Instructions/Handouts: Cefuroxime (By mouth), Anemia (DC), Thrombocytopenia (DC), Bone Marrow Biopsy (DC), Pancytopenia (DC), Enlarged Spleen (GEN) Discharge Disposition: HOME SELF-CARE
--- NOTE | 2022-01-15 10:59 | CDI ---
Documentation Clarification Form Date: 01/13/2022 12:31:00 PM From: Melody Ramsey Admit Date: 12/29/2021 04:55:00 PM Patient Name: Bennie Estrada Visit Number: [id number] Discharge Date: 01/07/2022 01:50:00 PM ATTENTION: The Clinical Documentation Specialists (CDI) and [facility] Coding Staff appreciate your assistance in clarifying documentation. Please respond to the clarification below the line at the bottom and electronically sign. The CDI & [facility] Coding staff will review the response and follow-up if needed. Please note: Queries are made part of the Legal Health Record. If you have any questions, please contact the author of this message via ITS. Dr. Nelsy Zuniga The final diagnosis of the pathology report states Alert a diagnosis of malignancy Consistent with myelodysplastic syndrom with excess blast 2. Coding guidelines do not allow coding professionals to code based on pathology results; therefore, clarification is requested. History/risk factors: Pancytopenia. Alcohol abuse Treatment: Bone marrow biopsy Please clarify if you agree with the pathology report diagnosis of Myelodysplastic syndrome with excess blast 2: [ xxxx ] Yes [ ] No [ ] Other (please specify) [ ] Unable to determine MTDD
== END 2022-01-07 13:50 | disposition home or self-care (01) | DRG 811 ==
LOC: EC 14:04 → 5NMEDONC 16:55
PROVIDERS: ADMIT Internal Medicine; ATTEND Internal Medicine
PROC: 30233N1 Transfusion of Nonautologous Red Blood Cells into Peripheral Vein, Percutaneous Approach (ICD-10-PCS; 2021-12-29)
PROC: 079T3ZX Drainage of Bone Marrow, Percutaneous Approach, Diagnostic (ICD-10-PCS; principal; 2022-01-07 07:30)
PROC: 07DR3ZX Extraction of Iliac Bone Marrow, Percutaneous Approach, Diagnostic (ICD-10-PCS; principal; 2022-01-07 07:30)
DX: D46.9 Myelodysplastic syndrome, unspecified (principal); A41.9 Sepsis, unspecified organism; D61.818 Other pancytopenia; D68.9 Coagulation defect, unspecified; E87.2 Acidosis; K80.10 Calculus of gallbladder with chronic cholecystitis without obstruction; I10 Essential (primary) hypertension; I48.0 Paroxysmal atrial fibrillation; Z20.822 Contact with and (suspected) exposure to COVID-19; J44.9 Chronic obstructive pulmonary disease, unspecified; K57.30 Diverticulosis of large intestine without perforation or abscess without bleeding; G89.29 Other chronic pain; K59.00 Constipation, unspecified; F10.21 Alcohol dependence, in remission; Z86.010 Personal history of colon polyps; I45.10 Unspecified right bundle-branch block; K70.9 Alcoholic liver disease, unspecified; K21.9 Gastro-esophageal reflux disease without esophagitis; N40.0 Benign prostatic hyperplasia without lower urinary tract symptoms; K70.30 Alcoholic cirrhosis of liver without ascites; M54.2 Cervicalgia; M54.50 Low back pain, unspecified; Z28.310 Unvaccinated for COVID-19; R26.81 Unsteadiness on feet; Z87.01 Personal history of pneumonia (recurrent); Z79.01 Long term (current) use of anticoagulants; Z79.899 Other long term (current) drug therapy; Z87.891 Personal history of nicotine dependence
CPT/HCPCS: 36415; 38222; 70450; 71046; 74177; 80053; 81001; 82150; 82607; 82728; 82746; 83010; 83540; 83550; 83605; 83615; 83690; 83735; 84425; 85025; 85045; 85384; 85610; 85730; 86850; 86880; 86900; 86901; 86920; 87040; 87502; 87635; 93005; 93306; 96365; 96366; 99291

== ENCOUNTER 2022-03-21 13:17 | Emergency (ER) | payer MEDICARE, OTHER ==
[2022-03-21 14:59] LABS: MCH 32.5 pg (25.0-35.0); MCHC 35.1 g/dL (31.0-37.0); MCV 92.5 fL (80.0-100.0); RBC 2.07 m/uL (4.30-5.90); RDW 15.1 % (11.5-15.5)
[2022-03-21 15:18] LABS: HCT 19.1 % (39.0-53.0); HGB 6.7 gm/dL (13.0-17.5)
[2022-03-21 15:23] LABS: ALT 23 U/L (4-49); AST 20 U/L (17-59); African American GFR (CKD) >90 (>60 ml/min/1.73 sqM); Albumin 4.4 g/dL (3.5-5.0); Alkaline Phosphatase 70 U/L (38-126); Anion Gap 11 mmol/L; Blood Urea Nitrogen 19 mg/dL (9-20); Calcium 9.2 mg/dL (8.4-10.2); Carbon Dioxide 26 mmol/L (22-30); Chloride 101 mmol/L (98-107); Glucose 96 mg/dL (74-99); Non-African American GFR(CKD) >90 (>60 ml/min/1.73 sqM); Potassium 4.3 mmol/L (3.5-5.1); Sodium 138 mmol/L (137-145); Total Bilirubin 0.7 mg/dL (0.2-1.3)
[2022-03-21 15:25] LABS: Platelet Count 33 k/uL (150-450)
[2022-03-21 15:36] LABS: Eosinophils # (M) 0.99 k/uL (0-0.7); Lymphocytes # (M) 1.41 k/uL (1.0-4.8); Metamyelocytes # (M) 0.06 k/uL (0); Metamyelocytes % 2 %; Monocytes # (M) 0.03 k/uL (0-1.0); Neutrophils # (M) 0.51 k/uL (1.3-7.7); Neutrophils % (M) 17 %; Nucleated Red Blood Cells 0 /100 WBC (0-0); Total Cells Counted 100
--- NOTE | 2022-03-21 15:46 | ED ---
General Adult HPI - General Chief complaint: Recheck/Abnormal Lab/Rx Stated complaint: Abn Lab Time Seen by Provider: 03/21/22 13:40 Source: patient Mode of arrival: ambulatory Limitations: no limitations - History of Present Illness Initial comments: 66-year-old male with past history of myelodysplastic syndrome presents emergency department requesting lab draw. Reports that he has lab draws twice weekly and usually receives transfusions twice-weekly do to his myelodysplastic syndrome. He follows with Dr. Pickard and an oncologist at [facility] in [place]. Patient scheduled for bone marrow transplant later this month. Patient had lab draw on and his hemoglobin was 7.3. He did not require transfusion. He states that since his draw he has had increasing weakness, nausea, difficulty with ambulation. Patient concern for low hemoglobin at this time. He denies any active bleeding. No abnormal bruising. No alleviating, preciptating or modifying factors - Related Data Home Medications Medication Instructions Recorded Confirmed Flecainide Acetate [Tambocor] 100 mg PO Q12HR 02/29/20 03/24/22 amLODIPine BES/OLMESARTAN MED 1 tab PO DAILY 02/29/20 03/24/22 [amLODIPine BES/OLMESARTAN MED 10-20 mg] Omeprazole 40 mg PO DAILY 05/29/21 03/24/22 HYDROcodone/APAP 7.5-325MG [[place] 1 tab PO TID PRN 11/17/21 03/24/22 7.5-325] Loratadine [Claritin] 10 mg PO DAILY 11/17/21 03/24/22 Previous Rx's Medication Instructions Recorded Albuterol Inhaler [Ventolin Hfa 2 puff INHALATION RT-QID PRN #8 gm 06/02/21 Inhaler] Allergies Allergy/AdvReac Type Severity Reaction Status Date / Time ibuprofen [From Motrin] Allergy Unknown Verified 03/24/22 07:23 tree nut [Nut] AdvReac Unknown Verified 03/24/22 07:23 Review of Systems ROS Statement: Those systems with pertinent positive or pertinent negative responses have been documented in the HPI. ROS Other: All systems not noted in ROS Statement are negative. Past Medical History Past Medical History: Atrial Fibrillation, COPD, GERD/Reflux, Hypertension, Os teoarthritis (OA), Pneumonia Additional Past Medical History / Comment(s): Chronic LOWER & CERVIAL BACK PAIN, Diverticulitis. MDS-BLOOD TRANSFUSIONS. History of Any Multi-Drug Resistant Organisms: None Reported Past Surgical History: Cardiac Ablation, Heart Catheterization, Tonsillectomy Additional Past Surgical History / Comment(s): ORAL SURGERY, COLONOSCOPY, BACK - STEROID INJECTIONS,TIMMY, cardioversion Past Anesthesia/Blood Transfusion Reactions: No Reported Reaction Past Psychological History: No Psychological Hx Reported Smoking Status: Former smoker Past Alcohol Use History: None Reported Past Drug Use History: None Reported - Past Family History Mother Family Medical History: No Reported History General Exam Limitations: no limitations General appearance: alert, in no apparent distress Head exam: Present: atraumatic, normocephalic, normal inspection Eye exam: Present: normal appearance, PERRL, EOMI. Absent: scleral icterus, conjunctival injection, periorbital swelling ENT exam: Present: normal exam, mucous membranes moist Neck exam: Present: normal inspection. Absent: tenderness, meningismus, lymphadenopathy Respiratory exam: Present: normal lung sounds bilaterally. Absent: respiratory distress, wheezes, rales, rhonchi, stridor Cardiovascular Exam: Present: regular rate, normal rhythm, normal heart sounds. Absent: systolic murmur, diastolic murmur, rubs, gallop, clicks GI/Abdominal exam: Present: soft, normal bowel sounds. Absent: distended, te nderness, guarding, rebound, rigid Extremities exam: Present: normal inspection, full ROM, normal capillary refill. Absent: tenderness, pedal edema, joint swelling, calf tenderness Back exam: Present: normal inspection Neurological exam: Present: alert, oriented X3, CN II-XII intact Psychiatric exam: Present: normal affect, normal mood Skin exam: Present: warm, dry, intact, pallor. Absent: rash Course Vital Signs 03/21/22 03/21/22 03/21/22 13:28 16:49 17:00 Temperature 98.1 F 98.9 F Pulse Rate 68 60 59 L Respiratory 20 18 18 Rate Blood Pressure 150/68 118/48 118/51 O2 Sat by Pulse 97 99 100 Oximetry 03/21/22 03/21/22 17:20 18:33 Temperature 98.1 F 98.6 F Pulse Rate 65 80 Respiratory 18 18 Rate Blood Pressure 118/52 118/53 O2 Sat by Pulse 100 100 Oximetry Medical Decision Making - Medical Decision Making Upon arrival patient is placed in room 21. A thorough history and physical exam is performed. Laboratory studies are conducted. Hemoglobin 6.7. Patient will be transfused one unit of packed red blood cells. He is to follow-up at his regularly scheduled appointment on Tuesday and return for any new or worsening symptoms. Patient was discharged home in stable condition - Lab Data Result diagrams: 03/21/22 14:35 03/21/22 14:35 Lab Results 03/21/22 03/21/22 03/21/22 Range/Units 14:35 14:35 14:35 WBC 3.0 L (3.8-10.6) k/uL RBC 2.07 L (4.30-5.90) m/uL Hgb 6.7 L* (13.0-17.5) gm/dL Hct 19.1 L* (39.0-53.0) % MCV 92.5 (80.0-100.0) fL MCH 32.5 (25.0-35.0) pg MCHC 35.1 (31.0-37.0) g/dL RDW 15.1 (11.5-15.5) % Plt Count 33 L (150-450) k/uL MPV 9.0 Neutrophils % CREPE MAKER Neutrophils % (Manual) 17 % Lymphocytes % [employer]KER Lymphocytes % (Manual) 47 % Monocytes % CRE[employer]KER Monocytes % (Manual) 1 % Eosinophils % [employer]PE [employer]KER Eosinophils % (Manual) 33 % Basophils % CREPE MAKER Metamyelocytes % 2 % Neutrophils # CREPE MAKER Neutrophils # (Manual) 0.51 L (1.3-7.7) k/uL Lymphocytes # CREPE MAKER Lymphocytes # (Manual) 1.41 (1.0-4.8) k/uL Monocytes # CREPE MAKER Monocytes # (Manual) 0.03 (0-1.0) k/uL Eosinophils # CREPE MAKER Eosinophils # (Manual) 0.99 H (0-0.7) k/uL Basophils # CREPE MAKER Metamyelocytes # (Man) 0.06 H (0) k/uL Nucleated RBCs 0 (0-0) /100 WBC Manual Slide Review Performed Sodium 138 (137-145) mmol/L Potassium 4.3 (3.5-5.1) mmol/L Chloride 101 (98-107) mmol/L Carbon Dioxide 26 (22-30) mmol/L Anion Gap 11 mmol/L BUN 19 (9-20) mg/dL Creatinine 0.68 (0.66-1.25) mg/dL Est GFR (CKD-EPI)AfAm >90 (>60 ml/min/1.73 sqM) Est GFR (CKD-EPI)NonAf >90 (>60 ml/min/1.73 sqM) Glucose 96 (74-99) mg/dL Calcium 9.2 (8.4-10.2) mg/dL Total Bilirubin 0.7 (0.2-1.3) mg/dL AST 20 (17-59) U/L ALT 23 (4-49) U/L Alkaline Phosphatase 70 (38-126) U/L Total Protein 7.0 (6.3-8.2) g/dL Albumin 4.4 (3.5-5.0) g/dL Blood Type O Positive Blood Type Recheck O Pos Bld Type Recheck Status No Antibody Screen NEGATIVE Crossmatch See Detail Spec Expiration Date 03/24/20222334 Critical Care Time Critical Care Time: Yes Critical Care Time: 35 minutes for transfusion of blood products Disposition Clinical Impression: Myelodysplasia (myelodysplastic syndrome), Anemia Disposition: HOME SELF-CARE Condition: Stable Instructions (If sedation given, give patient instructions): Anemia (ED) Additional Instructions: Follow-up with the lab on Tuesday for your blood draw. Return for any new or worsening symptoms. Congratulations and good luck with your marrow transplant! Is patient prescribed a controlled substance at d/c from ED?: No Referrals: Cici Cordova MD [Primary Care Provider] - 1-2 days Time of Disposition: 15:46
[2022-03-21 16:52] VITALS: RESP 18
[2022-03-21 18:34] VITALS: BP 118/53; PULSE 80; TEMP 98.6
== END 2022-03-21 18:35 | disposition home or self-care (01) ==
LOC: EC 13:17
DX: D46.9 Myelodysplastic syndrome, unspecified (principal)
CPT/HCPCS: 36415; 86900; 86901; 80053; 85025; 86850; 86920; 99284; 36430; P9016; 99283

== ENCOUNTER 2022-11-14 22:19 | Inpatient (IN) | payer MEDICARE, OTHER ==
[2022-11-14] MEDS ORDERED: SODIUM CHLORIDE 0.9% 1,000 ML IV ONE (23:28)
[2022-11-14] MEDS ORDERED: PANTOPRAZOLE 40 MG/10 ML VIAL IVP STA (23:29)
--- NOTE | 2022-11-14 23:32 | ED ---
General Adult HPI - General Chief complaint: GI Bleed Stated complaint: GI Bleed Time Seen by Provider: 11/14/22 22:55 Source: patient, EMS Mode of arrival: EMS Limitations: no limitations - History of Present Illness Initial comments: Patient presents to the ED by ambulance for evaluation with his and son at bedside. Patient states that he has been constipated for the past couple of days, and he states that he was straining to have a bowel movement today. Patient states that he was having significant abdominal pain earlier today when he was attempting to have a bowel movement, but he states that his abdominal pain is currently very mild. Patient states that he was attempting to have a bowel movement about an hour and a half ago when he began to have rectal bleeding. Patient states that there was "bright blood dripping" out of his rec torie. Patient denies having a bowel movement at that time. Patient states that he had a small, non-bloody bowel movement yesterday. Patient is on Eliquis anticoagulation therapy due to atrial fibrillation. Patient denies trauma or injury, fever or chills, headache, chest pain or pressure, dyspnea, dizziness, back pain, nausea or vomiting, diarrhea, melena, dysuria/hematuria/urinary frequency/urinary symptoms, or any other symptoms or complaints. - Related Data Home Medications Medication Instructions Recorded Confirmed Flecainide Acetate [Tambocor] 100 mg PO Q12HR 02/29/20 03/24/22 amLODIPine BES/OLMESARTAN MED 1 tab PO DAILY 02/29/20 03/24/22 [amLODIPine BES/OLMESARTAN MED 10-20 mg] Omeprazole 40 mg PO DAILY 05/29/21 03/24/22 HYDROcodone/APAP 7.5-325MG [[place] 1 tab PO TID PRN 11/17/21 03/24/22 7.5-325] Loratadine [Claritin] 10 mg PO DAILY 11/17/21 03/24/22 Previous Rx's Medication Instructions Recorded Albuterol Inhaler [Ventolin Hfa 2 puff INHALATION RT-QID PRN #8 gm 06/02/21 Inhaler] Allergies Allergy/AdvReac Type Severity Reaction Status Date / Time ibuprofen [From Motrin] Allergy Unknown Verified 03/31/22 12:06 tree nut [Nut] AdvReac Unknown Verified 03/31/22 12:06 Review of Systems ROS Statement: Those systems with pertinent positive or pertinent negative responses have been documented in the HPI. ROS Other: All systems not noted in ROS Statement are negative. Past Medical History Past Medical History: Atrial Fibrillation, COPD, GERD/Reflux, Hypertension, Osteoarthritis (OA), Pneumonia Additional Past Medical History / Comment(s): Chronic LOWER & CERVIAL BACK PAIN, Diverticulitis. MDS-BLOOD TRANSFUSIONS. History of Any Multi-Drug Resistant Organisms: None Reported Past Surgical History: Cardiac Ablation, Heart Catheterization, Tonsillectomy Additional Past Surgical History / Comment(s): ORAL SURGERY, COLONOSCOPY, BACK - STEROID INJECTIONS,TIMMY, cardioversion Past Anesthesia/Blood Transfusion Reactions: No Reported Reaction Smoking Status: Former smoker - Past Family History Mother Family Medical History: No Reported History General Exam Limitations: no limitations General appearance: alert, in no apparent distress Head exam: Present: normocephalic Eye exam: Present: normal appearance ENT exam: Present: mucous membranes moist Respiratory exam: Present: normal lung sounds bilaterally. Absent: respiratory distress, wheezes, rales, rhonchi, stridor Cardiovascular Exam: Present: bradycardia, normal heart sounds, other (Normal radial pulses bilaterally) GI/Abdominal exam: Present: soft, normal bowel sounds, other (Patient has no abdominal tenderness on exam). Absent: distended, tenderness, guarding Rectal exam: Present: normal rectal tone, bloody stool, hemorrhoids. Absent: tenderness Extremities exam: Absent: pedal edema Neurological exam: Present: alert, oriented X3 Psychiatric exam: Present: normal affect, normal mood Skin exam: Present: warm, dry, intact, normal color Course Vital Signs 11/14/22 11/15/22 22:49 00:23 Temperature 98.2 F Pulse Rate 52 L 51 L Respiratory 18 16 Rate Blood Pressure 141/58 137/68 - Reevaluation(s) Reevaluation #1: 11/15/22 02:04 Case, H&P, test results and ED management thus far were discussed with Dr. Farooq (general surgery). He recommends admission to the medical service, and he states that he will see the patient in consultation for his GI bleeding. He has no further recommendations at this time. 11/15/22 02:06 Case, H&P, test results, ED management thus far and my discussion with Dr. Farooq as above were discussed with Dr. Zuniga. He accepts hospital admission. He has no further recommendations at this time. 11/15/22 02:12 Patient denies development of any new symptoms while in the ED. Patient remained hemodynamically stable. Patient's abdomen remains soft and nontender on exam. Patient and are aware of the patient's test results and my discussions as above. Patient agrees with hospital admission at this time. Medical Decision Making - Medical Decision Making Was pt. sent in by a medical professional or institution (, [facility], [facility], urgent care, hospital, or prison...) When possible be specific @ -No Did you speak to anyone other than the patient for history (EMS, parent, family, police, friend...)? What history was obtained from this source @ -No Did you review nursing and triage notes (agree or disagree)? Why? @ -I reviewed and agree with nursing and triage notes Were old charts reviewed (outside hosp., previous admission, EMS record, old EKG, old radiological studies, urgent care reports/EKG's, prison records)? Report findings @ -No old charts were reviewed Differential Diagnosis (chest pain, altered mental status, abdominal pain women, abdominal pain men, vaginal bleeding, weakness, fever, dyspnea, syncope, headache, dizziness, GI bleed, back pain, seizure, CVA, palpatations, mental health, musculoskeletal)? @ -Abdominal pain, GI bleed, diverticulosis, diverticulitis, colitis, enteritis, gastritis, PUD, coagulopathy, malignancy, AVM, anemia, thrombocytopenia, bowel obstruction, ischemic bowel, hemorrhoids EKG interpreted by me (3pts min.). @ -None done X-rays interpreted by me (1pt min.). @ -None done CT interpreted by me (1pt min.). @ -Patient's CT abdomen/pelvis with IV contrast was reviewed myself and shows findings of colitis. I agree with the radiologist's interpretation as above. U/S interpreted by me (1pt. min.). @ -None done What testing was considered but not performed or refused? (CT, X-rays, U/S, labs)? Why? @ -None What meds were considered but not given or refused? Why? @ -None Did you discuss the management of the patient with other professionals (professionals i.e. , [facility], [facility], lab, RT, psych nurse, social media marketing manager, early childhood lead teacher, teacher, deck officer, rehabilitation caseworker)? Give summary @ -As above Was smoking cessation discussed for >3mins.? @ -No Was critical care preformed (if so, how long)? @ -No Were there social determinants of health that impacted care today? How? (Homelessness, low income, unemployed, alcoholism, drug addiction, transportation, low edu. Level, literacy, decrease access to med. care, residential, rehab)? @ -No Was there de-escalation of care discussed even if they declined (Discuss DNR or withdrawal of care, Hospice)? DNR status @ -No What co-morbidities impacted this encounter? (DM, HTN, Smoking, COPD, CAD, Canc er, CVA, ARF, Chemo, Hep., AIDS, mental health diagnosis, sleep apnea, morbid obesity)? @ -Atrial fibrillation on Eliquis anticoagulation therapy Was patient admitted / discharged? Hospital course, mention meds given and route, prescriptions, significant lab abnormalities, going to OR and other pertinent info. @ -Patient has been hemodynamically stable while in the ED. Patient's hemoglobin is 10.1. Patient has not had any further GI bleeding while in the ED. Patient has a soft and nontender abdominal exam. Patient's CT abdomen/pelvis shows findings suggestive of colitis. Patient has been treated with IV fluids and IV Zosyn in the ED. Dr. Farooq (gen surg) was consulted from the ED. Dr. Zuniga has accepted hospital admission. Undiagnosed new problem with uncertain prognosis? @ -No Drug Therapy requiring intensive monitoring for toxicity (Heparin, Nitro, Insulin, Cardizem)? @ -No Were any procedures done? @ -No Diagnosis/symptom? @ -GI bleed Acute, or Chronic, or Acute on Chronic? @ -Acute Uncomplicated (without systemic symptoms) or Complicated (systemic symptoms)? @ -default Side effects of treatment? @ -No Exacerbation, Progression, or Severe Exacerbation? @ -No Poses a threat to life or bodily function? How? (Chest pain, USA, AR, pneumonia, PE, COPD, DKA, ARF, appy, cholecystitis, CVA, Diverticulitis, Homicidal, Suicidal, threat to staff... and all critical care pts) @ -Yes. Further bleeding/deterioration could lead to a threat to life. Diagnosis/symptom? @ -Colitis Acute, or Chronic, or Acute on Chronic? @ -Acute Uncomplicated (without systemic symptoms) or Complicated (systemic symptoms)? @ -default Side effects of treatment? @ -none Exacerbation, Progression, or Severe Exacerbation @ -no Poses a threat to life or bodily function? @ -no] - Lab Data Result diagrams: 11/14/22 23:08 11/14/22 23:13 Lab Results 11/14/22 11/14/22 11/14/22 Range/Units 23:08 23:08 23:08 WBC 4.2 (3.8-10.6) k/uL RBC 2.80 L (4.30-5.90) m/uL Hgb 10.1 L (13.0-17.5) gm/dL Hct 29.0 L (39.0-53.0) % MCV 103.6 H (80.0-100.0) fL MCH 35.9 H (25.0-35.0) pg MCHC 34.6 (31.0-37.0) g/dL RDW 13.2 (11.5-15.5) % Plt Count 123 L (150-450) k/uL MPV 7.6 Neutrophils % 53 % Lymphocytes % 34 % Monocytes % 8 % Eosinophils % 2 % Basophils % 0 % Neutrophils # 2.2 (1.3-7.7) k/uL Lymphocytes # 1.4 (1.0-4.8) k/uL Monocytes # 0.3 (0-1.0) k/uL Eosinophils # 0.1 (0-0.7) k/uL Basophils # 0.0 (0-0.2) k/uL Macrocytosis Slight PT (9.0-12.0) sec INR (<1.2) APTT (22.0-30.0) sec Sodium (137-145) mmol/L Potassium (3.5-5.1) mmol/L Chloride (98-107) mmol/L Carbon Dioxide (22-30) mmol/L Anion Gap mmol/L BUN (9-20) mg/dL Creatinine (0.66-1.25) mg/dL Est GFR (CKD-EPI)AfAm (>60 ml/min/1.73 sqM) Est GFR (CKD-EPI)NonAf (>60 ml/min/1.73 sqM) Glucose (74-99) mg/dL Calcium (8.4-10.2) mg/dL Total Bilirubin (0.2-1.3) mg/dL AST (17-59) U/L ALT (4-49) U/L Alkaline Phosphatase (38-126) U/L Total Protein (6.3-8.2) g/dL Albumin (3.5-5.0) g/dL Lipase (23-300) U/L Stool Occult Blood Positive (Negative) Blood Type O Positive Blood Type Recheck O Pos Bld Type Recheck Status No Antibody Screen NEGATIVE Spec Expiration Date 11/17/2022 - 230711/14/22 11/14/22 Range/Units 23:13 23:13 WBC (3.8-10.6) k/uL RBC (4.30-5.90) m/uL Hgb (13.0-17.5) gm/dL Hct (39.0-53.0) % MCV (80.0-100.0) fL MCH (25.0-35.0) pg MCHC (31.0-37.0) g/dL RDW (11.5-15.5) % Plt Count (150-450) k/uL MPV Neutrophils % % Lymphocytes % % Monocytes % % Eosinophils % % Basophils % % Neutrophils # (1.3-7.7) k/uL Lymphocytes # (1.0-4.8) k/uL Monocytes # (0-1.0) k/uL Eosinophils # (0-0.7) k/uL Basophils # (0-0.2) k/uL Macrocytosis PT 11.5 (9.0-12.0) sec INR 1.1 (<1.2) APTT 25.0 (22.0-30.0) sec Sodium 137 (137-145) mmol/L Potassium 3.6 (3.5-5.1) mmol/L Chloride 103 (98-107) mmol/L Carbon Dioxide 25 (22-30) mmol/L Anion Gap 9 mmol/L BUN 21 H (9-20) mg/dL Creatinine 0.60 L (0.66-1.25) mg/dL Est GFR (CKD-EPI)AfAm >90 (>60 ml/min/1.73 sqM) Est GFR (CKD-EPI)NonAf >90 (>60 ml/min/1.73 sqM) Glucose 140 H (74-99) mg/dL Calcium 8.8 (8.4-10.2) mg/dL Total Bilirubin 0.3 (0.2-1.3) mg/dL AST 23 (17-59) U/L ALT 20 (4-49) U/L Alkaline Phosphatase 64 (38-126) U/L Total Protein 6.2 L (6.3-8.2) g/dL Albumin 3.7 (3.5-5.0) g/dL Lipase 78 (23-300) U/L Stool Occult Blood (Negative) Blood Type Blood Type Recheck Bld Type Recheck Status Antibody Screen Spec Expiration Date - Radiology Data CT abdomen/pelvis with IV contrast: 1. Wall thickening of the sigmoid colon. Inflammatory or infectious etiology should be considered. 2. Diverticulosis 3. There is hyperdense material within predominantly the descending colon extending to the sigmoid colon. This finding could represent acute or subacute hemorrhage intermixed with stool. The appendix is unremarkable. 4. No bowel obstruction. 5. The gallbladder is unremarkable. 6. No renal calculus or hydronephrosis. Disposition Clinical Impression: GI bleed, Abdominal pain, Colitis Disposition: ADMITTED IP TO THIS HOSP Condition: Stable Is patient prescribed a controlled substance at d/c from ED?: No Referrals: Cici Cordova MD [Primary Care Provider] - 1-2 days Time of Disposition: 02:07
[2022-11-14 23:48] LABS: Basophils % (A) 0 %; Eosinophils # (A) 0.1 k/uL (0-0.7); Eosinophils % (A) 2 %; HGB 10.1 gm/dL (13.0-17.5); Lymphocytes # (A) 1.4 k/uL (1.0-4.8); Lymphocytes % (A) 34 %; MCH 35.9 pg (25.0-35.0); MCHC 34.6 g/dL (31.0-37.0); MCV 103.6 fL (80.0-100.0); Macrocytosis Slight; Mean Platelet Volume 7.6; Monocytes # (A) 0.3 k/uL (0-1.0); Monocytes % (A) 8 %; Neutrophils # (A) 2.2 k/uL (1.3-7.7); Neutrophils % (A) 53 %; Platelet Count 123 k/uL (150-450); RDW 13.2 % (11.5-15.5); WBC 4.2 k/uL (3.8-10.6)
[2022-11-14 23:52] LABS: INR 1.1 (<1.2); Prothrombin Time 11.5 sec (9.0-12.0)
[2022-11-14 23:53] LABS: ALT 20 U/L (4-49); AST 23 U/L (17-59); African American GFR (CKD) >90 (>60 ml/min/1.73 sqM); Albumin 3.7 g/dL (3.5-5.0); Alkaline Phosphatase 64 U/L (38-126); Anion Gap 9 mmol/L; Blood Urea Nitrogen 21 mg/dL (9-20); Calcium 8.8 mg/dL (8.4-10.2); Carbon Dioxide 25 mmol/L (22-30); Chloride 103 mmol/L (98-107); Glucose 140 mg/dL (74-99); Lipase 78 U/L (23-300); Non-African American GFR(CKD) >90 (>60 ml/min/1.73 sqM); Potassium 3.6 mmol/L (3.5-5.1); Sodium 137 mmol/L (137-145); Total Bilirubin 0.3 mg/dL (0.2-1.3); Total Protein 6.2 g/dL (6.3-8.2)
--- NOTE | 2022-11-15 01:58 | CT ---
EXAM: CT Abdomen and Pelvis With Intravenous Contrast CLINICAL HISTORY: ITS.REASON CT Reason: abdominal pain, GI bleeding TECHNIQUE: Axial computed tomography images of the abdomen and pelvis with intravenous contrast. CTDI is 18.5 mGy and DLP is 1037.4 mGy-cm. This CT exam was performed using one or more of the following dose reduction techniques: automated exposure control, adjustment of the mA and/or kV according to patient size, and/or use of iterative reconstruction technique. COMPARISON: 12/30/2021. FINDINGS: Lung bases: Scarring and subsegmental atelectasis noted at the lung bases. Heart: Heart is normal in size. ABDOMEN: Liver: The liver and the spleen enhance uniformly. Gallbladder and bile ducts: Unremarkable. No calcified stones. No ductal dilation. Pancreas: See below. Spleen: See above. Adrenals: The adrenal glands, the head, body, tail of the pancreas are unremarkable. Kidneys and ureters: Nonspecific stranding about the perinephric spaces without hydronephrosis. 1.5 cm simple cyst lower pole region of the left kidney. Stomach and bowel: There is hyperdense material within the descending colon which could represent are acute/subacute hemorrhage intermixed with stool. Clinical correlation is advised. Moderate quantity of ingested material in the stomach. Moderate quantity of stool throughout the colon. Consider constipation. Wall thickening of the sigmoid colon. Diverticulosis without diverticulitis. No obstruction. PELVIS: Appendix: The appendix is seen on coronal image 55 and is unremarkable. Bladder: Unremarkable. No mass. Reproductive: Mildly enlarged heterogeneous prostate gland. ABDOMEN and PELVIS: Intraperitoneal space: Unremarkable. No free air. No significant fluid collection. Bones/joints: Bilateral spondylolysis L5 vertebral body appeared. Grade 1 anterolisthesis of L5 upon S1 vertebral body. No acute fracture. No dislocation. Soft tissues: Ischiorectal fat is clean. Vasculature: The portal vein is patent. Atherosclerotic disease of the abdominal aorta extending to the common iliac arteries. Flow is noted within the celiac, SMA, the renal arteries, and DARRELL. No abdominal aortic aneurysm. Lymph nodes: Unremarkable. No retroperitoneal lymphadenopathy. IMPRESSION: 1. Wall thickening of the sigmoid colon. Inflammatory or infectious etiology should be considered. 2. Diverticulosis. 3. There is hyperdense material within predominantly the descending colon extending to the sigmoid colon. This finding could represent acute or subacute hemorrhage intermixed with stool. The appendix is unremarkable. 4. No bowel obstruction. 5. The gallbladder is unremarkable. 6. No renal calculus or hydronephrosis.
[2022-11-15] MEDS ORDERED: PIPERACILLIN-TAZOBACTAM 3.375 GM in SODIUM CHLORIDE 0.9% 100 ML IVPB STA (02:04)
[2022-11-15] MEDS ORDERED: NALOXONE 0.4 MG/ML 1 ML VIAL IV PRN (02:07)
[2022-11-15 02:46] LABS: Basophils % (A) 0 %; Eosinophils # (A) 0.1 k/uL (0-0.7); Eosinophils % (A) 2 %; HCT 31.4 % (39.0-53.0); HGB 10.7 gm/dL (13.0-17.5); Lymphocytes # (A) 1.9 k/uL (1.0-4.8); Lymphocytes % (A) 39 %; MCHC 34.1 g/dL (31.0-37.0); MCV 102.7 fL (80.0-100.0); Macrocytosis Slight; Mean Platelet Volume 7.9; Monocytes # (A) 0.4 k/uL (0-1.0); Monocytes % (A) 7 %; Neutrophils # (A) 2.3 k/uL (1.3-7.7); Neutrophils % (A) 49 %; Platelet Count 138 k/uL (150-450); RBC 3.06 m/uL (4.30-5.90); RDW 13.3 % (11.5-15.5); WBC 4.8 k/uL (3.8-10.6)
[2022-11-15 02:58] LABS: ALT 20 U/L (4-49); AST 22 U/L (17-59); African American GFR (CKD) >90 (>60 ml/min/1.73 sqM); Albumin 3.8 g/dL (3.5-5.0); Alkaline Phosphatase 71 U/L (38-126); Anion Gap 9 mmol/L; Blood Urea Nitrogen 17 mg/dL (9-20); Calcium 8.8 mg/dL (8.4-10.2); Carbon Dioxide 25 mmol/L (22-30); Chloride 105 mmol/L (98-107); Glucose 96 mg/dL (74-99); Non-African American GFR(CKD) >90 (>60 ml/min/1.73 sqM); Potassium 3.9 mmol/L (3.5-5.1); Sodium 139 mmol/L (137-145); Total Bilirubin 0.3 mg/dL (0.2-1.3); Total Protein 6.5 g/dL (6.3-8.2)
[2022-11-15] MEDS: SODIUM CHLORIDE 0.9% 1,000 ML IV SCH ×2 (03:37→17:15)
[2022-11-15] MEDS: HYDROmorphone 0.5 MG/0.5 ML SYRINGE IVP PRN ×4 (08:33→23:13)
[2022-11-15] MEDS ORDERED: ALBUTEROL NEBULIZED 2.5 MG/3 ML INHALATION PRN (09:23)
--- NOTE | 2022-11-15 09:44 | P.GSCN ---
History of Present Illness Consult date: 11/15/22 Reason for Consult: GI bleed History of present illness: This is a 67-year-old male who presented to the ER with complaints of abdominal pain and rectal bleeding. Patient's CAT scan suggestive of sigmoid colon colitis. There is also diverticulosis noted. Patient does take blood thinners. The patient states his pain is improved. He has some minimal left lower quadrant pain. He's had some bloody diarrhea. Past Medical History Past Medical History: Atrial Fibrillation, COPD, GERD/Reflux, Hypertension, Osteoarthritis (OA), Pneumonia Additional Past Medical History / Comment(s): Chronic LOWER & CERVIAL BACK PAIN, Diverticulitis. MDS-BLOOD TRANSFUSIONS. History of Any Multi-Drug Resistant Organisms: None Reported Past Surgical History: Cardiac Ablation, Heart Catheterization, Tonsillectomy Additional Past Surgical History / Comment(s): ORAL SURGERY, COLONOSCOPY, BACK - STEROID INJECTIONS,TIMMY, cardioversion Past Anesthesia/Blood Transfusion Reactions: No Reported Reaction Past Psychological History: No Psychological Hx Reported Smoking Status: Former smoker Past Alcohol Use History: None Reported Additional Past Alcohol Use History / Comment(s): STARTED SMOKING AT AGE 16 QUIT AT AGE 50 SMOKED 1PPD, quit drinking Nov 17 2021, patient was drinking a pint per day, has not drink since Past Drug Use History: None Reported - Past Family History Mother Family Medical History: No Reported History Medications and Allergies Home Medications Medication Instructions Recorded Confirmed Type Flecainide Acetate [Tambocor] 100 mg PO Q12HR 02/29/20 11/15/22 History Omeprazole 40 mg PO BID 05/29/21 11/15/22 History Albuterol Inhaler [Ventolin Hfa 2 puff INHALATION RT-QID PRN #8 gm 06/02/21 11/15/22 Rx Inhaler] Loratadine [Claritin] 10 mg PO DAILY 11/17/21 11/15/22 History Acyclovir PO BID 11/15/22 History Apixaban [Eliquis] 5 mg PO BID 11/15/22 11/15/22 History Olmesartan [Benicar] PO DAILY 11/15/22 History Allergies Allergy/AdvReac Type Severity Reaction Status Date / Time ibuprofen [From Motrin] Allergy Unknown Verified 03/31/22 12:06 tree nut [Nut] AdvReac Unknown Verified 03/31/22 12:06 Surgical - Exam Vital Signs Temp Pulse Resp BP 98.2 F 52 L 18 141/58 11/14/22 22:49 11/14/22 22:49 11/14/22 22:49 11/14/22 22:49 - General well developed, well nourished, no distress - Eyes PERRL - ENT normal pinna - Neck no masses - Respiratory normal expansion - Cardiovascular Rhythm: regular - Abdomen Mild tenderness left lower quadrant. No rebound or guarding. Abdomen: soft Results - Labs 11/15/22 02:41 11/15/22 02:41 Abnormal Lab Results - Last 24 Hours (Table) 11/14/22 11/14/22 11/15/22 Range/Units 23:08 23:13 02:41 RBC 2.80 L 3.06 L (4.30-5.90) m/uL Hgb 10.1 L 10.7 L (13.0-17.5) gm/dL Hct 29.0 L 31.4 L (39.0-53.0) % MCV 103.6 H 102.7 H (80.0-100.0) fL MCH 35.9 H (25.0-35.0) pg Plt Count 123 L 138 L (150-450) k/uL BUN 21 H (9-20) mg/dL Creatinine 0.60 L (0.66-1.25) mg/dL Glucose 140 H (74-99) mg/dL Total Protein 6.2 L (6.3-8.2) g/dL 11/15/22 Range/Units 02:41 RBC (4.30-5.90) m/uL Hgb (13.0-17.5) gm/dL Hct (39.0-53.0) % MCV (80.0-100.0) fL MCH (25.0-35.0) pg Plt Count (150-450) k/uL BUN (9-20) mg/dL Creatinine 0.61 L (0.66-1.25) mg/dL Glucose (74-99) mg/dL Total Protein (6.3-8.2) g/dL Diabetes panel 11/14/22 11/15/22 Range/Units 23:13 02:41 Sodium 137 139 (137-145) mmol/L Potassium 3.6 3.9 (3.5-5.1) mmol/L Chloride 103 105 (98-107) mmol/L Carbon Dioxide 25 25 (22-30) mmol/L BUN 21 H 17 (9-20) mg/dL Creatinine 0.60 L 0.61 L (0.66-1.25) mg/dL Glucose 140 H 96 (74-99) mg/dL Calcium 8.8 8.8 (8.4-10.2) mg/dL AST 23 22 (17-59) U/L ALT 20 20 (4-49) U/L Alkaline Phosphatase 64 71 (38-126) U/L Total Protein 6.2 L 6.5 (6.3-8.2) g/dL Albumin 3.7 3.8 (3.5-5.0) g/dL Calcium panel 11/14/22 11/15/22 Range/Units 23:13 02:41 Calcium 8.8 8.8 (8.4-10.2) mg/dL Albumin 3.7 3.8 (3.5-5.0) g/dL Pituitary panel 11/14/22 11/15/22 Range/Units 23:13 02:41 Sodium 137 139 (137-145) mmol/L Potassium 3.6 3.9 (3.5-5.1) mmol/L Chloride 103 105 (98-107) mmol/L Carbon Dioxide 25 25 (22-30) mmol/L BUN 21 H 17 (9-20) mg/dL Creatinine 0.60 L 0.61 L (0.66-1.25) mg/dL Glucose 140 H 96 (74-99) mg/dL Calcium 8.8 8.8 (8.4-10.2) mg/dL Adrenal panel 11/14/22 11/15/22 Range/Units 23:13 02:41 Sodium 137 139 (137-145) mmol/L Potassium 3.6 3.9 (3.5-5.1) mmol/L Chloride 103 105 (98-107) mmol/L Carbon Dioxide 25 25 (22-30) mmol/L BUN 21 H 17 (9-20) mg/dL Creatinine 0.60 L 0.61 L (0.66-1.25) mg/dL Glucose 140 H 96 (74-99) mg/dL Calcium 8.8 8.8 (8.4-10.2) mg/dL Total Bilirubin 0.3 0.3 (0.2-1.3) mg/dL AST 23 22 (17-59) U/L ALT 20 20 (4-49) U/L Alkaline Phosphatase 64 71 (38-126) U/L Total Protein 6.2 L 6.5 (6.3-8.2) g/dL Albumin 3.7 3.8 (3.5-5.0) g/dL - Imaging CT scan - abdomen: report reviewed (Sigmoid colitis) Assessment and Plan Assessment: GI bleed related to sigmoid colitis. Patient received medical management. He will need a colonoscopy at some point. His antiplatelet therapy will be held.
[2022-11-15] MEDS: FLECAINIDE 50 MG TAB PO SCH ×2 (09:52→20:09)
--- NOTE | 2022-11-15 09:56 | P.HPIM ---
History of Present Illness H&P Date: 11/15/22 Bennie Estrada, is a 67-year-old male who presented to [facility] emergency room with a chief complaint of abdominal pain constipation and rectal bleeding. He was evaluated in the emergency room vital examination on presentation revealed a temperature of 98.2 pulse 52 respiration 18 and blood pressure 141/58 pulse ox 98% on room air Laboratory data revealed a white blood count of 4.2 hemoglobin 10.1 platelet count 123 BUN 21 creatinine 0.6 Testing in the emergency room revealed computed tomography scan of the abdomen and pelvis was done in the emergency room and revealed evidence of wall thickening of the sigmoid colon Patient was admitted to medical floor for further evaluation and treatment. Past medical history is significant for history of hypertension history of par oxysmal atrial fibrillation, previous history of excessive alcohol abuse, history of admission with sepsis 1 year ago, history of myelodysplastic syndrome with pancytopenia diagnosed on bone marrow biopsy last April, previous history of smoking, history of COPD maintained on albuterol inhaler On review of systems patient is alert and oriented 3 in no apparent distress he is still having episodes of rectal bleeding and some lower abdominal discomfort otherwise he denies any complaints at this time there is no fever or chills no headache or dizziness no chest pain no shortness of breath no cough no nausea or vomiting no burning with urination no frequency or urgency and no hematuria Past Medical History Past Medical History: Atrial Fibrillation, COPD, GERD/Reflux, Hypertension, Osteoarthritis (OA), Pneumonia Additional Past Medical History / Comment(s): Chronic LOWER & CERVIAL BACK PAIN, Diverticulitis. MDS-BLOOD TRANSFUSIONS. History of Any Multi-Drug Resistant Organisms: None Reported Past Surgical History: Cardiac Ablation, Heart Catheterization, Tonsillectomy Additional Past Surgical History / Comment(s): ORAL SURGERY, COLONOSCOPY, BACK - STEROID INJECTIONS,TIMMY, cardioversion Past Anesthesia/Blood Transfusion Reactions: No Reported Reaction Past Psychological History: No Psychological Hx Reported Smoking Status: Former smoker Past Alcohol Use History: None Reported Additional Past Alcohol Use History / Comment(s): STARTED SMOKING AT AGE 16 QUIT AT AGE 50 SMOKED 1PPD, quit drinking Nov 17 2021, patient was drinking a pint per day, has not drink since Past Drug Use History: None Reported - Past Family History Mother Family Medical History: No Reported History Medications and Allergies Home Medications Medication Instructions Recorded Confirmed Type Flecainide Acetate [Tambocor] 100 mg PO Q12HR 02/29/20 11/15/22 History Omeprazole 40 mg PO BID 05/29/21 11/15/22 History Albuterol Inhaler [Ventolin Hfa 2 puff INHALATION RT-QID PRN #8 gm 06/02/21 11/15/22 Rx Inhaler] Loratadine [Claritin] 10 mg PO DAILY 11/17/21 11/15/22 History Acyclovir PO BID 11/15/22 History Apixaban [Eliquis] 5 mg PO BID 11/15/22 11/15/22 History Olmesartan [Benicar] PO DAILY 11/15/22 History Allergies Allergy/AdvReac Type Severity Reaction Status Date / Time ibuprofen [From Motrin] Allergy Unknown Verified 03/31/22 12:06 tree nut [Nut] AdvReac Unknown Verified 03/31/22 12:06 Physical Exam Vitals: Vital Signs Temp Pulse Pulse Resp BP BP Pulse Ox 11/15/22 04:34 98.1 F 53 L 19 157/77 98 11/15/22 02:35 50 L 16 151/74 98 11/15/22 00:23 51 L 16 137/68 11/14/22 22:49 98.2 F 52 L 18 141/58 Intake and Output 11/14/22 11/15/22 11/15/22 22:59 06:59 14:59 Intake Total 200 Balance 200 Intake: Oral 200 Other: # Voids 1 Weight 75.296 kg 75.296 kg In general patient is alert and oriented x 3 in no distress HEENT head normocephalic and atraumatic Neck is supple no JVD no goiter no lymphadenopathy no carotid bruit Chest examination is clear to auscultation no crackles no wheezing Cardiac exam reveals regular heart sounds S1 and S2 no gallops no murmurs Abdomen is soft with bilateral lower quadrants abdominal pain no organomegaly with normal bowel sounds Extremity exam reveals no edema no cyanosis or clubbing Neurological examination reveals no gross focal deficits Results CBC & Chem 7: 11/15/22 02:41 11/15/22 02:41 Labs: Abnormal Lab Results - Last 24 Hours (Table) 11/14/22 11/14/22 11/15/22 Range/Units 23:08 23:13 02:41 RBC 2.80 L 3.06 L (4.30-5.90) m/uL Hgb 10.1 L 10.7 L (13.0-17.5) gm/dL Hct 29.0 L 31.4 L (39.0-53.0) % MCV 103.6 H 102.7 H (80.0-100.0) fL MCH 35.9 H (25.0-35.0) pg Plt Count 123 L 138 L (150-450) k/uL BUN 21 H (9-20) mg/dL Creatinine 0.60 L (0.66-1.25) mg/dL Glucose 140 H (74-99) mg/dL Total Protein 6.2 L (6.3-8.2) g/dL 11/15/22 Range/Units 02:41 RBC (4.30-5.90) m/uL Hgb (13.0-17.5) gm/dL Hct (39.0-53.0) % MCV (80.0-100.0) fL MCH (25.0-35.0) pg Plt Count (150-450) k/uL BUN (9-20) mg/dL Creatinine 0.61 L (0.66-1.25) mg/dL Glucose (74-99) mg/dL Total Protein (6.3-8.2) g/dL Thrombosis Risk Factor Assmnt - Choose All That Apply Each Factor Represents 1 point: Abnormal pulmonary function (COPD) Each Risk Factor Represents 2 Points: Age 61-74 years Thrombosis Risk Factor Assessment Total Risk Factor Score: 3 Thrombosis Risk Factor Assessment Level: Moderate Risk Assessment and Plan Plan: Rectal bleeding Abdominal pain with constipation Wall thickening of the sigmoid colon suggestive of acute colitis etiology could be infectious or inflammatory Underlying history of hypertension Underlying history of hyperlipidemia History of mild COPD maintained on albuterol inhaler Underlying history of paroxysmal atrial fibrillation History of myelodysplastic syndrome with pancytopenia diagnosed on bone marrow biopsy last April Previous history of excessive alcohol use Previous history of tobacco abuse patient quit 20 years ago At this time patient is admitted to medical floor Home medications reviewed and reordered, will hold anticoagulation at this time do not bleeding Surgical consultation was requested Patient was given 1 dose of IV Zosyn in the emergency room, at this time there is no evidence of acute bacterial infection, no need to continue antibiotics, will monitor closely For DVT prophylaxis we will use SCD stockings Will follow closely
[2022-11-15] MEDS: PANTOPRAZOLE 40 MG TABLET PO SCH (17:15)
[2022-11-15] MEDS: SULFAMETHOX-TMP 400-80MG 1 EACH TAB PO SCH (22:13)
[2022-11-15] MEDS: ACYCLOVIR 800 MG TAB PO SCH (22:13)
[2022-11-16] MEDS: HYDROmorphone 0.5 MG/0.5 ML SYRINGE IVP PRN ×5 (02:03→21:18)
[2022-11-16] MEDS: SODIUM CHLORIDE 0.9% 1,000 ML IV SCH ×2 (02:05→15:46)
[2022-11-16] MEDS: PANTOPRAZOLE 40 MG TABLET PO SCH ×2 (06:33→17:18)
[2022-11-16] MEDS: LORATADINE 10 MG TAB PO SCH (08:17)
[2022-11-16] MEDS: ACYCLOVIR 800 MG TAB PO SCH ×2 (08:17→21:19)
[2022-11-16] MEDS: FLECAINIDE 50 MG TAB PO SCH ×2 (08:17→21:19)
[2022-11-16] MEDS: SULFAMETHOX-TMP 400-80MG 1 EACH TAB PO SCH (08:17)
[2022-11-16 10:54] LABS: HCT 32.3 % (39.6-50.0); HGB 10.4 g/dL (13.0-17.0); MCHC 32.2 g/dL (32.0-37.0); MCV 105.6 fL (80.0-97.0); Mean Platelet Volume 10.3 fL (9.5-12.2); NRBC Per 100 WBC 0 /100 WBCS (0.0-0.0); Platelet Count 144 X 10*3/uL (140-440); RBC 3.06 X 10*6/uL (4.40-5.60); RDW 13.3 % (11.5-14.5); WBC 4.15 X 10*3/uL (4.50-10.00)
[2022-11-16 11:23] LABS: African American GFR (CKD) 111.6 (60.0-200.0); Albumin 4.2 g/dL (3.8-4.9); Albumin/Globulin Ratio 2.1 (1.60-3.17); Anion Gap 11.4 mmol/L (10.00-18.00); BUN/Creat Ratio 10.43 Ratio (12.00-20.00); Blood Urea Nitrogen 7.3 mg/dL (9.0-27.0); Calcium 9.3 mg/dL (8.7-10.3); Carbon Dioxide 26.6 mmol/L (20.0-27.5); Non-African American GFR(CKD) 96.3 (60.0-200.0); Potassium 3.7 mmol/L (3.5-5.5); Total Bilirubin 0.3 mg/dL (0.30-1.20); Total Protein 6.2 g/dL (6.2-8.2)
[2022-11-16 11:26] LABS: Basophils # (A) 0.02 X 10*3/uL (0.00-0.10); Basophils % (A) 0.5 %; Eosinophils % (A) 2.4 %; Immature Grans, Automated 0 %; Lymphocytes # (A) 1.83 X 10*3/uL (0.90-5.00); Lymphocytes % (A) 44.1 %; Monocytes % (A) 9.6 %; Neutrophils % (A) 43.4 %
--- NOTE | 2022-11-16 14:17 | P.PN ---
Subjective Progress Note Date: 11/16/22 CHIEF COMPLAINT: Abdominal pain and rectal bleeding HISTORY OF PRESENT ILLNESS: Patient complains of left lower quadrant intermittent abdominal pain. He did a small amount of blood after passing gas 2 times yesterday. He had no blood noted in the stool. He denies any nausea or vomiting. Stool for occult blood is positive. Hemoglobin is staying stable at 10.4 WBC is 4.5 patient also followed by oncology service with history of MDS. Patient currently tolerating clear liquid diet. Afebrile. Patient has history of diverticulitis Patient seen and examined with Dr. pedro PHYSICAL EXAM: VITAL SIGNS: Reviewed. GENERAL: Well-developed in no acute distress. ABDOMEN: Soft. Nondistended. Tenderness to palpation left lower quadrant NEUROLOGIC: Alert and oriented. Cranial nerves II through XII grossly intact. ASSESSMENT: 1. Acute GI bleed secondary to sigmoid colitis or possible diverticulitis PLAN: -Start IV antibiotics -Continue to monitor hemoglobin -Continue monitor for any signs or symptoms of bleeding -Continue to hold anticoagulation -Patient will require colonoscopy Physician Rag Washer note has been reviewed by physician. Signing provider agrees with the documented findings, assessment, and plan of care. Objective - Vital Signs Vital signs: Vital Signs Temp 97.9 F 11/16/22 07:30 Pulse 52 L 11/16/22 07:30 Resp 17 11/16/22 07:30 BP 128/65 11/16/22 07:30 Pulse Ox 96 11/16/22 07:30 FiO2 Intake & Output 11/15/22 11/16/22 11/16/22 18:59 06:59 18:59 Intake Total 1785 Balance 1785 Intake: Intake, IV Titration 825 Amount Sodium Chloride 0.9% 1, 825 000 ml @ 75 mls/hr IV . [id number] [facility] Rx#:[id number] Oral 960 Other: Voiding Method Toilet # Voids 1 3 # Bowel Movements 1 2 - Labs CBC & Chem 7: 11/16/22 06:57 11/16/22 06:57 Labs: Abnormal Lab Results - Last 24 Hours (Table) 11/16/22 11/16/22 Range/Units 06:57 06:57 WBC 4.15 L (4.50-10.00) X 10*3/uL RBC 3.06 L (4.40-5.60) X 10*6/uL Hgb 10.4 L (13.0-17.0) g/dL Hct 32.3 L (39.6-50.0) % MCV 105.6 H (80.0-97.0) fL MCH 34.0 H (27.0-32.0) pg BUN 7.3 L (9.0-27.0) mg/dL BUN/Creatinine Ratio 10.43 L (12.00-20.00) Ratio
[2022-11-16] MEDS: PIPERACILLIN-TAZOBACTAM 3.375 GM in SODIUM CHLORIDE 0.9% 100 ML IVPB SCH (15:47)
--- NOTE | 2022-11-16 16:57 | P.CONS ---
History of Present Illness - Reason for Consult Consult date: 11/16/22 hx MDS Requesting physician: Nelsy Zuniga - Chief Complaint GI bleed - History of Present Illness Patient is a 67-year-old male with a history of MDS and atrial fibrillation anticoagulated with eliquis. He is a patient of Dr. Pickard, but has not had f/u in clinic since 03/11. Patient underwent a bone marrow aspiration and biopsy on 01/07/22. 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 The patient was referred [facility], and completed two cycles of Vidaza on 02/2022. He then established care with Dr. 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 He was on tacrolimus, but was taken off in 08/2022. He continues on prophylactic bactrim and acyclovir Patient presented to the emergency room with worsening of lower quadrant abdominal pain and wilfrido blood in stool. Patient has history of GI bleed requiring blood transfusions. Patient reports less GI bleed was in 2019. Patient reports of the last couple months she's been having experiencing constipation and intermittent abdominal pain. Patient also reports nausea. Denies vomiting and diarrhea. Patient states since admission he's had 3 bloody bowel movements. Stool occult positive. He reports improvement in left lower quadrant pain. Upon admission CT abdomen and pelvis revealed wall thickening of the sigmoid colon. Inflammatory versus infectious etiology should be considered. Diverticulosis. Hypodense material within predominantly the descending colon extending into the sigmoid colon. No bowel obstruction. Patient has been started on Zosyn. Eliquis has been held. Surgery consulted. Hemoglobin stable, 10.4, WBC 4.1, platelets 144,000. Review of Systems 10 point ROS is negative except as stated in the HPI Past Medical History Past Medical History: Atrial Fibrillation, COPD, GERD/Reflux, Hypertension, Osteoarthritis (OA), Pneumonia Additional Past Medical History / Comment(s): Chronic LOWER & CERVIAL BACK PAIN, Diverticulitis. MDS-BLOOD TRANSFUSIONS. History of Any Multi-Drug Resistant Organisms: None Reported Past Surgical History: Cardiac Ablation, Heart Catheterization, Tonsillectomy Additional Past Surgical History / Comment(s): ORAL SURGERY, COLONOSCOPY, BACK - STEROID INJECTIONS,TIMMY, cardioversion Past Anesthesia/Blood Transfusion Reactions: No Reported Reaction Past Psychological History: No Psychological Hx Reported Smoking Status: Former smoker Past Alcohol Use History: None Reported Additional Past Alcohol Use History / Comment(s): STARTED SMOKING AT AGE 16 QUIT AT AGE 50 SMOKED 1PPD, quit drinking Nov 17 2021, patient was drinking a pint per day, has not drink since Past Drug Use History: None Reported - Past Family History Mother Family Medical History: No Reported History Medications and Allergies Home Medications Medication Instructions Recorded Confirmed Type Flecainide Acetate [Tambocor] 100 mg PO Q12HR 02/29/20 11/15/22 History Omeprazole 40 mg PO BID 05/29/21 11/15/22 History Albuterol Inhaler [Ventolin Hfa 2 puff INHALATION RT-QID PRN #8 gm 06/02/21 11/15/22 Rx Inhaler] Loratadine [Claritin] 10 mg PO DAILY 11/17/21 11/15/22 History Acyclovir 800 mg PO BID 11/15/22 11/15/22 History Apixaban [Eliquis] 5 mg PO BID 11/15/22 11/15/22 History Olmesartan [Benicar] 20 mg PO DAILY 11/15/22 11/15/22 History Sulfamethox-Tmp 400-80Mg [Bactrim 1 tab PO DAILY 11/15/22 11/15/22 History SS 400-80 mg] ondansetron HCL [Zofran] 8 mg PO TID PRN 11/15/22 11/15/22 History oxyCODONE HCL [oxyCODONE HCL (IR)] 15 mg PO Q6H PRN 11/15/22 11/15/22 History Allergies Allergy/AdvReac Type Severity Reaction Status Date / Time ibuprofen [From Motrin] Allergy Unknown Verified 11/15/22 14:45 tree nut [Nut] AdvReac Unknown Verified 11/15/22 14:45 Physical Exam Vitals: Vital Signs Temp Pulse Pulse Resp BP Pulse Ox 11/16/22 07:30 97.9 F 52 L 17 128/65 96 11/16/22 01:08 98.2 F 56 L 16 137/56 99 11/15/22 20:00 53 L 16 11/15/22 19:43 98.1 F 48 L 16 147/71 97 11/15/22 14:28 97.7 F 51 L 18 159/78 100 Intake and Output 11/15/22 11/16/22 11/16/22 22:59 06:59 14:59 Intake Total 1785 Balance 1785 Intake: Intake, IV Titration 825 Amount Sodium Chloride 0.9% 1, 825 000 ml @ 75 mls/hr IV . [id number] [facility] Rx#:[id number] Oral 960 Other: Voiding Method Toilet # Voids 3 # Bowel Movements 2 - Constitutional General appearance: average body habitus, no acute distress - EENT Eyes: anicteric sclerae, EOMI ENT: hearing grossly normal - Neck Neck: no lymphadenopathy - Respiratory Respiratory: bilateral: CTA - Cardiovascular Rhythm: regular Heart sounds: normal: S1, S2 Abnormal Heart Sounds: no systolic murmur, no diastolic murmur, no rub, no S3 Gallop, no S4 Gallop, no click, no other - Gastrointestinal General gastrointestinal: no distended, soft, tenderness Localized gastrointestinal: tender: LLQ - Integumentary Integumentary: no cyanotic, no rash - Neurologic Neurologic: CNII-XII intact - Musculoskeletal Musculoskeletal: strength equal bilaterally - Psychiatric Psychiatric: A&O x's 3, appropriate affect, intact judgment & insight Results CBC & Chem 7: 11/16/22 06:57 11/16/22 06:57 CT scan - abdomen: report reviewed CT scan - pelvis: report reviewed Assessment and Plan (1) MDS (myelodysplastic syndrome) Current Visit: Yes Status: Acute Priority: High Code(s): D46.9 - MYELODYSPLASTIC SYNDROME, UNSPECIFIED SNOMED Code(s): 945735896 (2) Colitis Current Visit: Yes Status: Acute Priority: High Code(s): K52.9 - NONINFECTIVE GASTROENTERITIS AND COLITIS, UNSPECIFIED SNOMED Code(s): 27228019 (3) GI bleed Current Visit: Yes Status: Acute Priority: High Code(s): K92.2 - GASTROINTESTINAL HEMORRHAGE, UNSPECIFIED SNOMED Code(s): 22508011 (4) Anemia Current Visit: Yes Status: Acute Priority: High Code(s): D64.9 - ANEMIA, UNSPECIFIED SNOMED Code(s): 730053567 Plan: MDS: -History of MDS. Patient underwent a bone marrow aspiration and biopsy on 01/07/22. 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 -He is a patient of Dr. Pickard, but has not had f/u in clinic since 03/11. The patient was started on Vidaza and was referred [facility]. He completed two cycles of Vidaza in 02/2022. He then established care with Dr. 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 He was on tacrolimus, but was taken off in 08/2022. He continues on prophylactic bactrim and acyclovir Anemia/GI bleed: -Hx of GI bleed -Having persistent hematochezia over the last 2-3 days. Stool occult positive -Hemoglobin stable, 10.4, platelets 144,000 -Anemia workup ordered -General surgery consulted. Plan for colonoscopy. Eliquis has been held -Please transfuse for hemoglobin less than 7, irradiated blood products only Colitis: -CT AP revealed wall thickening of the sigmoid colon. Inflammatory versus infectious etiology. -Patient started on zosyn. Clear liquid diet -Defer medical management to IM/surgery attests: I have performed H&P and developed impression and plan of care for patient, discussed with dictator. I agree with dictated note, documented as a scribe
--- NOTE | 2022-11-16 17:21 | P.PN ---
Subjective Progress Note Date: 11/16/22 Bennie Estrada, is a 67-year-old male who presented to [facility] emergency room with a chief complaint of abdominal pain constipation and rectal bleeding. He was evaluated in the emergency room vital examination on presentation revealed a temperature of 98.2 pulse 52 respiration 18 and blood pressure 141/58 pulse ox 98% on room air Laboratory data revealed a white blood count of 4.2 hemoglobin 10.1 platelet count 123 BUN 21 creatinine 0.6 Testing in the emergency room revealed computed tomography scan of the abdomen and pelvis was done in the emergency room and revealed evidence of wall thickening of the sigmoid colon Patient was admitted to medical floor for further evaluation and treatment. Past medical history is significant for history of hypertension history of paroxysmal atrial fibrillation, previous history of excessive alcohol abuse, history of admission with sepsis 1 year ago, history of myelodysplastic syndrome with pancytopenia diagnosed on bone marrow biopsy last April, previous history of smoking, history of COPD maintained on albuterol inhaler On review of systems patient is alert and oriented 3 in no apparent distress he is still having episodes of rectal bleeding and some lower abdominal discomfort otherwise he denies any complaints at this time there is no fever or chills no headache or dizziness no chest pain no shortness of breath no cough no nausea or vomiting no burning with urination no frequency or urgency and no hematuria On 11/16/2022 patient was seen and examined on the medical floor he is alert and oriented 3 in no apparent distress he is still having abdominal discomfort and rectal bleeding otherwise he denies any complaints there is no fever or chills no headache or dizziness no chest pain no shortness of breath no cough no nausea or vomiting and no urinary symptoms today white blood count is 4.15 hemoglobin 10.4 and platelet count 144 Objective - Vital Signs Vital signs: Vital Signs Temp 97.9 F 11/16/22 07:30 Pulse 52 L 11/16/22 07:30 Resp 17 11/16/22 07:30 BP 128/65 11/16/22 07:30 Pulse Ox 96 11/16/22 07:30 FiO2 Intake & Output 11/15/22 11/16/22 11/16/22 18:59 06:59 18:59 Intake Total 1785 Balance 1785 Intake: Intake, IV Titration 825 Amount Sodium Chloride 0.9% 1, 825 000 ml @ 75 mls/hr IV . [id number] [facility] Rx#:[id number] Oral 960 Other: Voiding Method Toilet # Voids 1 3 # Bowel Movements 1 2 - Exam In general patient is alert and oriented x 3 in no distress HEENT head normocephalic and atraumatic Neck is supple no JVD no goiter no lymphadenopathy no carotid bruit Chest examination is clear to auscultation no crackles no wheezing Cardiac exam reveals regular heart sounds S1 and S2 no gallops no murmurs Abdomen is soft with bilateral lower quadrants abdominal pain no organomegaly with normal bowel sounds Extremity exam reveals no edema no cyanosis or clubbing Neurological examination reveals no gross focal deficits - Labs CBC & Chem 7: 11/16/22 06:57 11/16/22 06:57 Assessment and Plan Plan: Rectal bleeding Abdominal pain with constipation Wall thickening of the sigmoid colon suggestive of acute colitis etiology could be infectious or inflammatory Underlying history of hypertension Underlying history of hyperlipidemia History of mild COPD maintained on albuterol inhaler Underlying history of paroxysmal atrial fibrillation History of myelodysplastic syndrome with pancytopenia diagnosed on bone marrow biopsy last April Previous history of excessive alcohol use Previous history of tobacco abuse patient quit 20 years ago At this time patient is admitted to medical floor Home medications reviewed and reordered, will hold anticoagulation at this time do not bleeding Surgical consultation was requested Patient was given 1 dose of IV Zosyn in the emergency room, at this time there is no evidence of acute bacterial infection, no need to continue antibiotics, will monitor closely For DVT prophylaxis we will use SCD stockings Will follow closely
[2022-11-17] MEDS: HYDROmorphone 0.5 MG/0.5 ML SYRINGE IVP PRN ×7 (00:18→23:39)
[2022-11-17] MEDS: PIPERACILLIN-TAZOBACTAM 3.375 GM in SODIUM CHLORIDE 0.9% 100 ML IVPB SCH ×4 (00:19→23:40)
[2022-11-17 04:03] LABS: % Iron Saturation 19.92 (15.00-50.00)
[2022-11-17] MEDS: PANTOPRAZOLE 40 MG TABLET PO SCH ×2 (06:53→17:01)
[2022-11-17] MEDS: SODIUM CHLORIDE 0.9% 1,000 ML IV SCH ×2 (08:51→23:40)
[2022-11-17] MEDS: LORATADINE 10 MG TAB PO SCH (09:30)
[2022-11-17] MEDS: ACYCLOVIR 800 MG TAB PO SCH ×2 (09:30→20:24)
[2022-11-17] MEDS: SULFAMETHOX-TMP 400-80MG 1 EACH TAB PO SCH (09:30)
[2022-11-17] MEDS: FLECAINIDE 50 MG TAB PO SCH ×2 (09:31→20:24)
--- NOTE | 2022-11-17 09:56 | P.PN ---
Subjective Progress Note Date: 11/17/22 Bennie Estrada, is a 67-year-old male who presented to [facility] emergency room with a chief complaint of abdominal pain constipation and rectal bleeding. He was evaluated in the emergency room vital examination on presentation revealed a temperature of 98.2 pulse 52 respiration 18 and blood pressure 141/58 pulse ox 98% on room air Laboratory data revealed a white blood count of 4.2 hemoglobin 10.1 platelet count 123 BUN 21 creatinine 0.6 Testing in the emergency room revealed computed tomography scan of the abdomen and pelvis was done in the emergency room and revealed evidence of wall thickening of the sigmoid colon Patient was admitted to medical floor for further evaluation and treatment. Past medical history is significant for history of hypertension history of paroxysmal atrial fibrillation, previous history of excessive alcohol abuse, history of admission with sepsis 1 year ago, history of myelodysplastic syndrome with pancytopenia diagnosed on bone marrow biopsy last April, previous history of smoking, history of COPD maintained on albuterol inhaler On review of systems patient is alert and oriented 3 in no apparent distress he is still having episodes of rectal bleeding and some lower abdominal discomfort otherwise he denies any complaints at this time there is no fever or chills no headache or dizziness no chest pain no shortness of breath no cough no nausea or vomiting no burning with urination no frequency or urgency and no hematuria On 11/16/2022 patient was seen and examined on the medical floor he is alert and oriented 3 in no apparent distress he is still having abdominal discomfort and rectal bleeding otherwise he denies any complaints there is no fever or chills no headache or dizziness no chest pain no shortness of breath no cough no nausea or vomiting and no urinary symptoms today white blood count is 4.15 hemoglobin 10.4 and platelet count 144 On 11/17/2022 patient is alert and oriented 3. Patient maintained on clear liquid diet and IV Zosyn. Patient reports no further episode of diarrhea. Patient denies any nausea or vomiting. Patient denies any urinary burning or frequency. Surgical services are following. Lab work currently pending. Patient denies any chest pain or shortness breath Objective - Vital Signs Vital signs: Vital Signs Temp 98.0 F 11/17/22 07:15 Pulse 44 L 11/17/22 07:15 Resp 15 11/17/22 07:15 BP 125/68 11/17/22 07:15 Pulse Ox 98 11/17/22 07:15 FiO2 Intake & Output 11/16/22 11/17/22 11/17/22 18:59 06:59 18:59 Other: # Voids 4 3 - Exam In general patient is alert and oriented x 3 in no distress HEENT head normocephalic and atraumatic Neck is supple no JVD no goiter no lymphadenopathy no carotid bruit Chest examination is clear to auscultation no crackles no wheezing Cardiac exam reveals regular heart sounds S1 and S2 no gallops no murmurs Abdomen is soft with bilateral lower quadrants abdominal pain no organomegaly with normal bowel sounds Extremity exam reveals no edema no cyanosis or clubbing Neurological examination reveals no gross focal deficits - Labs CBC & Chem 7: 11/16/22 06:57 11/16/22 06:57 Labs: Abnormal Lab Results - Last 24 Hours (Table) 11/16/22 11/16/22 11/16/22 Range/Units 06:57 06:57 16:46 WBC 4.15 L (4.50-10.00) X 10*3/uL RBC 3.06 L (4.40-5.60) X 10*6/uL Hgb 10.4 L (13.0-17.0) g/dL Hct 32.3 L (39.6-50.0) % MCV 105.6 H (80.0-97.0) fL MCH 34.0 H (27.0-32.0) pg BUN 7.3 L (9.0-27.0) mg/dL BUN/Creatinine Ratio 10.43 L (12.00-20.00) Ratio Iron 57 L (65-175) ug/dL Ferritin 1373.0 H (22.0-322.0) ng/mL Assessment and Plan Plan: Rectal bleeding Abdominal pain with constipation Wall thickening of the sigmoid colon suggestive of acute colitis etiology could be infectious or inflammatory Underlying history of hypertension Underlying history of hyperlipidemia History of mild COPD maintained on albuterol inhaler Underlying history of paroxysmal atrial fibrillation History of myelodysplastic syndrome with pancytopenia diagnosed on bone marrow biopsy last April Previous history of excessive alcohol use Previous history of tobacco abuse patient quit 20 years ago At this time patient is admitted to medical floor Home medications reviewed and reordered, will hold anticoagulation at this time do not bleeding Surgical consultation was requested Patient maintained on IV Zosyn For DVT prophylaxis we will use SCD stockings Will follow closely
--- NOTE | 2022-11-17 13:12 | P.PN ---
Subjective Progress Note Date: 11/17/22 Principal diagnosis: mds, gi bleed At today's visit patient resting comfortably in bed. Patient denies any bleeding episodes over the last 24 hours. Patient is reporting lower back and hip pain which is chronic in nature. Reports significant improvement in abdominal pain. Patient continues on Zosyn. He is tolerating clear liquid diet, plan to transition to full liquid diet today. Patient denies nausea vomiting diarrhea. Objective - Vital Signs Vital signs: Vital Signs Temp 98.0 F 11/17/22 07:15 Pulse 44 L 11/17/22 07:15 Resp 15 11/17/22 07:15 BP 125/68 11/17/22 07:15 Pulse Ox 98 11/17/22 07:15 FiO2 Intake & Output 11/16/22 11/17/22 11/17/22 18:59 06:59 18:59 Other: # Voids 4 3 - Constitutional General appearance: Present: average body habitus, no acute distress - EENT Eyes: Present: anicteric sclerae, EOMI ENT: Present: hearing grossly normal - Respiratory Details: breathing is even and unlabored - Cardiovascular Details: skin warm and dry - Integumentary Integumentary: Absent: cyanotic, rash - Neurologic Neurologic Comment(s): grossly intact - Musculoskeletal Musculoskeletal: Present: strength equal bilaterally - Psychiatric Psychiatric: Present: A&O x's 3, appropriate affect, intact judgment & insight - Labs CBC & Chem 7: 11/16/22 06:57 11/16/22 06:57 Labs: Abnormal Lab Results - Last 24 Hours (Table) 11/16/22 Range/Units 16:46 Iron 57 L (65-175) ug/dL Ferritin 1373.0 H (22.0-322.0) ng/mL Assessment and Plan (1) MDS (myelodysplastic syndrome) Current Visit: Yes Status: Acute Priority: High Code(s): D46.9 - MYELODYSPLASTIC SYNDROME, UNSPECIFIED SNOMED Code(s): 521817604 (2) Colitis Current Visit: Yes Status: Acute Priority: High Code(s): K52.9 - NONINFECTIVE GASTROENTERITIS AND COLITIS, UNSPECIFIED SNOMED Code(s): 60014595 (3) GI bleed Current Visit: Yes Status: Acute Priority: High Code(s): K92.2 - GASTROINTESTINAL HEMORRHAGE, UNSPECIFIED SNOMED Code(s): 05088627 (4) Anemia Current Visit: Yes Status: Acute Priority: High Code(s): D64.9 - ANEMIA, UNSPECIFIED SNOMED Code(s): 414370093 Plan: MDS: -History of MDS. Patient underwent a bone marrow aspiration and biopsy on 01/07/22. 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 -He is a patient of Dr. Pickard, but has not had f/u in clinic since 03/11. The vinny ent was started on Vidaza and was referred [facility]. He completed two cycles of Vidaza in 02/2022. He then established care with Dr. 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 He was on tacrolimus, but was taken off in 08/2022. He continues on prophylactic bactrim and acyclovir Anemia/GI bleed: -Hx of GI bleed -Having persistent hematochezia over the last 2-3 days. Stool occult positive. No bleeding episodes over last 24 hrs. Eliquis has been held due to GI bleed -Hemoglobin stable, 10.4, platelets 144,000 -Iron studies not consistent with JESUS. Folate and vitamin B12 normal -General surgery consulted. Plan to continue zosyn and transition to oral abx for discharge. Plan for colonoscopy in outpatient setting. -Please transfuse for hemoglobin less than 7, irradiated blood products only Colitis: -CT AP revealed wall thickening of the sigmoid colon. Inflammatory versus infectious etiology. -Continues on zosyn. Tolerating oral intake, transition to full liquid diet today. -Defer medical management to IM/surgery
[2022-11-17 14:01] LABS: HCT 29.7 % (39.6-50.0); HGB 9.5 g/dL (13.0-17.0); MCH 33.7 pg (27.0-32.0); MCV 105.3 fL (80.0-97.0); Mean Platelet Volume 10.7 fL (9.5-12.2); NRBC Per 100 WBC 0 /100 WBCS (0.0-0.0); Platelet Count 121 X 10*3/uL (140-440); RBC 2.82 X 10*6/uL (4.40-5.60); RDW 13.1 % (11.5-14.5); WBC 4.07 X 10*3/uL (4.50-10.00)
--- NOTE | 2022-11-17 14:50 | P.PN ---
Subjective Progress Note Date: 11/17/22 CHIEF COMPLAINT: Abdominal pain and rectal bleeding HISTORY OF PRESENT ILLNESS: Patient reports improvement in his abdominal pain. Denies any nausea or vomiting. He's had no further blood in his stools. Last bowel movement was yesterday morning and stool is brown. Afebrile. WBC 4.07 Hgb 9.5 platelets 121 iron 57. Diet was advanced to full's for lunch Patient seen and examined with Dr. pedro PHYSICAL EXAM: VITAL SIGNS: Reviewed. GENERAL: Well-developed in no acute distress. ABDOMEN: Soft. Nondistended. Nontender NEUROLOGIC: Alert and oriented. Cranial nerves II through XII grossly intact. ASSESSMENT: 1. Acute GI bleed secondary to sigmoid colitis or possible diverticulitis PLAN: -Advance diet to regular -Continue antibiotics -Continue to monitor hemoglobin -Continue monitor for any signs or symptoms of bleeding -Continue to hold anticoagulation -Patient will eventually require colonoscopy Physician Precast Concrete Ironworker note has been reviewed by physician. Signing provider agrees with the documented findings, assessment, and plan of care. Objective - Vital Signs Vital signs: Vital Signs Temp 98.0 F 11/17/22 07:15 Pulse 44 L 11/17/22 07:15 Resp 15 11/17/22 07:15 BP 125/68 11/17/22 07:15 Pulse Ox 98 11/17/22 07:15 FiO2 Intake & Output 11/16/22 11/17/22 11/17/22 18:59 06:59 18:59 Other: # Voids 4 3 - Labs CBC & Chem 7: 11/17/22 05:44 11/16/22 06:57 Labs: Abnormal Lab Results - Last 24 Hours (Table) 11/16/22 11/17/22 Range/Units 16:46 05:44 WBC 4.07 L (4.50-10.00) X 10*3/uL RBC 2.82 L (4.40-5.60) X 10*6/uL Hgb 9.5 L (13.0-17.0) g/dL Hct 29.7 L (39.6-50.0) % MCV 105.3 H (80.0-97.0) fL MCH 33.7 H (27.0-32.0) pg Plt Count 121 L (140-440) X 10*3/uL Iron 57 L (65-175) ug/dL Ferritin 1373.0 H (22.0-322.0) ng/mL
[2022-11-17 15:08] LABS: Methylmalonic Acid 0.13 umol/L (<0.40)
[2022-11-18] MEDS: HYDROmorphone 0.5 MG/0.5 ML SYRINGE IVP PRN ×3 (02:49→10:05)
[2022-11-18] MEDS: PANTOPRAZOLE 40 MG TABLET PO SCH (05:52)
[2022-11-18 07:57] VITALS: BP 133/67; PULSE 53; RESP 15; TEMP 97.7
[2022-11-18] MEDS: ACYCLOVIR 800 MG TAB PO SCH (08:02)
[2022-11-18] MEDS: SULFAMETHOX-TMP 400-80MG 1 EACH TAB PO SCH (08:02)
[2022-11-18] MEDS: FLECAINIDE 50 MG TAB PO SCH (08:02)
[2022-11-18] MEDS: LORATADINE 10 MG TAB PO SCH (08:02)
[2022-11-18] MEDS: PIPERACILLIN-TAZOBACTAM 3.375 GM in SODIUM CHLORIDE 0.9% 100 ML IVPB SCH (08:03)
[2022-11-18 10:53] LABS: HCT 28.2 % (39.6-50.0); MCH 33.7 pg (27.0-32.0); MCHC 31.9 g/dL (32.0-37.0); MCV 105.6 fL (80.0-97.0); Mean Platelet Volume 10.7 fL (9.5-12.2); NRBC Per 100 WBC 0 /100 WBCS (0.0-0.0); Platelet Count 105 X 10*3/uL (140-440); RBC 2.67 X 10*6/uL (4.40-5.60); RDW 13.2 % (11.5-14.5); WBC 3.95 X 10*3/uL (4.50-10.00)
--- NOTE | 2022-11-18 13:01 | P.PN ---
Subjective Progress Note Date: 11/18/22 CHIEF COMPLAINT: Abdominal pain and rectal bleeding HISTORY OF PRESENT ILLNESS: Patient's abdominal pain has improved. He's had no further bleeding per rectum. He is tolerating regular diet. He is having bowel movements and flatus. Denies any nausea or vomiting. Afebrile. Hemoglobin did have a slight drop from 9.5-9. Patient seen and examined with Dr. pedro PHYSICAL EXAM: VITAL SIGNS: Reviewed. GENERAL: Well-developed in no acute distress. ABDOMEN: Soft. Nondistended. Mild discomfort with palpation left lower quadrant NEUROLOGIC: Alert and oriented. Cranial nerves II through XII grossly intact. ASSESSMENT: 1. Acute GI bleed secondary to sigmoid colitis or possible diverticulitis PLAN: -Patient can be discharged from surgical standpoint with outpatient follow-up -Recommend colonoscopy outpatient -Recommend to continue oral antibiotics at discharge Physician Staging Technician note has been reviewed by physician. Signing provider agrees with the documented findings, assessment, and plan of care. Objective - Vital Signs Vital signs: Vital Signs Temp 97.7 F 11/18/22 07:53 Pulse 53 L 11/18/22 07:53 Resp 15 11/18/22 07:53 BP 133/67 11/18/22 07:53 Pulse Ox 97 11/18/22 07:53 FiO2 Intake & Output 11/17/22 11/18/22 11/18/22 18:59 06:59 18:59 Other: Voiding Method Toilet Toilet # Voids 4 3 - Labs CBC & Chem 7: 11/18/22 06:45 11/16/22 06:57 Labs: Abnormal Lab Results - Last 24 Hours (Table) 11/17/22 11/18/22 Range/Units 05:44 06:45 WBC 4.07 L 3.95 L (4.50-10.00) X 10*3/uL RBC 2.82 L 2.67 L (4.40-5.60) X 10*6/uL Hgb 9.5 L 9.0 L (13.0-17.0) g/dL Hct 29.7 L 28.2 L (39.6-50.0) % MCV 105.3 H 105.6 H (80.0-97.0) fL MCH 33.7 H 33.7 H (27.0-32.0) pg MCHC 31.9 L (32.0-37.0) g/dL Plt Count 121 L 105 L (140-440) X 10*3/uL
--- NOTE | 2022-11-18 17:29 | P.DS ---
Providers Date of admission: 11/15/22 02:09 Expected date of discharge: 11/18/22 Attending physician: Nelsy Zuniga Consults: 11/15/22 02:07 Consult Physician Urgent Consulting Provider: Kendall Farooq Consult Reason/Comments: Lower GI bleed, colitis Do you want consulting provider notified?: Already Contacted 11/15/22 22:15 Consult Physician Routine Consulting Provider: Ludwin Pickard Consult Reason/Comments: Hx: MDS, consult for medication verification Do you want consulting provider notified?: Yes, Notify in am Primary care physician: Cici Cordova [facility] Course: Diagnosis on discharge: Rectal bleeding Abdominal pain with constipation Wall thickening of the sigmoid colon suggestive of acute colitis etiology could be infectious or inflammatory Underlying history of hypertension Underlying history of hyperlipidemia History of mild COPD maintained on albuterol inhaler Underlying history of paroxysmal atrial fibrillation History of myelodysplastic syndrome with pancytopenia diagnosed on bone marrow biopsy last April Previous history of excessive alcohol use Previous history of tobacco abuse patient quit 20 years ago Hospital course: Bennie Estrada, is a 67-year-old male who presented to [facility] emergency room with a chief complaint of abdominal pain constipation and rectal bleeding. He was evaluated in the emergency room vital examination on presentation revealed a temperature of 98.2 pulse 52 respiration 18 and blood pressure 141/58 pulse ox 98% on room air Laboratory data revealed a white blood count of 4.2 hemoglobin 10.1 platelet count 123 BUN 21 creatinine 0.6 Testing in the emergency room revealed computed tomography scan of the abdomen and pelvis was done in the emergency room and revealed evidence of wall thickening of the sigmoid colon Patient was admitted to medical floor for further evaluation and treatment. Past medical history is significant for history of hypertension history of paroxysmal atrial fibrillation, previous history of excessive alcohol abuse, history of admission with sepsis 1 year ago, history of myelodysplastic syndrome with pancytopenia diagnosed on bone marrow biopsy last April, previous history of smoking, history of COPD maintained on albuterol inhaler On review of systems patient is alert and oriented 3 in no apparent distress he is still having episodes of rectal bleeding and some lower abdominal discomfort otherwise he denies any complaints at this time there is no fever or chills no headache or dizziness no chest pain no shortness of breath no cough no nausea or vomiting no burning with urination no frequency or urgency and no hematuria On 11/16/2022 patient was seen and examined on the medical floor he is alert and oriented 3 in no apparent distress he is still having abdominal discomfort and rectal bleeding otherwise he denies any complaints there is no fever or chills no headache or dizziness no chest pain no shortness of breath no cough no nausea or vomiting and no urinary symptoms today white blood count is 4.15 hemoglobin 10.4 and platelet count 144 On 11/17/2022 patient is alert and oriented 3. Patient maintained on clear liquid diet and IV Zosyn. Patient reports no further episode of diarrhea. Patient denies any nausea or vomiting. Patient denies any urinary burning or frequency. Surgical services are following. Lab work currently pending. Patient denies any chest pain or shortness breath On 11/18/2022 patient was seen and examined on the medical floor he is alert and oriented 3 in no apparent distress he reports improvement in his abdominal discomfort, and no further episodes of diarrhea or rectal bleeding, patient was evaluated by general surgery, and was cleared for discharge on oral antibiotics, at this time patient was given a prescription for Augmentin 875 mg twice daily, he was discharged home, he will resume taking anticoagulation, he was instructed to stop Eliquis if having any new episodes of rectal bleeding, he will follow-up with general surgery as outpatient for further evaluation and for colonoscopy. Patient Condition at Discharge: Stable Plan - Discharge Summary Discharge Rx Participant: No New Discharge Prescriptions: New Amoxic-Pot Clav 875-125Mg [Augmentin 875-125] 1 tab PO Q12HR 7 Days #14 tab Docusate [Colace] 100 mg PO BID 30 Days #60 capsule Continue Flecainide Acetate [Tambocor] 100 mg PO Q12HR Omeprazole 40 mg PO BID Loratadine [Claritin] 10 mg PO DAILY Apixaban [Eliquis] 5 mg PO BID Olmesartan [Benicar] 20 mg PO DAILY Acyclovir 800 mg PO BID Sulfamethox-Tmp 400-80Mg [Bactrim SS 400-80 mg] 1 tab PO DAILY Albuterol Inhaler [Ventolin Hfa Inhaler] 2 puff INHALATION RT-QID PRN #8 gm PRN Reason: Shortness Of Breath oxyCODONE HCL [oxyCODONE HCL (IR)] 15 mg PO Q6H PRN PRN Reason: Pain ondansetron HCL [Zofran] 8 mg PO TID PRN PRN Reason: Nausea Discharge Medication List Flecainide Acetate [Tambocor] 100 mg PO Q12HR 02/29/20 [History] Omeprazole 40 mg PO BID 05/29/21 [History] Albuterol Inhaler [Ventolin Hfa Inhaler] 2 puff INHALATION RT-QID PRN #8 gm 06/02/21 [Rx] Loratadine [Claritin] 10 mg PO DAILY 11/17/21 [History] Acyclovir 800 mg PO BID 11/15/22 [History] Apixaban [Eliquis] 5 mg PO BID 11/15/22 [History] Olmesartan [Benicar] 20 mg PO DAILY 11/15/22 [History] Sulfamethox-Tmp 400-80Mg [Bactrim SS 400-80 mg] 1 tab PO DAILY 11/15/22 [History] ondansetron HCL [Zofran] 8 mg PO TID PRN 11/15/22 [History] oxyCODONE HCL [oxyCODONE HCL (IR)] 15 mg PO Q6H PRN 11/15/22 [History] Amoxic-Pot Clav 875-125Mg [Augmentin 875-125] 1 tab PO Q12HR 7 Days #14 tab 11/18/22 [Rx] Docusate [Colace] 100 mg PO BID 30 Days #60 capsule 11/18/22 [Rx] Follow up Appointment(s)/Referral(s): Cici Cordova MD [Primary Care Provider] - 1-2 days Kendall Farooq MD [STAFF PHYSICIAN] - 1 Week Patient Instructions/Handouts: Gastrointestinal Bleeding (DC) Discharge Disposition: HOME SELF-CARE
== END 2022-11-18 14:24 | disposition home or self-care (01) | DRG 392 ==
LOC: EC 22:19 → 4SSUR 11-15 02:09
PROVIDERS: ADMIT Internal Medicine; ATTEND Internal Medicine
DX: A09 Infectious gastroenteritis and colitis, unspecified (principal); D61.818 Other pancytopenia; D46.22 Refractory anemia with excess of blasts 2; Z94.84 Stem cells transplant status; N17.9 Acute kidney failure, unspecified; E78.5 Hyperlipidemia, unspecified; K21.9 Gastro-esophageal reflux disease without esophagitis; I10 Essential (primary) hypertension; Z28.311 Partially vaccinated for COVID-19; Z87.891 Personal history of nicotine dependence; Z88.6 Allergy status to analgesic agent; Z91.018 Allergy to other foods; M19.90 Unspecified osteoarthritis, unspecified site; K57.90 Diverticulosis of intestine, part unspecified, without perforation or abscess without bleeding; K59.00 Constipation, unspecified; M54.2 Cervicalgia; I48.0 Paroxysmal atrial fibrillation; J44.9 Chronic obstructive pulmonary disease, unspecified; Z87.01 Personal history of pneumonia (recurrent); Z79.01 Long term (current) use of anticoagulants; Z79.899 Other long term (current) drug therapy
CPT/HCPCS: 36415; 74177; 80053; 82272; 82525; 82607; 82728; 82746; 83540; 83550; 83690; 83921; 85025; 85027; 85610; 85730; 86850; 86900; 86901; 96361; 96374; 96375; 99285

== ENCOUNTER 2022-12-13 12:37 | Day surgery (SDC) | payer MEDICARE, OTHER ==
[2022-12-09 10:14] VITALS: BMI 23.8
[~2022-12-13 12:37] MED LIST changes: -LIDOCAINE 1% (10MG/ML) FOR IV START INTRADERMA PRN
[2022-12-13 13:17] VITALS: TEMP 97
[2022-12-13] MEDS ORDERED: LACTATED RINGERS 1,000 ML IV ONE (13:24)
[2022-12-13] MEDS ORDERED: PROPOFOL 10 MG/ML 20 ML VIAL IV ONE (14:31)
--- NOTE | 2022-12-13 14:45 | P.OP ---
Date of Procedure: 12/13/22 Preoperative Diagnosis: diverticulitis Postoperative Diagnosis: diverticulitis Procedure(s) Performed: colonoscopy Anesthesia: DEN Surgeon: Kendall Farooq Pathology: none sent Condition: stable Disposition: PACU Description of Procedure: the patient's placed on the endoscopy table in the lateral position. She received IV sedation. The digital rectal exam was performed which revealed external hemorrhoids. The flexible colonoscope was then placed patient anus and passed throughout the colon. Scope was passed beyond the sigmoid colon sigmoid tortuosity of the bowel due to diverticulitis. This point scope withdrawn. Visualized rectum appeared normal. Scope withdrawn for patient. Patient was scheduled for a barium enema to the colon.
[2022-12-13 15:15] VITALS: BP 151/64; PULSE 48; RESP 16
== END 2022-12-13 16:30 | disposition home or self-care (01) ==
LOC: ORWHC2ENDO 12:37
PROVIDERS: ATTEND Surgery
DX: K57.32 Diverticulitis of large intestine without perforation or abscess without bleeding (principal); K56.2 Volvulus; K64.4 Residual hemorrhoidal skin tags; I48.91 Unspecified atrial fibrillation; J44.9 Chronic obstructive pulmonary disease, unspecified; K21.9 Gastro-esophageal reflux disease without esophagitis; I10 Essential (primary) hypertension; M19.90 Unspecified osteoarthritis, unspecified site; Z90.89 Acquired absence of other organs; Z87.891 Personal history of nicotine dependence; Z79.899 Other long term (current) drug therapy
CPT/HCPCS: 45330

== ENCOUNTER → 2022-12-14 | Outpatient (CLI) | payer MEDICARE, OTHER ==
--- NOTE | 2022-12-14 20:32 | FL ---
EXAMINATION TYPE: FL barium enema w air contrast DATE OF EXAM: 12/14/2022 COMPARISON: Most recent CT November 15, 2022 HISTORY: Failed colonoscopy yesterday. History of hemorrhoids and myelodysplastic syndrome currently in remission. TECHNIQUE: A double contrast barium enema study is performed. A total of 3 minutes 39 seconds of fl uoroscopic time was utilized during procedure and 24 images obtained. Total dose area product (DAP) in uGy*m?, mGy*cm? (or similar): 3228.86. FINDINGS: Medical Lab Scientist view of the abdomen shows overall non-obstructive bowel gas pattern. There is dense successful filling of the colon to the cecum. Exam is noted suboptimal as there is red undant sigmoid colon and there is fairly extensive leak of barium throughout the study. Diverticulosi s is identified throughout the colon greatest in prominence in the sigmoid colon. No obstructing or c onstricting neoplasm is seen. Appendix was filled and appeared normal. The terminal ileum was not refluxed. IMPRESSION: Suboptimal study without obstructing or constricting neoplasm in the colon identified.
== END | disposition home or self-care (01) ==
LOC: RADFLMAIN 10:03
PROVIDERS: ATTEND Surgery
DX: Z53.9 Procedure and treatment not carried out, unspecified reason (principal)
CPT/HCPCS: 74280

== ENCOUNTER → 2023-01-18 | Outpatient (CLI) | payer MEDICARE, OTHER ==
[2023-01-18 21:57] LABS: HCT 33.7 % (39.6-50.0); HGB 10.8 d/dL (13.0-17.0); MCH 33.8 pg (27.0-32.0); MCV 105.3 FL (80.0-97.0); Mean Platelet Volume 10.9 FL (9.5-12.2); NRBC Per 100 WBC 0 X 10*3/uL (0.00-0.01); Platelet Count 161 X 10*3/uL (140-440)
[2023-01-18 22:01] LABS: Anion Gap 9.8 mmol/L (4.00-12.00); Carbon Dioxide 29.2 mmol/L (21.6-31.8); Potassium 4.1 mmol/L (3.5-5.5)
[2023-01-18 22:28] LABS: Basophils # (A) 0.03 X 10*3/uL (0.00-0.10); Basophils % (A) 0.6 %; Eosinophils # (A) 0.15 X 10*3/uL (0.04-0.35); Eosinophils % (A) 2.9 %; Lymphocytes # (A) 2.19 X 10*3/uL (0.90-5.00); Lymphocytes % (A) 42.9 %; Monocytes # (A) 0.51 X 10*3/uL (0.20-1.00); Neutrophils # (A) 2.21 X 10*3/uL (1.80-7.70); Neutrophils % (A) 43.4 %
== END | disposition home or self-care (01) ==
LOC: LABPAT 12:55
PROVIDERS: ATTEND Surgery
DX: Z01.818 Encounter for other preprocedural examination (principal); K57.32 Diverticulitis of large intestine without perforation or abscess without bleeding; I44.0 Atrioventricular block, first degree; I49.1 Atrial premature depolarization; R94.31 Abnormal electrocardiogram [ECG] [EKG]
CPT/HCPCS: 80051; 85025; 93005

== ENCOUNTER 2023-01-25 07:07 | Inpatient (IN) | payer MEDICARE, OTHER ==
[~2023-01-25 07:07] MED LIST changes: +ACETAMINOPHEN TAB 500 MG TAB PO PRN; +DEXAMETHASONE SOD PHOSPHATE 4 MG/ML 1 ML VIAL IV ONE; +HEPARIN SODIUM,PORCINE/PF 5,000 UNIT/0.5 ML SYRINGE SQ PRN; +HYDROmorphone 0.5 MG/0.5 ML SYRINGE IVP PRN; -LACTATED RINGERS 1,000 ML IV SCH; +ONDANSETRON 4 MG/2 ML VIAL IVP ONE; +metroNIDAZOLE-NS PMX 500 MG in SALINE 1 100ML.BAG IVPB PRN
[2023-01-25] MEDS: LACTATED RINGERS 1,000 ML IV SCH ×2 (08:13→14:29)
[2023-01-25] MEDS ORDERED: MIDAZOLAM 2 MG/2 ML VIAL IVP ONE (08:21)
[2023-01-25] MEDS ORDERED: NALOXONE 0.4 MG/ML 1 ML VIAL IV PRN (08:47)
--- NOTE | 2023-01-25 08:50 | P.ANPRN ---
Procedure Note - Anesthesia - Epidural/Spinal Epidural Continuous Time Out Performed: Yes Date of Procedure: 01/25/23 Procedure Start Time: :20 Procedure Stop Time: :28 Location of Patient: PreOp Indication: Acute Post-Operative Pain, Requested by Surgeon Sedation Type: Sedate with meaningful contact maintained Preparation: Sterile Dressing Position: Sitting Catheter: Indwelling Needle Guage: 18 Blood Aspirated: No Pain Paresthesia on Injection Noted: No Events: Uneventful and Well Tolerated (Xylocaine 1.5% with epi 3 mL were given for test dose no adverse effects)
[2023-01-25] MEDS ORDERED: SUCCINYLCHOLINE CHLORIDE 200 MG/10 ML VIAL IV ONE (09:01)
[2023-01-25] MEDS ORDERED: NEOSTIGMINE 1 MG/ML 10 ML VIAL ONE (09:01)
[2023-01-25] MEDS ORDERED: PROPOFOL 10 MG/ML 20 ML VIAL IV ONE (09:01)
[2023-01-25] MEDS ORDERED: fentaNYL (PF) 50 MCG/ML 2 ML AMP ONE (09:01)
[2023-01-25] MEDS ORDERED: ePHEDrine 50 MG/ML 1 ML VIAL ONE (09:01)
[2023-01-25] MEDS ORDERED: LIDOCAINE 2% INJ 20 MG/ML (2 ML VIAL) ONE (09:01)
[2023-01-25] MEDS ORDERED: ROCURONIUM 10 MG/ML (5 ML VIAL) IV ONE (09:01)
[2023-01-25] MEDS ORDERED: GLYCOPYRROLATE 0.2 MG/ML 2 ML VIAL ONE (09:01)
[2023-01-25] MEDS ORDERED: LACTATED RINGERS 1,000 ML IV ONE (10:03)
[2023-01-25] MEDS: ROPIVACAINE 250 MG, HYDROMORPHONE (PF) 5 MG in SODIUM CHLORIDE 0.9% 200 ML EPIDURAL PRN ×3 (10:34→13:05)
--- NOTE | 2023-01-25 10:41 | P.OP ---
Date of Procedure: 01/25/23 Preoperative Diagnosis: Diverticulitis Postoperative Diagnosis: Diverticulitis Procedure(s) Performed: Low anterior resection Partial omentectomy Takedown of splenic flexure Anesthesia: DEN Surgeon: Kendall Farooq Estimated Blood Loss (ml): 25 Pathology: other (Sigmoid colon, omentum) Condition: stable Disposition: PACU Description of Procedure: The patient's placed on the operative table in the supine position. He received general endotracheal tube anesthesia. His abdomen was prepped and draped usual fashion. The abdomen was entered through a low midline incision. The Bookwalter retractors placed a wound. The abdomen was explored. There was extensive diverticular changes noted of the sigmoid and left colon. At this point the left colon was mobilized by dividing the white line of Toldt. The sigmoid colon lateral attachments are divided using left cautery. And then the splenic flexure was taken down using electrocautery and the Enseal device. The transverse colon was mobilized. At this point an enterotomy is made in the colon and then the anvil for the 29 mm EEA was placed in the proximal colon. The colon was then transected with a GI stapler. The anvil was then driven through the staple line and then the enterotomy was closed with 30 just suture. The mesentery the bowel was then taken with the Enseal device. The rectum was divided with the Enseal device. The rectum was then transected with the contour stapler. Care was taken to identify and preserve the ureters. At this point the criminal legal assistant placed the EEA stapler in the patient's anus and then the spike for stated procedure into the anterior rectal wall. The anvil for the stapler w as then connected to the stapler. Staple and closed and fired then withdrawn. 2 intact tissue rings were removed from stapler. Using a bowel clamp the bowel was occluded and then using a rigid sigmoidoscope the rectum was insufflated with air. There is no evidence of any leak or extravasation of air as tested under water. There was irrigated there is no bleeding seen. The fascia was then closed in looped #1 PDS suture. Skin was closed yusuf. Patient top she will was sent to recovery room in stable condition.
[2023-01-25] MEDS: DEXTROSE 5%-0.45% NACL 1,000 ML IV SCH (14:42)
[2023-01-26] MEDS: DEXTROSE 5%-0.45% NACL 1,000 ML IV SCH ×4 (01:22→22:09)
--- NOTE | 2023-01-26 06:43 | P.PN ---
Progress Note - Text Progress Note Date: 01/26/23 Postoperative day #1 status post low anterior resection ,epidural catheter placed for postoperative analgesia, patient doing well epidural site okay, patient currently on combination of epidural infusion solution of Ropivacaine 0.0625% and Dilaudid 20 g per mL the infusion rate at 10 ml per hour , patient had no motor deficit epidural site okay , vital signs stable , patient complaining of incisional pain, I will add Dilaudid 0.5 mg IV when necessary Assessment and plan= post operative day #1 acute postoperative pain, continue epidural infusion and IV Dilaudid 0,5 mg when necessary
[2023-01-26] MEDS: HYDROmorphone 0.5 MG/0.5 ML SYRINGE IVP PRN ×6 (07:29→21:19)
[2023-01-26] MEDS: LACTATED RINGERS 1,000 ML IV SCH ×2 (07:32→07:33)
[2023-01-26] MEDS: ROPIVACAINE 250 MG, HYDROMORPHONE (PF) 5 MG in SODIUM CHLORIDE 0.9% 200 ML EPIDURAL PRN (07:57)
[2023-01-26 08:14] LABS: Basophils % (A) 0 %; Eosinophils % (A) 0 %; HCT 30.4 % (39.0-53.0); HGB 10.2 gm/dL (13.0-17.5); Lymphocytes # (A) 1.7 k/uL (1.0-4.8); Lymphocytes % (A) 16 %; MCH 34.7 pg (25.0-35.0); MCHC 33.6 g/dL (31.0-37.0); MCV 103.1 fL (80.0-100.0); Macrocytosis Slight; Mean Platelet Volume 8.1; Monocytes # (A) 0.3 k/uL (0-1.0); Monocytes % (A) 3 %; Neutrophils # (A) 8.5 k/uL (1.3-7.7); Neutrophils % (A) 80 %; Platelet Count 106 k/uL (150-450); RBC 2.94 m/uL (4.30-5.90); RDW 13.2 % (11.5-15.5); WBC 10.7 k/uL (3.8-10.6)
[2023-01-26 08:46] LABS: African American GFR (CKD) >90 (>60 ml/min/1.73 sqM); Anion Gap 6 mmol/L; Blood Urea Nitrogen 12 mg/dL (9-20); Calcium 8.2 mg/dL (8.4-10.2); Carbon Dioxide 28 mmol/L (22-30); Chloride 101 mmol/L (98-107); Glucose 107 mg/dL (74-99); Non-African American GFR(CKD) >90 (>60 ml/min/1.73 sqM); Sodium 135 mmol/L (137-145)
[2023-01-26] MEDS ORDERED: ALBUTEROL NEBULIZED 2.5 MG/3 ML INHALATION PRN (11:24)
--- NOTE | 2023-01-26 11:31 | P.CONS ---
History of Present Illness - Reason for Consult Consult date: 01/26/23 medical management Requesting physician: Kendall Farooq - Chief Complaint Diverticulitis - History of Present Illness This is a 67-year-old male patient of Dr. Cordova who presented for an elective low anterior resection with partial omentectomy takedown of splenic flexure with Dr. Farooq on 01/25/2023 due to history of diverticulitis. Patient has a past medical history of diverticulitis with lower GI bleed with previous colonoscopy, Myelodysplastic syndrome, atrial fibrillation in which she is maintained on anticoagulation at home, GERD, hypertension, ex-smoker and previous history of EtOH. At this time patient is currently postop day 1. Patient is resting co mfortably in bed epidural is in place for pain control. Did discuss case with surgical team okay to resume home medications Current vital signs temp 99, heart rate 66, respiratory rate 19, blood pressure 117/60 with a pulse ox 96% on room air. Review of Systems Please refer to HPI otherwise unremarkable Past Medical History Past Medical History: Atrial Fibrillation, Cancer, COPD, GERD/Reflux, GI Bleed, Hypertension, Osteoarthritis (OA), Pneumonia Additional Past Medical History / Comment(s): COLONOSCOPY IN NOVEMBER 2022. IP 11/15/22 for lower GI bleed. Chronic lower back and neck pain, fracture of L5-S1, compression of C3-C7. Diverticulitis. 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 Past Anesthesia/Blood Transfusion Reactions: No Reported Reaction Past Psychological History: No Psychological Hx Reported Smoking Status: Former smoker Past Alcohol Use History: Daily Additional Past Alcohol Use History / Comment(s): STARTED SMOKING AT AGE 16, QUIT AT AGE 50, SMOKED 1PPD. Quit drinking Nov 17 2021, patient was drinking a pint per day. Past Drug Use History: None Reported - Past Family History Mother Family Medical History: No Reported History Medications and Allergies Home Medications Medication Instructions Recorded Confirmed Type Flecainide Acetate [Tambocor] 100 mg PO BID 02/29/20 01/17/23 History Omeprazole 40 mg PO BID 05/29/21 01/17/23 History Loratadine [Claritin] 10 mg PO DAILY 11/17/21 01/17/23 History Acyclovir 800 mg PO BID 11/15/22 01/17/23 History Apixaban [Eliquis] 5 mg PO BID 11/15/22 01/17/23 History Olmesartan [Benicar] 20 mg PO QAM 11/15/22 01/17/23 History Sulfamethox-Tmp 400-80Mg [Bactrim 1 tab PO DAILY 11/15/22 01/17/23 History SS 400-80 mg] oxyCODONE HCL [oxyCODONE HCL (IR)] 15 mg PO Q6H PRN 11/15/22 01/17/23 History Docusate [Colace] 100 mg PO BID 30 Days #60 capsule 11/18/22 01/17/23 Rx Albuterol Inhaler [Ventolin Hfa 2 puff INHALATION QID PRN 12/09/22 01/17/23 History Inhaler] Lidocaine 5% Patch [Lidoderm] 1 patch TOPICAL DAILY PRN 12/09/22 01/17/23 History Psyllium Husk [Metamucil] 0.4 gm PO DAILY 12/09/22 01/17/23 History Sennosides/Docusate Sodium [Senna 2 each PO HS 12/09/22 01/17/23 History Plus 8.6-50 mg Tablet] diazePAM [Valium] 10 mg PO HS 01/25/23 01/25/23 History Allergies Allergy/AdvReac Type Severity Reaction Status Date / Time ibuprofen [From Motrin] AdvReac Mild Abdominal Verified 01/25/23 07:34 Pain Physical Exam Vitals: Vital Signs Temp Pulse Pulse Resp BP Pulse Ox 01/26/23 08:50 96 01/26/23 07:13 99.0 F 66 19 117/60 96 01/26/23 01:20 98.7 F 80 16 122/57 96 01/25/23 19:02 99.1 F 89 16 152/62 96 01/25/23 13:31 97.3 F L 67 15 148/67 99 01/25/23 13:00 66 16 133/62 100 01/25/23 12:30 57 L 16 127/60 100 01/25/23 12:15 65 16 129/61 100 01/25/23 12:00 58 L 16 141/68 100 01/25/23 11:45 55 L 16 144/67 100 01/25/23 11:30 52 L 16 147/70 100 Intake and Output 01/25/23 01/26/23 01/26/23 22:59 06:59 14:59 Intake Total 19.2 150.833 Output Total 900 100 Balance -880.8 -100 150.833 Intake: Intake, IV Titration 19.2 150.833 Amount Ropivacaine 250 mg 19.2 150.833 Hydromorphone (Pf) 5 mg In Sodium Chloride 0.9% 200 ml @ Per Protocol EPIDURAL .Q0M PRN Rx#: [id number] Output: Urine 900 100 Other: Voiding Method Indwelling Catheter Indwelling Catheter Head normocephalic Neck supple Lungs clear to auscultation bilaterally no wheezing or crackles Heart regular rate and rhythm S1-S2, no rub or gallop Abdomen surgical dressing is clean dry and intact Extremities no edema Neuro alert and orientated to 3 Results CBC & Chem 7: 01/26/23 08:01 01/26/23 08:01 Labs: Abnormal Lab Results - Last 24 Hours (Table) 01/26/23 01/26/23 Range/Units 08:01 08:01 WBC 10.7 H (3.8-10.6) k/uL RBC 2.94 L (4.30-5.90) m/uL Hgb 10.2 L (13.0-17.5) gm/dL Hct 30.4 L (39.0-53.0) % MCV 103.1 H (80.0-100.0) fL Plt Count 106 L (150-450) k/uL Neutrophils # 8.5 H (1.3-7.7) k/uL Sodium 135 L (137-145) mmol/L Glucose 107 H (74-99) mg/dL Calcium 8.2 L (8.4-10.2) mg/dL Assessment and Plan Assessment: 1. History of diverticulitis status post lower anterior resection partial omentectomy and takedown of splenic flexure on 01/25/[address] Bhesania 2. History of atrial fibrillation 3. History of GI bleed 4. History of myelodysplastic syndrome. 5. History of chronic back pain 6. History of essential hypertension 7. History of GERD Thank you for this consultation we'll continue to follow patient closely throughout stay Repeat labs ordered for a.m. Time with Patient: Greater than 30 (Greater than 60% of the total time spent in counseling and coordination of care)
--- NOTE | 2023-01-26 13:12 | P.PN ---
Subjective Progress Note Date: 01/26/23 CHIEF COMPLAINT: Diverticulitis HISTORY OF PRESENT ILLNESS: Patient is postop day #1 status post lower anterior resection. He has epidural placed for pain control. Epidural has been increased to 10 and patient reports still having pain. Anesthesia has added breakthrough Dilaudid. Denies any nausea vomiting. Afebrile. WBC is 10.7 Hgb 10.2 platelets 106 sodium is 135 potassium 4.0 creatinine 0.70 PHYSICAL EXAM: VITAL SIGNS: Reviewed. GENERAL: Well-developed in no acute distress. ABDOMEN: Soft. Nondistended. Tender incision site NEUROLOGIC: Alert and oriented. Cranial nerves II through XII grossly intact. ASSESSMENT: 1. Diverticulitis status post lower anterior resection PLAN: -Continue epidural for pain control and IV Dilaudid for breakthrough pain -Patient nothing by mouth except for meds -Continue IV fluids -Repeat labs in a.m. -Okay to resume Eliquis tomorrow from surgical standpoint. Discussed with medicine service they will wait until after Epidural is pulled before restarting Eliquis -Encouraged patient to increase activity level -Encouraged patient to use incentive spirometer -DVT prophylaxis subcu heparin Physician Continuous Weld Pipe Mill Supervisor note has been reviewed by physician. Signing provider agrees with the documented findings, assessment, and plan of care. Objective - Vital Signs Vital signs: Vital Signs Temp 99.0 F 01/26/23 07:13 Pulse 66 01/26/23 07:13 Resp 19 01/26/23 07:13 BP 117/60 01/26/23 07:13 Pulse Ox 96 01/26/23 08:50 FiO2 Intake & Output 01/25/23 01/26/23 01/26/23 18:59 06:59 18:59 Intake Total 1489.2 150.833 Output Total 1775 100 Balance -285.8 -100 150.833 Weight 76.3 kg Intake: IV 1470 Intake, IV Titration 19.2 150.833 Amount Ropivacaine 250 mg 19.2 150.833 Hydromorphone (Pf) 5 mg In Sodium Chloride 0.9% 200 ml @ Per Protocol EPIDURAL .Q0M PRN Rx#: [id number] Output: Urine 1750 100 Estimated Blood Loss 25 Other: Voiding Method Indwelling Catheter - Labs CBC & Chem 7: 01/26/23 08:01 01/26/23 08:01 Labs: Abnormal Lab Results - Last 24 Hours (Table) 01/26/23 01/26/23 Range/Units 08:01 08:01 WBC 10.7 H (3.8-10.6) k/uL RBC 2.94 L (4.30-5.90) m/uL Hgb 10.2 L (13.0-17.5) gm/dL Hct 30.4 L (39.0-53.0) % MCV 103.1 H (80.0-100.0) fL Plt Count 106 L (150-450) k/uL Neutrophils # 8.5 H (1.3-7.7) k/uL Sodium 135 L (137-145) mmol/L Glucose 107 H (74-99) mg/dL Calcium 8.2 L (8.4-10.2) mg/dL
[2023-01-26] MEDS: HEPARIN SODIUM,PORCINE 5,000 UNIT/ML 1 ML VIAL SQ SCH ×2 (14:51→21:18)
[2023-01-26] MEDS: FLECAINIDE 50 MG TAB PO SCH (21:18)
[2023-01-26] MEDS: diazePAM 5 MG TAB PO SCH (21:19)
[2023-01-27] MEDS: HYDROmorphone 0.5 MG/0.5 ML SYRINGE IVP PRN ×6 (02:58→21:42)
[2023-01-27] MEDS: DEXTROSE 5%-0.45% NACL 1,000 ML IV SCH ×3 (06:08→22:22)
[2023-01-27] MEDS: LACTATED RINGERS 1,000 ML IV SCH ×2 (06:08)
[2023-01-27] MEDS: HEPARIN SODIUM,PORCINE 5,000 UNIT/ML 1 ML VIAL SQ SCH ×2 (08:27→20:48)
[2023-01-27] MEDS: LORATADINE 10 MG TAB PO SCH (08:28)
[2023-01-27] MEDS: SULFAMETHOX-TMP 400-80MG 1 EACH TAB PO SCH (08:28)
[2023-01-27] MEDS: FLECAINIDE 50 MG TAB PO SCH ×2 (08:28→21:04)
[2023-01-27] MEDS: LOSARTAN 50 MG TAB PO SCH (08:28)
[2023-01-27] MEDS: ROPIVACAINE 250 MG, HYDROMORPHONE (PF) 5 MG in SODIUM CHLORIDE 0.9% 200 ML EPIDURAL PRN (08:53)
--- NOTE | 2023-01-27 09:44 | P.PN ---
Subjective Progress Note Date: 01/27/23 This is a 67-year-old male patient of Dr. Cordova who presented for an elective low anterior resection with partial omentectomy takedown of splenic flexure with Dr. Farooq on 01/25/2023 due to history of diverticulitis. Patient has a past medical history of diverticulitis with lower GI bleed with previous colonoscopy, Myelodysplastic syndrome, atrial fibrillation in which she is maintained on anticoagulation at home, GERD, hypertension, ex-smoker and previous history of EtOH. At this time patient is currently postop day 1. Patient is resting comfortably in bed epidural is in place for pain control. Did discuss case with surgical team okay to resume home medications Current vital signs temp 99, heart rate 66, respiratory rate 19, blood pressure 117/60 with a pulse ox 96% on room air. On 01/27/2023 patient is alert and oriented 3 currently resting comfortably in bed. Patient remains on epidural. Eliquis remains on hold while patient has epidural in place. heparin SQ for DVT prophylaxis per surgical services has been ordered. Patient remains nothing by mouth. Current vital signs of 98.4, heart 62, respiratory rate 18, blood pressure 143/70 with a pulse ox 96 Dr. Nicolas's group will be covering from 01/28/2023 to 01/30/2023 Objective - Vital Signs Vital signs: Vital Signs Temp 98.4 F 01/27/23 08:00 Pulse 62 01/27/23 08:00 Resp 18 01/27/23 08:00 BP 143/70 01/27/23 08:00 Pulse Ox 96 01/27/23 08:00 FiO2 Intake & Output 01/26/23 01/27/23 01/27/23 18:59 06:59 18:59 Intake Total 150.833 249.333 Output Total 750 950 Balance -599.167 -950 249.333 Intake: Intake, IV Titration 150.833 249.333 Amount Ropivacaine 250 mg 150.833 249.333 Hydromorphone (Pf) 5 mg In Sodium Chloride 0.9% 200 ml @ Per Protocol EPIDURAL .Q0M PRN Rx#: [id number] Output: Urine 750 950 Other: Voiding Method Indwelling Catheter Indwelling Catheter - Exam Head normocephalic Neck supple Lungs clear to auscultation bilaterally no wheezing or crackles Heart regular rate and rhythm S1-S2, no rub or gallop Abdomen surgical dressing is clean dry and intact Extremities no edema Neuro alert and orientated to 3 - Labs CBC & Chem 7: 01/26/23 08:01 01/26/23 08:01 Assessment and Plan Assessment: 1. History of diverticulitis status post lower anterior resection partial omentectomy and takedown of splenic flexure on 01/25/[address] Farooq 2. History of atrial fibrillation 3. History of GI bleed 4. History of myelodysplastic syndrome. 5. History of chronic back pain 6. History of essential hypertension 7. History of GERD Thank you for this consultation we'll continue to follow patient closely throughout stay Repeat labs ordered for a.m. DVT prophylaxis heparin. Patient rosalina currently on hold due to epidural
[2023-01-27 10:52] LABS: Basophils # (A) 0.01 X 10*3/uL (0.00-0.10); Basophils % (A) 0.1 %; Eosinophils # (A) 0.02 X 10*3/uL (0.04-0.35); Eosinophils % (A) 0.2 %; HCT 29.7 % (39.6-50.0); HGB 9.6 d/dL (13.0-17.0); Lymphocytes # (A) 2.31 X 10*3/uL (0.90-5.00); Lymphocytes % (A) 21.1 %; MCH 33.8 pg (27.0-32.0); MCHC 32.3 d/dL (32.0-37.0); MCV 104.6 FL (80.0-97.0); Monocytes # (A) 0.54 X 10*3/uL (0.20-1.00); Monocytes % (A) 4.9 %; NRBC Per 100 WBC 0 X 10*3/uL (0.00-0.01); Neutrophils % (A) 73.1 %; Platelet Count 127 X 10*3/uL (140-440); RBC 2.84 X 10*6/uL (4.40-5.60); RDW 13.1 % (11.5-14.5); WBC 10.95 X 10*3/uL (4.50-10.00)
--- NOTE | 2023-01-27 10:53 | P.PN ---
Progress Note - Text Date: 01/27/2023 Time: 07:01 The patient is status post, low anterior resection, postoperative day number[2.] The patient has no complaints of nausea vomiting or headache. The patient does not complain of any lower extremity numbness or weakness. The epidural is running at[10] mL per hour. VAS 2-10. The epidural will be maintained and adjusted as needed.
[2023-01-27 11:03] LABS: ALT 14 U/L (10-49); AST 15 U/L (14-35); Albumin 3.4 d/dL (3.8-4.9); Albumin/Globulin Ratio 1.89 Ratio (1.60-3.17); Alkaline Phosphatase 64 U/L (41-126); BUN/Creat Ratio 14.71 Ratio (12.00-20.00); Blood Urea Nitrogen 10.3 mg/dL (9.0-27.0); Calcium 8.5 mg/dL (8.7-10.3); Carbon Dioxide 26.9 mmol/L (21.6-31.8); Chloride 103 mmol/L (96-109); Globulin 1.8 d/dL (1.6-3.3); Glucose 107 mg/dL (70-110); Potassium 4.1 mmol/L (3.5-5.5); Sodium 137 mmol/L (135-145); Total Bilirubin 0.5 mg/dL (0.3-1.2); Total Protein 5.2 d/dL (6.2-8.2)
--- NOTE | 2023-01-27 12:46 | P.PN ---
Subjective Progress Note Date: 01/27/23 CHIEF COMPLAINT: Diverticulitis HISTORY OF PRESENT ILLNESS: Patient is postop day #2 status post lower anterior resection. Patient reports his pain is better controlled today with the epidural and Dilaudid for breakthrough pain. He is lying in bed comfortably. Denies any flatus. Denies any nausea or vomiting. Urine output adequate. Afebrile. WBC 10.95 HB9.6 platelets 127 PHYSICAL EXAM: VITAL SIGNS: Reviewed. GENERAL: Well-developed in no acute distress. ABDOMEN: Soft. Nondistended. Prevana wound vac in place and intact NEUROLOGIC: Alert and oriented. Cranial nerves II through XII grossly intact. ASSESSMENT: 1. Diverticulitis status post lower anterior resection PLAN: -Start clear liquids -Continue epidural for pain control and IV Dilaudid for breakthrough pain -Continue IV fluids -Okay to resume Eliquis tomorrow from surgical standpoint. Discussed with medicine service they will wait until after Epidural is pulled before restarting Eliquis -Encouraged patient to increase activity level -Encouraged patient to use incentive spirometer -DVT prophylaxis subcu heparin Physician Power Press Supervisor note has been reviewed by physician. Signing provider agrees with the documented findings, assessment, and plan of care. Objective - Vital Signs Vital signs: Vital Signs Temp 98.4 F 01/27/23 08:00 Pulse 62 01/27/23 08:00 Resp 18 01/27/23 08:00 BP 143/70 01/27/23 08:00 Pulse Ox 96 01/27/23 08:00 FiO2 Intake & Output 01/26/23 01/27/23 01/27/23 18:59 06:59 18:59 Intake Total 150.833 249.333 Output Total 750 950 Balance -599.167 -950 249.333 Intake: Intake, IV Titration 150.833 249.333 Amount Ropivacaine 250 mg 150.833 249.333 Hydromorphone (Pf) 5 mg In Sodium Chloride 0.9% 200 ml @ Per Protocol EPIDURAL .Q0M PRN Rx#: [id number] Output: Urine 750 950 Other: Voiding Method Indwelling Catheter Indwelling Catheter - Labs CBC & Chem 7: 01/27/23 07:09 01/27/23 07:05 Labs: Abnormal Lab Results - Last 24 Hours (Table) 01/27/23 01/27/23 Range/Units 07:05 07:09 WBC 10.95 H (4.50-10.00) X 10*3/uL RBC 2.84 L (4.40-5.60) X 10*6/uL Hgb 9.6 L (13.0-17.0) d/dL Hct 29.7 L (39.6-50.0) % MCV 104.6 H (80.0-97.0) FL MCH 33.8 H (27.0-32.0) pg Plt Count 127 L (140-440) X 10*3/uL Neutrophils # 8.00 H (1.80-7.70) X 10*3/uL Eosinophils # 0.02 L (0.04-0.35) X 10*3/uL Calcium 8.5 L (8.7-10.3) mg/dL Total Protein 5.2 L (6.2-8.2) d/dL Albumin 3.4 L (3.8-4.9) d/dL
[2023-01-27] MEDS: diazePAM 5 MG TAB PO SCH (20:48)
[2023-01-28] MEDS: HYDROmorphone 0.5 MG/0.5 ML SYRINGE IVP PRN ×5 (05:18→20:30)
[2023-01-28] MEDS: DEXTROSE 5%-0.45% NACL 1,000 ML IV SCH ×3 (05:19→20:30)
[2023-01-28] MEDS: LACTATED RINGERS 1,000 ML IV SCH ×2 (05:22→05:23)
--- NOTE | 2023-01-28 06:44 | P.PN ---
Progress Note - Text 01/28/23 636am 67-year-old male status post low anterior resection by Dr. Farooq. Patient has an epidural catheter was solution running at 10 mL an hour with a VAS of 7. No sensory or motor deficit noted. Patient has been able to ambulate and walk to the bathroom. Plantar VCD epidural today nurse informed
[2023-01-28] MEDS: SULFAMETHOX-TMP 400-80MG 1 EACH TAB PO SCH (08:07)
[2023-01-28] MEDS: FLECAINIDE 50 MG TAB PO SCH ×2 (08:07→20:30)
[2023-01-28] MEDS: LOSARTAN 50 MG TAB PO SCH (08:08)
[2023-01-28] MEDS: LORATADINE 10 MG TAB PO SCH (08:08)
[2023-01-28] MEDS: HEPARIN SODIUM,PORCINE 5,000 UNIT/ML 1 ML VIAL SQ SCH ×2 (08:08→20:30)
--- NOTE | 2023-01-28 10:47 | P.PN ---
Subjective Progress Note Date: 01/28/23 CHIEF COMPLAINT: Diverticulitis HISTORY OF PRESENT ILLNESS: Patient is postop day #3 status post lower anterior resection. Patient reports his pain is controlled. No flatus. Epidural was discontinued this morning. Tian catheter to be discontinued later today. He did have nausea earlier that has improved. Patient only eating a small amount of the clear liquids. Afebrile. As for today pending PHYSICAL EXAM: VITAL SIGNS: Reviewed. GENERAL: Well-developed in no acute distress. ABDOMEN: Soft. Nondistended. Prevana wound vac in place and intact NEUROLOGIC: Alert and oriented. Cranial nerves II through XII grossly intact. ASSESSMENT: 1. Diverticulitis status post lower anterior resection PLAN: -Continue clear liquids -Epidural and Tian catheter discontinued today -Dilaudid 1 mg IV every 3 hours added for pain control PRN -Continue IV fluids -Okay to resume Eliquis from surgical standpoint -Encouraged patient to increase activity level -Encouraged patient to use incentive spirometer -DVT prophylaxis subcu heparin Physician Sign Erector And Repairer note has been reviewed by physician. Signing provider agrees with the documented findings, assessment, and plan of care. Objective - Vital Signs Vital signs: Vital Signs Temp 98.0 F 01/28/23 07:28 Pulse 68 01/28/23 07:28 Resp 19 01/28/23 07:28 BP 152/77 01/28/23 07:28 Pulse Ox 94 L 01/28/23 07:28 FiO2 Intake & Output 01/27/23 01/28/23 01/28/23 18:59 06:59 18:59 Intake Total 249.333 Output Total 500 550 Balance -250.667 -550 Intake: Intake, IV Titration 249.333 Amount Ropivacaine 250 mg 249.333 Hydromorphone (Pf) 5 mg In Sodium Chloride 0.9% 200 ml @ Per Protocol EPIDURAL .Q0M PRN Rx#: [id number] Output: Urine 500 550 Other: Voiding Method Indwelling Catheter Indwelling Catheter # Voids 2 - Labs CBC & Chem 7: 01/27/23 07:09 01/27/23 07:05 Labs: Abnormal Lab Results - Last 24 Hours (Table) 01/27/23 01/27/23 Range/Units 07:05 07:09 WBC 10.95 H (4.50-10.00) X 10*3/uL RBC 2.84 L (4.40-5.60) X 10*6/uL Hgb 9.6 L (13.0-17.0) d/dL Hct 29.7 L (39.6-50.0) % MCV 104.6 H (80.0-97.0) FL MCH 33.8 H (27.0-32.0) pg Plt Count 127 L (140-440) X 10*3/uL Neutrophils # 8.00 H (1.80-7.70) X 10*3/uL Eosinophils # 0.02 L (0.04-0.35) X 10*3/uL Calcium 8.5 L (8.7-10.3) mg/dL Total Protein 5.2 L (6.2-8.2) d/dL Albumin 3.4 L (3.8-4.9) d/dL
[2023-01-28 13:09] LABS: Basophils # (A) 0.02 X 10*3/uL (0.00-0.10); Basophils % (A) 0.3 %; Eosinophils # (A) 0.19 X 10*3/uL (0.04-0.35); Eosinophils % (A) 2.4 %; HCT 32.2 % (39.6-50.0); HGB 10.5 d/dL (13.0-17.0); Lymphocytes # (A) 1.76 X 10*3/uL (0.90-5.00); Lymphocytes % (A) 22.2 %; MCH 34.2 pg (27.0-32.0); MCHC 32.6 d/dL (32.0-37.0); MCV 104.9 FL (80.0-97.0); Mean Platelet Volume 11.4 FL (9.5-12.2); Monocytes # (A) 0.51 X 10*3/uL (0.20-1.00); Monocytes % (A) 6.4 %; NRBC Per 100 WBC 0 X 10*3/uL (0.00-0.01); Neutrophils # (A) 5.43 X 10*3/uL (1.80-7.70); Neutrophils % (A) 68.3 %; Platelet Count 143 X 10*3/uL (140-440); RBC 3.07 X 10*6/uL (4.40-5.60); RDW 12.8 % (11.5-14.5); WBC 7.94 X 10*3/uL (4.50-10.00)
[2023-01-28 13:49] LABS: ALT 19 U/L (10-49); AST 39 U/L (14-35); Albumin 3.5 d/dL (3.8-4.9); Albumin/Globulin Ratio 1.75 Ratio (1.60-3.17); Alkaline Phosphatase 79 U/L (41-126); Blood Urea Nitrogen 8.4 mg/dL (9.0-27.0); Calcium 8.6 mg/dL (8.7-10.3); Carbon Dioxide 25.7 mmol/L (21.6-31.8); Chloride 101 mmol/L (96-109); Glucose 101 mg/dL (70-110); Potassium 3.9 mmol/L (3.5-5.5); Sodium 137 mmol/L (135-145); Total Bilirubin 0.5 mg/dL (0.3-1.2); Total Protein 5.5 d/dL (6.2-8.2)
--- NOTE | 2023-01-28 14:47 | P.PN ---
Subjective Progress Note Date: 01/28/23 This is a 67-year-old male patient of Dr. Cordova who presented for an elective low anterior resection with partial omentectomy takedown of splenic flexure with Dr. Farooq on 01/25/2023 due to history of diverticulitis. Patient has a past medical history of diverticulitis with lower GI bleed with previous colonoscopy, Myelodysplastic syndrome, atrial fibrillation in which she is maintained on anticoagulation at home, GERD, hypertension, ex-smoker and previous history of EtOH. At this time patient is currently postop day 1. Patient is resting comfortably in bed epidural is in place for pain control. Did discuss case with surgical team okay to resume home medications Current vital signs temp 99, heart rate 66, respiratory rate 19, blood pressure 117/60 with a pulse ox 96% on room air. On 01/27/2023 patient is alert and oriented 3 currently resting comfortably in bed. Patient remains on epidural. Eliquis remains on hold while patient has epidural in place. heparin SQ for DVT prophylaxis per surgical services has been ordered. Patient remains nothing by mouth. Current vital signs of 98.4, heart 62, respiratory rate 18, blood pressure 143/70 with a pulse ox 96 8/11. Patient seen and examined. States the pain is improved. Tolerating clear liquid diet REVIEW OF SYSTEMS: CONSTITUTIONAL: No fever, no malaise,. CARDIOVASCULAR: No chest pain, no palpitations, no syncope. PULMONARY: No shortness of breath, no cough, GASTROINTESTINAL: No diarrhea, no nausea, no vomiting, no abdominal pain. NEUROLOGICAL: No headaches, no weakness, PHYSICAL EXAMINATION: GENERAL: The patient is alert and oriented x3, not in any acute distress. Well developed, well nourished. HEENT: Pupils are round and equally reacting to light. EOMI. No scleral icterus. No conjunctival pallor. Normocephalic, atraumatic. No pharyngeal erythema. No thyromegaly. CARDIOVASCULAR: S1 and S2 present. No murmurs, rubs, or gallops. PULMONARY: Chest is clear to auscultation, no wheezing or crackles. ABDOMEN: Soft, surgical incision seen, drain in place MUSCULOSKELETAL: No joint swelling or deformity. EXTREMITIES: No cyanosis, clubbing, or pedal edema. NEUROLOGICAL: Gross neurological examination did not reveal any focal deficits. SKIN: No rashes. Assessment and plan History of diverticulitis status post lower anterior resection partial omentectomy and takedown of splenic flexure on 01/25/[address] Farooq History of atrial fibrillation History of GI bleed History of myelodysplastic syndrome. History of chronic back pain history of essential hypertension History of GERD Monitor vital signs Monitor CBC Monitor CMP Epidural and Tian catheter discontinued Continue pain management Currently on clear liquid diet Gen. surgery following Labs and medication were reviewed.. Continue same treatment. Continue with symptomatic treatment. Resume home medication. Monitor labs and vitals. DVT and GI prophylaxis. Further recommendations as per clinical course of the patient Dictation was produced using [employer] dictation software. please excuse any grammatical, word or spelling errors. Objective - Vital Signs Vital signs: Vital Signs Temp 98.3 F 01/28/23 13:36 Pulse 57 L 01/28/23 13:36 Resp 20 01/28/23 13:36 BP 146/73 01/28/23 13:36 Pulse Ox 96 01/28/23 13:36 FiO2 Intake & Output 01/27/23 01/28/23 01/28/23 18:59 06:59 18:59 Intake Total 249.333 Output Total 500 550 Balance -250.667 -550 Intake: Intake, IV Titration 249.333 Amount Ropivacaine 250 mg 249.333 Hydromorphone (Pf) 5 mg In Sodium Chloride 0.9% 200 ml @ Per Protocol EPIDURAL .Q0M PRN Rx#: [id number] Output: Urine 500 550 Other: Voiding Method Indwelling Catheter Indwelling Catheter # Voids 2 - Labs CBC & Chem 7: 01/28/23 06:59 01/28/23 06:59 Labs: Abnormal Lab Results - Last 24 Hours (Table) 01/28/23 01/28/23 Range/Units 06:59 06:59 RBC 3.07 L (4.40-5.60) X 10*6/uL Hgb 10.5 L (13.0-17.0) d/dL Hct 32.2 L (39.6-50.0) % MCV 104.9 H (80.0-97.0) FL MCH 34.2 H (27.0-32.0) pg BUN 8.4 L (9.0-27.0) mg/dL Calcium 8.6 L (8.7-10.3) mg/dL AST 39 H (14-35) U/L Total Protein 5.5 L (6.2-8.2) d/dL Albumin 3.5 L (3.8-4.9) d/dL
[2023-01-28 16:06] VITALS: BMI 24.1
[2023-01-28] MEDS: diazePAM 5 MG TAB PO SCH (20:30)
[2023-01-29] MEDS: HYDROmorphone 1 MG/ML 1 ML SYRINGE IVP PRN ×5 (01:04→20:47)
[2023-01-29] MEDS: LACTATED RINGERS 1,000 ML IV SCH ×2 (05:05)
[2023-01-29] MEDS: DEXTROSE 5%-0.45% NACL 1,000 ML IV SCH (05:06)
[2023-01-29] MEDS: SULFAMETHOX-TMP 400-80MG 1 EACH TAB PO SCH (09:07)
[2023-01-29] MEDS: LOSARTAN 50 MG TAB PO SCH (09:07)
[2023-01-29] MEDS: LORATADINE 10 MG TAB PO SCH (09:07)
[2023-01-29] MEDS: FLECAINIDE 50 MG TAB PO SCH ×2 (09:07→20:47)
[2023-01-29] MEDS: HEPARIN SODIUM,PORCINE 5,000 UNIT/ML 1 ML VIAL SQ SCH (09:08)
[2023-01-29] MEDS ORDERED: ACETAMINOPHEN TAB 325 MG TAB PO PRN (09:49)
--- NOTE | 2023-01-29 09:51 | P.PN ---
Subjective Progress Note Date: 01/29/23 Principal diagnosis: Diverticulitis Patient complaining of abdominal soreness. Epidural was removed yesterday. No flatus. No nausea or vomiting. He is sitting up in a chair at this time. Objective - Vital Signs Vital signs: Vital Signs Temp 97.9 F 01/29/23 06:59 Pulse 58 L 01/29/23 06:59 Resp 16 01/29/23 06:59 BP 142/71 01/29/23 06:59 Pulse Ox 95 01/29/23 08:08 FiO2 Intake & Output 01/28/23 01/29/23 01/29/23 18:59 06:59 18:59 Weight 76.3 kg Other: Voiding Method Indwelling Catheter # Voids 1 1 - Exam Abdomen: Soft, nondistended, dressing clean and dry, mild tenderness - Labs CBC & Chem 7: 01/28/23 06:59 01/28/23 06:59 Labs: Abnormal Lab Results - Last 24 Hours (Table) 01/28/23 01/28/23 Range/Units 06:59 06:59 RBC 3.07 L (4.40-5.60) X 10*6/uL Hgb 10.5 L (13.0-17.0) d/dL Hct 32.2 L (39.6-50.0) % MCV 104.9 H (80.0-97.0) FL MCH 34.2 H (27.0-32.0) pg BUN 8.4 L (9.0-27.0) mg/dL Calcium 8.6 L (8.7-10.3) mg/dL AST 39 H (14-35) U/L Total Protein 5.5 L (6.2-8.2) d/dL Albumin 3.5 L (3.8-4.9) d/dL Assessment and Plan (1) Diverticulitis Narrative/Plan: 67-year-old male with diverticulitis. Underwent low anterior resection on Tuesday. Continue liquid diet. Continue increasing activity. Maximize analgesics. Current Visit: No Status: Acute Code(s): K57.92 - DVTRCLI OF INTEST, PART UNSP, W/O PERF OR ABSCESS W/O BLEED SNOMED Code(s): 489959628
[2023-01-29] MEDS: KETOROLAC 15 MG/ML 1 ML VIAL IVP SCH ×3 (11:24→23:56)
--- NOTE | 2023-01-29 13:03 | P.PN ---
Subjective Progress Note Date: 01/29/23 This is a 67-year-old male patient of Dr. Cordova who presented for an elective low anterior resection with partial omentectomy takedown of splenic flexure with Dr. Farooq on 01/25/2023 due to history of diverticulitis. Patient has a past medical history of diverticulitis with lower GI bleed with previous colonoscopy, Myelodysplastic syndrome, atrial fibrillation in which she is maintained on anticoagulation at home, GERD, hypertension, ex-smoker and previous history of EtOH. At this time patient is currently postop day 1. Patient is resting comfortably in bed epidural is in place for pain control. Did discuss case with surgical team okay to resume home medications Current vital signs temp 99, heart rate 66, respiratory rate 19, blood pressure 117/60 with a pulse ox 96% on room air. On 01/27/2023 patient is alert and oriented 3 currently resting comfortably in bed. Patient remains on epidural. Eliquis remains on hold while patient has epidural in place. heparin SQ for DVT prophylaxis per surgical services has been ordered. Patient remains nothing by mouth. Current vital signs of 98.4, heart 62, respiratory rate 18, blood pressure 143/70 with a pulse ox 96 01/28. Patient seen and examined. States the pain is improved. Tolerating clear liquid diet 01/29. Patient seen and examined. Complaining of abdominal pain at the site of surgery. Tolerating liquid diet REVIEW OF SYSTEMS: CONSTITUTIONAL: No fever, no malaise,. CARDIOVASCULAR: No chest pain, no palpitations, no syncope. PULMONARY: No shortness of breath, no cough, GASTROINTESTINAL: No diarrhea, no nausea, no vomiting, no abdominal pain. NEUROLOGICAL: No headaches, no weakness, PHYSICAL EXAMINATION: GENERAL: The patient is alert and oriented x3, not in any acute distress. Well developed, well nourished. HEENT: Pupils are round and equally reacting to light. EOMI. No scleral icterus. No conjunctival pallor. Normocephalic, atraumatic. No pharyngeal erythema. No thyromegaly. CARDIOVASCULAR: S1 and S2 present. No murmurs, rubs, or gallops. PULMONARY: Chest is clear to auscultation, no wheezing or crackles. ABDOMEN: Soft, surgical incision seen, drain in place MUSCULOSKELETAL: No joint swelling or deformity. EXTREMITIES: No cyanosis, clubbing, or pedal edema. NEUROLOGICAL: Gross neurological examination did not reveal any focal deficits. SKIN: No rashes. Assessment and plan History of diverticulitis status post lower anterior resection partial om entectomy and takedown of splenic flexure on 01/25/[address] Farooq History of atrial fibrillation History of GI bleed History of myelodysplastic syndrome. History of chronic back pain history of essential hypertension History of GERD Monitor vital signs Monitor CBC Monitor CMP Continue pain management Currently on liquid diet, advance diet per surgery Gen. surgery following Labs and medication were reviewed.. Continue same treatment. Continue with symptomatic treatment. Resume home medication. Monitor labs and vitals. DVT and GI prophylaxis. Further recommendations as per clinical course of the patient Dictation was produced using [employer] dictation software. please excuse any grammatical, word or spelling errors. Objective - Vital Signs Vital signs: Vital Signs Temp 97.9 F 01/29/23 06:59 Pulse 58 L 01/29/23 09:08 Resp 16 01/29/23 09:08 BP 142/71 01/29/23 06:59 Pulse Ox 95 01/29/23 08:08 FiO2 Intake & Output 01/28/23 01/29/23 01/29/23 18:59 06:59 18:59 Output Total 200 Balance -200 Weight 76.3 kg Output: Urine 200 Other: Voiding Method Indwelling Catheter Urinal # Voids 1 1 - Labs CBC & Chem 7: 01/28/23 06:59 01/28/23 06:59 Labs: Abnormal Lab Results - Last 24 Hours (Table) 01/28/23 01/28/23 Range/Units 06:59 06:59 RBC 3.07 L (4.40-5.60) X 10*6/uL Hgb 10.5 L (13.0-17.0) d/dL Hct 32.2 L (39.6-50.0) % MCV 104.9 H (80.0-97.0) FL MCH 34.2 H (27.0-32.0) pg BUN 8.4 L (9.0-27.0) mg/dL Calcium 8.6 L (8.7-10.3) mg/dL AST 39 H (14-35) U/L Total Protein 5.5 L (6.2-8.2) d/dL Albumin 3.5 L (3.8-4.9) d/dL
[2023-01-29] MEDS: APIXABAN 5 MG TAB PO SCH (20:47)
[2023-01-29] MEDS: diazePAM 5 MG TAB PO SCH (20:47)
[2023-01-30] MEDS: DEXTROSE 5%-0.45% NACL 1,000 ML IV SCH ×4 (02:52→20:05)
[2023-01-30] MEDS: HYDROmorphone 1 MG/ML 1 ML SYRINGE IVP PRN ×4 (03:04→18:05)
[2023-01-30] MEDS: KETOROLAC 15 MG/ML 1 ML VIAL IVP SCH ×4 (05:17→23:20)
[2023-01-30] MEDS: LOSARTAN 50 MG TAB PO SCH (08:39)
[2023-01-30] MEDS: APIXABAN 5 MG TAB PO SCH ×2 (08:39→20:04)
[2023-01-30] MEDS: LORATADINE 10 MG TAB PO SCH (08:39)
[2023-01-30] MEDS: SULFAMETHOX-TMP 400-80MG 1 EACH TAB PO SCH (08:39)
[2023-01-30] MEDS: FLECAINIDE 50 MG TAB PO SCH ×2 (08:39→20:03)
--- NOTE | 2023-01-30 11:32 | P.PN ---
Subjective Progress Note Date: 01/30/23 Principal diagnosis: Diverticulitis Patient feeling better today. More comfortable. He is passing flatus. No nausea or vomiting. Objective - Vital Signs Vital signs: Vital Signs Temp 97.3 F L 01/30/23 08:51 Pulse 89 01/30/23 01:20 Resp 18 01/30/23 08:51 BP 138/70 01/30/23 08:51 Pulse Ox 96 01/30/23 08:51 FiO2 Intake & Output 01/29/23 01/30/23 01/30/23 18:59 06:59 18:59 Output Total 600 500 Balance -600 -500 Output: Urine 600 500 Other: Voiding Method Urinal # Voids 0 2 - Exam Abdomen: Soft, nondistended, dressing clean and dry, mild tenderness - Labs CBC & Chem 7: 01/28/23 06:59 01/28/23 06:59 Assessment and Plan (1) Diverticulitis Narrative/Plan: Patient is pain is improved. Advance to full liquids. Ambulate. Current Visit: No Status: Acute Code(s): K57.92 - DVTRCLI OF INTEST, PART UNSP, W/O PERF OR ABSCESS W/O BLEED SNOMED Code(s): 862024456
--- NOTE | 2023-01-30 13:04 | P.PN ---
Subjective Progress Note Date: 01/30/23 This is a 67-year-old male patient of Dr. Cordova who presented for an elective low anterior resection with partial omentectomy takedown of splenic flexure with Dr. Farooq on 01/25/2023 due to history of diverticulitis. Patient has a past medical history of diverticulitis with lower GI bleed with previous colonoscopy, Myelodysplastic syndrome, atrial fibrillation in which she is maintained on anticoagulation at home, GERD, hypertension, ex-smoker and previous history of EtOH. At this time patient is currently postop day 1. Patient is resting comfortably in bed epidural is in place for pain control. Did discuss case with surgical team okay to resume home medications Current vital signs temp 99, heart rate 66, respiratory rate 19, blood pressure 117/60 with a pulse ox 96% on room air. On 01/27/2023 patient is alert and oriented 3 currently resting comfortably in bed. Patient remains on epidural. Eliquis remains on hold while patient has epidural in place. heparin SQ for DVT prophylaxis per surgical services has been ordered. Patient remains nothing by mouth. Current vital signs of 98.4, heart 62, respiratory rate 18, blood pressure 143/70 with a pulse ox 96 01/28. Patient seen and examined. States the pain is improved. Tolerating clear liquid diet 01/29. Patient seen and examined. Complaining of abdominal pain at the site of surgery. Tolerating liquid diet 01/30. Patient seen and examined. Passing gas, still hasn't had a bowel movement. REVIEW OF SYSTEMS: CONSTITUTIONAL: No fever, no malaise,. CARDIOVASCULAR: No chest pain, no palpitations, no syncope. PULMONARY: No shortness of breath, no cough, GASTROINTESTINAL: No diarrhea, no nausea, no vomiting, no abdominal pain. NEUROLOGICAL: No headaches, no weakness, PHYSICAL EXAMINATION: GENERAL: The patient is alert and oriented x3, not in any acute distress. Well developed, well nourished. HEENT: Pupils are round and equally reacting to light. EOMI. No scleral icterus. No conjunctival pallor. Normocephalic, atraumatic. No pharyngeal erythema. No thyromegaly. CARDIOVASCULAR: S1 and S2 present. No murmurs, rubs, or gallops. PULMONARY: Chest is clear to auscultation, no wheezing or crackles. ABDOMEN: Soft, surgical incision seen, drain in place MUSCULOSKELETAL: No joint swelling or deformity. EXTREMITIES: No cyanosis, clubbing, or pedal edema. NEUROLOGICAL: Gross neurological examination did not reveal any focal deficits. SKIN: No rashes. Assessment and plan History of diverticulitis status post lower anterior resection partial omentectomy and takedown of splenic flexure on 01/25/[address] Farooq History of atrial fibrillation History of GI bleed History of myelodysplastic syndrome. History of chronic back pain history of essential hypertension History of GERD Monitor vital signs Monitor CBC Monitor CMP Continue pain management Currently on liquid diet, advance diet per surgery Gen. surgery following Labs and medication were reviewed.. Continue same treatment. Continue with symptomatic treatment. Resume home medication. Monitor labs and vitals. DVT and GI prophylaxis. Further recommendations as per clinical course of the patient Dictation was produced using [employer] ([employer]) dictation software. please excuse any grammatical, word or spelling errors. Objective - Vital Signs Vital signs: Vital Signs Temp 98.0 F 01/30/23 01:20 Pulse 89 01/30/23 01:20 Resp 18 01/30/23 08:41 BP 122/74 01/30/23 01:20 Pulse Ox 94 L 01/30/23 01:20 FiO2 Intake & Output 01/29/23 01/30/23 01/30/23 18:59 06:59 18:59 Output Total 600 500 Balance -600 -500 Output: Urine 600 500 Other: Voiding Method Urinal # Voids 0 - Labs CBC & Chem 7: 01/28/23 06:59 01/28/23 06:59
[2023-01-30] MEDS: diazePAM 5 MG TAB PO SCH (20:04)
[2023-01-31] MEDS: HYDROmorphone 1 MG/ML 1 ML SYRINGE IVP PRN ×6 (01:29→22:50)
[2023-01-31] MEDS: DEXTROSE 5%-0.45% NACL 1,000 ML IV SCH ×4 (02:42→22:51)
[2023-01-31] MEDS: KETOROLAC 15 MG/ML 1 ML VIAL IVP SCH (05:54)
[2023-01-31] MEDS: LOSARTAN 50 MG TAB PO SCH (08:14)
[2023-01-31] MEDS: LORATADINE 10 MG TAB PO SCH (08:14)
[2023-01-31] MEDS: APIXABAN 5 MG TAB PO SCH ×2 (08:14→20:43)
[2023-01-31] MEDS: FLECAINIDE 50 MG TAB PO SCH ×2 (08:15→20:43)
[2023-01-31] MEDS: SULFAMETHOX-TMP 400-80MG 1 EACH TAB PO SCH (08:15)
[2023-01-31 08:25] LABS: Basophils # (A) 0.02 X 10*3/uL (0.00-0.10); Basophils % (A) 0.4 %; Eosinophils # (A) 0.52 X 10*3/uL (0.04-0.35); Eosinophils % (A) 10.8 %; HCT 23.7 % (39.6-50.0); HGB 7.9 d/dL (13.0-17.0); Lymphocytes # (A) 1.63 X 10*3/uL (0.90-5.00); Lymphocytes % (A) 33.8 %; MCH 34.1 pg (27.0-32.0); MCHC 33.3 d/dL (32.0-37.0); MCV 102.2 FL (80.0-97.0); Mean Platelet Volume 10.4 FL (9.5-12.2); Monocytes # (A) 0.44 X 10*3/uL (0.20-1.00); Monocytes % (A) 9.1 %; NRBC Per 100 WBC 0 X 10*3/uL (0.00-0.01); Neutrophils # (A) 2.19 X 10*3/uL (1.80-7.70); Neutrophils % (A) 45.5 %; Platelet Count 155 X 10*3/uL (140-440); RBC 2.32 X 10*6/uL (4.40-5.60); RDW 12.8 % (11.5-14.5); WBC 4.82 X 10*3/uL (4.50-10.00)
[2023-01-31 09:11] LABS: ALT 36 U/L (10-49); AST 42 U/L (14-35); Albumin 2.9 d/dL (3.8-4.9); Albumin/Globulin Ratio 1.71 Ratio (1.60-3.17); Alkaline Phosphatase 105 U/L (41-126); BUN/Creat Ratio 7.57 Ratio (12.00-20.00); Blood Urea Nitrogen 5.3 mg/dL (9.0-27.0); Calcium 8.1 mg/dL (8.7-10.3); Carbon Dioxide 26.4 mmol/L (21.6-31.8); Chloride 108 mmol/L (96-109); Globulin 1.7 d/dL (1.6-3.3); Glucose 93 mg/dL (70-110); Potassium 3.5 mmol/L (3.5-5.5); Sodium 141 mmol/L (135-145); Total Bilirubin 0.3 mg/dL (0.3-1.2); Total Protein 4.6 d/dL (6.2-8.2)
--- NOTE | 2023-01-31 10:05 | P.PN ---
Subjective Progress Note Date: 01/31/23 This is a 67-year-old male patient of Dr. Cordova who presented for an elective low anterior resection with partial omentectomy takedown of splenic flexure with Dr. Farooq on 01/25/2023 due to history of diverticulitis. Patient has a past medical history of diverticulitis with lower GI bleed with previous colonoscopy, Myelodysplastic syndrome, atrial fibrillation in which she is maintained on anticoagulation at home, GERD, hypertension, ex-smoker and previous history of EtOH. At this time patient is currently postop day 1. Patient is resting comfortably in bed epidural is in place for pain control. Did discuss case with surgical team okay to resume home medications Current vital signs temp 99, heart rate 66, respiratory rate 19, blood pressure 117/60 with a pulse ox 96% on room air. On 01/27/2023 patient is alert and oriented 3 currently resting comfortably in bed. Patient remains on epidural. Eliquis remains on hold while patient has epidural in place. heparin SQ for DVT prophylaxis per surgical services has been ordered. Patient remains nothing by mouth. Current vital signs of 98.4, heart 62, respiratory rate 18, blood pressure 143/70 with a pulse ox 96 Dr. Nicolas's group will be covering from 01/28/2023 to 01/30/2023 I'm resuming care patient on 01/31/2023 On 01/31/2033 patient is alert and oriented 3 currently sitting up in chair. Patient maintained on full liquid diet. Patient is passing gas but denies bowel movement. Her vital signs temp 97.7, heart rate 53, respiratory rate 16, blood pressure 143/70 with a pulse ox 97% on room air Objective - Vital Signs Vital signs: Vital Signs Temp 97.7 F 01/31/23 08:19 Pulse 53 L 01/31/23 08:19 Resp 16 01/31/23 08:19 BP 143/70 01/31/23 08:19 Pulse Ox 97 01/31/23 09:27 FiO2 Intake & Output 01/30/23 01/31/23 01/31/23 18:59 06:59 18:59 Output Total 500 Balance -500 Output: Urine 500 Other: # Voids 2 3 - Exam Head normocephalic Neck supple Lungs clear to auscultation bilaterally no wheezing or crackles Heart regular rate and rhythm S1-S2, no rub or gallop Abdomen surgical dressing is clean dry and intact Extremities no edema Neuro alert and orientated to 3 - Labs CBC & Chem 7: 01/31/23 05:29 01/31/23 05:29 Labs: Abnormal Lab Results - Last 24 Hours (Table) 01/31/23 01/31/23 Range/Units 05:29 05:29 RBC 2.32 L (4.40-5.60) X 10*6/uL Hgb 7.9 L (13.0-17.0) d/dL Hct 23.7 L (39.6-50.0) % MCV 102.2 H (80.0-97.0) FL MCH 34.1 H (27.0-32.0) pg Eosinophils # 0.52 H (0.04-0.35) X 10*3/uL BUN 5.3 L (9.0-27.0) mg/dL BUN/Creatinine Ratio 7.57 L (12.00-20.00) Ratio Calcium 8.1 L (8.7-10.3) mg/dL AST 42 H (14-35) U/L Total Protein 4.6 L (6.2-8.2) d/dL Albumin 2.9 L (3.8-4.9) d/dL Assessment and Plan Assessment: 1. History of diverticulitis status post lower anterior resection partial omentectomy and takedown of splenic flexure on 01/25/[address] Farooq 2. History of atrial fibrillation 3. History of GI bleed 4. History of myelodysplastic syndrome. 5. History of chronic back pain 6. History of essential hypertension 7. History of GERD 8. Anemia hbg 7.9 will order stool for occult blood Thank you for this consultation we'll continue to follow patient closely throughout stay Repeat labs ordered for a.m. DVT prophylaxis heparin . Patient maintained on full liquid diet
--- NOTE | 2023-01-31 15:41 | P.PN ---
Progress Note - Text Progress Note Date: 01/31/23 The patient is having flatus. He has not had a significant bowel movement. He denies any significant abdominal pain. He is tolerating full liquid diet. On exam vital signs appear stable. Abdomen soft. Incisions clean dry intact. Patient's he will was noted be 7.9 today. It was previously 10. Patient will have his labs rechecked in the morning. He'll be discharged home after he has a bowel movement.
[2023-01-31] MEDS: diazePAM 5 MG TAB PO SCH (20:43)
[2023-02-01] MEDS: HYDROcodone/APAP 7.5-325MG 1 EACH TAB PO PRN (00:35)
[2023-02-01] MEDS: HYDROmorphone 1 MG/ML 1 ML SYRINGE IVP PRN ×6 (05:15→22:57)
[2023-02-01] MEDS: APIXABAN 5 MG TAB PO SCH ×2 (08:56→20:09)
[2023-02-01] MEDS: LOSARTAN 50 MG TAB PO SCH (08:56)
[2023-02-01] MEDS: LORATADINE 10 MG TAB PO SCH (08:56)
[2023-02-01] MEDS: FLECAINIDE 50 MG TAB PO SCH ×2 (08:57→20:09)
[2023-02-01] MEDS: SULFAMETHOX-TMP 400-80MG 1 EACH TAB PO SCH (08:58)
[2023-02-01 09:10] LABS: ALT 34 U/L (10-49); AST 36 U/L (14-35); Albumin 3.1 d/dL (3.8-4.9); Albumin/Globulin Ratio 1.94 Ratio (1.60-3.17); Alkaline Phosphatase 103 U/L (41-126); BUN/Creat Ratio 5.86 Ratio (12.00-20.00); Blood Urea Nitrogen 4.1 mg/dL (9.0-27.0); Calcium 8.1 mg/dL (8.7-10.3); Carbon Dioxide 26.8 mmol/L (21.6-31.8); Chloride 107 mmol/L (96-109); Globulin 1.6 d/dL (1.6-3.3); Glucose 94 mg/dL (70-110); Potassium 3.3 mmol/L (3.5-5.5); Sodium 142 mmol/L (135-145); Total Bilirubin 0.3 mg/dL (0.3-1.2); Total Protein 4.7 d/dL (6.2-8.2)
[2023-02-01 09:23] LABS: Basophils # (A) 0.01 X 10*3/uL (0.00-0.10); Basophils % (A) 0.2 %; Eosinophils % (A) 11.5 %; HCT 24.5 % (39.6-50.0); HGB 8.2 d/dL (13.0-17.0); Lymphocytes # (A) 1.52 X 10*3/uL (0.90-5.00); MCH 33.7 pg (27.0-32.0); MCHC 33.5 d/dL (32.0-37.0); MCV 100.8 FL (80.0-97.0); Mean Platelet Volume 10.6 FL (9.5-12.2); Monocytes # (A) 0.48 X 10*3/uL (0.20-1.00); Monocytes % (A) 11.1 %; NRBC Per 100 WBC 0 X 10*3/uL (0.00-0.01); Neutrophils # (A) 1.82 X 10*3/uL (1.80-7.70); Platelet Count 164 X 10*3/uL (140-440); RBC 2.43 X 10*6/uL (4.40-5.60); RDW 12.6 % (11.5-14.5); WBC 4.34 X 10*3/uL (4.50-10.00)
[2023-02-01] MEDS: DEXTROSE 5%-0.45% NACL 1,000 ML IV SCH ×3 (11:24→23:01)
--- NOTE | 2023-02-01 18:00 | P.PN ---
Progress Note - Text Progress Note Date: 02/01/23 Patient states he feels about the same as yesterday. He has no significant pain. He's had flatus with no bowel movements. His hemoglobin stable 8.2. On exam vital signs appear stable. Abdomen soft. Incision is clean dry intact. Very of status post sigmoid resection for diverticulitis. Patient wants to stay in the hospital until he has a bowel movement. He is encouraged to ambulate.
[2023-02-01] MEDS: diazePAM 5 MG TAB PO SCH (20:09)
[2023-02-02] MEDS: DEXTROSE 5%-0.45% NACL 1,000 ML IV SCH (03:06)
[2023-02-02] MEDS: HYDROmorphone 1 MG/ML 1 ML SYRINGE IVP PRN ×3 (03:06→11:55)
[2023-02-02 07:47] VITALS: BP 124/61; PULSE 53; RESP 18; TEMP 98.7
[2023-02-02] MEDS: LORATADINE 10 MG TAB PO SCH (08:12)
[2023-02-02] MEDS: LOSARTAN 50 MG TAB PO SCH (08:12)
[2023-02-02] MEDS: FLECAINIDE 50 MG TAB PO SCH (08:12)
[2023-02-02] MEDS: APIXABAN 5 MG TAB PO SCH (08:12)
[2023-02-02] MEDS: HYDROcodone/APAP 7.5-325MG 1 EACH TAB PO PRN (10:16)
--- NOTE | 2023-02-02 10:39 | P.PN ---
Subjective Progress Note Date: 02/01/23 This is a 67-year-old male patient of Dr. Cordova who presented for an elective low anterior resection with partial omentectomy takedown of splenic flexure with Dr. Farooq on 01/25/2023 due to history of diverticulitis. Patient has a past medical history of diverticulitis with lower GI bleed with previous colonoscopy, Myelodysplastic syndrome, atrial fibrillation in which she is maintained on anticoagulation at home, GERD, hypertension, ex-smoker and previous history of EtOH. At this time patient is currently postop day 1. Patient is resting comfortably in bed epidural is in place for pain control. Did discuss case with surgical team okay to resume home medications Current vital signs temp 99, heart rate 66, respiratory rate 19, blood pressure 117/60 with a pulse ox 96% on room air. On 01/27/2023 patient is alert and oriented 3 currently resting comfortably in bed. Patient remains on epidural. Eliquis remains on hold while patient has epidural in place. heparin SQ for DVT prophylaxis per surgical services has been ordered. Patient remains nothing by mouth. Current vital signs of 98.4, heart 62, respiratory rate 18, blood pressure 143/70 with a pulse ox 96 Dr. Nicolas's group will be covering from 01/28/2023 to 01/30/2023 I'm resuming care patient on 01/31/2023 On 01/31/2033 patient is alert and oriented 3 currently sitting up in chair. Patient maintained on full liquid diet. Patient is passing gas but denies bowel movement. Her vital signs temp 97.7, heart rate 53, respiratory rate 16, blood pressure 143/70 with a pulse ox 97% on room air On 02/01/2023 patient is alert and oriented 3 currently resting in bed. Patient is passing gas but denies bowel movement. Patient chest pain or shortness of breath. Patient denies nausea vomiting diarrhea. Patient denies any urinary burning or frequency Objective - Vital Signs Vital signs: Vital Signs Temp 98.1 F 02/01/23 07:38 Pulse 51 L 02/01/23 07:38 Resp 15 02/01/23 07:38 BP 159/70 02/01/23 07:38 Pulse Ox 95 02/01/23 12:47 FiO2 Intake & Output 01/31/23 02/01/23 02/01/23 18:59 06:59 18:59 Output Total 800 200 Balance -800 -200 Weight 76.3 kg Output: Urine 800 200 Other: Voiding Method Toilet Urinal Urinal Urinal # Voids 4 7 1 - Exam Head normocephalic Neck supple Lungs clear to auscultation bilaterally no wheezing or crackles Heart regular rate and rhythm S1-S2, no rub or gallop Abdomen surgical dressing is clean dry and intact Extremities no edema Neuro alert and orientated to 3 - Labs CBC & Chem 7: 02/01/23 05:25 02/01/23 05:25 Labs: Abnormal Lab Results - Last 24 Hours (Table) 02/01/23 02/01/23 Range/Units 05:25 05:25 WBC 4.34 L (4.50-10.00) X 10*3/uL RBC 2.43 L (4.40-5.60) X 10*6/uL Hgb 8.2 L (13.0-17.0) d/dL Hct 24.5 L (39.6-50.0) % MCV 100.8 H (80.0-97.0) FL MCH 33.7 H (27.0-32.0) pg Eosinophils # 0.50 H (0.04-0.35) X 10*3/uL Potassium 3.3 L (3.5-5.5) mmol/L BUN 4.1 L (9.0-27.0) mg/dL BUN/Creatinine Ratio 5.86 L (12.00-20.00) Ratio Calcium 8.1 L (8.7-10.3) mg/dL AST 36 H (14-35) U/L Total Protein 4.7 L (6.2-8.2) d/dL Albumin 3.1 L (3.8-4.9) d/dL Assessment and Plan Assessment: 1. History of diverticulitis status post lower anterior resection partial omentectomy and takedown of splenic flexure on 01/25/[address] Farooq 2. History of atrial fibrillation 3. History of GI bleed 4. History of myelodysplastic syndrome. 5. History of chronic back pain 6. History of essential hypertension 7. History of GERD 8. Anemia hbg 7.9 will order stool for occult blood Thank you for this consultation we'll continue to follow patient closely throughout stay Repeat labs ordered for a.m. DVT prophylaxis heparin . Patient maintained on full liquid diet
--- NOTE | 2023-02-02 10:41 | P.PN ---
Subjective Progress Note Date: 02/02/23 This is a 67-year-old male patient of Dr. Cordova who presented for an elective low anterior resection with partial omentectomy takedown of splenic flexure with Dr. Farooq on 01/25/2023 due to history of diverticulitis. Patient has a past medical history of diverticulitis with lower GI bleed with previous colonoscopy, Myelodysplastic syndrome, atrial fibrillation in which she is maintained on anticoagulation at home, GERD, hypertension, ex-smoker and previous history of EtOH. At this time patient is currently postop day 1. Patient is resting comfortably in bed epidural is in place for pain control. Did discuss case with surgical team okay to resume home medications Current vital signs temp 99, heart rate 66, respiratory rate 19, blood pressure 117/60 with a pulse ox 96% on room air. On 01/27/2023 patient is alert and oriented 3 currently resting comfortably in bed. Patient remains on epidural. Eliquis remains on hold while patient has epidural in place. heparin SQ for DVT prophylaxis per surgical services has been ordered. Patient remains nothing by mouth. Current vital signs of 98.4, heart 62, respiratory rate 18, blood pressure 143/70 with a pulse ox 96 Dr. Nicolas's group will be covering from 01/28/2023 to 01/30/2023 I'm resuming care patient on 01/31/2023 On 01/31/2033 patient is alert and oriented 3 currently sitting up in chair. Patient maintained on full liquid diet. Patient is passing gas but denies bowel movement. Her vital signs temp 97.7, heart rate 53, respiratory rate 16, blood pressure 143/70 with a pulse ox 97% on room air On 02/01/2023 patient is alert and oriented 3 currently resting in bed. Patient is passing gas but denies bowel movement. Patient chest pain or shortness of breath. Patient denies nausea vomiting diarrhea. Patient denies any urinary burning or frequency On 02/02/2023 patient alert and oriented 3. PT OT and case management consulted. Current vital signs temp 98.7, heart rate 52, respiratory 18, blood pressure 124/61 pulse ox 97% patient remains on full liquid diet denies bowel movement. Patient denies chest pain or shortness of breath. Patient denies any urinary burning or frequency Objective - Vital Signs Vital signs: Vital Signs Temp 98.7 F 02/02/23 07:06 Pulse 53 L 02/02/23 07:06 Resp 18 02/02/23 07:06 BP 124/61 02/02/23 07:06 Pulse Ox 97 02/02/23 07:06 FiO2 Intake & Output 02/01/23 02/02/23 02/02/23 18:59 06:59 18:59 Intake Total 1200 Output Total 575 900 Balance 625 -900 Intake: Intake, IV Titration 1200 Amount Dextrose 5%-0.45% NaCl 1, 1200 000 ml @ 125 mls/hr IV . Q8H MARIELOS Rx#:[id number] Output: Urine 575 900 Other: Voiding Method Urinal Urinal # Voids 1 - Exam Head normocephalic Neck supple Lungs clear to auscultation bilaterally no wheezing or crackles Heart regular rate and rhythm S1-S2, no rub or gallop Abdomen surgical dressing is clean dry and intact Extremities no edema Neuro alert and orientated to 3 - Labs CBC & Chem 7: 02/01/23 05:25 02/01/23 05:25 Assessment and Plan Assessment: 1. History of diverticulitis status post lower anterior resection partial omentectomy and takedown of splenic flexure on 01/25/[address] Farooq 2. History of atrial fibrillation 3. History of GI bleed 4. History of myelodysplastic syndrome. 5. History of chronic back pain 6. History of essential hypertension 7. History of GERD 8. Anemia hbg 7.9 will order stool for occult blood Thank you for this consultation we'll continue to follow patient closely throu ghout stay Repeat labs ordered for a.m. DVT prophylaxis heparin . Patient maintained on full liquid diet
[2023-02-02 11:24] LABS: ALT 35 U/L (10-49); AST 35 U/L (14-35); Albumin 3.3 d/dL (3.8-4.9); Albumin/Globulin Ratio 1.83 Ratio (1.60-3.17); Alkaline Phosphatase 105 U/L (41-126); BUN/Creat Ratio 6.43 Ratio (12.00-20.00); Blood Urea Nitrogen 4.5 mg/dL (9.0-27.0); Calcium 8.6 mg/dL (8.7-10.3); Carbon Dioxide 28.2 mmol/L (21.6-31.8); Chloride 105 mmol/L (96-109); Globulin 1.8 d/dL (1.6-3.3); Glucose 91 mg/dL (70-110); Potassium 3.5 mmol/L (3.5-5.5); Sodium 142 mmol/L (135-145); Total Bilirubin 0.4 mg/dL (0.3-1.2); Total Protein 5.1 d/dL (6.2-8.2)
[2023-02-02] MEDS: SULFAMETHOX-TMP 400-80MG 1 EACH TAB PO SCH (11:55)
[2023-02-02 12:18] LABS: Basophils # (A) 0.02 X 10*3/uL (0.00-0.10); Basophils % (A) 0.4 %; Eosinophils # (A) 0.51 X 10*3/uL (0.04-0.35); HCT 27.1 % (39.6-50.0); HGB 8.8 d/dL (13.0-17.0); Lymphocytes # (A) 1.61 X 10*3/uL (0.90-5.00); Lymphocytes % (A) 31.5 %; MCH 33.3 pg (27.0-32.0); MCHC 32.5 d/dL (32.0-37.0); MCV 102.7 FL (80.0-97.0); Mean Platelet Volume 10.1 FL (9.5-12.2); Monocytes # (A) 0.55 X 10*3/uL (0.20-1.00); Monocytes % (A) 10.8 %; NRBC Per 100 WBC 0 X 10*3/uL (0.00-0.01); Neutrophils % (A) 46.9 %; Platelet Count 212 X 10*3/uL (140-440); RBC 2.64 X 10*6/uL (4.40-5.60); RDW 12.7 % (11.5-14.5); WBC 5.11 X 10*3/uL (4.50-10.00)
--- NOTE | 2023-02-02 12:51 | P.DS ---
Providers Date of admission: 01/25/23 07:07 Expected date of discharge: 02/02/23 Attending physician: Kendall Farooq Consults: 01/26/23 06:45 Consult Physician Routine Consulting Provider: Nelsy Zuniga Consult Reason/Comments: med manage Do you want consulting provider notified?: Yes Primary care physician: [facility] Hospital Course: this is a 67-year-old male who underwent uneventful low anterior resection for diverticulitis. Patient's postoperative stay was unremarkable. Patient was stable and if discharge. He was having flatus. He was tolerating full liquid d iet. The patient requests to go home. Procedures: low anterior resection Patient Condition at Discharge: Good Plan - Discharge Summary Discharge Rx Participant: No New Discharge Prescriptions: New Docusate [Colace] 100 mg PO BID #20 capsule Acetaminophen Tab [Tylenol] 650 mg PO Q6H #30 tab Ibuprofen [Motrin] 600 mg PO Q6HR PRN #40 tab PRN Reason: Pain oxyCODONE HCL [OxyIR] 5 mg PO Q6H PRN 3 Days #10 tab PRN Reason: Pain No Action Flecainide Acetate [Tambocor] 100 mg PO BID Omeprazole 40 mg PO BID Loratadine [Claritin] 10 mg PO DAILY Apixaban [Eliquis] 5 mg PO BID Olmesartan [Benicar] 20 mg PO QAM Acyclovir 800 mg PO BID Sulfamethox-Tmp 400-80Mg [Bactrim SS 400-80 mg] 1 tab PO DAILY Docusate [Colace] 100 mg PO BID 30 Days #60 capsule Albuterol Inhaler [Ventolin Hfa Inhaler] 2 puff INHALATION QID PRN PRN Reason: Shortness Of Breath Or Wheezing Lidocaine 5% Patch [Lidoderm] 1 patch TOPICAL DAILY PRN PRN Reason: Pain diazePAM [Valium] 10 mg PO HS oxyCODONE HCL [oxyCODONE HCL (IR)] 15 mg PO Q6H PRN PRN Reason: Pain Sennosides/Docusate Sodium [Senna Plus 8.6-50 mg Tablet] 2 each PO HS Psyllium Husk [Metamucil] 0.4 gm PO DAILY Discharge Medication List Flecainide Acetate [Tambocor] 100 mg PO BID 02/29/20 [History] Omeprazole 40 mg PO BID 05/29/21 [History] Loratadine [Claritin] 10 mg PO DAILY 11/17/21 [History] Acyclovir 800 mg PO BID 11/15/22 [History] Apixaban [Eliquis] 5 mg PO BID 11/15/22 [History] Olmesartan [Benicar] 20 mg PO QAM 11/15/22 [History] Sulfamethox-Tmp 400-80Mg [Bactrim SS 400-80 mg] 1 tab PO DAILY 11/15/22 [Histo ry] oxyCODONE HCL [oxyCODONE HCL (IR)] 15 mg PO Q6H PRN 11/15/22 [History] Docusate [Colace] 100 mg PO BID 30 Days #60 capsule 11/18/22 [Rx] Albuterol Inhaler [Ventolin Hfa Inhaler] 2 puff INHALATION QID PRN 12/09/22 [History] Lidocaine 5% Patch [Lidoderm] 1 patch TOPICAL DAILY PRN 12/09/22 [History] Psyllium Husk [Metamucil] 0.4 gm PO DAILY 12/09/22 [History] Sennosides/Docusate Sodium [Senna Plus 8.6-50 mg Tablet] 2 each PO HS 12/09/22 [History] diazePAM [Valium] 10 mg PO HS 01/25/23 [History] Acetaminophen Tab [Tylenol] 650 mg PO Q6H #30 tab 02/02/23 [Rx] Docusate [Colace] 100 mg PO BID #20 capsule 02/02/23 [Rx] Ibuprofen [Motrin] 600 mg PO Q6HR PRN #40 tab 02/02/23 [Rx] oxyCODONE HCL [OxyIR] 5 mg PO Q6H PRN 3 Days #10 tab 02/02/23 [Rx] Follow up Appointment(s)/Referral(s): [facility], [NON-STAFF] - 1 Week ([facility] will call you to arrange a visit) Kendall Farooq MD [STAFF PHYSICIAN] - 1 Week Discharge Disposition: HOME SELF-CARE
== END 2023-02-02 17:00 | disposition home or self-care (01) | DRG 330 ==
LOC: 2ORMAIN 07:07 → 4SSUR 12:57
PROVIDERS: ADMIT Surgery; ATTEND Surgery
PROC: 0DBU0ZZ Excision of Omentum, Open Approach (ICD-10-PCS; principal; 2023-01-25 08:55)
PROC: 0DTN0ZZ Resection of Sigmoid Colon, Open Approach (ICD-10-PCS; principal; 2023-01-25 08:55)
DX: K57.32 Diverticulitis of large intestine without perforation or abscess without bleeding (principal); S32.059A Unspecified fracture of fifth lumbar vertebra, initial encounter for closed fracture; I10 Essential (primary) hypertension; I48.0 Paroxysmal atrial fibrillation; Z79.01 Long term (current) use of anticoagulants; D46.9 Myelodysplastic syndrome, unspecified; J44.9 Chronic obstructive pulmonary disease, unspecified; Z79.899 Other long term (current) drug therapy; Z87.891 Personal history of nicotine dependence; K59.00 Constipation, unspecified; G89.29 Other chronic pain; M54.9 Dorsalgia, unspecified; Z88.6 Allergy status to analgesic agent; K21.9 Gastro-esophageal reflux disease without esophagitis
CPT/HCPCS: 80048; 80053; 85025; 86850; 86900; 86901; 88307; 94760

== ENCOUNTER → 2023-06-29 | Outpatient (CLI) | payer MEDICARE, OTHER ==
[2023-06-29 18:30] LABS: Anion Gap 9.6 mmol/L (4.00-12.00); Carbon Dioxide 26.4 mmol/L (21.6-31.8); Potassium 3.8 mmol/L (3.5-5.5)
[2023-06-29 19:07] LABS: Basophils # (M) 0 X 10*3/uL (0.00-0.10); Eosinophils # (M) 0 X 10*3/uL (0.04-0.35); HCT 17.9 % (39.6-50.0); HGB 5.7 g/dL (13.0-17.0); Immature Platelet Fraction 5.5 % (1.1-6.1); Lymphocytes # (M) 1.46 X 10*3/uL (0.90-5.00); MCH 36.1 pg (27.0-32.0); MCHC 31.8 g/dL (32.0-37.0); MCV 113.3 FL (80.0-97.0); Macrocytosis (M) 2+; Mean Platelet Volume 11.8 FL (9.5-12.2); Monocytes # (M) 0.03 X 10*3/uL (0.20-1.00); NRBC Per 100 WBC 0 X 10*3/uL (0.00-0.01); Neutrophils % (M) 12 %; Nucleated Red Blood Cells 6 /100 WBCS; Platelet Count 16 X 10*3/uL (140-440); RBC 1.58 X 10*6/uL (4.40-5.60); RDW 20.3 % (11.5-14.5)
== END | disposition home or self-care (01) ==
LOC: LABPAT 13:28
PROVIDERS: ATTEND Surgery
DX: Z01.812 Encounter for preprocedural laboratory examination (principal); K40.90 Unilateral inguinal hernia, without obstruction or gangrene, not specified as recurrent
CPT/HCPCS: 36415; 80051; 85025; 86850; 86900; 86901

== ENCOUNTER 2023-06-30 17:34 | Inpatient (IN) | payer MEDICARE, OTHER ==
--- NOTE | 2023-06-30 18:22 | ED ---
General Adult HPI - General Source: patient, family, RN notes reviewed Mode of arrival: ambulatory Limitations: no limitations <Jenny Garcia - Last Filed: 06/30/23 18:19> - General Source: RN notes reviewed, old records reviewed Mode of arrival: ambulatory Limitations: no limitations - History of Present Illness -: days(s) Improves with: none Worsens with: none Associated Symptoms: malaise, shortness of breath, weakness Treatments Prior to Arrival: none <Romel Jennings - Last Filed: 07/09/23 15:55> - General Chief complaint: Recheck/Abnormal Lab/Rx Stated complaint: Abn Lab Time Seen by Provider: 06/30/23 18:19 - History of Present Illness Initial comments: 67 year old male presents to the emergency department for evaluation of anemia. Patient has a history of myelodysplastic syndrome. He admits to feeling off/lightheaded. (Jenny Garcia) This is a 67-year-old male to the emergency department for evaluation of anemia with severe laboratory abnormalities. Patient feels weak dizzy lightheaded and has been feeling worse for a few days now. Patient has history of underlying myelodysplastic syndrome (Romel Jennings) - Related Data Home Medications Medication Instructions Recorded Confirmed Flecainide Acetate [Tambocor] 100 mg PO BID 02/29/20 07/06/23 Omeprazole 80 mg PO DAILY 05/29/21 07/06/23 Loratadine [Claritin] 10 mg PO DAILY 11/17/21 07/06/23 Olmesartan [Benicar] 20 mg PO DAILY 11/15/22 07/06/23 oxyCODONE HCL [oxyCODONE HCL (IR)] 15 mg PO Q6H PRN 11/15/22 07/06/23 Albuterol Inhaler [Ventolin Hfa 2 puff INHALATION RT-QID PRN 12/09/22 07/06/23 Inhaler] Allergies Allergy/AdvReac Type Severity Reaction Status Date / Time No Known Allergies Allergy Verified 07/06/23 13:33 Review of Systems ROS Other: All systems not noted in ROS Statement are negative. <Jenny Garcia - Last Filed: 06/30/23 18:19> ROS Other: All systems not noted in ROS Statement are negative. <Romel Jennings - Last Filed: 07/09/23 15:55> ROS Statement: Those systems with pertinent positive or pertinent negative responses have been documented in the HPI. Past Medical History Past Medical History: Atrial Fibrillation, Cancer, COPD, GERD/Reflux, GI Bleed, Hypertension, Osteoarthritis (OA), Pneumonia Additional Past Medical History / Comment(s): COLONOSCOPY IN NOVEMBER 2022. IP 11/15/22 for lower GI bleed. Chronic lower back and neck pain, fracture of L5-S1, compression of C3-C7. Diverticulitis. 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, 2022, [facility]OIT) History of Any Multi-Drug Resistant Organisms: None Reported Past Surgical History: Cardiac Ablation, Heart Catheterization, Tonsillectomy Additional Past Surgical History / Comment(s): ORAL SURGERY, COLONOSCOPY, BACK - STEROID INJECTIONS, TIMMY, cardioversion, bone marrow transplant. Past Anesthesia/Blood Transfusion Reactions: No Reported Reaction Past Psychological History: No Psychological Hx Reported Smoking Status: Former smoker Past Alcohol Use History: Daily Past Drug Use History: None Reported - Past Family History Mother Family Medical History: No Reported History <Jenny Garcia - Last Filed: 06/30/23 18:19> General Exam Limitations: no limitations <Jenny Garcia - Last Filed: 06/30/23 18:19> General appearance: alert, in no apparent distress Head exam: Present: atraumatic, normocephalic, normal inspection Eye exam: Present: normal appearance, PERRL, EOMI. Absent: scleral icterus, conjunctival injection, periorbital swelling ENT exam: Present: normal exam, mucous membranes moist Neck exam: Present: normal inspection. Absent: tenderness, meningismus, lymphadenopathy Respiratory exam: Present: normal lung sounds bilaterally. Absent: respiratory distress, wheezes, rales, rhonchi, stridor Cardiovascular Exam: Present: regular rate, normal rhythm, normal heart sounds. Absent: systolic murmur, diastolic murmur, rubs, gallop, clicks GI/Abdominal exam: Present: soft, normal bowel sounds. Absent: distended, tenderness, guarding, rebound, rigid Extremities exam: Present: normal inspection, full ROM, normal capillary refill. Absent: tenderness, pedal edema, joint swelling, calf tenderness Back exam: Present: normal inspection Neurological exam: Present: alert, oriented X3, CN II-XII intact Psychiatric exam: Present: normal affect, normal mood Skin exam: Present: warm, dry, intact, normal color. Absent: rash <Romel Jennings Filed: 07/09/23 15:55> - General Exam Comments Initial Comments: Visual Physical Exam Vital signs reviewed General: Well-appearing, nontoxic, no acute distress. Head: Normocephalic, atraumatic Eyes: PERRLA, EOMI ENT: Airway patent Chest: Nonlabored breathing Skin: No visual rash, normal skin tone Neuro: Alert and oriented 3 Musculoskeletal: No gross abnormalities (KulkaJenny) Course <MichaelaRomel B - Filed: 07/09/23 15:55> Vital Signs 06/30/23 06/30/23 07/01/23 17:51 23:14 01:45 Temperature 98.5 F Pulse Rate 68 78 63 Respiratory 16 16 18 Rate Blood Pressure 120/50 143/72 150/52 O2 Sat by Pulse 99 99 99 Oximetry 07/01/23 07/01/23 07/01/23 02:00 03:00 06:00 Temperature Pulse Rate 58 L 60 60 Respiratory 18 18 18 Rate Blood Pressure 137/64 121/56 120/56 O2 Sat by Pulse 99 99 98 Oximetry 07/01/23 07/01/23 07/01/23 08:38 09:00 09:30 Temperature Pulse Rate 72 Respiratory 18 Rate Blood Pressure 131/57 131/57 131/57 O2 Sat by Pulse 100 Oximetry 07/01/23 07/01/23 07/01/23 10:00 10:30 11:00 Temperature Pulse Rate Respiratory Rate Blood Pressure 131/57 131/57 131/57 O2 Sat by Pulse Oximetry 07/01/23 07/01/23 07/01/23 11:30 12:00 12:09 Temperature Pulse Rate 91 Respiratory 16 Rate Blood Pressure 131/57 131/57 131/55 O2 Sat by Pulse 98 Oximetry 07/01/23 07/01/23 07/01/23 12:30 13:00 13:24 Temperature 98.7 F Pulse Rate 59 L Respiratory 14 Rate Blood Pressure 131/55 131/55 138/67 O2 Sat by Pulse 99 Oximetry 07/01/23 07/01/23 07/01/23 13:30 13:34 13:54 Temperature 98.3 F 98.4 F Pulse Rate 57 L 63 Respiratory 14 16 Rate Blood Pressure 138/67 134/67 138/66 O2 Sat by Pulse 99 100 96 Oximetry 07/01/23 07/01/23 07/01/23 14:00 14:30 15:00 Temperature Pulse Rate Respiratory Rate Blood Pressure 134/67 135/65 132/64 O2 Sat by Pulse 98 98 96 Oximetry 07/01/23 07/01/23 07/01/23 15:30 16:20 16:28 Temperature 98.8 F 98.8 F Pulse Rate 59 L 64 Respiratory 14 14 Rate Blood Pressure 134/69 138/66 138/66 O2 Sat by Pulse 99 99 Oximetry 07/01/23 07/01/23 07/01/23 17:34 17:41 17:44 Temperature 98.2 F 98.3 F 98.6 F Pulse Rate 60 55 L 56 L Respiratory 14 16 14 Rate Blood Pressure 127/66 134/66 134/66 O2 Sat by Pulse 99 98 98 Oximetry 07/01/23 07/01/23 17:53 18:04 Temperature 98.7 F 98.5 F Pulse Rate 55 L 69 Respiratory 14 16 Rate Blood Pressure 140/65 138/78 O2 Sat by Pulse 97 Oximetry - Reevaluation(s) Reevaluation #1: 06/30/23 21:03 Medical records reviewed (Romel Jennings) Reevaluation #2: 06/30/23 21:03 Patient symptoms unchanged (Romel Jennings) Reevaluation #3: 06/30/23 21:03 Patient informed results and questions answered (Romel Jennings) Reevaluation #4: 06/30/23 21:03 Was pt. sent in by a medical professional or institution (, PA, SCRAP CARRIER, urgent care, hospital, or senior living...) When possible be specific @ -no Did you speak to anyone other than the patient for history (EMS, parent, family, police, friend...)? What history was obtained from this source @ -no Did you review nursing and triage notes (agree or disagree)? Why? @ -agree Are old charts reviewed (outside hosp., previous admission, EMS record, old EKG, old radiological studies, urgent care reports/EKG's, senior living records)? Report findings @ -yes Differential Diagnosis (chest pain, altered mental status, abdominal pain women, abdominal pain men, vaginal bleeding, weakness, fever, dyspnea, syncope, headache, dizziness, GI bleed, back pain, seizure, CVA, palpatations, mental health, musculoskeletal)? @ -prior EKG interpreted by me (3pts min.). @ -no X-rays interpreted by me (1pt min.). @ -no CT interpreted by me (1pt min.). @ -no U/S interpreted by me (1pt. min.). @ -no What testing was considered but not performed or refused? (CT, X-rays, U/S, labs)? Why? @ -none What meds were considered but not given or refused? Why? @ -none Did you discuss the management of the patient with other professionals (professionals i.e. , PA, SCRAP CARRIER, lab, RT, psych nurse, social service technician, petroleum engineering professor, teacher, property and supply officer, case management social worker)? Give summary @ -no Was smoking cessation discussed for >3mins.? @ -no Was critical care preformed (if so, how long)? @ -no Were there social determinants of health that impacted care today? How? (Homelessness, low income, unemployed, alcoholism, drug addiction, transportation, low edu. Level, literacy, decrease access to med. care, snf, rehab)? @ -none Was there de-escalation of care discussed even if they declined (Discuss DNR or withdrawal of care, Hospice)? DNR status @ -no What co-morbidities impacted this encounter? (DM, HTN, Smoking, COPD, CAD, Cancer, CVA, ARF, Chemo, Hep., AIDS, mental health diagnosis, sleep apnea, morbid obesity)? @ -none Was patient admitted / discharged? Hospital course, mention meds given and route, prescriptions, significant lab abnormalities, going to OR and other pertinent info. @ - 67 male to the emergency department for evaluation today. Patient presents today for evaluation regards to significant lab abnormalities, patient has significant weakness, anemia will admit for oncology evaluation and treatment Admitted Undiagnosed new problem with uncertain prognosis? @ -no Drug Therapy requiring intensive monitoring for toxicity (Heparin, Nitro, Insulin, Cardizem)? @ -no Were any procedures done? @ -no Diagnosis/symptom? @ -Weakness, anemia Acute, or Chronic, or Acute on Chronic? @ -Acute Uncomplicated (without systemic symptoms) or Complicated (systemic symptoms)? @ -Complicated Side effects of treatment? @ -no Exacerbation, Progression, or Severe Exacerbation? @ -exacerbation Poses a threat to life or bodily function? How? (Chest pain, USA, LA, pneumonia, PE, COPD, DKA, ARF, appy, cholecystitis, CVA, Diverticulitis, Homicidal, Suicidal, threat to staff... and all critical care pts) @ -yes with significant comorbid disease and cancer (Romel Jennings) Reevaluation #5: 06/30/23 21:03 Differential Weakness: Hypoglycemia, shock, sepsis, hyponatremia, anemia, infection, LA, ETOH, adverse medicine reaction, overdose, stroke, this is not meant to be an all-inclusive list. (Romel Jennings) - Consultations Consultation #1: Dr. Zuniga who agrees to admit this patient (Romel Jennings) Medical Decision Making <Jenny Garcia - Last Filed: 06/30/23 18:19> - Lab Data Result diagrams: 07/05/23 08:38 07/05/23 08:38 <Romel Jennings - Last Filed: 07/09/23 15:55> - Medical Decision Making Quick note preformed by Jenny Garcia PA-C (Jenny Garcia) 67 male to the emergency department for evaluation today. Patient presents today for evaluation regards to significant lab abnormalities, patient has significant weakness, anemia will admit for oncology evaluation and treatment (Romel Jennings) - Lab Data Lab Results 06/30/23 06/30/23 06/30/23 Range/Units 18:11 18:11 18:11 WBC 2.2 L (3.8-10.6) k/uL RBC 1.50 L (4.30-5.90) m/uL Hgb 5.7 L* (13.0-17.5) gm/dL Hct 16.6 L* (39.0-53.0) % MCV 110.2 H (80.0-100.0) fL MCH 37.7 H (25.0-35.0) pg MCHC 34.2 (31.0-37.0) g/dL RDW 20.4 H (11.5-15.5) % Plt Count 18 L* (150-450) k/uL MPV 10.5 Neutrophils % (Manual) 15 % Lymphocytes % (Manual) 83 % Monocytes % (Manual) 1 % Eosinophils % (Manual) 1 % Neutrophils # SCR[employer]ER Neutrophils # (Manual) 0.33 L* (1.3-7.7) k/uL Lymphocytes # (Manual) 1.83 (1.0-4.8) k/uL Monocytes # (Manual) 0.02 (0-1.0) k/uL Eosinophils # (Manual) 0.02 (0-0.7) k/uL Nucleated RBCs 0 (0-0) /100 WBC Manual Slide Review Performed Polychromasia Present Hypochromasia Slight Anisocytosis Moderate Macrocytosis Marked A PT 11.4 (10.0-12.5) sec INR 1.0 (<1.2) APTT 24.4 (22.0-30.0) sec Sodium 139 (137-145) mmol/L Potassium 4.0 (3.5-5.1) mmol/L Chloride 105 (98-107) mmol/L Carbon Dioxide 27 (22-30) mmol/L Anion Gap 7 mmol/L BUN 19 (9-20) mg/dL Creatinine 0.73 (0.66-1.25) mg/dL Est GFR (CKD-EPI)AfAm >90 (>60 ml/min/1.73 sqM) Est GFR (CKD-EPI)NonAf >90 (>60 ml/min/1.73 sqM) Glucose 129 H (74-99) mg/dL Calcium 8.3 L (8.4-10.2) mg/dL Iron (65-175) UG/DL TIBC (228-460) UG/DL % Saturation (15.00-50.00) Transferrin (204.0-354.0) mg/dL Ferritin (22.0-322.0) ng/mL Total Bilirubin 0.3 (0.2-1.3) mg/dL AST 17 (17-59) U/L ALT 13 (4-49) U/L Alkaline Phosphatase 61 (38-126) U/L Total Protein 5.9 L (6.3-8.2) g/dL Albumin 3.7 (3.5-5.0) g/dL Vitamin B12 (200.0-944.0) pg/mL 06/30/23 Range/Units 18:11 WBC (3.8-10.6) k/uL RBC (4.30-5.90) m/uL Hgb (13.0-17.5) gm/dL Hct (39.0-53.0) % MCV (80.0-100.0) fL MCH (25.0-35.0) pg MCHC (31.0-37.0) g/dL RDW (11.5-15.5) % Plt Count (150-450) k/uL MPV Neutrophils % (Manual) % Lymphocytes % (Manual) % Monocytes % (Manual) % Eosinophils % (Manual) % Neutrophils # Neutrophils # (Manual) (1.3-7.7) k/uL Lymphocytes # (Manual) (1.0-4.8) k/uL Monocytes # (Manual) (0-1.0) k/uL Eosinophils # (Manual) (0-0.7) k/uL Nucleated RBCs (0-0) /100 WBC Manual Slide Review Polychromasia Hypochromasia Anisocytosis Macrocytosis PT (10.0-12.5) sec INR (<1.2) APTT (22.0-30.0) sec Sodium (137-145) mmol/L Potassium (3.5-5.1) mmol/L Chloride (98-107) mmol/L Carbon Dioxide (22-30) mmol/L Anion Gap mmol/L BUN (9-20) mg/dL Creatinine (0.66-1.25) mg/dL Est GFR (CKD-EPI)AfAm (>60 ml/min/1.73 sqM) Est GFR (CKD-EPI)NonAf (>60 ml/min/1.73 sqM) Glucose (74-99) mg/dL Calcium (8.4-10.2) mg/dL Iron 99 (65-175) UG/DL TIBC 272 (228-460) UG/DL % Saturation 36.40 (15.00-50.00) Transferrin 194.0 L (204.0-354.0) mg/dL Ferritin 641.0 H (22.0-322.0) ng/mL Total Bilirubin (0.2-1.3) mg/dL AST (17-59) U/L ALT (4-49) U/L Alkaline Phosphatase (38-126) U/L Total Protein (6.3-8.2) g/dL Albumin (3.5-5.0) g/dL Vitamin B12 577.0 (200.0-944.0) pg/mL Disposition <Jenny Garcia - Last Filed: 06/30/23 18:19> Is patient prescribed a controlled substance at d/c from ED?: No Time of Disposition: 19:30 <Romel Jennings - Last Filed: 07/09/23 15:55> Clinical Impression: Anemia, Pancytopenia, MDS (myelodysplastic syndrome), Macrocytic anemia Disposition: ADMITTED IP TO THIS HOSP Condition: Stable
[2023-06-30 18:45] LABS: Anisocytosis Moderate; Hypochromasia Slight; MCH 37.7 pg (25.0-35.0); MCHC 34.2 g/dL (31.0-37.0); MCV 110.2 fL (80.0-100.0); Macrocytosis Marked; Mean Platelet Volume 10.5; RDW 20.4 % (11.5-15.5); WBC 2.2 k/uL (3.8-10.6)
[2023-06-30 18:51] LABS: ALT 13 U/L (4-49); AST 17 U/L (17-59); African American GFR (CKD) >90 (>60 ml/min/1.73 sqM); Albumin 3.7 g/dL (3.5-5.0); Alkaline Phosphatase 61 U/L (38-126); Anion Gap 7 mmol/L; Blood Urea Nitrogen 19 mg/dL (9-20); Calcium 8.3 mg/dL (8.4-10.2); Carbon Dioxide 27 mmol/L (22-30); Chloride 105 mmol/L (98-107); Glucose 129 mg/dL (74-99); Non-African American GFR(CKD) >90 (>60 ml/min/1.73 sqM); Sodium 139 mmol/L (137-145); Total Bilirubin 0.3 mg/dL (0.2-1.3); Total Protein 5.9 g/dL (6.3-8.2)
[2023-06-30 19:05] LABS: Partial Thromboplastin Time 24.4 sec (22.0-30.0); Prothrombin Time 11.4 sec (10.0-12.5)
[2023-06-30 19:06] LABS: HCT 16.6 % (39.0-53.0); HGB 5.7 gm/dL (13.0-17.5)
[2023-06-30] MEDS ORDERED: NALOXONE 0.4 MG/ML 1 ML VIAL IV PRN (19:31)
[2023-06-30] MEDS ORDERED: ONDANSETRON 4 MG/2 ML VIAL IVP PRN (19:31)
[2023-06-30] MEDS: SODIUM CHLORIDE 0.9% 1,000 ML IV SCH (19:39)
[2023-06-30 20:09] LABS: Neutrophils % (M) 15 %
[2023-06-30 20:11] LABS: Eosinophils # (M) 0.02 k/uL (0-0.7); Lymphocytes # (M) 1.83 k/uL (1.0-4.8); Monocytes # (M) 0.02 k/uL (0-1.0); Neutrophils # (M) 0.33 k/uL (1.3-7.7); Nucleated Red Blood Cells 0 /100 WBC (0-0); Platelet Count 18 k/uL (150-450); Total Cells Counted 100
[2023-06-30 20:13] LABS: Polychromasia Present
[2023-07-01] MEDS: MORPHINE SULFATE 4 MG/ML SYRINGE IV PRN ×4 (01:46→20:55)
[2023-07-01 07:38] LABS: Anisocytosis Moderate; Basophils % (A) 0 %; Eosinophils # (A) 0.1 k/uL (0-0.7); Eosinophils % (A) 4 %; Hypochromasia Slight; Lymphocytes # (A) 1.3 k/uL (1.0-4.8); Lymphocytes % (A) 79 %; MCH 36.4 pg (25.0-35.0); MCHC 32.4 g/dL (31.0-37.0); MCV 112.5 fL (80.0-100.0); Macrocytosis Marked; Mean Platelet Volume 10.1; Monocytes % (A) 2 %; Neutrophils # (A) 0.2 k/uL (1.3-7.7); Neutrophils % (A) 11 %; RBC 1.41 m/uL (4.30-5.90); RDW 20.7 % (11.5-15.5); WBC 1.7 k/uL (3.8-10.6)
[2023-07-01 07:58] LABS: ALT 10 U/L (4-49); AST 15 U/L (17-59); African American GFR (CKD) >90 (>60 ml/min/1.73 sqM); Albumin 3.1 g/dL (3.5-5.0); Alkaline Phosphatase 57 U/L (38-126); Anion Gap 7 mmol/L; Blood Urea Nitrogen 13 mg/dL (9-20); Calcium 8.1 mg/dL (8.4-10.2); Carbon Dioxide 29 mmol/L (22-30); Chloride 106 mmol/L (98-107); Glucose 89 mg/dL (74-99); Magnesium 1.9 mg/dL (1.6-2.3); Non-African American GFR(CKD) >90 (>60 ml/min/1.73 sqM); Phosphorus 3.7 mg/dL (2.5-4.5); Potassium 3.7 mmol/L (3.5-5.1); Sodium 142 mmol/L (137-145); Total Bilirubin 0.3 mg/dL (0.2-1.3); Total Protein 5.3 g/dL (6.3-8.2)
[2023-07-01 08:02] LABS: HCT 15.9 % (39.0-53.0); HGB 5.1 gm/dL (13.0-17.5); Platelet Count 15 k/uL (150-450)
[2023-07-01] MEDS: SODIUM CHLORIDE 0.9% 1,000 ML IV SCH ×2 (08:38→20:55)
[2023-07-01] MEDS ORDERED: ALBUTEROL NEBULIZED 2.5 MG/3 ML INHALATION PRN (09:00)
[2023-07-01] MEDS ORDERED: OXYCODONE HCL 15 MG PO PRN (09:00)
[2023-07-01] MEDS: LOSARTAN 50 MG TAB PO SCH (09:38)
[2023-07-01] MEDS: FLECAINIDE 50 MG TAB PO SCH ×2 (09:39→20:55)
[2023-07-01] MEDS: PANTOPRAZOLE 40 MG TABLET PO SCH (09:39)
[2023-07-01] MEDS: LORATADINE 10 MG TAB PO SCH (09:39)
--- NOTE | 2023-07-01 11:35 | P.HPIM ---
History of Present Illness H&P Date: 07/01/23 This is a 67-year-old male patient of Dr. Cordova who presents with concerns of pancytopenia. He should reports that he was having routine blood work done for hernia surgery when he was told that his hemoglobin level was quite low. Patient has a history of MDS diagnosed in April 2022 patient received bone marrow transplant and treatment but had been in remission since September 2022. Patient reports he had a resection done with Dr. pedro in January and was planning to have a hernia repair in which he got routine blood work revealing anemia and low platelet count is flat follow-up with general i farmworker was in March at which blood work was normal. He has a past medical history of atrial fibr illation in which she is maintained on eliquis. Additional medical history includes COPD, GERD, GI bleed, hypertension, osteoarthritis. Patient denies any signs of bleeding and is dark stools denies bloody emesis. patient reports he has been having increased fatigue and weakness over the past few weeks. Current vital signs temp 98.5, heart rate 72, respiratory 18, blood pressure 131/57 with a pulse ox of 100% on room air. At this time patient has been admitted to oncology service is consulted. Discussed with nursing staff to recheck oncology services about lab results and need for blood transfusion. 2 units PRBCs have been ordered per oncology services. At this time patient denies chest pain or shortness of breath. Patient denies nausea vomiting or diarrhea. Patient denies any urinary burning or frequency Review of Systems Please refer to HPI otherwise unremarkable Past Medical History Past Medical History: Atrial Fibrillation, Cancer, COPD, GERD/Reflux, GI Bleed, Hypertension, Osteoarthritis (OA), Pneumonia Additional Past Medical History / Comment(s): COLONOSCOPY IN NOVEMBER 2022. IP 11/15/22 for lower GI bleed. Chronic lower back and neck pain, fracture of L5-S1, compression of C3-C7. Diverticulitis. 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, 2022, [facility]) History of Any Multi-Drug Resistant Organisms: None Reported Past Surgical History: Cardiac Ablation, Heart Catheterization, Tonsillectomy Additional Past Surgical History / Comment(s): ORAL SURGERY, COLONOSCOPY, BACK - STEROID INJECTIONS, TIMMY, cardioversion, bone marrow transplant. Past Anesthesia/Blood Transfusion Reactions: No Reported Reaction Past Psychological History: No Psychological Hx Reported Smoking Status: Former smoker Past Alcohol Use History: Daily Past Drug Use History: None Reported - Past Family History Mother Family Medical History: No Reported History Medications and Allergies Home Medications Medication Instructions Recorded Confirmed Type Flecainide Acetate [Tambocor] 100 mg PO BID 02/29/20 06/30/23 History Omeprazole 80 mg PO DAILY 05/29/21 06/30/23 History Loratadine [Claritin] 10 mg PO DAILY 11/17/21 06/30/23 History Apixaban [Eliquis] 5 mg PO BID 11/15/22 06/30/23 History Olmesartan [Benicar] 20 mg PO DAILY 11/15/22 06/30/23 History oxyCODONE HCL [oxyCODONE HCL (IR)] 15 mg PO Q6H PRN 11/15/22 06/30/23 History Albuterol Inhaler [Ventolin Hfa 2 puff INHALATION RT-QID PRN 12/09/22 06/30/23 History Inhaler] Clobetasol Propionate [Temovate 1 applic TOPICAL BID PRN 06/30/23 06/30/23 Hist ory 0.05% Cream] Allergies Allergy/AdvReac Type Severity Reaction Status Date / Time No Known Allergies Allergy Verified 06/30/23 20:07 Physical Exam Vitals: Vital Signs Temp Pulse Resp BP Pulse Ox 07/01/23 08:38 72 18 131/57 100 07/01/23 06:00 60 18 120/56 98 07/01/23 03:00 60 18 121/56 99 07/01/23 02:00 58 L 18 137/64 99 07/01/23 01:45 63 18 150/52 99 06/30/23 23:14 78 16 143/72 99 06/30/23 17:51 98.5 F 68 16 120/50 99 Intake and Output 06/30/23 07/01/23 07/01/23 22:59 06:59 14:59 Output Total 650 Balance -650 Output: Urine 650 Other: Weight 70.307 kg Head normocephalic Neck supple Lungs clear to auscultation bilaterally no wheezing or crackles Heart regular rate and rhythm S1-S2, no rub or gallop Abdomen is soft nontender nondistended positive bowel sounds no hepatosplenom egaly Extremities no edema Neuro alert and orientated to 3 Results CBC & Chem 7: 07/01/23 06:53 07/01/23 06:53 Labs: Abnormal Lab Results - Last 24 Hours (Table) 06/30/23 06/30/23 07/01/23 Range/Units 18:11 18:11 06:53 WBC 2.2 L 1.7 L (3.8-10.6) k/uL RBC 1.50 L 1.41 L (4.30-5.90) m/uL Hgb 5.7 L* 5.1 L* (13.0-17.5) gm/dL Hct 16.6 L* 15.9 L* (39.0-53.0) % MCV 110.2 H 112.5 H (80.0-100.0) fL MCH 37.7 H 36.4 H (25.0-35.0) pg RDW 20.4 H 20.7 H (11.5-15.5) % Plt Count 18 L* 15 L* (150-450) k/uL Neutrophils # 0.2 L* (1.3-7.7) k/uL Neutrophils # (Manual) 0.33 L* (1.3-7.7) k/uL Macrocytosis Marked A Marked A Creatinine (0.66-1.25) mg/dL Glucose 129 H (74-99) mg/dL Calcium 8.3 L (8.4-10.2) mg/dL AST (17-59) U/L Total Protein 5.9 L (6.3-8.2) g/dL Albumin (3.5-5.0) g/dL 07/01/23 Range/Units 06:53 WBC (3.8-10.6) k/uL RBC (4.30-5.90) m/uL Hgb (13.0-17.5) gm/dL Hct (39.0-53.0) % MCV (80.0-100.0) fL MCH (25.0-35.0) pg RDW (11.5-15.5) % Plt Count (150-450) k/uL Neutrophils # (1.3-7.7) k/uL Neutrophils # (Manual) (1.3-7.7) k/uL Macrocytosis Creatinine 0.64 L (0.66-1.25) mg/dL Glucose (74-99) mg/dL Calcium 8.1 L (8.4-10.2) mg/dL AST 15 L (17-59) U/L Total Protein 5.3 L (6.3-8.2) g/dL Albumin 3.1 L (3.5-5.0) g/dL Assessment and Plan Assessment: 1. Anemia. Hemoglobin 5.72 units PRBCs has been ordered per oncology 2. Pancytopenia 3. History of MDS. was diagnosed in April 2022 received bone marrow transplant. has been in remission since September 2022. 4. History of diverticulitis status post lower anterior resection in January [address] pedro 5. History of chronic back pain 6. History of essential hypertenison 7. History of GERD. DVT prophylaxis SCDs. GI prophylaxis Protonix Oncology service is consulted 2 units PRBCs have been ordered per oncology Repeat labs ordered Time with Patient: Greater than 30 (Greater than 60% of the total time spent in counseling and coordination of care)
--- NOTE | 2023-07-01 15:18 | CT ---
EXAMINATION TYPE: CT brain wo con DATE OF EXAM: 07/01/2023 COMPARISON: 12/29/2021 HISTORY: c/o headache CT DLP: 1226.4 mGycm Automated exposure control for dose reduction was used. FINDINGS: The ventricles, basal cisterns and sulci over the convexities within normal limits for the patient's age and there is no mass effect or shift of midline structures. No abnormal density is seen throughout the brain parenchyma and there is no acute intra or extra-axia l hemorrhage. The posterior fossa including the brainstem, fourth ventricle and cerebellar pontine angles are gross ly normal. Intraorbital contents are normal and symmetric. There is mild chronic inflammation in the left maxillary sinus. The remaining paranasal sinuses and m astoid air cells are well aerated. The calvarium is intact. IMPRESSION: Mild chronic inflammation left maxillary sinus with no other significant abnormality seen. There is b een no interval change. There is no acute bleed or mass effect. IMPRESSION:
--- NOTE | 2023-07-01 20:52 | P.CONS ---
History of Present Illness - Reason for Consult Consult date: 07/01/23 MDS Requesting physician: Romel Jnenings - Chief Complaint anemia - History of Present Illness Patient is a 67 yr old male with a significant history of MDS. He is a patient of Dr. Pickard, being treated for MDS in the past. He was last seen in 02/2022, and has been f/u with bone marrow transplant team and Dr. Dia from [facility]. He was initially seen in consult at [facility] in early 12/09. The patient had presented with diverticulitis, and was found to have significant pancytopenia. His lab work up was negative. The patient also gave a history of ongoing heavy alcohol use, and initially the cytopenias were felt to be due to alcohol related bone marrow suppression, exacerbated by acute inflammation. This was supported by improvement in the patient's counts with improvement in his diverticulitis symptoms, and abstinence from alcohol while in the hospital. The patient was discharged from the hospital with plan for outpatient follow-up. On outpatient testing he was noted to have a drop in hemoglobin again when he required a blood transfusion. There was concern for recurrent diverticulitis during this admission. The patient was treated for the same but his counts did not improve significantly. He therefore underwent a bone marrow aspiration and biopsy on 01/07/22. 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 The patient was supported with transfusions during his hospitalization and then discharged. He continued to have CBC as an outpatient with ongoing transfusion support. The patient was referred to BMT and the [facility], and started on Vidaza on 01/28/22, completing 2 cycles in 02/2022. He underwent allogenic stem cell transplant in April 2022. He has continued follow-up with remission of disease, until recent CBC showed abnormal blood counts, with suspected relapse of disease. Patient presented to the ER after he was sent by his oncologist at [facility] for low hemoglobin. Patient reports he has been experiencing generalized weakness and dizziness increasing over the last 1 week. Upon admission CBC showed WBC 1.7, hemoglobin 5.1, platelets 15,000. Patient denies any episodes of acute bleeding. He also is reporting headaches, denies any neurological deficits. Of note patient is on Eliquis for atrial fibrillation. Last dose was approximate [address] brain revealed mild chronic inflammation of the left maxillary sinus with no other significant abnormality seen. No acute bleed or mass effect. Review of Systems 10 point ROS is negative except as stated in the HPI Past Medical History Past Medical History: Atrial Fibrillation, Cancer, COPD, GERD/Reflux, GI Bleed, Hypertension, Osteoarthritis (OA), Pneumonia Additional Past Medical History / Comment(s): COLONOSCOPY IN NOVEMBER 2022. IP 11/15/22 for lower GI bleed. Chronic lower back and neck pain, fracture of L5-S1, compression of C3-C7. Diverticulitis. 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 History of Any Multi-Drug Resistant Organisms: None Reported Past Surgical History: Cardiac Ablation, Heart Catheterization, Tonsillectomy Additional Past Surgical History / Comment(s): ORAL SURGERY, COLONOSCOPY, BACK - STEROID INJECTIONS, TIMMY, cardioversion, bone marrow transplant. Past Anesthesia/Blood Transfusion Reactions: No Reported Reaction Past Psychological History: No Psychological Hx Reported Smoking Status: Former smoker Past Alcohol Use History: Daily Past Drug Use History: None Reported - Past Family History Mother Family Medical History: No Reported History Medications and Allergies Home Medications Medication Instructions Recorded Confirmed Type Flecainide Acetate [Tambocor] 100 mg PO BID 02/29/20 06/30/23 History Omeprazole 80 mg PO DAILY 05/29/21 06/30/23 History Loratadine [Claritin] 10 mg PO DAILY 11/17/21 06/30/23 History Apixaban [Eliquis] 5 mg PO BID 11/15/22 06/30/23 History Olmesartan [Benicar] 20 mg PO DAILY 11/15/22 06/30/23 History oxyCODONE HCL [oxyCODONE HCL (IR)] 15 mg PO Q6H PRN 11/15/22 06/30/23 History Albuterol Inhaler [Ventolin Hfa 2 puff INHALATION RT-QID PRN 12/09/22 06/30/23 History Inhaler] Clobetasol Propionate [Temovate 1 applic TOPICAL BID PRN 06/30/23 06/30/23 History 0.05% Cream] Allergies Allergy/AdvReac Type Severity Reaction Status Date / Time No Known Allergies Allergy Verified 06/30/23 20:07 Physical Exam Vitals: Vital Signs Temp Pulse Resp BP Pulse Ox 07/01/23 08:38 72 18 131/57 100 07/01/23 06:00 60 18 120/56 98 07/01/23 03:00 60 18 121/56 99 07/01/23 02:00 58 L 18 137/64 99 07/01/23 01:45 63 18 150/52 99 06/30/23 23:14 78 16 143/72 99 06/30/23 17:51 98.5 F 68 16 120/50 99 Intake and Output 06/30/23 07/01/23 07/01/23 22:59 06:59 14:59 Output Total 650 Balance -650 Output: Urine 650 Other: Weight 70.307 kg - Constitutional General appearance: average body habitus, no acute distress - EENT Eyes: anicteric sclerae, EOMI ENT: hearing grossly normal - Respiratory Respiratory: bilateral: CTA - Cardiovascular Rhythm: regular Heart sounds: normal: S1, S2 - Gastrointestinal General gastrointestinal: soft, no tenderness - Integumentary Integumentary: no cyanotic, pale - Neurologic grossly intact - Musculoskeletal Musculoskeletal: strength equal bilaterally - Psychiatric Psychiatric: A&O x's 3 Results CBC & Chem 7: 07/01/23 06:53 07/01/23 06:53 Labs: Abnormal Lab Results - Last 24 Hours (Table) 06/30/23 06/30/23 07/01/23 Range/Units 18:11 18:11 06:53 WBC 2.2 L 1.7 L (3.8-10.6) k/uL RBC 1.50 L 1.41 L (4.30-5.90) m/uL Hgb 5.7 L* 5.1 L* (13.0-17.5) gm/dL Hct 16.6 L* 15.9 L* (39.0-53.0) % MCV 110.2 H 112.5 H (80.0-100.0) fL MCH 37.7 H 36.4 H (25.0-35.0) pg RDW 20.4 H 20.7 H (11.5-15.5) % Plt Count 18 L* 15 L* (150-450) k/uL Neutrophils # 0.2 L* (1.3-7.7) k/uL Neutrophils # (Manual) 0.33 L* (1.3-7.7) k/uL Macrocytosis Marked A Marked A Creatinine (0.66-1.25) mg/dL Glucose 129 H (74-99) mg/dL Calcium 8.3 L (8.4-10.2) mg/dL AST (17-59) U/L Total Protein 5.9 L (6.3-8.2) g/dL Albumin (3.5-5.0) g/dL 07/01/23 Range/Units 06:53 WBC (3.8-10.6) k/uL RBC (4.30-5.90) m/uL Hgb (13.0-17.5) gm/dL Hct (39.0-53.0) % MCV (80.0-100.0) fL MCH (25.0-35.0) pg RDW (11.5-15.5) % Plt Count (150-450) k/uL Neutrophils # (1.3-7.7) k/uL Neutrophils # (Manual) (1.3-7.7) k/uL Macrocytosis Creatinine 0.64 L (0.66-1.25) mg/dL Glucose (74-99) mg/dL Calcium 8.1 L (8.4-10.2) mg/dL AST 15 L (17-59) U/L Total Protein 5.3 L (6.3-8.2) g/dL Albumin 3.1 L (3.5-5.0) g/dL CT Scan - head: report reviewed Assessment and Plan (1) MDS (myelodysplastic syndrome) Current Visit: Yes Status: Acute Priority: High Code(s): D46.9 - MYELODYSPLASTIC SYNDROME, UNSPECIFIED SNOMED Code(s): 879893517 (2) Pancytopenia Current Visit: Yes Status: Acute Priority: High Code(s): D61.818 - OTHER PANCYTOPENIA SNOMED Code(s): 694940233 Plan: MDS: -Full history in HPI -The patient was referred to BMT and the [facility], and started on Vidaza on 01/28/22, completing 2 cycles in 02/2022. He underwent allogenic stem cell transplant in April 2022. He has continued follow-up with remission of dis ease, until recent CBC showed abnormal blood counts, with suspected relapse of disease -Will continue f/u with Dr. Dia at [facility] Pancytopenia r/t MDS: -Suspected relapse of disease -Sent by oncologist Dr. Dia for blood transfusion. Reports he has been experiencing generalized weakness and dizziness increasing over the last 1 week. -Upon admission CBC showed WBC 1.7, hemoglobin 5.1, platelets 15,000. Patient denies any episodes of acute bleeding. -2 units irradiated PRBCs ordered -Anemia workup ordered -Please transuse for hgb <7 or for plts <10,000 or if symptomatic. Recommend no anticoagulation for plts less than 50,000. Irradiated blood products only -Also is reporting headaches, denies any neurological deficits. Of note patient is on Eliquis for atrial fibrillation. Last dose was approximate [address] brain ordered. Scan revealed mild chronic inflammation of the left maxillary sinus with no other significant abnormality seen. No acute bleed or mass effect. attests: I have seen and examined pt, performed H&P, developed impression and plan of care. Discussed with dictator. Agree with documentation, dictated as a scribe
[2023-07-01 23:32] LABS: % Iron Saturation 36.4 (15.00-50.00)
[2023-07-02] MEDS: MORPHINE SULFATE 4 MG/ML SYRINGE IV PRN ×6 (01:20→22:48)
[2023-07-02] MEDS: PANTOPRAZOLE 40 MG TABLET PO SCH (05:24)
[2023-07-02] MEDS: SODIUM CHLORIDE 0.9% 1,000 ML IV SCH ×2 (05:24→19:49)
[2023-07-02] MEDS: LORATADINE 10 MG TAB PO SCH (09:39)
[2023-07-02] MEDS: FLECAINIDE 50 MG TAB PO SCH ×2 (09:39→19:49)
[2023-07-02] MEDS: LOSARTAN 50 MG TAB PO SCH (09:39)
--- NOTE | 2023-07-02 13:07 | P.PN ---
Subjective Progress Note Date: 07/02/23 This is a 67-year-old male patient of Dr. Cordova who presents with concerns of pancytopenia. He should reports that he was having routine blood work done for hernia surgery when he was told that his hemoglobin level was quite low. Patient has a history of MDS diagnosed in April 2022 patient received bone marrow transplant and treatment but had been in remission since September 2022. Patient reports he had a resection done with Dr. pedro in January and was planning to have a hernia repair in which he got routine blood work revealing anemia and low platelet count is flat follow-up with competitive athlete was in March at which blood work was normal. He has a past medical history of atrial fibrillation in which she is maintained on eliquis. Additional medical history includes COPD, GERD, GI bleed, hypertension, osteoarthritis. Patient denies any signs of bleeding and is dark stools denies bloody emesis. patient reports he has been having increased fatigue and weakness over the past few weeks. Current vital signs temp 98.5, heart rate 72, respiratory 18, blood pressure 131/57 with a pulse ox of 100% on room air. At this time patient has been admitted to oncology service is consulted. Discussed with nursing staff to recheck oncology services about lab results and need for blood transfusion. 2 units PRBCs have been ordered per oncology services. At this time patient denies chest pain or shortness of breath. Patient denies nausea vomiting or diarrhea. Patient denies any urinary burning or frequency 07/02/2023 patient was seen and examined the telemetry floor, he is alert and oriented 3 in no apparent distress, he received 2 units of red blood cell transfusion yesterday, at this time he denies any complaints, there is no fever or chills no headache or dizziness no chest pain no shortness of breath no cough no nausea or vomiting no abdominal pain no diarrhea and no urinary symptoms. Labs were drawn this morning and are still pending, case was discussed with Dr. Pickard, his hemoglobin today is above 7, patient is cleared by Dr. Pickard for discharge, his hemoglobin is below 7 he will need further transfusion. Objective - Vital Signs Vital signs: Vital Signs Temp 97.9 F 07/02/23 08:00 Pulse 56 L 07/02/23 12:00 Resp 18 07/02/23 08:00 BP 161/69 07/02/23 12:00 Pulse Ox 99 07/02/23 12:00 FiO2 Intake & Output 07/01/23 07/02/23 07/02/23 18:59 06:59 18:59 Intake Total 285 310 240 Output Total 650 Balance -365 310 240 Weight 70.307 kg Intake: Oral 240 Blood Product 285 310 Rc Irr As1 Unit 0 310 [id number] Rc Pheresis Irrad As 3 285 Unit [id number] Output: Urine 650 Other: Voiding Method Toilet Toilet # Voids 1 - Exam In general patient is alert and oriented x 3 in no distress HEENT head normocephalic and atraumatic Neck is supple no JVD no goiter no lymphadenopathy no carotid bruit Chest examination is clear to auscultation no crackles no wheezing Cardiac exam reveals regular heart sounds S1 and S2 no gallops no murmurs Abdomen is soft nontender no organomegaly with normal bowel sounds Extremity exam reveals no edema no cyanosis or clubbing Neurological examination reveals no gross focal deficits - Labs CBC & Chem 7: 07/01/23 06:53 07/01/23 06:53 Labs: Abnormal Lab Results - Last 24 Hours (Table) 06/30/23 07/01/23 Range/Units 18:11 11:25 Transferrin 194.0 L (204.0-354.0) mg/dL Ferritin 641.0 H (22.0-322.0) ng/mL Crossmatch See Detail Assessment and Plan Assessment: 1. Anemia. Hemoglobin 5.72 units PRBCs has been ordered per oncology, awaiting repeat labs 2. Pancytopenia 3. History of MDS. was diagnosed in April 2022 received bone marrow transplant. has been in remission since September 2022. 4. History of diverticulitis status post lower anterior resection in January [address] pedro 5. History of chronic back pain 6. History of essential hypertenison 7. History of GERD. DVT prophylaxis SCDs. GI prophylaxis Protonix Oncology service is consulted 2 units PRBCs have been ordered per oncology, and received yesterday by patient. Repeat labs ordered
--- NOTE | 2023-07-02 13:12 | P.PN ---
Subjective Progress Note Date: 07/02/23 The patient was ambulating in the room, and denied any new complaints. No obvious bleeding, dizziness or syncopal episodes. He is status post 2 units PRBCs Objective - Vital Signs Vital signs: Vital Signs Temp 97.9 F 07/02/23 08:00 Pulse 56 L 07/02/23 12:00 Resp 18 07/02/23 08:00 BP 161/69 07/02/23 12:00 Pulse Ox 99 07/02/23 12:00 FiO2 Intake & Output 07/01/23 07/02/23 07/02/23 18:59 06:59 18:59 Intake Total 285 310 240 Output Total 650 Balance -365 310 240 Weight 70.307 kg Intake: Oral 240 Blood Product 285 310 Rc Irr As1 Unit 0 310 [id number] Rc Pheresis Irrad As 3 285 Unit [id number] Output: Urine 650 Other: Voiding Method Toilet Toilet # Voids 1 - Constitutional General appearance: Present: no acute distress - Labs CBC & Chem 7: 07/01/23 06:53 07/01/23 06:53 Labs: Abnormal Lab Results - Last 24 Hours (Table) 06/30/23 07/01/23 Range/Units 18:11 11:25 Transferrin 194.0 L (204.0-354.0) mg/dL Ferritin 641.0 H (22.0-322.0) ng/mL Crossmatch See Detail Assessment and Plan (1) Pancytopenia Narrative/Plan: The patient is preventing with the current pancytopenia, with severe anemia as well as marked from cytopenia. He is status post 2 units of PRBC for hemoglobin in the low 5 range. He overall feels better. - Repeat CBC has been drawn with results pending - The case was discussed with IM. If hemoglobin is greater than 7, the patient can be discharged home, assuming that the platelets are remaining greater than 10. He will require additional transfusion if the levels are lower than these parameters. - It is anticipated that the patient will likely be able to be discharged home today, or in the next 1-2 days after additional transfusions. In that case he was advised to contact the office early next week. We'll have him come in for repeat blood draw with further transfusions if needed, midweek. Current Visit: Yes Status: Acute Priority: High Code(s): D61.818 - OTHER PANCYTOPENIA SNOMED Code(s): 983039769 (2) MDS (myelodysplastic syndrome) Narrative/Plan: The patient is status post allogenic stem cell transplant, and is on active follow-up with [facility] [place],. His current presentation is concerning for relapse or transformation. The case was discussed with them. If the patient's counts are in a safe range after transfusion is to be discharged, and has a follow-up scheduled with them late next week. Current Visit: Yes Status: Acute Priority: High Code(s): D46.9 - MYELODYSPLASTIC SYNDROME, UNSPECIFIED SNOMED Code(s): 634752876
[2023-07-02 14:05] LABS: Anisocytosis Moderate; Basophils % (A) 0 %; Eosinophils # (A) 0.1 k/uL (0-0.7); Eosinophils % (A) 3 %; HCT 21.9 % (39.0-53.0); Hypochromasia Slight; Lymphocytes # (A) 1.2 k/uL (1.0-4.8); Lymphocytes % (A) 73 %; MCH 35.4 pg (25.0-35.0); MCHC 34.2 g/dL (31.0-37.0); MCV 103.6 fL (80.0-100.0); Macrocytosis Marked; Mean Platelet Volume 8.6; Monocytes % (A) 2 %; Neutrophils # (A) 0.3 k/uL (1.3-7.7); Neutrophils % (A) 18 %; Poikilocytosis Moderate; RBC 2.11 m/uL (4.30-5.90); RDW 23.9 % (11.5-15.5); WBC 1.6 k/uL (3.8-10.6)
[2023-07-02 14:12] LABS: HGB 7.5 gm/dL (13.0-17.5); Platelet Count 15 k/uL (150-450)
[2023-07-02 14:27] LABS: ALT 11 U/L (4-49); AST 17 U/L (17-59); African American GFR (CKD) >90 (>60 ml/min/1.73 sqM); Albumin 3.4 g/dL (3.5-5.0); Alkaline Phosphatase 59 U/L (38-126); Anion Gap 9 mmol/L; Blood Urea Nitrogen 13 mg/dL (9-20); Calcium 8.3 mg/dL (8.4-10.2); Carbon Dioxide 28 mmol/L (22-30); Chloride 105 mmol/L (98-107); Glucose 103 mg/dL (74-99); Non-African American GFR(CKD) >90 (>60 ml/min/1.73 sqM); Potassium 3.8 mmol/L (3.5-5.1); Sodium 142 mmol/L (137-145); Total Bilirubin 0.6 mg/dL (0.2-1.3); Total Protein 5.7 g/dL (6.3-8.2)
[2023-07-03] MEDS: PANTOPRAZOLE 40 MG TABLET PO SCH (02:42)
[2023-07-03] MEDS: MORPHINE SULFATE 4 MG/ML SYRINGE IV PRN ×5 (02:42→20:34)
[2023-07-03] MEDS: SODIUM CHLORIDE 0.9% 1,000 ML IV SCH ×2 (02:43→17:51)
[2023-07-03] MEDS: LOSARTAN 50 MG TAB PO SCH (09:01)
[2023-07-03] MEDS: FLECAINIDE 50 MG TAB PO SCH ×2 (09:01→20:34)
[2023-07-03] MEDS: LORATADINE 10 MG TAB PO SCH (09:01)
[2023-07-03 09:53] LABS: Anisocytosis Moderate; HCT 20.1 % (39.0-53.0); Hypochromasia Slight; MCHC 34.5 g/dL (31.0-37.0); MCV 104.4 fL (80.0-100.0); Macrocytosis Marked; Mean Platelet Volume 8.7; Poikilocytosis Slight; RBC 1.93 m/uL (4.30-5.90); RDW 23.4 % (11.5-15.5); WBC 1.8 k/uL (3.8-10.6)
[2023-07-03 10:33] LABS: Platelet Count 16 k/uL (150-450)
[2023-07-03 10:36] LABS: HGB 6.9 gm/dL (13.0-17.5)
--- NOTE | 2023-07-03 10:44 | P.PN ---
Subjective Progress Note Date: 07/03/23 This is a 67-year-old male patient of Dr. Cordova who presents with concerns of pancytopenia. He should reports that he was having routine blood work done for hernia surgery when he was told that his hemoglobin level was quite low. Patient has a history of MDS diagnosed in April 2022 patient received bone marrow transplant and treatment but had been in remission since September 2022. Patient reports he had a resection done with Dr. pedro in January and was planning to have a hernia repair in which he got routine blood work revealing anemia and low platelet count is flat follow-up with cutter machine was in March at which blood work was normal. He has a past medical history of atrial fibrillation in which she is maintained on eliquis. Additional medical history includes COPD, GERD, GI bleed, hypertension, osteoarthritis. Patient denies any signs of bleeding and is dark stools denies bloody emesis. patient reports he has been having increased fatigue and weakness over the past few weeks. Current vital signs temp 98.5, heart rate 72, respiratory 18, blood pressure 131/57 with a pulse ox of 100% on room air. At this time patient has been admitted to oncology service is consulted. Discussed with nursing staff to recheck oncology services about lab results and need for blood transfusion. 2 units PRBCs have been ordered per oncology services. At this time patient denies chest pain or shortness of breath. Patient denies nausea vomiting or diarrhea. Patient denies any urinary burning or frequency 07/02/2023 patient was seen and examined the telemetry floor, he is alert and oriented 3 in no apparent distress, he received 2 units of red blood cell transfusion yesterday, at this time he denies any complaints, there is no fever or chills no headache or dizziness no chest pain no shortness of breath no cough no nausea or vomiting no abdominal pain no diarrhea and no urinary symptoms. Labs were drawn this morning and are still pending, case was discussed with Dr. Pickard, his hemoglobin today is above 7, patient is cleared by Dr. Pickard for discharge, his hemoglobin is below 7 he will need further transfusion. On 07/03/2023 patient is alert and oriented 3. Patient denies chest pain or shortness breath. Patient denies any nausea vomiting or diarrhea. Patient rut es any urinary burning or frequency. Discussed case with Dr. pickardfor Dr. Pickard recommends holding eliquis due to low platelet count this was discussed with patient she verbalized understanding. Hemoglobin today 6.[address] carranza to be made aware and order blood Objective - Vital Signs Vital signs: Vital Signs Temp 98.1 F 07/02/23 20:00 Pulse 54 L 07/03/23 04:00 Resp 18 07/03/23 04:00 BP 155/69 07/03/23 04:00 Pulse Ox 98 07/03/23 04:00 FiO2 Intake & Output 07/02/23 07/03/23 07/03/23 18:59 06:59 18:59 Intake Total 1320 Balance 1320 Intake: Intake, IV Titration 600 Amount Sodium Chloride 0.9% 1, 600 000 ml @ 75 mls/hr IV . [id number] [facility] Rx#:[id number] Oral 720 Other: Voiding Method Toilet Toilet # Voids 3 2 - Exam In general patient is alert and oriented x 3 in no distress HEENT head normocephalic and atraumatic Neck is supple no JVD no goiter no lymphadenopathy no carotid bruit Chest examination is clear to auscultation no crackles no wheezing Cardiac exam reveals regular heart sounds S1 and S2 no gallops no murmurs Abdomen is soft nontender no organomegaly with normal bowel sounds Extremity exam reveals no edema no cyanosis or clubbing Neurological examination reveals no gross focal deficits - Labs CBC & Chem 7: 07/03/23 09:04 07/02/23 13:20 Labs: Abnormal Lab Results - Last 24 Hours (Table) 07/02/23 07/02/23 07/03/23 Range/Units 13:20 13:20 09:04 WBC 1.6 L 1.8 L (3.8-10.6) k/uL RBC 2.11 L 1.93 L (4.30-5.90) m/uL Hgb 7.5 L D 6.9 L* (13.0-17.5) gm/dL Hct 21.9 L 20.1 L (39.0-53.0) % MCV 103.6 H D 104.4 H (80.0-100.0) fL MCH 35.4 H 36.0 H (25.0-35.0) pg RDW 23.9 H 23.4 H (11.5-15.5) % Plt Count 15 L* 16 L* (150-450) k/uL Neutrophils # 0.3 L* (1.3-7.7) k/uL Macrocytosis Marked A Marked A Glucose 103 H (74-99) mg/dL Calcium 8.3 L (8.4-10.2) mg/dL Total Protein 5.7 L (6.3-8.2) g/dL Albumin 3.4 L (3.5-5.0) g/dL Assessment and Plan Assessment: 1. Anemia. Hemoglobin 5.72 units PRBCs has been ordered per oncology, awaiting repeat labs 2. Pancytopenia 3. History of MDS. was diagnosed in April 2022 received bone marrow transplant. has been in remission since September 2022. 4. History of diverticulitis status post lower anterior resection in January [address] pedro 5. History of chronic back pain 6. History of essential hypertenison 7. History of GERD. DVT prophylaxis SCDs. GI prophylaxis Protonix Oncology service is consulted 2 units PRBCs have been ordered per oncology, and received yesterday by patient. Repeat labs ordered
[2023-07-03 12:40] LABS: Lymphocytes # (M) 1.46 k/uL (1.0-4.8); Monocytes # (M) 0.16 k/uL (0-1.0); Neutrophils # (M) 0.18 k/uL (1.3-7.7); Neutrophils % (M) 10 %; Nucleated Red Blood Cells 0 /100 WBC (0-0); Total Cells Counted 100
[2023-07-03] MEDS: HYDROcodone/APAP 10-325MG 1 EACH TAB PO PRN (18:52)
[2023-07-04] MEDS: HYDROcodone/APAP 10-325MG 1 EACH TAB PO PRN ×5 (00:09→23:58)
[2023-07-04] MEDS: MORPHINE SULFATE 4 MG/ML SYRINGE IV PRN ×4 (03:14→21:19)
[2023-07-04] MEDS: PANTOPRAZOLE 40 MG TABLET PO SCH (06:12)
[2023-07-04] MEDS: SODIUM CHLORIDE 0.9% 1,000 ML IV SCH (06:14)
[2023-07-04 07:38] LABS: Anisocytosis Moderate; Basophils % (A) 0 %; Eosinophils % (A) 2 %; HCT 20.8 % (39.0-53.0); Hypochromasia Slight; Lymphocytes # (A) 1.6 k/uL (1.0-4.8); Lymphocytes % (A) 81 %; MCH 35.1 pg (25.0-35.0); MCHC 33.6 g/dL (31.0-37.0); MCV 104.6 fL (80.0-100.0); Macrocytosis Marked; Mean Platelet Volume 12.6; Monocytes % (A) 2 %; Neutrophils # (A) 0.2 k/uL (1.3-7.7); Neutrophils % (A) 12 %; Poikilocytosis Slight; RBC 1.99 m/uL (4.30-5.90); RDW 22.6 % (11.5-15.5); WBC 1.9 k/uL (3.8-10.6)
[2023-07-04 07:46] LABS: Platelet Count 14 k/uL (150-450)
[2023-07-04 08:21] LABS: ALT 10 U/L (4-49); AST 16 U/L (17-59); African American GFR (CKD) >90 (>60 ml/min/1.73 sqM); Albumin 3.2 g/dL (3.5-5.0); Alkaline Phosphatase 54 U/L (38-126); Anion Gap 5 mmol/L; Blood Urea Nitrogen 12 mg/dL (9-20); Calcium 8.3 mg/dL (8.4-10.2); Carbon Dioxide 26 mmol/L (22-30); Chloride 109 mmol/L (98-107); Glucose 85 mg/dL (74-99); Non-African American GFR(CKD) >90 (>60 ml/min/1.73 sqM); Potassium 3.7 mmol/L (3.5-5.1); Sodium 140 mmol/L (137-145); Total Bilirubin 0.4 mg/dL (0.2-1.3); Total Protein 5.4 g/dL (6.3-8.2)
[2023-07-04] MEDS: FLECAINIDE 50 MG TAB PO SCH ×2 (08:59→21:19)
[2023-07-04] MEDS: LORATADINE 10 MG TAB PO SCH (08:59)
[2023-07-04] MEDS: LOSARTAN 50 MG TAB PO SCH (08:59)
--- NOTE | 2023-07-04 15:35 | P.PN ---
Subjective Progress Note Date: 07/04/23 Principal diagnosis: Pancytopenia status post bone marrow transplant for MDS In follow-up today patient has no complaints, he denies any neurological symptoms, headaches, nosebleeds or other bleeding, fevers, cough, nausea vomiting, abdominal pain or cramping, acute changes in bowel or bladder habits. He is ambulatory independently Objective - Vital Signs Vital signs: Vital Signs Temp 98.0 F 07/04/23 08:52 Pulse 54 L 07/04/23 15:27 Resp 16 07/04/23 15:27 BP 145/67 07/04/23 15:27 Pulse Ox 97 07/04/23 15:27 FiO2 Intake & Output 07/03/23 07/04/23 07/04/23 18:59 06:59 18:59 Intake Total 1320 180 Balance 1320 180 Intake: Intake, IV Titration 600 Amount Sodium Chloride 0.9% 1, 600 000 ml @ 75 mls/hr IV . [id number] [facility] Rx#:[id number] Oral 720 180 Other: Voiding Method Toilet Toilet Toilet # Voids 3 2 - Constitutional General appearance: Present: average body habitus, cooperative, no acute distress - EENT Eyes: Present: anicteric sclerae, EOMI ENT: Present: hearing grossly normal - Respiratory Details: Respirations even and unlabored at rest - Cardiovascular Details: Skin warm and dry to the touch - Peripheral edema leg Peripheral Edema: bilateral: None - Integumentary Integumentary: Present: normal - Neurologic Neurologic: Present: CNII-XII intact - Musculoskeletal Musculoskeletal: Present: strength equal bilaterally - Psychiatric Psychiatric: Present: A&O x's 3, appropriate affect, intact judgment & insight - Labs CBC & Chem 7: 07/04/23 07:04 07/04/23 07:04 Labs: Abnormal Lab Results - Last 24 Hours (Table) 07/01/23 07/04/23 07/04/23 Range/Units 11:25 07:04 07:04 WBC 1.9 L (3.8-10.6) k/uL RBC 1.99 L (4.30-5.90) m/uL Hgb 7.0 L (13.0-17.5) gm/dL Hct 20.8 L (39.0-53.0) % MCV 104.6 H (80.0-100.0) fL MCH 35.1 H (25.0-35.0) pg RDW 22.6 H (11.5-15.5) % Plt Count 14 L* (150-450) k/uL Neutrophils # 0.2 L* (1.3-7.7) k/uL Macrocytosis Marked A Chloride 109 H (98-107) mmol/L Creatinine 0.59 L (0.66-1.25) mg/dL Calcium 8.3 L (8.4-10.2) mg/dL AST 16 L (17-59) U/L Total Protein 5.4 L (6.3-8.2) g/dL Albumin 3.2 L (3.5-5.0) g/dL Crossmatch See Detail Assessment and Plan (1) Pancytopenia Current Visit: Yes Status: Acute Priority: High Code(s): D61.818 - OTHER PANCYTOPENIA SNOMED Code(s): 976919301 (2) MDS (myelodysplastic syndrome) Current Visit: Yes Status: Chronic Priority: High Code(s): D46.9 - MYEL ODYSPLASTIC SYNDROME, UNSPECIFIED SNOMED Code(s): 418958521 Plan: Pancytopenia -New, sudden onset status post bone marrow transplant -Concerns for recurrent disease -Patient has follow-up at [facility] plan to the week, want him to keep that appoint ment -1 unit PRBCs irradiated was ordered for hemoglobin of 7. Let's or 14,000, no transfusion today. -Patient instructed to have a CBC drawn on Tuesday at our office located behind [facility]. Patient will be transfused if needed at that time. -Follow-up appointment is on Tuesday at [facility] so, his labs will be drawn at that time, additional transfusions as needed per their recommendations. -Patient verbalized understanding the plan and is in agreement with the same Myelodysplastic syndrome -Status post bone marrow transplant for the same -New-onset of pancytopenia as stated above -Follow-up with Hematology at [facility] on Tuesday Patient is okay for discharge from a Medical Oncology standpoint after he receives 1 unit of blood and once cleared by Attending another consulting Eladio vivas.
[2023-07-04] MEDS ORDERED: DEXAMETHASONE SOD PHOSPHATE 4 MG/ML 1 ML VIAL IV ONE (19:25)
[2023-07-04] MEDS ORDERED: LACTATED RINGERS 1,000 ML IV SCH (19:30)
[2023-07-05] MEDS: MORPHINE SULFATE 4 MG/ML SYRINGE IV PRN ×2 (03:21→09:19)
[2023-07-05 03:43] VITALS: TEMP 97.8
[2023-07-05] MEDS: HYDROcodone/APAP 10-325MG 1 EACH TAB PO PRN (06:38)
[2023-07-05] MEDS: PANTOPRAZOLE 40 MG TABLET PO SCH (06:38)
[2023-07-05] MEDS: SODIUM CHLORIDE 0.9% 1,000 ML IV SCH (06:38)
[2023-07-05] MEDS ORDERED: HYDROmorphone 0.5 MG/0.5 ML SYRINGE IVP PRN (07:00)
[2023-07-05] MEDS: FLECAINIDE 50 MG TAB PO SCH (09:02)
[2023-07-05] MEDS: LORATADINE 10 MG TAB PO SCH (09:02)
[2023-07-05] MEDS: LOSARTAN 50 MG TAB PO SCH (09:02)
[2023-07-05 09:06] VITALS: BP 160/73; PULSE 58; RESP 16
--- NOTE | 2023-07-05 09:49 | P.DS ---
Providers Date of admission: 06/30/23 19:33 Expected date of discharge: 07/05/23 Attending physician: Nelsy Zuniga Consults: 06/30/23 19:31 Consult Physician Routine Consulting Provider: Salo Arrieta Consult Reason/Comments: known Do you want consulting provider notified?: Yes Primary care physician: Cici Cordova Hospital Course: Diagnosis on discharge: 1. Anemia. Hemoglobin 5.72 units PRBCs has been ordered per oncology, awaiting repeat labs 2. Pancytopenia 3. 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 has been in remission since September 2022. 4. History of diverticulitis status post lower anterior resection in January [address] pedro 5. History of chronic back pain 6. History of essential hypertenison 7. History of GERD. Hospital course: This is a 67-year-old male patient of Dr. Cordova who presents with concerns of pancytopenia. He should reports that he was having routine blood work done for hernia surgery when he was told that his hemoglobin level was quite low. Patient has a history of MDS diagnosed in April 2022 patient received bone marrow transplant and treatment but had been in remission since September 2022. Patient reports he had a resection done with Dr. pedro in January and was planning to have a hernia repair in which he got routine blood work revealing anemia and low platelet count is flat follow-up with environmental services technician was in March at which blood work was normal. He has a past medical history of atrial fibrill ation in which she is maintained on eliquis. Additional medical history includes COPD, GERD, GI bleed, hypertension, osteoarthritis. Patient denies any signs of bleeding and is dark stools denies bloody emesis. patient reports he has been having increased fatigue and weakness over the past few weeks. Current vital signs temp 98.5, heart rate 72, respiratory 18, blood pressure 131/57 with a pulse ox of 100% on room air. At this time patient has been admitted to oncology service is consulted. Discussed with nursing staff to recheck oncology services about lab results and need for blood transfusion. 2 units PRBCs have been ordered per oncology services. At this time patient denies chest pain or shortness of breath. Patient denies nausea vomiting or diarrhea. Patient denies any urinary burning or frequency 07/02/2023 patient was seen and examined the telemetry floor, he is alert and oriented 3 in no apparent distress, he received 2 units of red blood cell transfusion yesterday, at this time he denies any complaints, there is no fever or chills no headache or dizziness no chest pain no shortness of breath no cough no nausea or vomiting no abdominal pain no diarrhea and no urinary symptoms. Labs were drawn this morning and are still pending, case was discussed with Dr. Pickard, his hemoglobin today is above 7, patient is cleared by Dr. Pickard for discharge, his hemoglobin is below 7 he will need further transfusion. 07/02/2023 patient was seen and examined the telemetry floor, he is alert and oriented 3 in no apparent distress, he received 2 units of red blood cell tra nsfusion yesterday, at this time he denies any complaints, there is no fever or chills no headache or dizziness no chest pain no shortness of breath no cough no nausea or vomiting no abdominal pain no diarrhea and no urinary symptoms. Labs were drawn this morning and are still pending, case was discussed with Dr. Pickard, his hemoglobin today is above 7, patient is cleared by Dr. Pickard for discharge, h is hemoglobin is below 7 he will need further transfusion. On 07/03/2023 patient is alert and oriented 3. Patient denies chest pain or shortness breath. Patient denies any nausea vomiting or diarrhea. Patient denies any urinary burning or frequency. Discussed case with Dr. pickardfor Dr. Pickard recommends holding eliquis due to low platelet count this was discussed with patient she verbalized understanding. Hemoglobin today 6.[address] carranza to be made aware and order blood On 07/05/2023 patient's alert and oriented 3. Patient received third unit of blood last night. Patient denies chest pain or shortness breath. Patient denies nausea vomiting diarrhea. Patient denies any urinary frequency patient will be DC'd home eliquis to be held per oncology recommendation patient has fol low-up with [facility] for further workup in regards to MDS. Her vital signs temp 97.8, heart rate 58, respiratory 60, blood pressure 160/73 with pulse ox 100% on room air Patient Condition at Discharge: Stable Plan - Discharge Summary Discharge Rx Participant: No New Discharge Prescriptions: Continue Flecainide Acetate [Tambocor] 100 mg PO BID Omeprazole 80 mg PO DAILY Loratadine [Claritin] 10 mg PO DAILY Olmesartan [Benicar] 20 mg PO DAILY Albuterol Inhaler [Ventolin Hfa Inhaler] 2 puff INHALATION RT-QID PRN PRN Reason: Shortness Of Breath Or Wheezing oxyCODONE HCL [oxyCODONE HCL (IR)] 15 mg PO Q6H PRN PRN Reason: Pain Clobetasol Propionate [Temovate 0.05% Cream] 1 applic TOPICAL BID PRN PRN Reason: Rash Discontinued Apixaban [Eliquis] 5 mg PO BID Discharge Medication List Flecainide Acetate [Tambocor] 100 mg PO BID 02/29/20 [History] Omeprazole 80 mg PO DAILY 05/29/21 [History] Loratadine [Claritin] 10 mg PO DAILY 11/17/21 [History] Olmesartan [Benicar] 20 mg PO DAILY 11/15/22 [History] oxyCODONE HCL [oxyCODONE HCL (IR)] 15 mg PO Q6H PRN 11/15/22 [History] Albuterol Inhaler [Ventolin Hfa Inhaler] 2 puff INHALATION RT-QID PRN 12/09/22 [History] Clobetasol Propionate [Temovate 0.05% Cream] 1 applic TOPICAL BID PRN 06/30/23 [History] Follow up Appointment(s)/Referral(s): Ludwin Pickard [STAFF PHYSICIAN] - 07/06/23 9:00 am (Lab encounter, for possible transfusion ) Cici Cordova MD [Primary Care Provider] - 1-2 days Discharge Disposition: HOME SELF-CARE
--- NOTE | 2023-07-05 09:50 | P.PN ---
Progress Note - Text Progress Note Date: 07/05/23 Patient received 3rd unit PRBCs yesterday 07/04/2023. Patient to be discharged home today in follow-up with oncology services for further management
[2023-07-05 10:04] LABS: ALT 9 U/L (4-49); AST 19 U/L (17-59); African American GFR (CKD) >90 (>60 ml/min/1.73 sqM); Albumin 3.1 g/dL (3.5-5.0); Alkaline Phosphatase 54 U/L (38-126); Anion Gap 5 mmol/L; Blood Urea Nitrogen 10 mg/dL (9-20); Calcium 8.3 mg/dL (8.4-10.2); Carbon Dioxide 27 mmol/L (22-30); Chloride 108 mmol/L (98-107); Glucose 99 mg/dL (74-99); Non-African American GFR(CKD) >90 (>60 ml/min/1.73 sqM); Potassium 3.7 mmol/L (3.5-5.1); Sodium 140 mmol/L (137-145); Total Bilirubin 0.6 mg/dL (0.2-1.3); Total Protein 5.3 g/dL (6.3-8.2)
[2023-07-05 10:38] LABS: Anisocytosis Moderate; HCT 22.9 % (39.0-53.0); HGB 7.8 gm/dL (13.0-17.5); Hypochromasia Slight; MCH 35.9 pg (25.0-35.0); MCV 105.8 fL (80.0-100.0); Macrocytosis Marked; Mean Platelet Volume 12.3; Poikilocytosis Slight; RBC 2.16 m/uL (4.30-5.90); RDW 23.4 % (11.5-15.5); WBC 1.5 k/uL (3.8-10.6)
[2023-07-05 10:39] LABS: Platelet Count 15 k/uL (150-450)
[2023-07-05 11:43] LABS: Eosinophils # (M) 0.03 k/uL (0-0.7); Lymphocytes # (M) 1.11 k/uL (1.0-4.8); Monocytes # (M) 0.05 k/uL (0-1.0); Neutrophils # (M) 0.35 k/uL (1.3-7.7); Neutrophils % (M) 23 %; Nucleated Red Blood Cells 0 /100 WBC (0-0); Total Cells Counted 200
--- NOTE | 2023-07-05 13:30 | P.PN ---
Subjective Progress Note Date: 07/05/23 Principal diagnosis: Pancytopenia status post bone marrow transplant for MDS In follow-up today patient has no complaints. He is being discharged. Objective - Vital Signs Vital signs: Vital Signs Temp 97.8 F 07/05/23 09:00 Pulse 58 L 07/05/23 09:00 Resp 16 07/05/23 09:00 BP 160/73 07/05/23 09:00 Pulse Ox 100 07/05/23 09:00 FiO2 Intake & Output 07/04/23 07/05/23 07/05/23 18:59 06:59 18:59 Intake Total 290 310 Balance 290 310 Intake: Oral 290 Blood Product 310 Rc Irr As1 Unit 310 [id number] Other: Voiding Method Toilet Toilet Toilet # Voids 2 1 - Constitutional General appearance: Present: average body habitus, cooperative, no acute distress - EENT Eyes: Present: anicteric sclerae, EOMI ENT: Present: hearing grossly normal - Respiratory Details: Respirations even and unlabored at rest - Neurologic Neurologic: Present: CNII-XII intact - Musculoskeletal Musculoskeletal: Present: strength equal bilaterally - Psychiatric Psychiatric: Present: A&O x's 3, appropriate affect, intact judgment & insight - Labs CBC & Chem 7: 07/05/23 08:38 07/05/23 08:38 Labs: Abnormal Lab Results - Last 24 Hours (Table) 07/04/23 07/05/23 07/05/23 Range/Units 12:16 08:38 08:38 WBC 1.5 L (3.8-10.6) k/uL RBC 2.16 L (4.30-5.90) m/uL Hgb 7.8 L (13.0-17.5) gm/dL Hct 22.9 L (39.0-53.0) % MCV 105.8 H (80.0-100.0) fL MCH 35.9 H (25.0-35.0) pg RDW 23.4 H (11.5-15.5) % Plt Count 15 L* (150-450) k/uL Neutrophils # (Manual) 0.35 L* (1.3-7.7) k/uL Macrocytosis Marked A Chloride 108 H (98-107) mmol/L Creatinine 0.54 L (0.66-1.25) mg/dL Calcium 8.3 L (8.4-10.2) mg/dL Total Protein 5.3 L (6.3-8.2) g/dL Albumin 3.1 L (3.5-5.0) g/dL Crossmatch See Detail Assessment and Plan (1) Pancytopenia Status: Acute Priority: High Code(s): D61.818 - OTHER PANCYTOPENIA SNOMED Code(s): 306488598 (2) MDS (myelodysplastic syndrome) Status: Chronic Priority: High Code(s): D46.9 - MYELODYSPLASTIC SYNDROME, UNSPECIFIED SNOMED Code(s): 138300603 Plan: Pancytopenia -New, sudden onset status post bone marrow transplant -Concerns for recurrent disease -Patient has follow-up at [facility] Tue, he will keep that appointment -1 unit PRBCs irradiated was ordered for hemoglobin of 7 yesterday, given last night, Hgb 7.8 today. Plt 15,000, no transfusion today. -Patient instructed to have a CBC drawn on Tuesday at our office located behind [facility]. Patient will be transfused if needed at that time. -Follow-up appointment is on Tuesday at [facility] so, his labs will be drawn at that time, additional transfusions as needed per their recommendations. -Patient verbalized understanding the plan and is in agreement with the same Myelodysplastic syndrome -Status post bone marrow transplant for the same -New-onset of pancytopenia as stated above -Follow-up with Hematology at [facility] on Tuesday Patient is okay for discharge from a Medical Oncology standpoint after he receives 1 unit of blood and once cleared by Attending another consulting Physicians.
== END 2023-07-05 11:21 | disposition home or self-care (01) | DRG 809 ==
LOC: EC 17:34 → 2ORWHC 19:33 → 3SCARD 20:35
PROVIDERS: ADMIT Internal Medicine; ATTEND Internal Medicine
PROC: 30233N1 Transfusion of Nonautologous Red Blood Cells into Peripheral Vein, Percutaneous Approach (ICD-10-PCS; principal; 2023-07-01)
DX: D61.818 Other pancytopenia (principal); Z94.81 Bone marrow transplant status; Z94.84 Stem cells transplant status; D46.9 Myelodysplastic syndrome, unspecified; D46.20 Refractory anemia with excess of blasts, unspecified; I10 Essential (primary) hypertension; J44.9 Chronic obstructive pulmonary disease, unspecified; K21.9 Gastro-esophageal reflux disease without esophagitis; Z87.19 Personal history of other diseases of the digestive system; G89.29 Other chronic pain; M19.90 Unspecified osteoarthritis, unspecified site; I48.91 Unspecified atrial fibrillation; Z79.01 Long term (current) use of anticoagulants; Z79.899 Other long term (current) drug therapy; Z87.891 Personal history of nicotine dependence; M54.9 Dorsalgia, unspecified
CPT/HCPCS: 36415; 70450; 80053; 82607; 82728; 82746; 83540; 83550; 83735; 83921; 84100; 85025; 85610; 85730; 86850; 86900; 86901; 86920; 96361; 96374; 96376; 99285

== ENCOUNTER 2023-09-12 00:14 | Emergency (ER) | payer MEDICARE, OTHER ==
[2023-09-12 00:47] VITALS: TEMP 98.9
--- NOTE | 2023-09-12 01:15 | ED ---
Weakness HPI - General Chief complaint: Recheck/Abnormal Lab/Rx Stated complaint: Weakness Time Seen by Provider: 09/12/23 00:35 Source: EMS Mode of arrival: EMS Limitations: no limitations - History of Present Illness Initial comments: This is a 67-year-old male to the ER today. Patient presents today for evaluation regards to significant shakes swelling pain. Patient has severe symptoms of lightheadedness weakness and not feeling well. Patient does suffer from MDS with need for prior transfusion. Patient's pain has been increasingly [id number] as he is also becoming increasingly weak with nausea no vomiting no fevers MD Complaint: generalized weakness (Significant diaphoresis), lack of energy, difficulty walking -: days(s) Location: generalized Severity: severe Severity scale (1-10): 8 Improves with: none Worsens with: none Context: recent illness, history of similar Associated Symptoms: confusion, loss of appetite, nausea/vomiting, shortness of breath - Related Data Home Medications Medication Instructions Recorded Confirmed Flecainide Acetate [Tambocor] 100 mg PO BID 02/29/20 07/06/23 Omeprazole 80 mg PO DAILY 05/29/21 07/06/23 Loratadine [Claritin] 10 mg PO DAILY 11/17/21 07/06/23 Olmesartan [Benicar] 20 mg PO DAILY 11/15/22 07/06/23 oxyCODONE HCL [oxyCODONE HCL (IR)] 15 mg PO Q6H PRN 11/15/22 07/06/23 Albuterol Inhaler [Ventolin Hfa 2 puff INHALATION RT-QID PRN 12/09/22 07/06/23 Inhaler] Previous Rx's Medication Instructions Recorded HYDROcodone/APAP 10-325MG [Bayard 1 tab PO Q6H PRN #12 tab 09/12/23 10-325] Allergies Allergy/AdvReac Type Severity Reaction Status Date / Time No Known Allergies Allergy Verified 09/12/23 00:24 Review of Systems ROS Statement: Those systems with pertinent positive or pertinent negative responses have been documented in the HPI. ROS Other: All systems not noted in ROS Statement are negative. Past Medical History Past Medical History: Atrial Fibrillation, Cancer, COPD, GERD/Reflux, GI Bleed, Hypertension, Osteoarthritis (OA), Pneumonia Additional Past Medical History / Comment(s): COLONOSCOPY IN NOVEMBER 2022. IP 11/15/22 for lower GI bleed. Chronic lower back and neck pain, fracture of L5-S1, compression of C3-C7. Diverticulitis. 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, 2022, [facility]) History of Any Multi-Drug Resistant Organisms: None Reported Past Surgical History: Cardiac Ablation, Heart Catheterization, Tonsillectomy Additional Past Surgical History / Comment(s): ORAL SURGERY, COLONOSCOPY, BACK - STEROID INJECTIONS, TIMMY, cardioversion, bone marrow transplant APRIL 202021 Past Anesthesia/Blood Transfusion Reactions: No Reported Reaction Past Psychological History: No Psychological Hx Reported Smoking Status: Former smoker Past Alcohol Use History: Daily Past Drug Use History: None Reported - Past Family History Mother Family Medical History: No Reported History General Exam Limitations: no limitations General appearance: alert, in no apparent distress Head exam: Present: atraumatic, normocephalic, normal inspection Eye exam: Present: normal appearance, PERRL, EOMI. Absent: scleral icterus, conjunctival injection, periorbital swelling ENT exam: Present: normal exam, mucous membranes moist Neck exam: Present: normal inspection. Absent: tenderness, meningismus, lymphadenopathy Respiratory exam: Present: normal lung sounds bilaterally. Absent: respiratory distress, wheezes, rales, rhonchi, stridor Cardiovascular Exam: Present: regular rate, normal rhythm, normal heart sounds. Absent: systolic murmur, diastolic murmur, rubs, gallop, clicks GI/Abdominal exam: Present: soft, normal bowel sounds. Absent: distended, tenderness, guarding, rebound, rigid Extremities exam: Present: normal inspection, full ROM, normal capillary refill. Absent: tenderness, pedal edema, joint swelling, calf tenderness Back exam: Present: normal inspection Neurological exam: Present: alert, oriented X3, CN II-XII intact Psychiatric exam: Present: normal affect, normal mood Skin exam: Present: warm, dry, intact, normal color. Absent: rash Course Vital Signs 09/12/23 09/12/23 09/12/23 00:23 03:28 04:39 Temperature 98.9 F Pulse Rate 65 68 59 L Respiratory 18 22 12 Rate Blood Pressure 156/73 139/70 130/63 O2 Sat by Pulse 98 99 96 Oximetry 09/12/23 05:10 Temperature Pulse Rate 61 Respiratory 16 Rate Blood Pressure 140/66 O2 Sat by Pulse 97 Oximetry - Reevaluation(s) Reevaluation #1: 09/12/23 01:58 Medical records reviewed Reevaluation #2: 09/12/23 01:58 Patient symptoms unchanged 09/12/23 01:58 His pain is controlled Reevaluation #3: The patient regarding findings and questions answered Reevaluation #4: Was pt. sent in by a medical professional or institution (KATARINA Alston, TRANSPORTATION PLANNING ENGINEER, urgent care, hospital, or [facility]...) When possible be specific @ -no Did you speak to anyone other than the patient for history (EMS, parent, family, police, friend...)? What history was obtained from this source @ -no Did you review nursing and triage notes (agree or disagree)? Why? @ -agree Are old charts reviewed (outside hosp., previous admission, EMS record, old EKG, old radiological studies, urgent care reports/EKG's, [facility] records)? Report findings @ -yes Differential Diagnosis (chest pain, altered mental status, abdominal pain women, abdominal pain men, vaginal bleeding, weakness, fever, dyspnea, syncope, headache, dizziness, GI bleed, back pain, seizure, CVA, palpatations, mental health, musculoskeletal)? @ -prior EKG interpreted by me (3pts min.). @ -yes X-rays interpreted by me (1pt min.). @ -no CT interpreted by me (1pt min.). @ -no U/S interpreted by me (1pt. min.). @ -no What testing was considered but not performed or refused? (CT, X-rays, U/S, labs)? Why? @ -none What meds were considered but not given or refused? Why? @ -none Did you discuss the management of the patient with other professionals (professionals i.e. KATARINA Alston, TRANSPORTATION PLANNING ENGINEER, lab, RT, psych nurse, director of social services, industrial twisting machine operator, teacher, photographic intelligence officer, transplant case manager)? Give summary @ -no Was smoking cessation discussed for >3mins.? @ -no Was critical care preformed (if so, how long)? @ -no Were there social determinants of health that impacted care today? How? (Homelessness, low income, unemployed, alcoholism, drug addiction, transportation, low edu. Level, literacy, decrease access to med. care, longterm, rehab)? @ -none Was there de-escalation of care discussed even if they declined (Discuss DNR or withdrawal of care, Hospice)? DNR status @ -no What co-morbidities impacted this encounter? (DM, HTN, Smoking, COPD, CAD, Cancer, CVA, ARF, Chemo, Hep., AIDS, mental health diagnosis, sleep apnea, morbid obesity)? @ -none Was patient admitted / discharged? Hospital course, mention meds given and route, prescriptions, significant lab abnormalities, going to OR and other pertinent info. @ - 67 male to ER for evaluation of pain and severe cancer associated pain vinny ent is very concerned in regards to his hemoglobin but hemoglobin is normal here in the ER. Patient feels well and can be discharged home Discharge Undiagnosed new problem with uncertain prognosis? @ -no Drug Therapy requiring intensive monitoring for toxicity (Heparin, Nitro, Insulin, Cardizem)? @ -no Were any procedures done? @ -no Diagnosis/symptom? @ -Cancer associated pain Acute, or Chronic, or Acute on Chronic? @ -Acute Uncomplicated (without systemic symptoms) or Complicated (systemic symptoms)? @ -Complicated Side effects of treatment? @ -no Exacerbation, Progression, or Severe Exacerbation? @ -exacerbation Poses a threat to life or bodily function? How? (Chest pain, USA, MD, pneumonia, PE, COPD, DKA, ARF, appy, cholecystitis, CVA, Diverticulitis, Homicidal, Suicidal, threat to staff... and all critical care pts) @ -yes significant cancer Reevaluation #5: Differential Weakness: Hypoglycemia, shock, sepsis, hyponatremia, anemia, infection, MD, ETOH, adverse medicine reaction, overdose, stroke, this is not meant to be an all-inclusive list. EKG Findings - EKG Comments: EKG Findings:: EKG sinus bradycardia 55 PA 157 QRS 105 QTc 315 - EKG Results: EKG: interpreted by [facility] Medical Decision Making - Medical Decision Making 67 male to ER for evaluation of pain and severe cancer associated pain patient is very concerned in regards to his hemoglobin but hemoglobin is normal here in the ER. Patient feels well and can be discharged home - Lab Data Result diagrams: 09/12/23 01:20 09/12/23 01:20 Lab Results 03/09/12/23 09/12/23 Range/Units 01:20 01:20 01:20 WBC 5.0 (3.8-10.6) k/uL RBC 2.14 L (4.30-5.90) m/uL Hgb 7.6 L (13.0-17.5) gm/dL Hct 22.5 L (39.0-53.0) % MCV 105.1 H (80.0-100.0) fL MCH 35.4 H (25.0-35.0) pg MCHC 33.6 (31.0-37.0) g/dL RDW 22.4 H (11.5-15.5) % Plt Count 16 L* (150-450) k/uL MPV 9.6 Neutrophils % 64 % Lymphocytes % 23 % Monocytes % 1 % Eosinophils % 11 % Basophils % 0 % Neutrophils # 3.2 (1.3-7.7) k/uL Lymphocytes # 1.1 (1.0-4.8) k/uL Monocytes # 0.0 (0-1.0) k/uL Eosinophils # 0.5 (0-0.7) k/uL Basophils # 0.0 (0-0.2) k/uL Manual Slide Review Performed Anisocytosis Moderate Macrocytosis Marked A Ovalocytes Present PT 12.1 (10.0-12.5) sec INR 1.1 (<1.2) APTT 26.6 (22.0-30.0) sec Sodium (137-145) mmol/L Potassium (3.5-5.1) mmol/L Chloride (98-107) mmol/L Carbon Dioxide (22-30) mmol/L Anion Gap mmol/L BUN (9-20) mg/dL Creatinine (0.66-1.25) mg/dL Est GFR (CKD-EPI)AfAm (>60 ml/min/1.73 sqM) Est GFR (CKD-EPI)NonAf (>60 ml/min/1.73 sqM) Glucose (74-99) mg/dL Calcium (8.4-10.2) mg/dL Phosphorus (2.5-4.5) mg/dL Magnesium (1.6-2.3) mg/dL Total Bilirubin (0.2-1.3) mg/dL AST (17-59) U/L ALT (4-49) U/L Alkaline Phosphatase (38-126) U/L Troponin I (0.000-0.034) ng/mL NT-Pro-B Natriuret Pep pg/mL Total Protein (6.3-8.2) g/dL Albumin (3.5-5.0) g/dL Urine Color Yellow Urine Appearance Clear (Clear) Urine pH 7.5 (5.0-8.0) Ur Specific [place] 1.020 (1.001-1.035) Urine Protein Trace H (Negative) Urine Glucose (UA) Negative (Negative) Urine Ketones Negative (Negative) Urine Blood Negative (Negative) Urine Nitrite Negative (Negative) Urine Bilirubin Negative (Negative) Urine Urobilinogen 8.0 (<2.0) mg/dL Ur Leukocyte Esterase Negative (Negative) Serum Alcohol mg/dL 09/12/23 09/12/23 Range/Units 01:20 01:20 WBC (3.8-10.6) k/uL RBC (4.30-5.90) m/uL Hgb (13.0-17.5) gm/dL Hct (39.0-53.0) % MCV (80.0-100.0) fL MCH (25.0-35.0) pg MCHC (31.0-37.0) g/dL RDW (11.5-15.5) % Plt Count (150-450) k/uL MPV Neutrophils % % Lymphocytes % % Monocytes % % Eosinophils % % Basophils % % Neutrophils # (1.3-7.7) k/uL Lymphocytes # (1.0-4.8) k/uL Monocytes # (0-1.0) k/uL Eosinophils # (0-0.7) k/uL Basophils # (0-0.2) k/uL Manual Slide Review Anisocytosis Macrocytosis Ovalocytes PT (10.0-12.5) sec INR (<1.2) APTT (22.0-30.0) sec Sodium 139 (137-145) mmol/L Potassium 3.6 (3.5-5.1) mmol/L Chloride 107 (98-107) mmol/L Carbon Dioxide 25 (22-30) mmol/L Anion Gap 7 mmol/L BUN 15 (9-20) mg/dL Creatinine 0.54 L (0.66-1.25) mg/dL Est GFR (CKD-EPI)AfAm >90 (>60 ml/min/1.73 sqM) Est GFR (CKD-EPI)NonAf >90 (>60 ml/min/1.73 sqM) Glucose 118 H (74-99) mg/dL Calcium 8.2 L (8.4-10.2) mg/dL Phosphorus 3.6 (2.5-4.5) mg/dL Magnesium 1.8 (1.6-2.3) mg/dL Total Bilirubin 1.0 (0.2-1.3) mg/dL AST 86 H (17-59) U/L ALT 76 H (4-49) U/L Alkaline Phosphatase 203 H (38-126) U/L Troponin I <0.012 (0.000-0.034) ng/mL NT-Pro-B Natriuret Pep 899 pg/mL Total Protein 6.0 L (6.3-8.2) g/dL Albumin 3.3 L (3.5-5.0) g/dL Urine Color Urine Appearance (Clear) Urine pH (5.0-8.0) Ur Specific [place] (1.001-1.035) Urine Protein (Negative) Urine Glucose (UA) (Negative) Urine Ketones (Negative) Urine Blood (Negative) Urine Nitrite (Negative) Urine Bilirubin (Negative) Urine Urobilinogen (<2.0) mg/dL Ur Leukocyte Esterase (Negative) Serum Alcohol <10 mg/dL - EKG Data -: EKG Interpreted by [place] - Radiology Data Radiology results: report reviewed (Chest x-ray is negative for acute disease), image reviewed Disposition Clinical Impression: Cancer associated pain Disposition: HOME SELF-CARE Condition: Good Instructions (If sedation given, give patient instructions): Pain Management (ED) Prescriptions: HYDROcodone/APAP 10-325MG [Bayard 10-325] 1 tab PO Q6H PRN #12 tab PRN Reason: Pain Is patient prescribed a controlled substance at d/c from ED?: No Referrals: Cici Cordova MD [Primary Care Provider] - 1-2 days Time of Disposition: 04:30
[2023-09-12 01:50] LABS: Appearance,Urine Clear (Clear); Bilirubin,Urine Negative (Negative); Blood,Urine Negative (Negative); Color,Urine Yellow; Glucose,Urine (UA) Negative (Negative); Ketones,Urine Negative (Negative); Leukocyte Esterase,Urine Negative (Negative); Nitrite,Urine Negative (Negative); PH, Urine 7.5 (5.0-8.0); Protein,Urine Trace (Negative)
[2023-09-12] MEDS: HYDROmorphone 1 MG/ML 1 ML SYRINGE IVP STA ×2 (01:50→04:38)
[2023-09-12] MEDS: SODIUM CHLORIDE 0.9% 1,000 ML IV STA (01:57)
--- NOTE | 2023-09-12 01:57 | XR ---
EXAMINATION TYPE: XR chest 1V portable DATE OF EXAM: 09/12/2023 COMPARISON: Chest x-ray March 31, 2022 HISTORY: Chest pain TECHNIQUE: Single frontal view of the chest is obtained. FINDINGS: There is no suspicious new focal air space opacity, pleural effusion, or pneumothorax seen . The cardiac silhouette size is stable and within normal limits with atherosclerotic change in the aortic. The osseous structures are intact. IMPRESSION: No acute process. No significant change from prior.
[2023-09-12 02:00] LABS: INR 1.1 (<1.2); Partial Thromboplastin Time 26.6 sec (22.0-30.0); Prothrombin Time 12.1 sec (10.0-12.5)
[2023-09-12 02:11] LABS: ALT 76 U/L (4-49); AST 86 U/L (17-59); African American GFR (CKD) >90 (>60 ml/min/1.73 sqM); Albumin 3.3 g/dL (3.5-5.0); Alcohol <10 mg/dL; Alkaline Phosphatase 203 U/L (38-126); Anion Gap 7 mmol/L; Blood Urea Nitrogen 15 mg/dL (9-20); Calcium 8.2 mg/dL (8.4-10.2); Carbon Dioxide 25 mmol/L (22-30); Chloride 107 mmol/L (98-107); Glucose 118 mg/dL (74-99); Magnesium 1.8 mg/dL (1.6-2.3); Non-African American GFR(CKD) >90 (>60 ml/min/1.73 sqM); Phosphorus 3.6 mg/dL (2.5-4.5); Potassium 3.6 mmol/L (3.5-5.1); Sodium 139 mmol/L (137-145)
[2023-09-12 02:19] LABS: NT-Pro-B-Type Natriuretic Pept 899 pg/mL
[2023-09-12 03:41] LABS: Anisocytosis Moderate; Basophils % (A) 0 %; Eosinophils # (A) 0.5 k/uL (0-0.7); Eosinophils % (A) 11 %; HCT 22.5 % (39.0-53.0); HGB 7.6 gm/dL (13.0-17.5); Lymphocytes # (A) 1.1 k/uL (1.0-4.8); Lymphocytes % (A) 23 %; MCH 35.4 pg (25.0-35.0); MCHC 33.6 g/dL (31.0-37.0); MCV 105.1 fL (80.0-100.0); Macrocytosis Marked; Mean Platelet Volume 9.6; Monocytes % (A) 1 %; Neutrophils # (A) 3.2 k/uL (1.3-7.7); Neutrophils % (A) 64 %; Platelet Count 16 k/uL (150-450); RBC 2.14 m/uL (4.30-5.90); RDW 22.4 % (11.5-15.5)
[2023-09-12 04:06] LABS: Ovalocytes Present
[2023-09-12] MEDS ORDERED: HYDROmorphone 1 MG/ML 1 ML SYRINGE IVP PRN (04:15)
[2023-09-12] MEDS: diphenhydrAMINE 50 MG/ML 1 ML VIAL IVP STA (04:39)
[2023-09-12] MEDS: HYDROmorphone 2 MG TAB PO STA (05:08)
[2023-09-12] MEDS: traMADol 50 MG STARTER PACK 3 TAB BTL PO STA (05:10)
[2023-09-12 05:30] VITALS: BP 140/66; PULSE 61; RESP 16
== END 2023-09-12 05:17 | disposition home or self-care (01) ==
LOC: EC 00:14
DX: G89.3 Neoplasm related pain (acute) (chronic) (principal); R00.1 Bradycardia, unspecified; Z87.891 Personal history of nicotine dependence; Z94.81 Bone marrow transplant status
CPT/HCPCS: 99285; 96374; 96375; 96376; 96361; 36415; 93005; 83880; 80053; 83735; 84100; 84484; 85025; 85610; 85730; 81003; 71045; G0480; J1200; J1170; 80320

== ENCOUNTER → 2024-12-10 | Outpatient (CLI) | payer MEDICARE, OTHER | END | disposition home or self-care (01) | LOC: LABWHC1 15:16 | PROVIDERS: ATTEND Internal Medicine Hematology & Oncology | DX: D46.4 Refractory anemia, unspecified (principal) | CPT/HCPCS: 86850; 86900; 86901 ==

== ENCOUNTER 2025-01-02 14:19 | Emergency (ER) | payer MEDICARE, OTHER ==
--- NOTE | 2025-01-02 14:54 | ED ---
General Adult HPI - General Chief complaint: Recheck/Abnormal Lab/Rx Stated complaint: Fatigued Time Seen by Provider: 01/02/25 14:25 Source: patient Mode of arrival: ambulatory Limitations: no limitations - History of Present Illness Initial comments: Patient is a 69-year-old gentleman with a past medical history of myelodysplastic syndrome presenting today for low platelets on outpatient labs. Patient is having his blood checked weekly due to being on chemotherapy. He predominantly sees Dr. Pickard as well as goes down to [facility] in [place]. Blood work today showed platelets of 3.9, white blood cell counts 1.2, hemoglobin of 6.5 so sent to the ER for transfusion. Patient denies lightheadedness, dizziness, shortness of breath, chest pain, recent falls, new weakness, abdominal pain, nausea, vomiting, hematuria, melena, hematochezia. States he does have numbness in his fingertips and toes due to cervical spine issues but otherwise denies new numbness. Denies additional complaints. No recent fevers, chills. - Related Data Home Medications Medication Instructions Recorded Confirmed Loratadine [Claritin] 10 mg PO DAILY 11/17/21 01/02/25 Olmesartan [Benicar] 20 mg PO DAILY 11/15/22 01/02/25 Acyclovir [Zovirax] 400 mg PO BID 01/02/25 01/02/25 Buprenorphine HCl/Naloxone HCl 1 film SL TID 01/02/25 01/02/25 [Suboxone 2 mg-0.5 mg Sl Film] Ciprofloxacin HCl [Cipro] 500 mg PO DAILY 01/02/25 01/02/25 Finasteride [Proscar] 5 mg PO DAILY 01/02/25 01/02/25 Fluconazole [Diflucan] 100 mg PO DAILY 01/02/25 01/02/25 Folic Acid 1 mg PO DAILY 01/02/25 01/02/25 Metoclopramide [Reglan] 10 mg PO ACHS PRN 01/02/25 01/02/25 Metoprolol Tartrate [Lopressor] 12.5 mg PO BID 01/02/25 01/02/25 OLANZapine [ZyPREXA] 5 mg PO HS 01/02/25 01/02/25 Ondansetron [Zofran] 4 mg PO TID PRN 01/02/25 01/02/25 Pantoprazole [Protonix] 40 mg PO DAILY 01/02/25 01/02/25 Potassium Chloride ER [K-Dur 20] 20 meq PO BID 01/02/25 01/02/25 Tamsulosin [Flomax] 0.4 mg PO DAILY 01/02/25 01/02/25 busPIRone HCl [Buspar] 10 mg PO DAILY 01/02/25 01/02/25 diphenhydrAMINE HCL [Children's 12.5 mg PO BID PRN 01/02/25 01/02/25 Benadryl Allergy Chews] hydrALAZINE HCL [Apresoline] 25 mg PO TID 01/02/25 01/02/25 oxyCODONE HCL [OxyIR] 5 mg PO QID 01/02/25 01/02/25 Allergies Allergy/AdvReac Type Severity Reaction Status Date / Time No Known Allergies Allergy Verified 01/02/25 16:24 Review of Systems ROS Statement: Those systems with pertinent positive or pertinent negative responses have been documented in the HPI. ROS Other: All systems not noted in ROS Statement are negative. Past Medical History Past Medical History: Atrial Fibrillation, Cancer, COPD, GERD/Reflux, GI Bleed, Hypertension, Osteoarthritis (OA), Pneumonia Additional Past Medical History / Comment(s): COLONOSCOPY IN NOVEMBER 2022. IP 11/15/22 for lower GI bleed. Chronic lower back and neck pain, fracture of L5-S1, compression of C3-C7. Diverticulitis. 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, 2022, [facility]) History of Any Multi-Drug Resistant Organisms: None Reported Past Surgical History: Cardiac Ablation, Heart Catheterization, Tonsillectomy Additional Past Surgical History / Comment(s): ORAL SURGERY, COLONOSCOPY, BACK - STEROID INJECTIONS, TIMMY, cardioversion, bone marrow transplant APRIL 202021 Past Anesthesia/Blood Transfusion Reactions: No Reported Reaction Past Psychological History: No Psychological Hx Reported Smoking Status: Former smoker - Past Family History Mother Family Medical History: No Reported History General Exam - General Exam Comments Initial Comments: PE: CONSTITUTIONAL: [no apparent distress, well appearing] SKIN: [warm, dry, no jaundice, hives or petechiae, generalized pallor, no purpura or hematomas] EYES:[ pupils are equally round, extraocular movements intact without nystagmus, pale conjunctiva, non-icteric sclera] HENT: [normocephalic, atraumatic, moist mucus membranes, oropharynx clear without exudates, no petechiae visualized] NECK: , [Full range of motion, normal appearance] PULMONARY: [clear to auscultation without wheezes, rhonchi, or rales, normal excursion, no accessory muscle use and no stridor] CARDIOVASCULAR:[ regular rate, rhythm, normal S1 and S2. No appreciated murmurs, rubs or gallops. Strong radial pulses with intact distal perfusion. No lower extremity edema] GASTROINTESTINAL: [soft, active bowel sounds throughout, non-tender, non- distended, no palpable masses, no rebound or guarding. No hepatosplenomegaly] MUSCULOSKELETAL: [Extremities have no gross deformity, no edema, redness, or swelling. ] NEUROLOGIC: [_a/o x 3, GCS 15, normal mentation and speech. Moves all extremities x 4 without motor or sensory deficit] PSYCHIATRIC:[ _normal mood and affect, thought process is clear and linear] Limitations: no limitations Course Vital Signs 01/02/25 01/02/25 01/02/25 14:21 16:31 16:46 Temperature 97.8 F 98.6 F 98.4 F Pulse Rate 51 L 46 L 42 L Respiratory 16 16 16 Rate Blood Pressure 179/67 140/59 158/65 O2 Sat by Pulse 95 100 100 Oximetry 01/02/25 01/02/25 01/02/25 17:06 19:49 20:14 Temperature 98.0 F 98 F 98.3 F Pulse Rate 49 L 50 L 52 L Respiratory 18 17 17 Rate Blood Pressure 146/63 150/62 151/61 O2 Sat by Pulse 96 100 98 Oximetry 01/02/25 01/02/25 20:34 20:55 Temperature 97.7 F 98 F Pulse Rate 54 L 71 Respiratory 17 17 Rate Blood Pressure 148/63 158/67 O2 Sat by Pulse 100 95 Oximetry Medical Decision Making - Medical Decision Making Was pt. sent in by a medical professional or institution (, PA, [employer], urgent care, hospital, or correction...) When possible be specific @ -[Sent by template cutter Dr. Pickard Did you speak to anyone other than the patient for history (EMS, parent, family, police, friend...)? What history was obtained from this source @ -No Did you review nursing and triage notes (agree or disagree)? Why? @ -I reviewed nursing and triage notes Were old charts reviewed (outside hosp., previous admission, EMS record, old EKG, old radiological studies, urgent care reports/EKG's, correction records)? Report findings @ -Medical records reviewed-reviewed medical records presenting with patient, shows hemoglobin of 6.5, platelets 3.9, white blood cell 1.2, patient Differential Diagnosis (chest pain, altered mental status, abdominal pain women, abdominal pain men, vaginal bleeding, weakness, fever, dyspnea, syncope, headache, dizziness, GI bleed, back pain, seizure, CVA, palpatations, mental health, musculoskeletal)? @Differential diagnosis considerations include leukemia, myelodysplastic syndrome, medication side effect, ITP, TTPm infection this is not an all inclusive list EKG interpreted by me (3pts min.). @ -As above X-rays interpreted by me (1pt min.). @ -None done CT interpreted by me (1pt min.). @ -None done U/S interpreted by me (1pt. min.). @ -None done What testing was considered but not performed or refused? (CT, X-rays, U/S, labs)? Why? @ -None What meds were considered but not given or refused? Why? @ -None Did you discuss the management of the patient with other professionals (professionals i.e. , PA, [employer]ER, lab, RT, psych nurse, social media marketing manager, leather grainer, t eacher, transit police officer, case repairer)? Give summary @ -No Was smoking cessation discussed for >3mins.? @ -No Was critical care preformed (if so, how long)? @ -No Were there social determinants of health that impacted care today? How? (Homelessness, low income, unemployed, alcoholism, drug addiction, transportation, low edu. Level, literacy, decrease access to med. care, fci, rehab)? @ -No Was there de-escalation of care discussed even if they declined (Discuss DNR or withdrawal of care, Hospice)? @ -No What co-morbidities impacted this encounter? (DM, HTN, Smoking, COPD, CAD, Cancer, CVA, ARF, Chemo, Hep., AIDS, mental health diagnosis, sleep apnea, morbid obesity)? @Myelodysplastic syndrome Was patient admitted / discharged? Hospital course, mention meds given and route, prescriptions, significant lab abnormalities, going to OR and other pertinent info. @Discharged- Pt is a 69-year-old history male hx myelodysplastic syndrome presenting for low platelets, low hemoglobin on outpatient labs. Vital signs stable on arrival. Patient has no petechiae or purpura. Generalized pallor n oted. No additional complaints. No fevers. Will recheck labs and administer PRBCs and platelets as indicated. Case discussed with JR Kerns with Dr. Pickard's office, if pt asymptomatic can be given 1 unit platelets, 1 unit PRBCs and discharged for outpatient follow up between tomorrow and Tuesday. Discussed this with pt to which he was agreeable. Labs significant for pancytopenia, platelets 6, Hgb 6.7. Pt received blood products as recommended. On reassessment pt remains well appearing. Pt and agreeable with plan for discharge. Instructed to follow up with Dr. Pickard's office tomorrow morning. Additionally they were given signs and symptoms to monitor for warranting return to the ED such as petechia, fevers or shortness of breath. In my medical judgment there is currently no evidence of an immediate life- threatening or surgical condition. Discharge is therefore indicated at this time. Discharge treatment instructions, follow up instructions, and appropriate emergency department return precautions were discussed with the patient and/or medical decision maker. Patient and/or medical decision maker expressed understanding of and agreed with the treatment plan, follow up instructions, and emergency department return precaution. All patient's and/or medical decision maker's questions were answered. The patient was instructed to return to the ED for any changes in symptoms, p ersistent symptoms, inability to obtain proper follow-up or for any further concerns. Patient received verbal and written instructions for this condition. Undiagnosed new problem with uncertain prognosis? @ -No Drug Therapy requiring intensive monitoring for toxicity (Heparin, Nitro, Insulin, Cardizem)? @ -No Were any procedures done? @ -No Diagnosis/symptom? @Pancytopenia Acute, or Chronic, or Acute on Chronic? @Acute Uncomplicated (without systemic symptoms) or Complicated (systemic symptoms)? @Uncomplicated Side effects of treatment? @Patient's labs today were likely a side effect of chemotherapy and myelodysplastic syndrome Exacerbation, Progression, or Severe Exacerbation? @ -No Poses a threat to life or bodily function? How? (Chest pain, [place], [place], pneumonia, PE, COPD, DKA, ARF, appy, cholecystitis, CVA, Diverticulitis, Homicidal, Suicidal, threat to staff... and all critical care pts) @ -No not at time of discharge - Lab Data Result diagrams: 01/02/25 15:09 01/02/25 15:09 Lab Results 01/02/25 01/02/25 01/02/25 Range/Units 15:09 15:09 15:09 WBC 1.29 L* (4.50-10.00) 10*3/uL RBC 1.89 L (4.40-5.60) 10*6/uL Hgb 6.7 L* (13.0-17.0) g/dL Hct 19.9 L* (39.6-50.0) % MCV 105.3 H (80.0-97.0) fL MCH 35.4 H (27.0-32.0) pg MCHC 33.7 (32.0-37.0) g/dL Plt Count 6 L* (140-440) 10*3/uL MPV 13.0 H (9.5-12.2) fL Immature Gran % (Auto) 1.6 % Neutrophils % (Manual) 31 % Lymphocytes % (Manual) 67 % Monocytes % (Manual) 1 % Eosinophils % (Manual) 1 % Immature Gran # 0.02 (0.00-0.04) 10*3/uL Neutrophils # [employer] Neutrophils # (Manual) 0.40 L* (1.3-7.7) k/uL Lymphocytes # (Manual) 0.86 L (1.0-4.8) k/uL Monocytes # (Manual) 0.01 (0-1.0) k/uL Eosinophils # (Manual) 0.01 (0-0.7) k/uL Nucleated RBCs 0 (0-0) /100 WBC Manual Slide Review Performed PT 11.1 (10.0-12.5) sec INR 1.0 (<1.2) APTT 19.4 L (22.0-30.0) sec Sodium 137 (137-145) mmol/L Potassium 4.9 (3.5-5.1) mmol/L Chloride 101 (98-107) mmol/L Carbon Dioxide 26 (22-30) mmol/L Anion Gap 10 mmol/L BUN 32 H (9-20) mg/dL Creatinine 1.20 (0.66-1.25) mg/dL Est GFR (CKD-EPI)AfAm 70 (>60 ml/min/1.73 sqM) Est GFR (CKD-EPI)NonAf 61 (>60 ml/min/1.73 sqM) Glucose 116 H (74-99) mg/dL Calcium 9.4 (8.4-10.2) mg/dL Total Bilirubin 0.5 (0.2-1.3) mg/dL AST 25 (17-59) U/L ALT 18 (4-49) U/L Alkaline Phosphatase 72 (38-126) U/L Total Protein 6.0 L (6.3-8.2) g/dL Albumin 4.0 (3.5-5.0) g/dL Blood Type Blood Type Recheck Bld Type Recheck Status Antibody Screen Crossmatch Transfuse Platelets Spec Expiration Date 01/02/25 01/02/25 Range/Units 15:09 16:00 WBC (4.50-10.00) 10*3/uL RBC (4.40-5.60) 10*6/uL Hgb (13.0-17.0) g/dL Hct (39.6-50.0) % MCV (80.0-97.0) fL MCH (27.0-32.0) pg MCHC (32.0-37.0) g/dL Plt Count (140-440) 10*3/uL MPV (9.5-12.2) fL Immature Gran % (Auto) % Neutrophils % (Manual) % Lymphocytes % (Manual) % Monocytes % (Manual) % Eosinophils % (Manual) % Immature Gran # (0.00-0.04) 10*3/uL Neutrophils # Neutrophils # (Manual) (1.3-7.7) k/uL Lymphocytes # (Manual) (1.0-4.8) k/uL Monocytes # (Manual) (0-1.0) k/uL Eosinophils # (Manual) (0-0.7) k/uL Nucleated RBCs (0-0) /100 WBC Manual Slide Review PT (10.0-12.5) sec INR (<1.2) APTT (22.0-30.0) sec Sodium (137-145) mmol/L Potassium (3.5-5.1) mmol/L Chloride (98-107) mmol/L Carbon Dioxide (22-30) mmol/L Anion Gap mmol/L BUN (9-20) mg/dL Creatinine (0.66-1.25) mg/dL Est GFR (CKD-EPI)AfAm (>60 ml/min/1.73 sqM) Est GFR (CKD-EPI)NonAf (>60 ml/min/1.73 sqM) Glucose (74-99) mg/dL Calcium (8.4-10.2) mg/dL Total Bilirubin (0.2-1.3) mg/dL AST (17-59) U/L ALT (4-49) U/L Alkaline Phosphatase (38-126) U/L Total Protein (6.3-8.2) g/dL Albumin (3.5-5.0) g/dL Blood Type O Positive Blood Type Recheck O Pos Bld Type Recheck Status No Antibody Screen NEGATIVE Crossmatch See Detail Transfuse Platelets 01/02/25 Spec Expiration Date 01/05/20252308 Disposition Clinical Impression: Pancytopenia Disposition: HOME SELF-CARE Condition: Stable Instructions (If sedation given, give patient instructions): Pancytopenia (DC) Additional Instructions: Every disease is a spectrum and a small chance still exists that a serious condition could develop, for this reason, please monitor yourself closely for new, changing or worsening symptoms, easy bruising, new rash especially if you see red spots appear on your lips, gums or across your skin, easy bleeding, should you hit your head or have black or bloody stools, shortness of breath, lightheadedness or dizziness, fever, inability to tolerate/keep down fluids or your medications, inability to follow up with outpatient providers as instructed and should you experience these symptoms or should you have any further concerns for your wellbeing please return to the ED or call 911 immediately. Please follow-up with Dr. Pickard's office in 24 hours. PLEASE call your primary care physician as soon as possible to arrange / discuss plan for followup appointment. Appointment in the next 1-3 days is strongly encouraged if possible. PLEASE let us know here before you leave if there is anything further we can do to be of any assistance. Take care and feel Better! Is patient prescribed a controlled substance at d/c from ED?: No Referrals: Cici Cordova MD [Primary Care Provider] - 1-2 days
[2025-01-02 15:28] LABS: MCH 35.4 pg (27.0-32.0); MCHC 33.7 g/dL (32.0-37.0); MCV 105.3 fL (80.0-97.0); RBC 1.89 10*6/uL (4.40-5.60); RDW 16.2 % (11.5-14.5)
[2025-01-02 15:49] LABS: ALT 18 U/L (4-49); AST 25 U/L (17-59); African American GFR (CKD) 70 (>60 ml/min/1.73 sqM); Albumin 4.0 g/dL (3.5-5.0); Alkaline Phosphatase 72 U/L (38-126); Anion Gap 10 mmol/L; Blood Urea Nitrogen 32 mg/dL (9-20); Calcium 9.4 mg/dL (8.4-10.2); Carbon Dioxide 26 mmol/L (22-30); Chloride 101 mmol/L (98-107); Glucose 116 mg/dL (74-99); HGB 6.7 g/dL (13.0-17.0); Non-African American GFR(CKD) 61 (>60 ml/min/1.73 sqM); Potassium 4.9 mmol/L (3.5-5.1); Sodium 137 mmol/L (137-145); Total Protein 6.0 g/dL (6.3-8.2); WBC 1.29 10*3/uL (4.50-10.00)
[2025-01-02 15:50] LABS: HCT 19.9 % (39.6-50.0); INR 1.0 (<1.2); Prothrombin Time 11.1 sec (10.0-12.5)
[2025-01-02 15:51] LABS: Platelet Count 6 10*3/uL (140-440)
[2025-01-02 15:55] LABS: Partial Thromboplastin Time 19.4 sec (22.0-30.0)
[2025-01-02 16:59] LABS: Neutrophils % (M) 31 %
[2025-01-02 17:00] LABS: Eosinophils # (M) 0.01 k/uL (0-0.7); Lymphocytes # (M) 0.86 k/uL (1.0-4.8); Monocytes # (M) 0.01 k/uL (0-1.0); Neutrophils # (M) 0.40 k/uL (1.3-7.7); Total Cells Counted 100
[2025-01-02 19:51] VITALS: RESP 17
[2025-01-02 20:56] VITALS: BP 158/67; PULSE 71; TEMP 98
== END 2025-01-02 21:01 | disposition home or self-care (01) ==
LOC: EC 14:19
DX: D61.818 Other pancytopenia (principal); Z87.891 Personal history of nicotine dependence
CPT/HCPCS: 99284 ×2; 36430 ×2; 36415; 86900; 86901; 80053; 85025; 85610; 85730; 86850; 86920; P9040; P9073

== ENCOUNTER → 2025-01-16 | Day surgery (SDC) | payer MEDICARE, OTHER ==
[2025-01-16 07:30] VITALS: BP 175/68; PULSE 45; RESP 16; TEMP 97.7
[2025-01-16 07:38] LABS: Basophils # (A) 0.01 10*3/uL (0.00-0.10); Basophils % (A) 0.7 %; Eosinophils # (A) 0.00 10*3/uL (0.04-0.35); Eosinophils % (A) 0.0 %; HCT 21.6 % (39.6-50.0); HGB 7.6 g/dL (13.0-17.0); Immature Platelet Fraction 2.8 % (1.1-6.1); Lymphocytes # (A) 0.67 10*3/uL (0.90-5.00); Lymphocytes % (A) 45.9 %; MCH 33.3 pg (27.0-32.0); MCHC 35.2 g/dL (32.0-37.0); MCV 94.7 fL (80.0-97.0); Monocytes # (A) 0.01 10*3/uL (0.20-1.00); Monocytes % (A) 0.7 %; Neutrophils # (A) 0.72 10*3/uL (1.80-7.70); Neutrophils % (A) 49.3 %; RBC 2.28 10*6/uL (4.40-5.60); RDW 17.5 % (11.5-14.5)
[2025-01-16 07:44] LABS: WBC 1.46 10*3/uL (4.50-10.00)
[2025-01-16 09:38] LABS: Platelet Count 12 10*3/uL (140-440)
== END ==
LOC: CATHCVL 06:00
PROVIDERS: ATTEND Internal Medicine Hematology & Oncology
DX: D46.22 Refractory anemia with excess of blasts 2 (principal)
CPT/HCPCS: 36573; 85025; C1751